=== PATIENT | female | born 1960 | race Caucasian/White ===

== ENCOUNTER 2016-11-21 12:13 | Inpatient (IN) ==
[2016-11-21] MEDS ORDERED: 0.9 % Sodium Chloride 1,000 ML ONE (12:42)
[2016-11-21] MEDS ORDERED: 0.9 % Sodium Chloride 1,000 ML IVC ONE ×2 (12:44→13:47)
[2016-11-21] MEDS ORDERED: Ipratropium/Albuterol Neb 3 ML IH ONE (13:00)
[2016-11-21 13:21] LABS: Basophils % 0.2 %; Eosinophils # 0.1 K/mcL (0.0-0.6); Eosinophils % 0.5 %; Hematocrit 34.9 % (35.3-44.9); Hemoglobin 11.2 g/dL (11.5-15.4); Immature Granulocytes % 0.7 % (0-4); Lymphocytes # 1.9 K/mcL (0.6-4.6); Lymphocytes % 11.4 %; Mean Corpuscular HGB Conc 32.1 g/dL (31.6-35.5); Mean Corpuscular Hemoglobin 29.9 pg (28.0-33.3); Mean Corpuscular Volume 93.1 fL (83.0-100.0); Mean Platelet Volume 9.5 fL (9.4-12.4); Monocytes # 0.9 K/mcL (0.0-1.3); Monocytes % 5.5 %; Neutrophils # 13.2 K/mcL (1.6-8.9); Platelet Count 309 K/mcL (140-400); Red Blood Count 3.75 M/mcL (3.82-4.97); Red Cell Distribution Width 14.3 % (11.5-14.5); Segmented Neutrophils % 81.7 %
[2016-11-21 13:33] LABS: INR 1.1; Prothrombin Time 11.4 Seconds (9.4-12.1)
[2016-11-21 13:36] LABS: Activated Partial Thrombo Time 28.3 Seconds (26.0-36.0)
[2016-11-21 13:38] LABS: BUN/Creatinine Ratio 24 (6-26); Blood Urea Nitrogen 23 mg/dL (7-20); Calcium 8.6 mg/dL (8.6-10.8); Carbon Dioxide 29 mEq/L (19-29); Chloride 95 mEq/L (98-109); Glucose 98 mg/dL (70-99); Osmolality,Calculated 278 (280-300); Potassium 4.7 mEq/L (3.5-4.5); Sodium 132 mEq/L (136-145); eGFR For African Americans > 60 (> 60); eGFR For Non-African Americans > 60 (> 60)
[2016-11-21 13:39] LABS: Salicylate < 5.0 mg/dL (15-30)
[2016-11-21 13:48] LABS: ABG HCO3 30.5 mEQ/L (21-27); ABG Oxygen Saturation 84 % (95-98); ABG PCO2 54 mmHg (35-45); ABG PH 7.36 pH Units (7.32-7.45); ABG PO2 51 mmHg (85-104); ABG TCO2 32.2 mEq/L (20-26)
[2016-11-21 13:50] LABS: Blood Gas Liter Flow 11 L/MIN
[2016-11-21] MEDS ORDERED: Piperacillin/Tazobactam 3.375 GM in D5% in Water (Mini-Bag+) 100 ML IVPB ONE (14:14)
[2016-11-21] MEDS ORDERED: Levofloxacin 750 MG/150 ML 750 MG/150 ML BAG IVPB ONE (14:14)
[2016-11-21] MEDS ORDERED: Vancomycin 1,500 MG in D5% in Water 250 ML IVPB ONE (15:00)
--- NOTE | 2016-11-21 15:07 | Emergency Department Note ---
Disposition Clinical Impression: Confusion Pneumonia Qualifiers: Pneumonia type: due to unspecified organism Laterality: right Lung location: lower lobe of lung Qualified Code(s): J18.1 - Lobar pneumonia, unspecified organism Disposition: Admitted As Inpatient Condition: Critical Time of Disposition: 15:21 General Adult HPI - General Chief complaint: ED General Medical Stated complaint: Right leg pain Time Seen by Provider: 11/21/16 15:05 Source: patient Limitations: no limitations Nursing Notes Reviewed: Yes Vital Signs Reviewed: Yes - History of Present Illness HPI Narrative: Mrs. Zayas, a 56yo female, presents from home via EMS with chief complaint of altered mentation. Patient is a poor sorting confused. Unknown onset of her symptoms. Unknown contributed factors. Unable to perform review of systems or ascertain past medical history. Pain Scale: 8 - Related Data Home Medications Medication Instructions Recorded Confirmed Albuterol Sulfate [Albuterol 2 puff IH Q4HR 03/05/15 11/21/16 Inhaler] Amitriptyline [Elavil] 100 mg PO HS 03/05/15 11/21/16 Cyclobenzaprine [Flexeril] 10 mg PO TID 03/05/15 11/21/16 Diltiazem CD (24hr) [Cardizem CD] 240 mg PO DAILY 03/05/15 11/21/16 Duloxetine [Cymbalta] 30 mg PO BID 03/05/15 11/21/16 Gabapentin [Neurontin] 600 mg PO TID 03/05/15 11/21/16 Lisinopril [Zestril] 10 mg PO DAILY 03/05/15 11/21/16 Multivitamin/Iron/Folic Acid 1 tab PO DAILY 03/05/15 11/21/16 [Centrum Complete Multivit Tab] Omeprazole [PriLOSEC] 20 mg PO DAILY 03/05/15 11/21/16 Alprazolam [Xanax] 1 mg PO TID 12/16/15 11/21/16 Diphenoxylate/Atropine [Lomotil 1 tab PO TID 12/16/15 11/21/16 2.5 mg/0.025 mg] Furosemide [Lasix] 20 - 40 mg PO DAILY 12/16/15 11/21/16 Lactose-Reduced Food [Ensure 1 bottle PO TID 12/16/15 11/21/16 Liquid] Oxycodone HCl/Acetaminophen 1 tab PO TID 12/16/15 11/21/16 [Percocet 5-325 mg Tablet] Oxygen 2 l .ROUTE AD 12/16/15 11/21/16 Sucralfate [Carafate] 10 ml PO BID 12/16/15 11/21/16 Previous Rx's Medication Instructions Recorded predniSONE [PredniSONE] 40 mg PO DAILY 5 Days 07/29/16 Allergies Allergy/AdvReac Type Severity Reaction Status Date / Time azithromycin AdvReac Hives Verified 06/25/16 16:15 cefuroxime [From Ceftin] AdvReac Swelling Verified 06/25/16 16:15 of Lip/Tongue/Throat pregabalin [From Lyrica] AdvReac Hives Verified 06/25/16 16:15 Limitations: ROS unobtainable due to patients medical condition Past Medical History - Past Medical History Medical history: Reports: CHF, COPD, hyperlipidemia, hypertension, osteoporosis , TIA Surgical history: Reports: hysterectomy, ureteral stent, other Psychiatric history: Reports: anxiety, depression CYBER SECURITY ENGINEER history: Reports: no 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 General: Patient is alert, oriented, and in no acute distress. HEENT: No facial asymmetry. Head is normocephalic and atraumatic. PERRLA, EOMI. Cardiovascular: Heart regular rate and rhythm without clicks, rubs, gallops, or murmurs. No JVD. PMI nondisplaced. Respiratory: Symmetric chest rise with poor respiratory effort. Bilateral breath sounds have scant wheezing, decreased right lower lobe lung sounds. No crackles or rhonchi. Abdomen: Bowel sounds present normoactive x-4 quadrants. Abdomen is soft, nondistended, and nontender. No organomegaly noted. Psych: Patient's affect is appropriate for situation. - General Limitations: no limitations General appearance: alert Course Course Narrative: Patient is unaccompanied. She smells of tobacco smoke and likely still an everyday smoker. Chart check: PMH: HTN, tobacco abuse, opiate abuse, GERD, depression, COPD Chest x-ray concerning for right lower lobe pneumonia with overlying COPD. There was concern for sepsis: Leukocytosis at 16.4. No acidemia and normal lactate. ABG shows hypoxia with hypercarbia. Carboxyhemoglobin mildly elevated at 6.4. Though elevated, nor markedly so. Possibly the result of tobacco smoking. EKG is unremarkable. Troponin and BNP within laboratory normal limits. Began empiric antibiotics - Vanc, zosyn, levofloxacin. Dr. Jauregui accepts the patient to his service for altered mentation, RLL pneumonia. Vital Signs Temperature 98.7 F 11/21/16 12:15 Pulse Rate 104 11/21/16 12:15 Respiratory Rate 20 11/21/16 12:15 Blood Pressure 87/47 11/21/16 12:15 O2 Sat by Pulse Oximetry 75 11/21/16 12:15 Temperature 98.7 F 11/21/16 12:15 Pulse Rate 90 11/21/16 15:00 Respiratory Rate 18 11/21/16 15:55 Blood Pressure 102/60 11/21/16 15:55 O2 Sat by Pulse Oximetry 100 11/21/16 15:00 Oxygen Delivery Oxygen Delivery Bipap Medical Decision Making - Lab Data Result diagrams: 11/21/16 13:15 11/21/16 13:15 Lab Results 11/21/16 11/21/16 11/21/16 Range/Units 12:58 13:15 13:15 WBC 16.2 H (4.3-11.1) K/mcL RBC 3.75 L (3.82-4.97) M/mcL Hgb 11.2 L (11.5-15.4) g/dL Hct 34.9 L (35.3-44.9) % MCV 93.1 (83.0-100.0) fL MCH 29.9 (28.0-33.3) pg MCHC 32.1 (31.6-35.5) g/dL RDW 14.3 (11.5-14.5) % Plt Count 309 (140-400) K/mcL MPV 9.5 (9.4-12.4) fL Immature Gran % 0.7 (0-4) % Seg Neutrophils % 81.7 % Lymphocytes % 11.4 % Monocytes % 5.5 % Eosinophils % 0.5 % Basophils % 0.2 % Neutrophils # 13.2 H (1.6-8.9) K/mcL Lymphocytes # 1.9 (0.6-4.6) K/mcL Monocytes # 0.9 (0.0-1.3) K/mcL Eosinophils # 0.1 (0.0-0.6) K/mcL Basophils # 0.0 (0.0-0.2) K/mcL PT (9.4-12.1) Seconds INR APTT (26.0-36.0) Seconds ABG pH (7.32-7.45) pH Units ABG pCO2 (35-45) mmHg ABG pO2 (85-104) mmHg ABG HCO3 (21-27) mEQ/L ABG Total CO2 (20-26) mEq/L ABG O2 Saturation (95-98) % ABG Base Excess (-2.0 to 3.0) mEq/L Carboxyhemoglobin 6.4 H (0-5) % Methemoglobin (0.4-1.5) % Liter Flow L/MIN Blood Gas Modality Sodium 132 L (136-145) mEq/L Potassium 4.7 H (3.5-4.5) mEq/L Chloride 95 L (98-109) mEq/L Carbon Dioxide 29 (19-29) mEq/L BUN 23 H (7-20) mg/dL Creatinine 0.95 (0.57-1.11) mg/dL Est GFR ( Amer) > 60 (> 60) Est GFR (Non-Af Amer) > 60 (> 60) BUN/Creatinine Ratio 24 (6-26) Glucose 98 (70-99) mg/dL Calculated Osmolality 278 L (280-300) Lactic Acid (0.5-2.2) mmol/L Calcium 8.6 (8.6-10.8) mg/dL Troponin I (0-0.03) ng/mL B-Natriuretic Peptide (0-100) pg/mL Salicylates < 5.0 L (15-30) mg/dL Acetaminophen 4.0 L (10-30) mcg/mL 11/21/16 11/21/16 11/21/16 Range/Units 13:15 13:15 13:15 WBC (4.3-11.1) K/mcL RBC (3.82-4.97) M/mcL Hgb (11.5-15.4) g/dL Hct (35.3-44.9) % MCV (83.0-100.0) fL MCH (28.0-33.3) pg MCHC (31.6-35.5) g/dL RDW (11.5-14.5) % Plt Count (140-400) K/mcL MPV (9.4-12.4) fL Immature Gran % (0-4) % Seg Neutrophils % % Lymphocytes % % Monocytes % % Eosinophils % % Basophils % % Neutrophils # (1.6-8.9) K/mcL Lymphocytes # (0.6-4.6) K/mcL Monocytes # (0.0-1.3) K/mcL Eosinophils # (0.0-0.6) K/mcL Basophils # (0.0-0.2) K/mcL PT (9.4-12.1) Seconds INR APTT (26.0-36.0) Seconds ABG pH (7.32-7.45) pH Units ABG pCO2 (35-45) mmHg ABG pO2 (85-104) mmHg ABG HCO3 (21-27) mEQ/L ABG Total CO2 (20-26) mEq/L ABG O2 Saturation (95-98) % ABG Base Excess (-2.0 to 3.0) mEq/L Carboxyhemoglobin (0-5) % Methemoglobin (0.4-1.5) % Liter Flow L/MIN Blood Gas Modality Sodium (136-145) mEq/L Potassium (3.5-4.5) mEq/L Chloride (98-109) mEq/L Carbon Dioxide (19-29) mEq/L BUN (7-20) mg/dL Creatinine (0.57-1.11) mg/dL Est GFR ( Amer) (> 60) Est GFR (Non-Af Amer) (> 60) BUN/Creatinine Ratio (6-26) Glucose (70-99) mg/dL Calculated Osmolality (280-300) Lactic Acid 0.9 (0.5-2.2) mmol/L Calcium (8.6-10.8) mg/dL Troponin I 0.01 (0-0.03) ng/mL B-Natriuretic Peptide 51 (0-100) pg/mL Salicylates (15-30) mg/dL Acetaminophen (10-30) mcg/mL 11/21/16 11/21/16 11/21/16 Range/Units 13:15 13:40 13:40 WBC (4.3-11.1) K/mcL RBC (3.82-4.97) M/mcL Hgb (11.5-15.4) g/dL Hct (35.3-44.9) % MCV (83.0-100.0) fL MCH (28.0-33.3) pg MCHC (31.6-35.5) g/dL RDW (11.5-14.5) % Plt Count (140-400) K/mcL MPV (9.4-12.4) fL Immature Gran % (0-4) % Seg Neutrophils % % Lymphocytes % % Monocytes % % Eosinophils % % Basophils % % Neutrophils # (1.6-8.9) K/mcL Lymphocytes # (0.6-4.6) K/mcL Monocytes # (0.0-1.3) K/mcL Eosinophils # (0.0-0.6) K/mcL Basophils # (0.0-0.2) K/mcL PT 11.4 (9.4-12.1) Seconds INR 1.1 APTT 28.3 (26.0-36.0) Seconds ABG pH 7.36 (7.32-7.45) pH Units ABG pCO2 54 H (35-45) mmHg ABG pO2 51 L (85-104) mmHg ABG HCO3 30.5 H (21-27) mEQ/L ABG Total CO2 32.2 H (20-26) mEq/L ABG O2 Saturation 84 L (95-98) % ABG Base Excess 4.0 H (-2.0 to 3.0) mEq/L Carboxyhemoglobin (0-5) % Methemoglobin 0.8 (0.4-1.5) % Liter Flow 11 L/MIN Blood Gas Modality OXYMASK Sodium (136-145) mEq/L Potassium (3.5-4.5) mEq/L Chloride (98-109) mEq/L Carbon Dioxide (19-29) mEq/L BUN (7-20) mg/dL Creatinine (0.57-1.11) mg/dL Est GFR ( Amer) (> 60) Est GFR (Non-Af Amer) (> 60) BUN/Creatinine Ratio (6-26) Glucose (70-99) mg/dL Calculated Osmolality (280-300) Lactic Acid (0.5-2.2) mmol/L Calcium (8.6-10.8) mg/dL Troponin I (0-0.03) ng/mL B-Natriuretic Peptide (0-100) pg/mL Salicylates (15-30) mg/dL Acetaminophen (10-30) mcg/mL Attestation Statement - Attestation Attestation: I, Reymundo Long, examined this patient and my medical decision-making was reviewed with the FIELD ARTILLERY CANNONEER/PA/Advanced Practice Nurse/Resident Physician. I agree with the documented findings, disposition and treatment plan as described except to the extent set forth below. History source: Patient is unable to provide information for this note. Info was gathered from the patient, hospital staff, the patient's chart. History limitations: Patient condition Medications: As per nurses note 56-year-old female brought in by EMS for altered mental status and concerns of right lower extremity pain. Patient states she fell within the past week but has been able to ambulate since that time, initially she reported pain to the right lower extremity however she does not have pain to evaluation in emergency department.. Upon initial evaluation the patient is hypoxic and hypotensive. Patient is altered and is unable to give a history regarding her case and presentation. Patient denies burning fuel in her house to cause a carbon monoxide poisoning. Patient denies fever, nausea, vomiting, chest pain. CT of the head and chest are negative for acute illness ground hemorrhage or mass and there is no evidence of PE. X-ray of the chest and pelvis do not reveal acute fracture. Patient has a multifocal infiltrate likely representing a severe pneumonia. Patient will be treated with Zosyn, vancomycin, levofloxacin for likely sepsis, states she has taken penicillins well in the past. Patient placed on BiPAP for treatment of her hypoxia and mildly elevated carboxyhemoglobin level with improvement of her hypoxia. Patient BP improved after administration of 2 L IV fluids with a map greater than 65. Patient will be admitted to the hospital for further care and evaluation of her sepsis secondary to pneumonia.
[2016-11-21 15:37] LABS: Bilirubin,Urine Negative (Negative); Blood,Urine Negative (Negative); Clarity,Urine Cloudy (Clear); Color,Urine Yellow (Yellow); Glucose,Urine (UA) Normal (Normal); Ketones,Urine Negative (Negative); Leukocyte Esterase,Urine Moderate (Negative); Nitrite,Urine Negative (Negative); PH,Urine 5.5 pH Units (5.0-8.0); Protein,Urine Negative (Neg-Trace); Specific Gravity,Urine 1.017 (1.010-1.025); Urobilinogen,Urine Normal (Normal)
[2016-11-21 15:40] LABS: Bacteria,Urine Many per hpf (None-Few); Hyaline Casts,Urine None Seen per lpf (None-Few); RBC,Urine 0-3 per hpf (0-3); Squamous Epithelial Cell,Urine None Seen per lpf (None-Few); WBC,Urine 15-30 per hpf (0-3)
[2016-11-21 15:43] LABS: Amphetamine Screen,Urine Negative ng/mL (Cutoff=1000); Barbiturate Screen,Urine Negative ng/mL (Cutoff=200); Benzodiazepines Screen,Urine Positive ng/mL (Cutoff=200); Cannabinoid Screen,Urine Negative ng/mL (Cutoff = 50); Cocaine Screen,Urine Negative ng/mL (Cutoff= 300); Opiate Screen,Urine Positive ng/mL (Cutoff=300); Phencyclidine Screen,Urine Negative ng/mL (Cutoff=25)
[2016-11-21] MEDS ORDERED: Acetaminophen 325 MG TABLET PO PRN (17:05)
[2016-11-21] MEDS ORDERED: Ondansetron 4 MG/2 ML VIAL IVP PRN (17:05)
[2016-11-21] MEDS ORDERED: Naloxone 0.4 MG/ML INJ IVP PRN (17:05)
[2016-11-21] MEDS ORDERED: *HR* Morphine 2 MG/ML SYRINGE IVP PRN (17:05)
[2016-11-21] MEDS ORDERED: Albuterol 2.5 MG/3 ML NEBULIZER IH PRN (17:10)
[2016-11-21] MEDS: *HR* OxyCODONE/APAP 5/325 TABLET PO PRN ×2 (17:46→23:18)
[2016-11-21] MEDS: ALPRAZolam 0.5 MG TABLET PO PRN ×2 (17:46→23:18)
[2016-11-21] MEDS: 0.9 % Sodium Chloride 1,000 ML IVC SCH (17:47)
[2016-11-21] MEDS: *HR* Heparin 5,000 UNIT/ML VIAL SQ SCH (17:48)
--- NOTE | 2016-11-21 17:51 | Internal Med History&Physical ---
Date of Encounter: 11/21/16 Time of Encounter: 16:45 Assessment and Plan (1) Acute on chronic respiratory failure Current visit: Yes Status: Acute Secondary to multifocal pneumonia and COPD exacerbation. Patient with history of emphysema, and COPD on 2 L of oxygen via nasal cannula at home. Patient is a poor historian. She states her boyfriend lives with her at home and was worried that she was falling frequently so he called EMS. Patient reports that her best friend a few weeks ago and she felt sad and stopped using her oxygen 2 days ago. She was having some productive cough and progressive shortness of breath for the past few days. No fever. She is unable to recall any more of her symptoms. Her boyfriend had acute bronchitis recently. She has a healthy dog at home. No recent travel. She denies any hemoptysis, headache, diarrhea, abdominal pain, urinary complaints, or chest pain. CTA chest showed moderate to severe centrilobular emphysema bilaterally, new multifocal patchy areas of air space disease involving the upper lobes and to a greater degree than the lower lobes, patchy airspace disease within the right middle lobe. ABG showed pH 7.36, PCO2 54, PO2 51, SaO2 84% on 11 L oxygen mask. WBC 16.2. Normal lactic acid. Blood cultures taken. In our ED, she required BiPAP due to severe hypoxemia and received nebulizations and empiric antibiotics as well as IV fluid resuscitation. Continue albuterol Atrovent nebulizations, oral prednisone, empiric antibiotics with levofloxacin and vancomycin, Mucinex and oxygen supplementation 4 L nasal cannula. telemetry monitor. Pulse oximetry monitor. Close monitoring in our stepdown unit. Qualifiers: Respiratory failure complication: hypoxia and hypercapnia Qualified Code(s) : J96.21 - Acute and chronic respiratory failure with hypoxia; J96.22 - Acute and chronic respiratory failure with hypercapnia (2) Sepsis Current visit: Yes Status: Acute Source is pneumonia. SIRS criteria WBC 16, tachypnea rr 20, tachycardia hr 104. Continue empiric antibiotics with IV levofloxacin and vancomycin. Follow results of blood cultures. Check Legionella and Streptococcus antigen in urine. Qualifiers: Sepsis type: sepsis due to unspecified organism Qualified Code(s): A41.9 - Sepsis, unspecified organism (3) Multifocal pneumonia Current visit: Yes Status: Acute Multifocal bacterial pneumonia. Plan as above. (4) Acute exacerbation of chronic obstructive airways disease Current visit: Yes Status: Acute Plan as above. (5) Hyperkalemia Current visit: Yes Status: Acute Potassium 4.7 on admission. Continue IV fluids. (6) Acute metabolic encephalopathy Current visit: Yes Status: Acute Secondary to hypo-ischemia. Improved BiPAP therapy. Continue treating underlying etiology. (7) Anxiety Current visit: Yes Status: Acute Mental status has improved. Resume low-dose Xanax as needed for anxiety area at (8) Chronic pain Current visit: No Status: Chronic Mental status has improved. Resume home dose of percocet at the lower dose. Qualifiers: Chronic pain type: chronic pain syndrome Qualified Code(s): G89.4 - Chronic pain syndrome (9) Tobacco abuse Current visit: No Status: Chronic Nicotine patch. Patient counseled to quit smoking. Internal Medicine - H&P: HPI Chief complaint: Changes in mental status this morning Admitted From: Home Plans for Post Hospital Care: Home History of present illness: Ms. Zayas is a 56 year old female with past medical history of COPD, chronic respiratory failure on 2 L of oxygen at home, hypertension, tobacco use, anxiety , depression, and chronic pain syndrome on Percocet. Patient is alert and oriented 3; however she is a poor historian. She states her boyfriend lives with her at home and was worried that she was falling frequently so he called EMS. Patient is a very anxious and tearful and reports that her best friend a few weeks ago and she felt very sad and stopped using her oxygen 2 days ago. She was having some productive cough and progressive shortness of breath for the past few days. No fever. She is unable to recall any more of her symptoms. Her boyfriend had acute bronchitis recently. She has a healthy dog at home. No recent travel. She denies any hemoptysis, headache, diarrhea, abdominal pain, urinary complaints, or chest pain. In our ED, patient was diagnosed of severe sepsis with source multifocal pneumonia and received 3 L of IV normal saline, vancomycin and levofloxacin. Past Med Surg Social Fam HX - Past Medical History Medical history: CHF, COPD, hyperlipidemia, hypertension, osteoporosis, TIA Psychiatric history: anxiety, depression - Past Surgical History Surgical History: hysterectomy, ureteral stent, other - Social History Smoking Status: Current every day smoker Packs per day: 1 Smokeless Tobacco Status: No Alcohol use: none Drug use: marijuana - Family History Mother Living Status: Still Living Hx Family Cardiac Disorders: Yes (HTN) Internal Medicine - H&P: Meds Albuterol Sulfate [Albuterol Inhaler] 2 puff IH Q4HR 03/05/15 [History] Amitriptyline [Elavil] 100 mg PO HS 03/05/15 [History] Cyclobenzaprine [Flexeril] 10 mg PO TID 03/05/15 [History] Diltiazem CD (24hr) [Cardizem CD] 240 mg PO DAILY 03/05/15 [History] Duloxetine [Cymbalta] 30 mg PO BID 03/05/15 [History] Gabapentin [Neurontin] 600 mg PO TID 03/05/15 [History] Lisinopril [Zestril] 10 mg PO DAILY 03/05/15 [History] Multivitamin/Iron/Folic Acid [Centrum Complete Multivit Tab] 1 tab PO DAILY [History] Omeprazole [PriLOSEC] 20 mg PO DAILY 03/05/15 [History] Alprazolam [Xanax] 1 mg PO TID 12/16/15 [History] Diphenoxylate/Atropine [Lomotil 2.5 mg/0.025 mg] 1 tab PO TID 12/16/15 [History] Furosemide [Lasix] 20 - 40 mg PO DAILY 12/16/15 [History] Lactose-Reduced Food [Ensure Liquid] 1 bottle PO TID 12/16/15 [History] Oxycodone HCl/Acetaminophen [Percocet 5-325 mg Tablet] 1 tab PO TID 12/16/15 [ History] Oxygen 2 l .ROUTE AD 12/16/15 [History] Sucralfate [Carafate] 10 ml PO BID 12/16/15 [History] predniSONE [PredniSONE] 40 mg PO DAILY 5 Days 17 [Rx] Allergies azithromycin Adverse Reaction (Verified 06/25/16 16:15) Hives cefuroxime [From Ceftin] Adverse Reaction (Verified 06/25/16 16:15) Swelling of Lip/Tongue/Throat pregabalin [From Lyrica] Adverse Reaction (Verified 06/25/16 16:15) Hives All Systems PM: A 10-system review of systems was performed and is negative for pertinent findings except as documented above in the HPI. - Constitutional Constitutional: fatigue, falls, malaise, weakness, no chills, no fever(s) - EENT Eyes: no blurry vision, no change in vision, no loss of peripheral vision, no loss of vision, no pain Nose, mouth and throat: nasal congestion, nasal discharge, no dysphagia, no lip swelling, no mouth lesions, no mouth pain, no nasal obstruction, no neck mass, no neck pain, no nose pain, no odynophagia, no sore throat, no throat swelling, no tongue swelling - Cardiovascular Cardiovascular ROS IM: dyspnea, no chest pain, no claudication, no diaphoresis, no edema, no orthopnea, no palpitations, no syncope - Respiratory Respiratory: cough, dyspnea, wheezing, no hemoptysis, no stridor - Gastrointestinal Gastrointestinal: no abdominal pain, no change in bowel habits, no constipation , no diarrhea, no loose stools, no melena, no nausea, no odynophagia, no vomiting - Integumentary Integumentary IM: no rash - Neurological Neurological ROS: frequent falls, no disequilibrium, no dizziness, no headache(s ), no tremor(s), no vertigo - Psychiatric Psychiatric: anxiety, depression, no behavioral changes, no change in appetite, no change in libido, no hallucinations, no homicidal ideation, no paranoia, no suicidal ideation, no visual hallucinations - Allergic/Immunologic Allergic/Immunologic: no tongue swelling, no throat swelling, no lip swelling - Constitutional Vitals: Temp Pulse Resp BP Pulse Ox 98.7 F 90 11 105/60 94 11/21/16 12:15 11/21/16 15:00 11/21/16 16:36 11/21/16 16:36 11/21/16 16:36 General appearance: Present: A&O X 3 Exam: Upon initial examination, patient was very fidgety, anxious and removing her pulse oximetry monitor and BiPAP mask. Nurse was at bedside talking to the patient and calm in her town. Patient laid down on her bed and agreed to a pulse oximeter monitor and oxygen supplementation via nasal cannula. Patient is speaking full sentences. SaO2 92% on 4 L via nasal cannula. - Head Head exam: Absent: atraumatic - Neck Neck exam general surgery: Present: supple, trachea midline. Absent: lymphadenopathy - Respiratory Respiratory exam: Present: decreased breath sounds (Very diminished air entry bilaterally), wheezes (Minimal wheezes lung bases.) - Cardiovascular Cardiovascular exam: Present: RRR - GI/Abdominal GI/Abdominal exam: Present: normal bowel sounds, soft. Absent: distended, tenderness - Extremities Exam Extremities exam: Absent: pedal edema - Back Exam Back exam: Absent: CVA tenderness (L), CVA tenderness (R) - Neurological Exam Neurological exam: Present: alert, oriented X3, no focal deficits, strengths equal and symetr throughout. Absent: facial droop, speech deficit - Skin Skin exam: Absent: rash Internal Med - H&P Results - Labs CBC & Chem 7: 11/21/16 13:15 11/21/16 13:15 Labs: Urine 11/21/16 Range/Units 15:28 Urine Color Yellow (Yellow) Urine Clarity Cloudy A (Clear) Urine pH 5.5 (5.0-8.0) pH Units Ur Specific [place] 1.017 (1.010-1.025) Urine Protein Negative (Neg-Trace) mg/dL Urine Glucose (UA) Normal (Normal) mg/dL
[2016-11-21] MEDS: Nicotine 14 MG PATCH.TD24 TD SCH (18:18)
[2016-11-21] MEDS: predniSONE 20 MG TABLET PO SCH (18:19)
[2016-11-21] MEDS: Ipratropium/Albuterol Neb 3 ML IH SCH ×3 (20:51→23:36)
[2016-11-22] MEDS: Vancomycin 1,000 MG in D5% in Water 250 ML IVPB SCH ×2 (02:48→14:16)
[2016-11-22 03:48] LABS: Basophils % 0.3 %; Hematocrit 32.3 % (35.3-44.9); Hemoglobin 10.2 g/dL (11.5-15.4); Immature Granulocytes % 2.7 % (0-4); Lymphocytes # 0.7 K/mcL (0.6-4.6); Mean Corpuscular HGB Conc 31.6 g/dL (31.6-35.5); Mean Corpuscular Hemoglobin 29.7 pg (28.0-33.3); Mean Corpuscular Volume 94.2 fL (83.0-100.0); Mean Platelet Volume 9.7 fL (9.4-12.4); Monocytes # 0.2 K/mcL (0.0-1.3); Monocytes % 1.5 %; Neutrophils # 12.2 K/mcL (1.6-8.9); Platelet Count 275 K/mcL (140-400); Red Blood Count 3.43 M/mcL (3.82-4.97); Red Cell Distribution Width 14.3 % (11.5-14.5); Segmented Neutrophils % 90.5 %
[2016-11-22] MEDS: Ipratropium/Albuterol Neb 3 ML IH SCH ×5 (03:59→20:59)
[2016-11-22 04:05] LABS: BUN/Creatinine Ratio 16 (6-26); Calcium 8.3 mg/dL (8.6-10.8); Carbon Dioxide 26 mEq/L (19-29); Chloride 103 mEq/L (98-109); Glucose 158 mg/dL (70-99); Magnesium 1.7 mg/dL (1.6-2.6); Osmolality,Calculated 289 (280-300); Phosphorous 2.2 mg/dL (2.3-4.7); Potassium 4.5 mEq/L (3.5-4.5); Sodium 138 mEq/L (136-145); eGFR For African Americans > 60 (> 60); eGFR For Non-African Americans > 60 (> 60)
[2016-11-22 04:09] LABS: Blood Urea Nitrogen 12 mg/dL (7-20)
[2016-11-22] MEDS: *HR* Heparin 5,000 UNIT/ML VIAL SQ SCH ×2 (06:15→17:20)
[2016-11-22] MEDS: 0.9 % Sodium Chloride 1,000 ML IVC SCH (06:15)
[2016-11-22] MEDS: ALPRAZolam 0.5 MG TABLET PO PRN (06:57)
[2016-11-22] MEDS ORDERED: Diltiazem CD (24hr) 120 MG CAPSULE PO STA (07:49)
[2016-11-22] MEDS: Diltiazem CD (24hr) 240 MG CAPSULE PO SCH (08:46)
[2016-11-22] MEDS: *HR* OxyCODONE/APAP 5/325 TABLET PO PRN ×3 (08:47→20:15)
[2016-11-22] MEDS: Pantoprazole 40 MG VIAL IVP SCH (08:48)
[2016-11-22] MEDS: predniSONE 20 MG TABLET PO SCH (08:48)
[2016-11-22] MEDS: Nicotine 14 MG PATCH.TD24 TD SCH (08:48)
[2016-11-22] MEDS: Levofloxacin 750 MG/150 ML 750 MG/150 ML BAG IVPB SCH (08:49)
[2016-11-22] MEDS ORDERED: Diltiazem CD (24hr) 120 MG CAPSULE PO SCH (09:00)
--- NOTE | 2016-11-22 12:47 | Electrocardiograph Report ---
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
[2016-11-22] MEDS: ALPRAZolam 0.5 MG TABLET PO SCH ×2 (14:16→20:15)
[2016-11-22] MEDS ORDERED: 0.9 % Sodium Chloride 1,000 ML IVC SCH (16:41)
--- NOTE | 2016-11-22 16:45 | Internal Med Progress Note ---
Date of Encounter: 11/22/16 Time of Encounter: 09:00 - Assessment and plan (1) Acute on chronic respiratory failure Current Visit: Yes Status: Acute Assessment and plan: Secondary to multifocal pneumonia and COPD exacerbation. Patient with history of emphysema, and COPD on 2 L of oxygen via nasal cannula at home. Patient is a poor historian. She states her boyfriend lives with her at home and was worried that she was falling frequently so he called EMS. Patient reports that her best friend a few weeks ago and she felt sad and stopped using her oxygen 2 days ago. She was having some productive cough and progressive shortness of breath for the past few days. No fever. She is unable to recall any more of her symptoms. Her boyfriend had acute bronchitis recently. She has a healthy dog at home. No recent travel. She denies any hemoptysis, headache, diarrhea, abdominal pain, urinary complaints, or chest pain. On admission, She required BiPAP due to severe hypoxemia. Slowly improving. Positive strep pneumonia in the urine. Continue nebulizations, oral prednisone , empiric antibiotics with levofloxacin and vancomycin, Mucinex and oxygen supplementation 4 L nasal cannula. neighborhood aide. Pulse oximetry monitor. Close monitoring in our stepdown unit. Stop IV fluids. 11/21: CTA chest showed moderate to severe centrilobular emphysema bilaterally, new multifocal patchy areas of air space disease involving the upper lobes and to a greater degree than the lower lobes, patchy airspace disease within the right middle lobe. Negative urine Legionella and urine culture. Blood cultures pending. Qualifiers: Respiratory failure complication: hypoxia and hypercapnia Qualified Code(s) : J96.21 - Acute and chronic respiratory failure with hypoxia; J96.22 - Acute and chronic respiratory failure with hypercapnia (2) Sepsis Current Visit: Yes Status: Acute Assessment and plan: Source is pneumonia. Continue empiric antibiotic with IV levofloxacin and vancomycin. Follow-up results of blood cultures. Negative legionella antigen in urine. Positive for strep pneumonia. Qualifiers: Sepsis type: sepsis due to unspecified organism Qualified Code(s): A41.9 - Sepsis, unspecified organism (3) Multifocal pneumonia Current Visit: Yes Status: Acute Assessment and plan: Bacterial pneumonia. Plan as above. (4) Acute exacerbation of chronic obstructive airways disease Current Visit: Yes Status: Acute Assessment and plan: Triggered by pneumonia. Plan as above. (5) Hyperkalemia Current Visit: Yes Status: Resolved (6) Acute metabolic encephalopathy Current Visit: Yes Status: Resolved Assessment and plan: Resolved. Secondary to hypoxemia and pneumonia. (7) Anxiety Current Visit: Yes Status: Acute Assessment and plan: Continue home medications (8) Chronic pain Current Visit: No Status: Chronic Assessment and plan: Continue home medications. Qualifiers: Chronic pain type: chronic pain syndrome Qualified Code(s): G89.4 - Chronic pain syndrome (9) Tobacco abuse Current Visit: No Status: Chronic Assessment and plan: Nicotine patch. Patient counseled to quit smoking. - Subjective Interval history: Patient's shortness of breath is slightly better compared to admission. She still has mild productive cough. No hemoptysis. No bleeding. - Constitutional Vitals: Temp Pulse Resp BP Pulse Ox 97.6 F 98 19 115/90 96 11/22/16 15:55 11/22/16 16:00 11/22/16 15:55 11/22/16 15:55 11/22/16 15:55 General appearance: Present: cooperative, A&O X 3, pleasant, no acute distress, answers questions appropriately - Neck Neck exam general surgery: Present: supple, trachea midline. Absent: lymphadenopathy - Respiratory Respiratory exam: Present: rhonchi, wheezes - Cardiovascular Cardiovascular exam: Present: RRR - GI/Abdominal GI/Abdominal exam: Present: normal bowel sounds, soft. Absent: distended, tenderness - Extremities Exam Extremities exam: Absent: pedal edema - Neurological Exam Neurological exam: Present: alert, oriented X3, no focal deficits, strengths equal and symetr throughout. Absent: facial droop, speech deficit - Skin Skin exam: Absent: rash Internal Medicine: Result - Labs CBC & Chem 7: 11/22/16 03:31 11/22/16 03:31 Labs: Short CBC 11/22/16 Range/Units 03:31 WBC 13.5 H (4.3-11.1) K/mcL Hgb 10.2 L (11.5-15.4) g/dL Hct 32.3 L (35.3-44.9) % Plt Count 275 (140-400) K/mcL Neutrophils # 12.2 H (1.6-8.9) K/mcL BMP 11/22/16 03:31 Sodium 138 Potassium 4.5 Chloride 103 Carbon Dioxide 26 BUN 12 D Creatinine 0.77 Glucose 158 H Calcium 8.3 L - ABG Interpretation ABG results: ABG ABG pH 7.36 pH Units (7.32-7.45) 11/21/16 13:40 ABG pCO2 54 mmHg (35-45) H 11/21/16 13:40 ABG pO2 51 mmHg (85-104) L 11/21/16 13:40 ABG O2 Saturation 84 % (95-98) L 11/21/16 13:40 PT/INR, D-dimer PT 11.4 Seconds (9.4-12.1) 11/21/16 13:15 Consult Discharge Plan - Plan Referrals: Zane Blakely MD [Primary Care Provider] -
[2016-11-23] MEDS: Ipratropium/Albuterol Neb 3 ML IH SCH ×7 (00:43→23:18)
[2016-11-23 04:05] LABS: Eosinophils % 0.1 %; Hematocrit 39.2 % (35.3-44.9); Immature Granulocytes % 2.4 % (0-4); Lymphocytes % 16.6 %; Mean Corpuscular HGB Conc 30.9 g/dL (31.6-35.5); Mean Corpuscular Hemoglobin 29.7 pg (28.0-33.3); Mean Corpuscular Volume 96.3 fL (83.0-100.0); Mean Platelet Volume 9.7 fL (9.4-12.4); Monocytes % 4.4 %; Platelet Count 258 K/mcL (140-400); Red Blood Count 4.07 M/mcL (3.82-4.97); Red Cell Distribution Width 14.4 % (11.5-14.5)
[2016-11-23 04:06] LABS: Basophils # 0.1 K/mcL (0.0-0.2); Basophils % 0.5 %; Lymphocytes # 2.2 K/mcL (0.6-4.6); Monocytes # 0.6 K/mcL (0.0-1.3); Neutrophils # 9.9 K/mcL (1.6-8.9)
[2016-11-23 04:09] LABS: Hemoglobin 12.1 g/dL (11.5-15.4)
[2016-11-23 04:17] LABS: BUN/Creatinine Ratio 12 (6-26); Blood Urea Nitrogen 8 mg/dL (7-20); Calcium 9.4 mg/dL (8.6-10.8); Carbon Dioxide 26 mEq/L (19-29); Chloride 101 mEq/L (98-109); Glucose 100 mg/dL (70-99); Osmolality,Calculated 286 (280-300); Phosphorous 2.8 mg/dL (2.3-4.7); Potassium 3.9 mEq/L (3.5-4.5); Sodium 139 mEq/L (136-145); eGFR For African Americans > 60 (> 60); eGFR For Non-African Americans > 60 (> 60)
[2016-11-23] MEDS ORDERED: Vancomycin 1,250 MG in D5% in Water 250 ML IVPB SCH (05:00)
[2016-11-23] MEDS: *HR* Heparin 5,000 UNIT/ML VIAL SQ SCH ×2 (05:04→17:54)
[2016-11-23] MEDS: *HR* OxyCODONE/APAP 5/325 TABLET PO PRN ×4 (05:35→22:31)
[2016-11-23] MEDS ORDERED: Aminoglycoside Consult 1 EACH MC ONE (07:54)
[2016-11-23] MEDS: Nicotine 14 MG PATCH.TD24 TD SCH (08:28)
[2016-11-23] MEDS: ALPRAZolam 0.5 MG TABLET PO SCH ×3 (08:29→20:05)
[2016-11-23] MEDS: Diltiazem CD (24hr) 240 MG CAPSULE PO SCH (08:29)
[2016-11-23] MEDS: predniSONE 20 MG TABLET PO SCH (08:29)
[2016-11-23] MEDS: Levofloxacin 750 MG/150 ML 750 MG/150 ML BAG IVPB SCH (08:30)
[2016-11-23] MEDS: Pantoprazole 40 MG VIAL IVP SCH (08:30)
--- NOTE | 2016-11-23 16:57 | Internal Med Progress Note ---
Date of Encounter: 11/23/16 Time of Encounter: 10:00 - Assessment and plan (1) Acute on chronic respiratory failure Current Visit: Yes Status: Acute Assessment and plan: Secondary to multifocal pneumonia and COPD exacerbation. Patient with history of emphysema, and COPD on 2 L of oxygen via nasal cannula at home. Patient is a poor historian. She states her boyfriend lives with her at home and was worried that she was falling frequently so he called EMS. Patient reports that her best friend a few weeks ago and she felt sad and stopped using her oxygen 2 days before presentation. She was having some productive cough and progressive shortness of breath for the past few days. No fever. She is unable to recall any more of her symptoms. Her boyfriend had acute bronchitis recently. She has a healthy dog at home. No recent travel. She denies any hemoptysis, headache, diarrhea, abdominal pain, urinary complaints, or chest pain. On admission, She required BiPAP due to severe hypoxemia. Slowly improving. Positive strep pneumonia in the urine. she is improving slowly. Continue nebulizations, oral prednisone, empiric antibiotics with levofloxacin, Mucinex and oxygen supplementation 4 L nasal cannula. . Stop vancomycin. quality assurance monitor. Pulse oximetry monitor. 11/21: CTA chest showed moderate to severe centrilobular emphysema bilaterally, new multifocal patchy areas of air space disease involving the upper lobes and to a greater degree than the lower lobes, patchy airspace disease within the right middle lobe. Negative urine Legionella and urine culture. Blood cultures pending. Qualifiers: Respiratory failure complication: hypoxia and hypercapnia Qualified Code(s) : J96.21 - Acute and chronic respiratory failure with hypoxia; J96.22 - Acute and chronic respiratory failure with hypercapnia (2) Sepsis Current Visit: Yes Status: Acute Assessment and plan: Source is pneumonia. Negative legionella antigen in urine and blood cultures NGTD. Positive for strep pneumonia. Continue empiric antibiotics with IV levofloxacin. Qualifiers: Sepsis type: sepsis due to unspecified organism Qualified Code(s): A41.9 - Sepsis, unspecified organism (3) Frequent falls Current Visit: Yes Status: Acute Assessment and plan: PT OT consulted. (4) Multifocal pneumonia Current Visit: Yes Status: Acute Assessment and plan: Strep pneumo PNA. Plan as above. (5) Acute exacerbation of chronic obstructive airways disease Current Visit: Yes Status: Acute Assessment and plan: Triggered by pneumonia. Plan as above. (6) Hyperkalemia Current Visit: Yes Status: Resolved (7) Acute metabolic encephalopathy Current Visit: Yes Status: Resolved Assessment and plan: Resolved. Secondary to hypoxemia and pneumonia. (8) Anxiety Current Visit: Yes Status: Acute Assessment and plan: Continue home medications (9) Chronic pain Current Visit: No Status: Chronic Assessment and plan: Continue home medications. Qualifiers: Chronic pain type: chronic pain syndrome Qualified Code(s): G89.4 - Chronic pain syndrome (10) Tobacco abuse Current Visit: No Status: Chronic Assessment and plan: Nicotine patch. Patient counseled to quit smoking. - Subjective Interval history: Patient's report her shortness of breath continues to improve. She still has mild productive cough. No hemoptysis. No bleeding. - Constitutional Vitals: Temp Pulse Resp BP Pulse Ox 98.3 F 110 18 138/77 94 11/23/16 15:18 11/23/16 15:18 11/23/16 16:21 11/23/16 15:18 11/23/16 16:21 General appearance: Present: cooperative, A&O X 3, pleasant, no acute distress, answers questions appropriately - Neck Neck exam general surgery: Present: supple, trachea midline. Absent: lymphadenopathy - Respiratory Respiratory exam: Present: rhonchi - Cardiovascular Cardiovascular exam: Present: RRR - GI/Abdominal GI/Abdominal exam: Present: normal bowel sounds, soft. Absent: distended, tenderness - Extremities Exam Extremities exam: Absent: pedal edema - Back Exam Back exam: Absent: CVA tenderness (L), CVA tenderness (R) - Neurological Exam Neurological exam: Present: alert, oriented X3, no focal deficits, strengths equal and symetr throughout. Absent: facial droop, speech deficit - Skin Skin exam: Absent: rash Internal Medicine: Result - Labs CBC & Chem 7: 11/23/16 03:57 11/23/16 03:57 Labs: Short CBC 11/23/16 Range/Units 03:57 WBC 13.1 H (4.3-11.1) K/mcL Hgb 12.1 D (11.5-15.4) g/dL Hct 39.2 (35.3-44.9) % Plt Count 258 (140-400) K/mcL Neutrophils # 9.9 H (1.6-8.9) K/mcL BMP 11/23/16 03:57 Sodium 139 Potassium 3.9 Chloride 101 Carbon Dioxide 26 BUN 8 Creatinine 0.67 Glucose 100 H Calcium 9.4 - ABG Interpretation ABG results: ABG ABG pH 7.36 pH Units (7.32-7.45) 11/21/16 13:40 ABG pCO2 54 mmHg (35-45) H 11/21/16 13:40 ABG pO2 51 mmHg (85-104) L 11/21/16 13:40 ABG O2 Saturation 84 % (95-98) L 11/21/16 13:40 PT/INR, D-dimer PT 11.4 Seconds (9.4-12.1) 11/21/16 13:15 Consult Discharge Plan - Plan Referrals: Zane Blakely MD [Primary Care Provider] - (SENT WEB REQUEST ON 11-23-16 @ [phone])
[2016-11-23] MEDS ORDERED: Melatonin 3 MG TABLET PO PRN (23:50)
[2016-11-24] MEDS: Ipratropium/Albuterol Neb 3 ML IH SCH ×4 (03:32→15:25)
[2016-11-24 03:59] LABS: Basophils # 0.1 K/mcL (0.0-0.2); Basophils % 0.4 %; Eosinophils % 0.1 %; Hemoglobin 10.8 g/dL (11.5-15.4); Immature Granulocytes % 3.1 % (0-4); Lymphocytes # 2.7 K/mcL (0.6-4.6); Lymphocytes % 20.7 %; Mean Corpuscular HGB Conc 31.8 g/dL (31.6-35.5); Mean Corpuscular Hemoglobin 29.8 pg (28.0-33.3); Mean Corpuscular Volume 93.9 fL (83.0-100.0); Mean Platelet Volume 9.6 fL (9.4-12.4); Monocytes # 0.6 K/mcL (0.0-1.3); Monocytes % 4.2 %; Neutrophils # 9.4 K/mcL (1.6-8.9); Platelet Count 287 K/mcL (140-400); Red Blood Count 3.62 M/mcL (3.82-4.97); Red Cell Distribution Width 14.4 % (11.5-14.5); Segmented Neutrophils % 71.5 %
[2016-11-24 04:10] LABS: BUN/Creatinine Ratio 17 (6-26); Blood Urea Nitrogen 11 mg/dL (7-20); Calcium 9.3 mg/dL (8.6-10.8); Carbon Dioxide 26 mEq/L (19-29); Chloride 100 mEq/L (98-109); Glucose 100 mg/dL (70-99); Magnesium 1.7 mg/dL (1.6-2.6); Osmolality,Calculated 283 (280-300); Potassium 4.5 mEq/L (3.5-4.5); Sodium 137 mEq/L (136-145); eGFR For African Americans > 60 (> 60); eGFR For Non-African Americans > 60 (> 60)
[2016-11-24] MEDS: *HR* OxyCODONE/APAP 5/325 TABLET PO PRN ×2 (05:01→09:16)
[2016-11-24] MEDS: *HR* Heparin 5,000 UNIT/ML VIAL SQ SCH (05:02)
[2016-11-24 08:38] VITALS: BP 142/89
[2016-11-24] MEDS: predniSONE 20 MG TABLET PO SCH (09:15)
[2016-11-24] MEDS: Nicotine 14 MG PATCH.TD24 TD SCH (09:17)
[2016-11-24] MEDS: Diltiazem CD (24hr) 240 MG CAPSULE PO SCH (09:17)
[2016-11-24] MEDS: Levofloxacin 750 MG/150 ML 750 MG/150 ML BAG IVPB SCH (09:19)
[2016-11-24] MEDS: ALPRAZolam 0.5 MG TABLET PO SCH (09:20)
--- NOTE | 2016-11-24 09:49 | Internal Med Progress Note ---
<Herson Cuevas - Last Filed: 11/24/16 13:56> Date of Encounter: 11/24/16 Time of Encounter: 09:20 - Assessment and plan (1) Acute on chronic respiratory failure Status: Acute Assessment and plan: Secondary to multifocal pneumonia and COPD exacerbation. On admission, She required BiPAP due to severe hypoxemia. Slowly improving. 11/21: CTA chest showed moderate to severe centrilobular emphysema bilaterally, new multifocal patchy areas of air space disease involving the upper lobes and to a greater degree than the lower lobes, patchy airspace disease within the right middle lobe. Positive strep pneumonia in the urine. Negative urine Legionella and urine culture. Blood cultures pending. Continue nebulizations. oral prednisone. Titrate O2 supplementation . Levofloxacin (day 3 of 5). Vancomycin stopped. Qualifiers: Respiratory failure complication: hypoxia and hypercapnia Qualified Code(s) : J96.21 - Acute and chronic respiratory failure with hypoxia; J96.22 - Acute and chronic respiratory failure with hypercapnia (2) Acute exacerbation of chronic obstructive airways disease Status: Acute Assessment and plan: / to pneumonia. Plan as above. (3) Pneumonia Status: Acute Assessment and plan: Strep pneumo PNA. Plan as above. Qualifiers: Pneumonia type: due to unspecified organism Laterality: right Lung location: lower lobe of lung Qualified Code(s): J18.1 - Lobar pneumonia, unspecified organism (4) Frequent falls Status: Acute Assessment and plan: PT OT consulted. (5) Chronic pain Status: Chronic Assessment and plan: Continue home medications. Qualifiers: Chronic pain type: chronic pain syndrome Qualified Code(s): G89.4 - Chronic pain syndrome (6) Tobacco abuse Status: Chronic Assessment and plan: Nicotine patch. Patient counseled to quit smoking. - Subjective Interval history: Patient seen and examined at bedside. Patient states she feels much better than at admission, not quite to baseline. She notes diarrhea and stomachache the past 2 days, history of IBS. No nausea or vomiting. - Constitutional Vitals: Temp Pulse Resp BP Pulse Ox 97.1 F L 67 15 142/89 96 11/24/16 08:36 11/24/16 08:36 11/24/16 08:36 11/24/16 08:36 11/24/16 08:36 General appearance: Present: cooperative, A&O X 3, pleasant, no acute distress, answers questions appropriately - Head Head exam: Present: atraumatic, normocephalic - Eye Eye exam: Present: EOMI, conjuntiva pink - ENT ENT exam: Present: mucous membranes moist - Neck Neck exam general surgery: Present: full ROM - Respiratory Respiratory exam: Present: CTAB - Cardiovascular Cardiovascular exam: Present: RRR. Absent: diastolic murmur, systolic murmur - GI/Abdominal GI/Abdominal exam: Present: normal bowel sounds, soft. Absent: distended, firm , guarding - Neurological Exam Neurological exam: Present: alert, oriented X3, no focal deficits - Psychiatric Psychiatric exam: Present: normal affect, normal mood - Skin Skin exam: Present: dry, intact. Absent: cyanosis, rash Internal Medicine: Result - Labs CBC & Chem 7: 11/24/16 03:43 11/24/16 03:43 Labs: Short CBC 11/24/16 Range/Units 03:43 WBC 13.1 H (4.3-11.1) K/mcL Hgb 10.8 L (11.5-15.4) g/dL Hct 34.0 L (35.3-44.9) % Plt Count 287 (140-400) K/mcL Neutrophils # 9.4 H (1.6-8.9) K/mcL BMP 11/24/16 03:43 Sodium 137 Potassium 4.5 Chloride 100 Carbon Dioxide 26 BUN 11 Creatinine 0.63 Glucose 100 H Calcium 9.3 - ABG Interpretation ABG results: ABG ABG pH 7.36 pH Units (7.32-7.45) 11/21/16 13:40 ABG pCO2 54 mmHg (35-45) H 11/21/16 13:40 ABG pO2 51 mmHg (85-104) L 11/21/16 13:40 ABG O2 Saturation 84 % (95-98) L 11/21/16 13:40 PT/INR, D-dimer PT 11.4 Seconds (9.4-12.1) 11/21/16 13:15 Consult Discharge Plan - Plan Instructions: Prednisone (By mouth), Levofloxacin (By mouth), Acute Respiratory Distress Syndrome (DC), Fall Prevention for Older Adults (GEN), Sepsis (DC), Pneumonia (DC), Cigarette Smoking and Your Health, 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 Continue steroid and antibiotic for the next 2 days. If difficulty breathing returns/worsens, please seek further medical evaluation. Referrals: Zane Blakely MD [Primary Care Provider] - 12/01/16 9:45 am () Prescriptions: Levofloxacin [Levaquin] 750 mg PO DAILY #2 tablet predniSONE [PredniSONE] 40 mg PO DAILY #2 tablet <Christiano Hymanjimena Garcia - Last Filed: 11/24/16 16:04> Date of Encounter: 11/24/16 - Assessment and plan (1) Acute on chronic respiratory failure Status: Acute Assessment and plan: Secondary to multifocal pneumonia and COPD exacerbation. On admission, She required BiPAP due to severe hypoxemia. Slowly improving. 11/21: CTA chest showed moderate to severe centrilobular emphysema bilaterally, new multifocal patchy areas of air space disease involving the upper lobes and to a greater degree than the lower lobes, patchy airspace disease within the right middle lobe. Positive strep pneumonia in the urine. Negative urine Legionella and urine culture. Blood cultures pending. Continue nebulizations. oral prednisone. Titrate O2 supplementation . Levofloxacin (day 3 of 5). Vancomycin stopped. Qualifiers: Respiratory failure complication: hypoxia and hypercapnia Qualified Code(s) : J96.21 - Acute and chronic respiratory failure with hypoxia; J96.22 - Acute and chronic respiratory failure with hypercapnia (2) Pneumonia Status: Acute Assessment and plan: Strep pneumo PNA. Plan as above. Qualifiers: Pneumonia type: due to Pneumococcus Laterality: right Lung location: lower lobe of lung Qualified Code(s): J13 - Pneumonia due to Streptococcus pneumoniae (3) Tobacco abuse Status: Chronic (4) Chronic pain Status: Chronic Qualifiers: Chronic pain type: chronic pain syndrome Qualified Code(s): G89.4 - Chronic pain syndrome (5) Acute exacerbation of chronic obstructive airways disease Status: Acute Assessment and plan: Triggered by pneumonia. Plan as above. - Constitutional Vitals: Temp Pulse Resp BP Pulse Ox 97.1 F L 67 16 142/89 96 11/24/16 08:36 11/24/16 08:36 11/24/16 11:19 11/24/16 08:36 11/24/16 11:19 Internal Medicine: Result - Labs CBC & Chem 7: 11/24/16 03:43 11/24/16 03:43 Labs: Short CBC 11/24/16 Range/Units 03:43 WBC 13.1 H (4.3-11.1) K/mcL Hgb 10.8 L (11.5-15.4) g/dL Hct 34.0 L (35.3-44.9) % Plt Count 287 (140-400) K/mcL Neutrophils # 9.4 H (1.6-8.9) K/mcL BMP 11/24/16 03:43 Sodium 137 Potassium 4.5 Chloride 100 Carbon Dioxide 26 BUN 11 Creatinine 0.63 Glucose 100 H Calcium 9.3 - ABG Interpretation ABG results: ABG ABG pH 7.36 pH Units (7.32-7.45) 11/21/16 13:40 ABG pCO2 54 mmHg (35-45) H 11/21/16 13:40 ABG pO2 51 mmHg (85-104) L 11/21/16 13:40 ABG O2 Saturation 84 % (95-98) L 11/21/16 13:40 PT/INR, D-dimer PT 11.4 Seconds (9.4-12.1) 11/21/16 13:15 - Attending Attestation I examined this patient and my medical decision-making was reviewed with the Resident Physician on 11/24/16. I agree with the documented findings, disposition and treatment plan as described except to the extent set forth below. Ms. Zayas has been admitted for bilateral pneumonia. She is now afebrile with stable vitals. Her labs have improved. She is back to baseline oxygen levels (2 liters). She feels ready to go home. Exam alert. Comfortable Heart reg Lungs essentially clear at this time. Plan D/C home today Complete abx Follow up with PCP. D/C time 39min
--- NOTE | 2016-11-24 13:40 | Discharge Summary ---
<Herson Cuevas - Last Filed: 11/24/16 16:05> Date of Encounter: 11/24/16 Time of Encounter: 11:20 - Discharge Diagnosis (1) Acute on chronic respiratory failure Priority: Primary Status: Acute Qualifiers: Respiratory failure complication: hypoxia and hypercapnia Qualified Code(s) : J96.21 - Acute and chronic respiratory failure with hypoxia; J96.22 - Acute and chronic respiratory failure with hypercapnia (2) Acute exacerbation of chronic obstructive airways disease Priority: Secondary Status: Acute (3) Pneumonia Priority: Secondary Status: Acute Qualifiers: Pneumonia type: due to Pneumococcus Laterality: right Lung location: lower lobe of lung Qualified Code(s): J13 - Pneumonia due to Streptococcus pneumoniae (4) Frequent falls Priority: Secondary Status: Acute (5) Chronic pain Priority: Secondary Status: Chronic Qualifiers: Chronic pain type: chronic pain syndrome Qualified Code(s): G89.4 - Chronic pain syndrome (6) Tobacco abuse Priority: Secondary Status: Chronic - Discharge Medications Prescriptions: Levofloxacin [Levaquin] 750 mg PO DAILY #2 tablet predniSONE [PredniSONE] 40 mg PO DAILY #2 tablet Home Medications: Albuterol Sulfate [Albuterol Inhaler] 2 puff IH Q4HR 03/05/15 [History] Amitriptyline [Elavil] 100 mg PO HS 03/05/15 [History] Cyclobenzaprine [Flexeril] 10 mg PO TID 03/05/15 [History] Diltiazem CD (24hr) [Cardizem CD] 240 mg PO DAILY 03/05/15 [History] Duloxetine [Cymbalta] 30 mg PO BID 03/05/15 [History] Gabapentin [Neurontin] 600 mg PO TID 03/05/15 [History] Lisinopril [Zestril] 10 mg PO DAILY 03/05/15 [History] Multivitamin/Iron/Folic Acid [Centrum Complete Multivit Tab] 1 tab PO DAILY [History] Omeprazole [PriLOSEC] 20 mg PO DAILY 03/05/15 [History] Alprazolam [Xanax] 1 mg PO TID 12/16/15 [History] Diphenoxylate/Atropine [Lomotil 2.5 mg/0.025 mg] 1 tab PO TID 12/16/15 [History] Furosemide [Lasix] 20 - 40 mg PO DAILY 12/16/15 [History] Lactose-Reduced Food [Ensure Liquid] 1 bottle PO TID 12/16/15 [History] Oxycodone HCl/Acetaminophen [Percocet 5-325 mg Tablet] 1 tab PO TID 12/16/15 [ History] Oxygen 2 l .ROUTE AD 12/16/15 [History] Sucralfate [Carafate] 10 ml PO BID 12/16/15 [History] predniSONE [PredniSONE] 40 mg PO DAILY 5 Days 07/29/16 [Rx] Levofloxacin [Levaquin] 750 mg PO DAILY #2 tablet 11/24/16 [Rx] predniSONE [PredniSONE] 40 mg PO DAILY #2 tablet 11/24/16 [Rx] Allergies/Adverse Reactions: Allergies azithromycin Adverse Reaction (Verified 06/25/16 16:15) Hives cefuroxime [From Ceftin] Adverse Reaction (Verified 06/25/16 16:15) Swelling of Lip/Tongue/Throat pregabalin [From Lyrica] Adverse Reaction (Verified 06/25/16 16:15) Hives Date of admission: 11/21/16 17:05 Primary care physician: Zane Blakely MD Consults: 11/23/16 14:17 Consult to Respiratory Therapy [CONS] Routine Reason for Consult: Overnight pulse ox study- qualify for bipap. Call Completed: Yes 11/23/16 14:18 Consult to Occupational Therapy [CONS] Routine Comment: Evaluate, develop and implement POC Reason for Consult: Discharge planning Consult to Physical Therapy [CONS] Routine Comment: Evaluate, develop and implement POC Reason for Consult: discharge planning Discharging clinician: Celestino Hyman Anticipated date of discharge: 11/24/16 - Patient Status Disposition: Home, Self-Care Condition: Fair Functional capacity at discharge: uses cane/walker Overall status at discharge: patient is progressing back to baseline - Discharge Instructions Instructions: Prednisone (By mouth), Levofloxacin (By mouth), Acute Respiratory Distress Syndrome (DC), Fall Prevention for Older Adults (GEN), Sepsis (DC), Pneumonia (DC), Cigarette Smoking and Your Health, Humidifier Operator (GEN) Follow Up With: Zane Blakely MD [Primary Care Provider] - 12/01/16 9:45 am () Additional Instructions: Follow up with Primary Care Provider in the next 5-7 days or sooner if needed. Continue steroid and antibiotic for the next 2 days. If difficulty breathing returns/worsens, please seek further medical evaluation. - Diet and Activity Activity: increase activity as tolerated, wear oxygen at all times Diet: advance to your usual diet Interval History: Patient seen and examined at bedside. Patient states she feels better today, not quite at baseline. She notes diarrhea with history of IBS. No nausea or vomiting. Hospital course: Ms. Zayas is a 56 year old female with PMHx of COPD, Chronic resp failure on 2L O2 at home, HTN, tobacco use, axiety, depression, and chronic pain. Presented to [facility] for increased falling and shortness of breath. In our ED, patient was diagnosed of severe sepsis with source multifocal pneumonia and received 3 L of IV normal saline, vancomycin and levofloxacin. She required BiPAP due to severe hypoxemia. 11/21: CTA chest showed moderate to severe centrilobular emphysema bilaterally, new multifocal patchy areas of air space disease involving the upper lobes and to a greater degree than the lower lobes, patchy airspace disease within the right middle lobe. Positive strep pneumonia in the urine. Negative urine Legionella and urine culture. Blood cultures - no growth. Patient was weaned to bipap at night only, patient did not qualify for home BiPAP from O2 study. Daytime O2 waen to patient's baseline of 2L. Patient received 2 days vancomycin and 3 days of oral prednisone and IV Levofoxacin. Time spent discussing smoking cessation with patient: 3 to 10 minutes - Time Spent with Patient Total time spent providing and/or coordinating discharge services: Less than 30 minutes - Constitutional Vitals: Temp Pulse Resp BP Pulse Ox 97.1 F L 67 16 142/89 96 11/24/16 08:36 11/24/16 08:36 11/24/16 11:19 11/24/16 08:36 11/24/16 11:19 General appearance: Present: cooperative, A&O X 3, pleasant, no acute distress, answers questions appropriately <Celestino Hyman - Last Filed: 11/24/16 16:18> Date of Encounter: 11/24/16 - Discharge Diagnosis (1) Acute on chronic respiratory failure Status: Acute Qualifiers: Respiratory failure complication: hypoxia and hypercapnia Qualified Code(s) : J96.21 - Acute and chronic respiratory failure with hypoxia; J96.22 - Acute and chronic respiratory failure with hypercapnia (2) Pneumonia Status: Acute Qualifiers: Pneumonia type: due to Pneumococcus Laterality: right Lung location: lower lobe of lung Qualified Code(s): J13 - Pneumonia due to Streptococcus pneumoniae (3) Tobacco abuse Status: Chronic (4) Chronic pain Status: Chronic Qualifiers: Chronic pain type: chronic pain syndrome Qualified Code(s): G89.4 - Chronic pain syndrome (5) Acute exacerbation of chronic obstructive airways disease Priority: Secondary Status: Acute Date of admission: 11/21/16 17:05 Primary care physician: Zane Blakely MD Consults: 11/23/16 14:17 Consult to Respiratory Therapy [CONS] Routine Reason for Consult: Overnight pulse ox study- qualify for bipap. Call Completed: Yes 11/23/16 14:18 Consult to Occupational Therapy [CONS] Routine Comment: Evaluate, develop and implement POC Reason for Consult: Discharge planning Consult to Physical Therapy [CONS] Routine Comment: Evaluate, develop and implement POC Reason for Consult: discharge planning Hospital course: Ms. Zayas is a 56 year old female - Time Spent with Patient Total time spent providing and/or coordinating discharge services: 35min - Constitutional Vitals: Temp Pulse Resp BP Pulse Ox 97.1 F L 67 16 142/89 96 11/24/16 08:36 11/24/16 08:36 11/24/16 11:19 11/24/16 08:36 11/24/16 11:19 - Attending Attestation I examined this patient and my medical decision-making was reviewed with the Resident Physician on 11/24/16. I agree with the documented findings, disposition and treatment plan as described except to the extent set forth below. Ms Zayas is ready for discharge. She is afebrile with stable vitals. Please see progress note of today for information. D/C blu
--- NOTE | 2016-11-24 13:50 | Physician Discharge Referral ---
Home Health/Hosp Referral Info Transfer to: Home Health Provider in Charge Post Discharge: PCP - Diagnosis (1) Acute on chronic respiratory failure Priority: Primary Status: Acute (2) Acute exacerbation of chronic obstructive airways disease Priority: Secondary Status: Acute (3) Pneumonia Priority: Secondary Status: Acute (4) Frequent falls Priority: Secondary Status: Acute (5) Chronic pain Priority: Secondary Status: Chronic (6) Tobacco abuse Priority: Secondary Status: Chronic - Respiratory Orders Oxygen / L per min (2 LPM) Smoking Cessation: Smoking cessation has been advised. For more information, call the [place] Tobacco Quit Line at 6-312-GOYM-NOW. - Diet/Nutrition Diet/Nutrition Orders: Regular - Activity Activity Orders: Walker - Services Needed Following services are medically necessary services: Nursing, Physical Therapy - Transfer Medications Prescriptions: Levofloxacin [Levaquin] 750 mg PO DAILY #2 tablet predniSONE [PredniSONE] 40 mg PO DAILY #2 tablet Home Medications: Albuterol Sulfate [Albuterol Inhaler] 2 puff IH Q4HR 03/05/15 [History] Amitriptyline [Elavil] 100 mg PO HS 03/05/15 [History] Cyclobenzaprine [Flexeril] 10 mg PO TID 03/05/15 [History] Diltiazem CD (24hr) [Cardizem CD] 240 mg PO DAILY 03/05/15 [History] Duloxetine [Cymbalta] 30 mg PO BID 03/05/15 [History] Gabapentin [Neurontin] 600 mg PO TID 03/05/15 [History] Lisinopril [Zestril] 10 mg PO DAILY 03/05/15 [History] Multivitamin/Iron/Folic Acid [Centrum Complete Multivit Tab] 1 tab PO DAILY [History] Omeprazole [PriLOSEC] 20 mg PO DAILY 03/05/15 [History] Alprazolam [Xanax] 1 mg PO TID 12/16/15 [History] Diphenoxylate/Atropine [Lomotil 2.5 mg/0.025 mg] 1 tab PO TID 12/16/15 [History] Furosemide [Lasix] 20 - 40 mg PO DAILY 12/16/15 [History] Lactose-Reduced Food [Ensure Liquid] 1 bottle PO TID 12/16/15 [History] Oxycodone HCl/Acetaminophen [Percocet 5-325 mg Tablet] 1 tab PO TID 12/16/15 [ History] Oxygen 2 l .ROUTE AD 12/16/15 [History] Sucralfate [Carafate] 10 ml PO BID 12/16/15 [History] predniSONE [PredniSONE] 40 mg PO DAILY 5 Days 07/29/16 [Rx] Levofloxacin [Levaquin] 750 mg PO DAILY #2 tablet 11/24/16 [Rx] predniSONE [PredniSONE] 40 mg PO DAILY #2 tablet 11/24/16 [Rx] Allergies/Adverse Reactions: Allergies azithromycin Adverse Reaction (Verified 06/25/16 16:15) Hives cefuroxime [From Ceftin] Adverse Reaction (Verified 06/25/16 16:15) Swelling of Lip/Tongue/Throat pregabalin [From Lyrica] Adverse Reaction (Verified 06/25/16 16:15) Hives Certification: Further, I certify that my clinical findings support that this patient is homebound (i.e. absences from home require considerable and taxing effort and are for medical reasons or rastafarian services or infrequently or short duration when for other reasons) because: Homebound Reason: Patient requires assistance of a person or device to safely leave home, Leaving home requires considerable and taxing effort due to condition, Severity of cardiac or pulmonary status limits activity tolerance Attestation: My signature below is to certify that this patient is under my care and that I, or nurse practitioner, or a physician's trust operations assistant working with me, has a face-to -face encounter with this patient.
[2016-11-24] MEDS ORDERED: levoFLOXacin 750 MG TABLET PO ONE (15:14)
[2016-11-25] MEDS ORDERED: levoFLOXacin 750 MG TABLET PO SCH (09:00)
== END 2016-11-24 15:46 | disposition home or self-care (01) | DRG 720 ==
LOC: 2NNU 12:13 → EMEROO 12:13 → 2NNU 15:57 → SUATTDRO 17:05 → 2NNU 11-22 07:19 → 2NENU 11-23 21:50
PROVIDERS: ADMIT Internal Medicine; ATTEND Internal Medicine

== ENCOUNTER 2017-03-13 18:26 | Inpatient (IN) ==
[2017-03-13] MEDS ORDERED: 0.9 % Sodium Chloride 1,000 ML ONE (18:53)
--- NOTE | 2017-03-13 19:21 | Emergency Department Note ---
Disposition Clinical Impression: Hypoxia, Hallucinations Hypotension Qualifiers: Hypotension type: unspecified hypotension type Qualified Code(s): I95.9 - Hypotension, unspecified Altered mental status Qualifiers: Altered mental status type: unspecified Qualified Code(s): R41.82 - Altered mental status, unspecified Disposition: Admitted As Inpatient Condition: Fair Time of Disposition: 05:35 General Adult HPI - General Chief complaint: ED Altered Mental Status Stated complaint: hallucinations Time Seen by Provider: 03/13/17 18:47 Source: patient Mode of arrival: private vehicle Limitations: no limitations Nursing Notes Reviewed: Yes Vital Signs Reviewed: Yes - History of Present Illness HPI Narrative: Patient is a 56-year-old female presents the emergency department with hallucinations and altered mental status. Family states that starting on January 12 she started with the hallucinations. States that she has been seeing people and talking to them that they do not talk back. States that she just says become more confused to the point today the patient disregarded her son being in the room and was talking to the hallucinations. Family states that her symptoms come and go. Patient was previously on home oxygen of 2 L but was discontinued about 4-5 months ago. She has a chronic cough which has started to produce a yellow phlegm. Patient admits to having fever, chills, shortness of breath, chest pain. Pain Scale: 6 - Related Data Home Medications Medication Instructions Recorded Confirmed Albuterol Sulfate [Albuterol 2 puff IH Q4HR 03/05/15 11/21/16 Inhaler] Amitriptyline [Elavil] 100 mg PO HS 03/05/15 11/21/16 Cyclobenzaprine [Flexeril] 10 mg PO TID 03/05/15 11/21/16 Diltiazem CD (24hr) [Cardizem CD] 240 mg PO DAILY 03/05/15 11/21/16 Duloxetine [Cymbalta] 30 mg PO BID 03/05/15 11/21/16 Gabapentin [Neurontin] 600 mg PO TID 03/05/15 11/21/16 Lisinopril [Zestril] 10 mg PO DAILY 03/05/15 11/21/16 Multivitamin/Iron/Folic Acid 1 tab PO DAILY 03/05/15 11/21/16 [Centrum Complete Multivit Tab] Omeprazole [PriLOSEC] 20 mg PO DAILY 03/05/15 11/21/16 Alprazolam [Xanax] 1 mg PO TID 12/16/15 11/21/16 Diphenoxylate/Atropine [Lomotil 1 tab PO TID 12/16/15 11/21/16 2.5 mg/0.025 mg] Furosemide [Lasix] 20 - 40 mg PO DAILY 12/16/15 11/21/16 Lactose-Reduced Food [Ensure 1 bottle PO TID 12/16/15 11/21/16 Liquid] Oxycodone HCl/Acetaminophen 1 tab PO TID 12/16/15 11/21/16 [Percocet 5-325 mg Tablet] Oxygen 2 l .ROUTE AD 12/16/15 11/21/16 Sucralfate [Carafate] 10 ml PO BID 12/16/15 11/21/16 Previous Rx's Medication Instructions Recorded predniSONE [PredniSONE] 40 mg PO DAILY 5 Days 07/29/16 Levofloxacin [Levaquin] 750 mg PO DAILY #2 tablet 11/24/16 predniSONE [PredniSONE] 40 mg PO DAILY #2 tablet 11/24/16 Allergies Allergy/AdvReac Type Severity Reaction Status Date / Time azithromycin AdvReac Hives Verified 06/25/16 16:15 cefuroxime [From Ceftin] AdvReac Swelling Verified 06/25/16 16:15 of Lip/Tongue/Throat pregabalin [From Lyrica] AdvReac Hives Verified 06/25/16 16:15 All systems ED: reviewed and negative except as stated. Constitutional: Reports: fever, chills Cardiovascular: Reports: chest pain Respiratory: Reports: dyspnea Past Medical History - Past Medical History Medical history: Reports: CHF, COPD, hyperlipidemia, hypertension, osteoporosis , TIA Surgical history: Reports: hysterectomy, ureteral stent, other Psychiatric history: Reports: anxiety, depression CUPOLA MAN history: Reports: no CUPOLA MAN history - Social History Smoking Status: Current every day smoker Smokeless Tobacco Status: No Alcohol use: Reports: none Drug use: Reports: marijuana Physical Exam - General Limitations: no limitations General appearance: alert, in no apparent distress - Head Head exam: atraumatic, normocephalic - Eye Eye exam: Present: normal appearance - Neck Neck exam: Present: normal inspection, full ROM, trachea midline - Respiratory Respiratory exam: Present: wheezes (On the left), other (Rales on the right). Absent: respiratory distress - Cardiovascular Cardiovascular exam: Present: regular rate, normal rhythm, normal heart sounds, +S1, +S2 - Expanded Cardiovascular Exam Peripheral pulses: 2+: radial (R), radial (L), posterior tibialis (R), posterior tibialis (L), dorsalis pedis (R), dorsalis pedis (L) - Abdominal Exam Abdominal exam: Present: soft, Non-Tender, normal bowel sounds - Extremities Exam Extremities exam: Present: normal inspection, full ROM, normal capillary refill - Neurological Exam Neurological exam: Present: alert, oriented X3, CN II-XII intact. Absent: motor sensory deficit - Expanded Neurological Exam Cranial nerves: EOM function (II, III, IV, ): Normal, facial sensation (V): Normal, facial palsy (VII): Normal, gag reflex (IX): Normal, spinal accessory function (XI): Normal, tongue deviation (XII): Normal Cerebellar function: finger to nose: Normal, heel to llamas: Normal Motor strength - LUE: 5/5 Motor strength - RUE: 5/5 Motor strength - LLE: 5/5 Motor strength - RLE: 5/5 Sensory exam upper extremity: light touch: Normal Sensory exam lower extremity: light touch: Normal - Psychiatric Psychiatric exam: Present: normal affect, normal mood - Skin Skin exam: Present: warm, dry, intact Course - Reevaluation(s) Reevaluation #1: Patient was remaining hypotensive with a map 59-61 so we placed a right IJ central line. The patient tolerated this procedure well. Reevaluation #2: D-dimer was elevated at 659 so we have ordered a CTA of the chest to evaluate for possible pulmonary embolus Time: 01:21 - Consultations Consultation #1: I spoke with the hospitalist Dr. Thomas and he has asked that we do a d-dimer and a CT of abdomen and pelvis prior to the patient being admitted. Time: 23:58 Consultation #2: I spoke with Dr. Hopkins the cardiothoracic surgeon at 0440 this morning upon request of the hospitalist. The hospitalist wanted to make sure that thoracic surgery would be available if there is complications from the central line having gone through the internal jugular vein to the mediastinum and having Levophed given. Dr. Hopkins did not seem too concerned about this. My understanding from Dr. Hopkins is that if there were to be complications they would have already occurred. I have placed a consult in the computer for cardiothoracic surgery per request of the hospitalist. Time: 04:40 Consultation #3: I called and spoke with Dr. Thomas and updated him on with cardiothoracic surgery had said. He said that he would come down and discuss the case. He came to the emergency department we discussed the case and reviewed the imaging. He then said that they would take the patient. Time: 04:49 Vital Signs Temperature 98.5 F 03/13/17 18:35 Pulse Rate 104 03/13/17 18:35 Respiratory Rate 18 03/13/17 18:35 Blood Pressure 90/55 03/13/17 18:35 O2 Sat by Pulse Oximetry 83 03/13/17 18:35 Temperature 97.5 F L 03/14/17 05:30 Pulse Rate 82 03/14/17 05:57 Respiratory Rate 20 03/14/17 05:30 Blood Pressure 129/37 03/14/17 05:30 O2 Sat by Pulse Oximetry 95 03/14/17 05:30 Oxygen Delivery Oxygen Delivery Nasal Cannula Procedures - Central Line Placement Right IJ Central Line Inserted*: Yes Central Line Catheter Replacement*: No Central Line Insertion: emergent Consent Obtained: written consent Procedural Pause: verify patient name and date of , timeout performed per policy, trang and assess the site, assemble equipment and verify supplies, perform hand hygiene Patient Placed on Monitor/Pulse Ox: Yes During the Procedure: clinician is wearing sterile gloves, cap, mask,& gown during insertion, sterile field and sterile technique are maintained, patient's face is covered with drape or mask and wearing a cap, everyone in room is wearing a mask Central Line Prep: Chlorhexidine scrub Prep the Procedure Site: apply chloraprep to the skin using a back and forth scrubbing motion, apply chloraprep for 30 seconds (upper body), 1-2 min ( femoral sites), allow prep to dry, drape the patient with a full body drape Local Anesthetic: lidocaine 1% Amount of anesthesia used (mL): 2.5 Ultrasound Used for Placement: Yes Central Line Lumen Inserted: triple Post Procedure: sutured in place, good blood return, all ports aspirated, flushed, capped, sterile dressing applied, guide wire removed and visualized Post Procedure X-Ray: tip of catheter in good position, no pneumothorax seen Patient Tolerated Procedure: well Complications: catheter malposition (Chest x-ray showed the CVC terminating in the SVC. CTA of the chest showed malpositioning of the central venous catheter. The catheter was removed and a dressing was placed.) Name of Clinician Inserting Central Line: Dr. Andrade and Dr. Masters Clinician Assisting/Completing Checklist: Dr. Andrade, Dr. Masters, Dr. Cruz Date: 03/13/17 Time: 23:21 Medical Decision Making - MDM Narrative Medical decision making narrative: Due to the patient having altered mental status and being hypotensive we have done a sepsis workup and got a CT of the head. Chest x-ray is concerning for pneumonia. Due to the patient being hypotensive we have started IV fluids and bolus 2 L. With the hypotension and concern for pneumonia we have started broad -spectrum antibiotics. CT of the head shows no acute intracranial abnormality. Due to the patient remaining hypotensive with a map of 59-61 we placed a right IJ central line. Post-placement film showed placement of a right transjugular central venous catheter terminating in the superior vena cava. The patient was started on a Levophed infusion. Patient is maintaining her blood pressure now that she is on the Levophed. On urinalysis patient had small amount of bacteria and leuk esterase patient has received doses of Zosyn and vancomycin. I called and spoke with the hospitalist and he recommended that we do a d-dimer as well as a CT of the abdomen and pelvis prior to the patient being admitted. The d-dimer was elevated so we have ordered a CTA of the chest. CTA of the chest was negative for PE but shows that the right internal jugular central venous catheter exits the jugular vein and courses into the mediastinum. Upon being notified of the placement of the CVC the Levophed was stopped and the CVC was removed. Pressure was held over the site of the line. There was minimal bleeding. A dressing was placed. The hospitalist was informed of this and requested that we contact cardiothoracic surgery to make sure that they would be on board if there were any complications. I called and spoke with the cardiothoracic surgeon who did not seem to be too concerned about this and is my understanding that he felt that complications would have likely occurred already if they are going to. I then spoke with the hospitalist again to inform him of what the cardiothoracic surgeon had said and he came down to the emergency department to review the case and the imaging with us. The hospitalist said that they would take the patient and have her admitted to the ICU. The hospitalist asked that we place the consult to cardiothoracic surgery. - Lab Data Lab results reviewed: Yes I reviewed the patient's lab results. Result diagrams: 03/13/17 19:32 03/13/17 19:32 Lab Results 03/13/17 03/13/17 03/13/17 Range/Units 19:32 19:32 19:32 WBC 7.3 (4.3-11.1) K/mcL RBC 3.50 L (3.82-4.97) M/mcL Hgb 10.4 L (11.5-15.4) g/dL Hct 32.3 L (35.3-44.9) % MCV 92.3 (83.0-100.0) fL MCH 29.7 (28.0-33.3) pg MCHC 32.2 (31.6-35.5) g/dL RDW 13.4 (11.5-14.5) % Plt Count 258 (140-400) K/mcL MPV 9.4 (9.4-12.4) fL Immature Gran % 0.3 (0-4) % Seg Neutrophils % 61.1 % Lymphocytes % 25.5 % Monocytes % 10.2 % Eosinophils % 2.5 % Basophils % 0.4 % Neutrophils # 4.5 (1.6-8.9) K/mcL Lymphocytes # 1.9 (0.6-4.6) K/mcL Monocytes # 0.7 (0.0-1.3) K/mcL Eosinophils # 0.2 (0.0-0.6) K/mcL Basophils # 0.0 (0.0-0.2) K/mcL D-Dimer (0-500) ng/mLFEU Sodium 140 (136-145) mEq/L Potassium 3.4 L (3.5-4.5) mEq/L Chloride 105 (98-109) mEq/L Carbon Dioxide 27 (19-29) mEq/L BUN 22 H (7-20) mg/dL Creatinine 1.30 H (0.57-1.11) mg/dL Est GFR ( Amer) 51 L (> 60) Est GFR (Non-Af Amer) 42 L (> 60) BUN/Creatinine Ratio 17 (6-26) Glucose 91 (70-99) mg/dL Calculated Osmolality 293 (280-300) Lactic Acid 0.7 (0.5-2.2) mmol/L Calcium 8.3 L (8.6-10.8) mg/dL Phosphorus 3.6 (2.3-4.7) mg/dL Magnesium 2.0 (1.6-2.6) mg/dL Total Bilirubin < 0.3 (0.2-1.2) mg/dL Direct Bilirubin 0.1 (0.0-0.5) mg/dL Indirect Bilirubin 0.2 (0.0-1.2) mg/dL AST 15 (5-34) Units/L ALT 14 (0-55) Units/L Alkaline Phosphatase 120 (38-126) Units/L Troponin I (0-0.03) ng/mL B-Natriuretic Peptide (0-100) pg/mL Serum Total Protein 5.9 L (6.0-8.3) g/dL Albumin 3.1 L (3.5-5.0) g/dL Globulin 2.8 (2.4-3.5) g/dL Albumin/Globulin Ratio 1.1 (1.1-2.2) Urine Color (Yellow) Urine Clarity (Clear) Urine pH (5.0-8.0) pH Units Ur Specific [place] (1.010-1.025) Urine Protein (Neg-Trace) mg/dL Urine Glucose (UA) (Normal) mg/dL Urine Ketones (Negative) mg/dL Urine Blood (Negative) Urine Nitrite (Negative) Urine Bilirubin (Negative) Urine Urobilinogen (Normal) mg/dL Ur Leukocyte Esterase (Negative) Urine Microscopic RBC (0-3) per hpf Urine Microscopic WBC (0-3) per hpf Ur Squamous Epith Cells (None-Few) per lpf Urine Bacteria (None-Few) per hpf Hyaline Casts (None-Few) per lpf Ur Culture Indicated? (NO) 03/13/17 03/13/17 03/13/17 Range/Units 19:32 19:32 20:38 WBC (4.3-11.1) K/mcL RBC (3.82-4.97) M/mcL Hgb (11.5-15.4) g/dL Hct (35.3-44.9) % MCV (83.0-100.0) fL MCH (28.0-33.3) pg MCHC (31.6-35.5) g/dL RDW (11.5-14.5) % Plt Count (140-400) K/mcL MPV (9.4-12.4) fL Immature Gran % (0-4) % Seg Neutrophils % % Lymphocytes % % Monocytes % % Eosinophils % % Basophils % % Neutrophils # (1.6-8.9) K/mcL Lymphocytes # (0.6-4.6) K/mcL Monocytes # (0.0-1.3) K/mcL Eosinophils # (0.0-0.6) K/mcL Basophils # (0.0-0.2) K/mcL D-Dimer (0-500) ng/mLFEU Sodium (136-145) mEq/L Potassium (3.5-4.5) mEq/L Chloride (98-109) mEq/L Carbon Dioxide (19-29) mEq/L BUN (7-20) mg/dL Creatinine (0.57-1.11) mg/dL Est GFR ( Amer) (> 60) Est GFR (Non-Af Amer) (> 60) BUN/Creatinine Ratio (6-26) Glucose (70-99) mg/dL Calculated Osmolality (280-300) Lactic Acid (0.5-2.2) mmol/L Calcium (8.6-10.8) mg/dL Phosphorus (2.3-4.7) mg/dL Magnesium (1.6-2.6) mg/dL Total Bilirubin (0.2-1.2) mg/dL Direct Bilirubin (0.0-0.5) mg/dL Indirect Bilirubin (0.0-1.2) mg/dL AST (5-34) Units/L ALT (0-55) Units/L Alkaline Phosphatase (38-126) Units/L Troponin I 0.01 (0-0.03) ng/mL B-Natriuretic Peptide < 10 (0-100) pg/mL Serum Total Protein (6.0-8.3) g/dL Albumin (3.5-5.0) g/dL Globulin (2.4-3.5) g/dL Albumin/Globulin Ratio (1.1-2.2) Urine Color Yellow (Yellow) Urine Clarity Cloudy A (Clear) Urine pH 6.0 (5.0-8.0) pH Units Ur Specific [place] 1.013 (1.010-1.025) Urine Protein Negative (Neg-Trace) mg/dL Urine Glucose (UA) Normal (Normal) mg/dL Urine Ketones Negative (Negative) mg/dL Urine Blood Negative (Negative) Urine Nitrite Negative (Negative) Urine Bilirubin Negative (Negative) Urine Urobilinogen Normal (Normal) mg/dL Ur Leukocyte Esterase Small H (Negative) Urine Microscopic RBC 0-3 (0-3) per hpf Urine Microscopic WBC 15-30 H (0-3) per hpf Ur Squamous Epith Cells Moderate H (None-Few) per lpf Urine Bacteria Few (None-Few) per hpf Hyaline Casts None Seen (None-Few) per lpf Ur Culture Indicated? YES A (NO) 03/14/17 Range/Units 00:42 WBC (4.3-11.1) K/mcL RBC (3.82-4.97) M/mcL Hgb (11.5-15.4) g/dL Hct (35.3-44.9) % MCV (83.0-100.0) fL MCH (28.0-33.3) pg MCHC (31.6-35.5) g/dL RDW (11.5-14.5) % Plt Count (140-400) K/mcL MPV (9.4-12.4) fL Immature Gran % (0-4) % Seg Neutrophils % % Lymphocytes % % Monocytes % % Eosinophils % % Basophils % % Neutrophils # (1.6-8.9) K/mcL Lymphocytes # (0.6-4.6) K/mcL Monocytes # (0.0-1.3) K/mcL Eosinophils # (0.0-0.6) K/mcL Basophils # (0.0-0.2) K/mcL D-Dimer 659 H (0-500) ng/mLFEU Sodium (136-145) mEq/L Potassium (3.5-4.5) mEq/L Chloride (98-109) mEq/L Carbon Dioxide (19-29) mEq/L BUN (7-20) mg/dL Creatinine (0.57-1.11) mg/dL Est GFR ( Amer) (> 60) Est GFR (Non-Af Amer) (> 60) BUN/Creatinine Ratio (6-26) Glucose (70-99) mg/dL Calculated Osmolality (280-300) Lactic Acid (0.5-2.2) mmol/L Calcium (8.6-10.8) mg/dL Phosphorus (2.3-4.7) mg/dL Magnesium (1.6-2.6) mg/dL Total Bilirubin (0.2-1.2) mg/dL Direct Bilirubin (0.0-0.5) mg/dL Indirect Bilirubin (0.0-1.2) mg/dL AST (5-34) Units/L ALT (0-55) Units/L Alkaline Phosphatase (38-126) Units/L Troponin I (0-0.03) ng/mL B-Natriuretic Peptide (0-100) pg/mL Serum Total Protein (6.0-8.3) g/dL Albumin (3.5-5.0) g/dL Globulin (2.4-3.5) g/dL Albumin/Globulin Ratio (1.1-2.2) Urine Color (Yellow) Urine Clarity (Clear) Urine pH (5.0-8.0) pH Units Ur Specific [place] (1.010-1.025) Urine Protein (Neg-Trace) mg/dL Urine Glucose (UA) (Normal) mg/dL Urine Ketones (Negative) mg/dL Urine Blood (Negative) Urine Nitrite (Negative) Urine Bilirubin (Negative) Urine Urobilinogen (Normal) mg/dL Ur Leukocyte Esterase (Negative) Urine Microscopic RBC (0-3) per hpf Urine Microscopic WBC (0-3) per hpf Ur Squamous Epith Cells (None-Few) per lpf Urine Bacteria (None-Few) per hpf Hyaline Casts (None-Few) per lpf Ur Culture Indicated? (NO) - Radiology Data Radiology results reviewed: Yes I reviewed the patient's radiology results. Head CT 03/13/17 19:18 IMPRESSION: No evidence of acute intracranial abnormality. D/ / 03/13/2017 20:25:17 Noel Monge MD / Luz Maria Harry Interpreting Provider: Noel Monge MD Chest X-Ray 03/13/17 23:00 IMPRESSION: Interval placement of a right transjugular central venous catheter terminating in the superior vena cava. D/ / Washington Ramírez MD / Washington Ramírez MD Interpreting Provider: Washington Ramírez MD Abdomen/Pelvis CT 03/14/17 00:01 IMPRESSION: There is marked distention of the urinary bladder. This is likely the cause of bilateral hydronephrosis. D/ / Avila Moran MD / Avila Moran MD Interpreting Provider: Avila Moran MD Chest CTA 03/14/17 01:15 IMPRESSION: 1. Right internal jugular central venous catheter exits the jugular vein and courses into the mediastinum where soft tissue density likely represents hemorrhage or possibly infused fluid. 2. No definite scan evidence for pulmonary embolus on a limited study. 3. Bilateral airspace disease probably represents pneumonia. Critical results were called by Dr. Avila Moran MD to Toby Andrade on 03/14/2017 at 03:23. D/ / Avila Moran MD / Avila Moran MD Interpreting Provider: Avila Moran MD - EKG Data EKG #1 EKG attestation: Yes I reviewed and interpreted this EKG. EKG results narrative: EKG shows sinus rhythm with a rate of 80 bpm, AR interval of 153, QRS duration of 133, QTC of 462. No ischemic changes noted on this EKG. EKG was compared to previous on 02/05/17 previous EKG showed sinus tachycardia otherwise there was no acute changes. Critical Care Time Critical Care Time: Yes Total Critical Care Time: 90 Attestation: Critical care performed: Time is exclusive of separately billable procedures. Time includes: direct patient care, patient reassessment, coordination of patient care, interpretation of data (laboratory data, radiology data, and respiratory data), review of patient's medical records, medical consultation and documentation of patient care. Procedures included in critical care time: Procedures excluded from critical care time: Right IJ central line placement. Attestation Statement - Attestation Attestation: I, Richard Cruz MD, personally evaluated this patient and discussed their management with the resident physician. I reviewed the resident's note and agree with the documented findings, medical decision making, and plan of care. 56-year-old female presents to the emergency department with family complaining of patient having visual hallucinations over the past 2 months which have been getting progressively worse and much worse today. She has had increased confusion. Increased generalized weakness. Patient was on home oxygen in the past but this was discontinued several months ago. Patient states that she feels like her oxygen gets low her blood pressure gets low she starts seeing people. There has been some shortness of breath and also some productive cough. No fever. No chest pain. On examination patient is a well-developed well-nourished female in no acute distress. She is alert but seems somewhat confused. There is no cyanosis or diaphoresis. Patient's speech is slow and slurred and she appears to be overmedicated. No gross focal neurological deficits. Breath sounds are decreased bilaterally with some bibasilar rales. Heart regular rate and rhythm. Abdomen is soft with normal bowel sounds and no tenderness on palpation. No tympany or distention. No peripheral edema. Patient hypotensive on arrival and remained hypotensive despite fluid bolus. She is not tachycardic. No fever. After the fluid bolus the patient had good skin turgor with normal capillary refill. Good palpable peripheral pulses. Heart remains regular and breath sounds unchanged. Labs reviewed. Chest x-ray showed some bibasilar airspace disease, worse on the left. We will treat this as pneumonia. EKG shows a normal sinus rhythm with no acute ischemic changes. Patient was placed on Levophed infusion with good response in her blood pressure.. A right IJ central venous line was placed by Dr. Andrade with assistance from Dr. Masters under my direct supervision. Post procedure chest x- ray shows good placement of the catheter with no pneumothorax. The hospitalist, Dr. Thomas, was consulted and accepted admission of the patient. He did request that we obtain a d-dimer and if positive to the CTA of the chest. He also requested a CT of abdomen and pelvis. CTA of the chest showed that the CVC was malpositioned. It was through and through the internal jugular and the tip of the catheter was in the mediastinum. Catheter was removed. Dr. Thomas was notified and he requested we consult cardiothoracic surgery. Dr. Andrade discussed the case with Dr. Hopkins.
[2017-03-13 19:40] LABS: Basophils % 0.4 %; Eosinophils % 2.5 %; Hematocrit 32.3 % (35.3-44.9); Hemoglobin 10.4 g/dL (11.5-15.4); Immature Granulocytes % 0.3 % (0-4); Lymphocytes % 25.5 %; Mean Corpuscular HGB Conc 32.2 g/dL (31.6-35.5); Mean Corpuscular Hemoglobin 29.7 pg (28.0-33.3); Mean Corpuscular Volume 92.3 fL (83.0-100.0); Mean Platelet Volume 9.4 fL (9.4-12.4); Monocytes % 10.2 %; Platelet Count 258 K/mcL (140-400); Red Cell Distribution Width 13.4 % (11.5-14.5); Segmented Neutrophils % 61.1 %
[2017-03-13 19:41] LABS: Eosinophils # 0.2 K/mcL (0.0-0.6); Lymphocytes # 1.9 K/mcL (0.6-4.6); Monocytes # 0.7 K/mcL (0.0-1.3); Neutrophils # 4.5 K/mcL (1.6-8.9)
[2017-03-13] MEDS ORDERED: Piperacillin/Tazobactam 3.375 GM in D5% in Water (Mini-Bag+) 100 ML IVPB ONE (19:50)
[2017-03-13] MEDS ORDERED: Vancomycin 1,000 MG in D5% in Water 250 ML IVPB ONE ×2 (19:50→20:03)
[2017-03-13 19:54] LABS: Alanine Aminotransferase 14 Units/L (0-55); Albumin 3.1 g/dL (3.5-5.0); Albumin/Globulin Ratio 1.1 (1.1-2.2); Alkaline Phosphatase 120 Units/L (38-126); Aspartate Amino Transferase 15 Units/L (5-34); BUN/Creatinine Ratio 17 (6-26); Bilirubin,Direct 0.1 mg/dL (0.0-0.5); Bilirubin,Indirect 0.2 mg/dL (0.0-1.2); Blood Urea Nitrogen 22 mg/dL (7-20); Calcium 8.3 mg/dL (8.6-10.8); Carbon Dioxide 27 mEq/L (19-29); Chloride 105 mEq/L (98-109); Globulin 2.8 g/dL (2.4-3.5); Glucose 91 mg/dL (70-99); Osmolality,Calculated 293 (280-300); Phosphorous 3.6 mg/dL (2.3-4.7); Potassium 3.4 mEq/L (3.5-4.5); Sodium 140 mEq/L (136-145); Total Protein 5.9 g/dL (6.0-8.3); eGFR For African Americans 51 (> 60); eGFR For Non-African Americans 42 (> 60)
[2017-03-13 19:56] LABS: Bilirubin,Total < 0.3 mg/dL (0.2-1.2)
[2017-03-13] MEDS: 0.9 % Sodium Chloride 1,000 ML IVC SCH ×2 (20:42→21:23)
[2017-03-13 21:00] LABS: Bilirubin,Urine Negative (Negative); Blood,Urine Negative (Negative); Clarity,Urine Cloudy (Clear); Color,Urine Yellow (Yellow); Glucose,Urine (UA) Normal (Normal); Ketones,Urine Negative (Negative); Leukocyte Esterase,Urine Small (Negative); Nitrite,Urine Negative (Negative); Protein,Urine Negative (Neg-Trace); Specific Gravity,Urine 1.013 (1.010-1.025); Urobilinogen,Urine Normal (Normal)
[2017-03-13 21:03] LABS: Bacteria,Urine Few per hpf (None-Few); Hyaline Casts,Urine None Seen per lpf (None-Few); RBC,Urine 0-3 per hpf (0-3); Squamous Epithelial Cell,Urine Moderate per lpf (None-Few); WBC,Urine 15-30 per hpf (0-3)
[2017-03-13] MEDS ORDERED: Naloxone 0.4 MG/ML INJ IVP ONE (21:31)
[2017-03-13] MEDS ORDERED: 0.9 % Sodium Chloride 1,000 ML IVC ONE (21:57)
[2017-03-13] MEDS ORDERED: Norepinephrine 4 MG in D5% in Water 250 ML IVC SCH (22:15)
[2017-03-14] MEDS ORDERED: Naloxone 0.4 MG/ML INJ IVP PRN ×2 (06:14→09:02)
[2017-03-14] MEDS ORDERED: Ondansetron 4 MG/2 ML VIAL IVP PRN ×2 (06:14→09:02)
[2017-03-14] MEDS ORDERED: 0.9 % Sodium Chloride 1,000 ML IVC SCH (06:15)
[2017-03-14] MEDS ORDERED: Ipratropium/Albuterol Neb 3 ML IH PRN ×2 (06:28→09:02)
--- NOTE | 2017-03-14 06:29 | Internal Med History&Physical ---
Date of Encounter: 03/14/17 Time of Encounter: 05:30 Assessment and Plan (1) Tobacco abuse Current visit: No Status: Chronic Smoking cessation education. Nicotine patch placed. (2) Pneumonia Current visit: No Status: Acute CTA shows pneumonia. Will continue Vanco and Zosyn. Continue supportive treatment. Qualifiers: Pneumonia type: due to Pneumococcus Laterality: bilateral Lung location: lower lobe of lung Qualified Code(s): J13 - Pneumonia due to Streptococcus pneumoniae (3) Altered mental status Current visit: Yes Status: Acute Etiology is undetermined. Patient has altered mental status and hallucination since January. She is on multiple psych medication. Possibly medication caused side effect. Will hold medication right now. Psych consult in a.m. for medication adjustments. Qualifiers: Altered mental status type: delirium Qualified Code(s): R41.0 - Disorientation, unspecified (4) Hallucinations Current visit: Yes Status: Acute Management as above (5) COPD (chronic obstructive pulmonary disease) Current visit: Yes Status: Acute Stable. Place the nebulizer when necessary. Qualifiers: COPD type: emphysema Emphysema type: other Qualified Code(s): J43.8 - Other emphysema (6) Central line complication Current visit: Yes Status: Acute IJ line placed by ER physician because of hypotension needed Levophed infusion. CTA shows IJ line is at wrong place to mediastinem. Cardiothoracic surgeon was consulted. IJ line has been removed. We will keep patient in ICU for close monitoring. Keep patient nothing by mouth at this point. Also consult breast puller. Qualifiers: Encounter type: initial encounter Qualified Code(s): T82.9XXA - Unspecified complication of cardiac and vascular prosthetic device, implant and graft, initial encounter (7) DVT prophylaxis Current visit: Yes Status: Acute EPCD (8) Acute renal failure Current visit: No Status: Resolved Patient was found elevated creatinine from baseline (1.3). She was found urinary retention. Roy catheter has been placed. Continue IV fluid, follow up her renal function. Qualifiers: Acute renal failure type: unspecified Qualified Code(s): N17.9 - Acute kidney failure, unspecified Internal Medicine - H&P: HPI Chief complaint: Altered mental status Admitted From: Home Plans for Post Hospital Care: Home History of present illness: Ms. Zayas is a 56 year old female with history of COPD, tobacco abuse, anxiety present to ER for altered mental status and hallucinations. When I saw patient, family is not at bedside, patient cannot tell when the hallucination started. Per ER records, hallucinations started since January 12. Patient also has cough, with yellowish sputum, and constant bilateral chest pain. When patient to present to ER, she present with low oxygen saturation to 83% in room air and the hypotension with SBP around 80. She was given IV fluid but BP is still at lower side. Pulmonary embolism is suspected, d-dimer has been drawn, which is a positive. CTA has been ordered, results shows negative for PE but suspected pneumonia. Patient also was found IJ line is at wrong place into the mediatinum. Patient was given Levophed earlier through this IJ line. IJ line was removed by ER physician. Cardiothoracic surgeon was counselted on phone by ER physician. Patient was admitted to ICU for further monitoring. Patient is awake alert, vital signs generally stable except BP is at the lower sight. Past Med Surg Social Fam HX - Past Medical History Medical history: CHF, COPD, hyperlipidemia, hypertension, osteoporosis, TIA Psychiatric history: anxiety, depression - Past Surgical History Surgical History: hysterectomy, ureteral stent, other - Social History Smoking Status: Current every day smoker Packs per day: 1 Smokeless Tobacco Status: No Alcohol use: none Drug use: marijuana - Family History Mother Living Status: Still Living Hx Family Cardiac Disorders: Yes (HTN) Internal Medicine - H&P: Meds Albuterol Sulfate [Albuterol Inhaler] 2 puff IH Q4HR 03/05/15 [History] Amitriptyline [Elavil] 100 mg PO HS 03/05/15 [History] Cyclobenzaprine [Flexeril] 10 mg PO TID 03/05/15 [History] Diltiazem CD (24hr) [Cardizem CD] 240 mg PO DAILY 03/05/15 [History] Duloxetine [Cymbalta] 30 mg PO BID 03/05/15 [History] Gabapentin [Neurontin] 600 mg PO TID 03/05/15 [History] Lisinopril [Zestril] 10 mg PO DAILY 03/05/15 [History] Multivitamin/Iron/Folic Acid [Centrum Complete Multivit Tab] 1 tab PO DAILY [History] Omeprazole [PriLOSEC] 20 mg PO DAILY 03/05/15 [History] Alprazolam [Xanax] 1 mg PO TID 12/16/15 [History] Diphenoxylate/Atropine [Lomotil 2.5 mg/0.025 mg] 1 tab PO TID 12/16/15 [History] Furosemide [Lasix] 20 - 40 mg PO DAILY 12/16/15 [History] Lactose-Reduced Food [Ensure Liquid] 1 bottle PO TID 12/16/15 [History] Oxycodone HCl/Acetaminophen [Percocet 5-325 mg Tablet] 1 tab PO TID 12/16/15 [ History] Oxygen 2 l .ROUTE AD 12/16/15 [History] Sucralfate [Carafate] 10 ml PO BID 12/16/15 [History] predniSONE [PredniSONE] 40 mg PO DAILY 5 Days 07/29/16 [Rx] Levofloxacin [Levaquin] 750 mg PO DAILY #2 tablet 11/24/16 [Rx] predniSONE [PredniSONE] 40 mg PO DAILY #2 tablet 11/24/16 [Rx] 3 Allergy/AdvReac Type Severity Reaction Status Date / Time azithromycin AdvReac Hives Verified 06/25/16 16:15 cefuroxime [From Ceftin] AdvReac Swelling Verified 06/25/16 16:15 of Lip/Tongue/Throat pregabalin [From Lyrica] AdvReac Hives Verified 06/25/16 16:15 All Systems PM: A 10-system review of systems was performed and is negative for pertinent findings except as documented above in the HPI. - Constitutional Vitals: Temp Pulse Resp BP Pulse Ox 97.5 F L 82 20 129/37 95 03/14/17 05:30 03/14/17 05:57 03/14/17 05:30 03/14/17 05:30 03/14/17 05:30 General appearance: Present: A&O X 2, no acute distress - Head Head exam: Present: atraumatic, normocephalic - Eye Eye exam: Present: PERRL, conjuntiva pink, sclera anicteric Pupils: Present: PERRL - Neck Neck exam general surgery: Present: supple, trachea midline. Absent: lymphadenopathy - Respiratory Respiratory exam: Present: CTAB. Absent: accessory muscle use, rales, rhonchi, wheezes Additional comments: Coarse breath sounds bilaterally - Cardiovascular Cardiovascular exam: Present: RRR, +S1, +S2. Absent: diastolic murmur, gallop, rubs, systolic murmur - GI/Abdominal GI/Abdominal exam: Present: normal bowel sounds, soft, no peritoneal signs. Absent: distended, tenderness - Extremities Exam Extremities exam: Present: warm, radial pulses palpable and symmetrical. Absent : calf tenderness, cyanotic, pedal edema - Neurological Exam Neurological exam: Present: CN II-XII intact, oriented X3, no focal deficits. Absent: pronater drift, facial droop, speech deficit - Skin Skin exam: Present: dry, intact Internal Med - H&P Results - Labs CBC & Chem 7: 03/13/17 19:32 03/13/17 19:32 - EKG Data -: EKG Interpreted by Myself (ELPIDIO) EKG shows normal: sinus rhythm Rate: normal - EKG Data Prior EKG available for review: yes When compared to previous EKG: there is no significant change
[2017-03-14] MEDS ORDERED: Piperacillin/Tazobactam 3.375 GM in D5% in Water (Mini-Bag+) 100 ML IVPB SCH (08:00)
--- NOTE | 2017-03-14 08:27 | Cardiothoracic Consult Note ---
Date of Encounter: 03/14/17 Time of Encounter: 08:23 Assessment and Plan (1) Respiratory failure, acute and chronic Current Visit: No Status: Chronic The assessment and plan as outlined above was discussed with the patient and/or family members who expressed understanding and agreement. All questions were answered. The patient shows no signs of bleeding. Her blood pressure has stabilized and she is not tachycardic. I doubt that there'll be any ill effects from the norepinephrine infusion. This would've been stable and should be resorbed. We will check another chest x-ray tomorrow morning. Qualifiers: Respiratory failure complication: hypoxia Qualified Code(s): J96.21 - Acute and chronic respiratory failure with hypoxia - History of Present Illness Consult date: 03/14/17 History of present illness: Ms. Zayas is a 56 year old female History of present illness. Patient is a 56-year-old female who presented with hallucinations and hypotension. She has been having hallucinations since January. Head CT scan done in the ER was negative. She did have a central line placed in the emergency room. Approximately 140 mL of norepinephrine were infused. She did have a CT scan of the chest to rule out pulmonary embolism. This revealed that the central line which had been placed in the right jugular vein was in the mediastinum. The central line was removed. Initial chest x-ray revealed bibasilar air disease compatible with pneumonia. A repeat chest x-ray just done and revealed no significant change. Past medical history is positive for congestive heart failure, COPD, increased lipids, TIA and osteoporosis. Social history she lives with her boyfriend. She does smoke roughly 1 pack per day of cigarettes. She states that she does not drink alcohol, but does smoke marijuana. Drug screen is pending. Past Med Surg Social Fam HX - Past Medical History Medical history: CHF, COPD, hyperlipidemia, hypertension, osteoporosis, TIA Psychiatric history: anxiety, depression - Past Surgical History Surgical History: hysterectomy, ureteral stent, other - Social History Smoking Status: Current every day smoker Packs per day: 1 Smokeless Tobacco Status: No Alcohol use: none Drug use: marijuana - Family History Mother Living Status: Still Living Hx Family Cardiac Disorders: Yes (HTN) Medications and Allergies Albuterol Sulfate [Albuterol Inhaler] 2 puff IH Q4HR 03/05/15 [History] Amitriptyline [Elavil] 100 mg PO HS 03/05/15 [History] Cyclobenzaprine [Flexeril] 10 mg PO TID 03/05/15 [History] Diltiazem CD (24hr) [Cardizem CD] 240 mg PO DAILY 03/05/15 [History] Duloxetine [Cymbalta] 30 mg PO BID 03/05/15 [History] Gabapentin [Neurontin] 600 mg PO TID 03/05/15 [History] Lisinopril [Zestril] 10 mg PO DAILY 03/05/15 [History] Multivitamin/Iron/Folic Acid [Centrum Complete Multivit Tab] 1 tab PO DAILY [History] Omeprazole [PriLOSEC] 20 mg PO DAILY 03/05/15 [History] Alprazolam [Xanax] 1 mg PO TID 12/16/15 [History] Diphenoxylate/Atropine [Lomotil 2.5 mg/0.025 mg] 1 tab PO TID 12/16/15 [History] Furosemide [Lasix] 20 - 40 mg PO DAILY 12/16/15 [History] Lactose-Reduced Food [Ensure Liquid] 1 bottle PO TID 12/16/15 [History] Oxycodone HCl/Acetaminophen [Percocet 5-325 mg Tablet] 1 tab PO TID 12/16/15 [ History] Oxygen 2 l .ROUTE AD 12/16/15 [History] Sucralfate [Carafate] 10 ml PO BID 12/16/15 [History] predniSONE [PredniSONE] 40 mg PO DAILY 5 Days 07/29/16 [Rx] Levofloxacin [Levaquin] 750 mg PO DAILY #2 tablet 11/24/16 [Rx] predniSONE [PredniSONE] 40 mg PO DAILY #2 tablet 11/24/16 [Rx] 3 Allergy/AdvReac Type Severity Reaction Status Date / Time azithromycin AdvReac Hives Verified 06/25/16 16:15 cefuroxime [From Ceftin] AdvReac Swelling Verified 06/25/16 16:15 of Lip/Tongue/Throat pregabalin [From Lyrica] AdvReac Hives Verified 06/25/16 16:15 All Systems Review: A 10-system review of systems was performed and is negative for pertinent findings except as documented above in the HPI. Physical Examination Vital Signs, Last 4 Hours Temp Pulse Resp BP Pulse Ox 03/14/17 06:00 77 20 91/62 97 03/14/17 05:57 82 03/14/17 05:30 97.5 F L 82 20 129/37 95 03/14/17 05:07 78 16 102/66 97 03/14/17 05:04 94 03/14/17 04:35 90 16 93/63 91 O2 saturation is 95. Lungs are clear to percussion and auscultation. Heart is in a normal sinus rhythm. She has a Band-Aid over her puncture site in the right neck. There are no signs of hematoma. Repeat chest x-ray shows no change. Results 03/13/17 19:32 03/13/17 19:32 Lab Results, Last 24 hours 03/14/17 06:35 Troponin I 0.03 Consult Discharge Plan - Plan Referrals: Zane Blakely MD [Primary Care Provider] -
--- NOTE | 2017-03-14 08:27 | Pulmonology Consult Note ---
<GenedagmarPaulette singh M - Last Filed: 03/14/17 09:23> Date of Encounter: 03/14/17 Medications and Allergies Albuterol Sulfate [Albuterol Inhaler] 2 puff IH Q4HR 03/05/15 [History] Amitriptyline [Elavil] 100 mg PO HS 03/05/15 [History] Cyclobenzaprine [Flexeril] 10 mg PO TID 03/05/15 [History] Diltiazem CD (24hr) [Cardizem CD] 240 mg PO DAILY 03/05/15 [History] Duloxetine [Cymbalta] 30 mg PO BID 03/05/15 [History] Gabapentin [Neurontin] 600 mg PO TID 03/05/15 [History] Lisinopril [Zestril] 10 mg PO DAILY 03/05/15 [History] Multivitamin/Iron/Folic Acid [Centrum Complete Multivit Tab] 1 tab PO DAILY [History] Omeprazole [PriLOSEC] 20 mg PO DAILY 03/05/15 [History] Alprazolam [Xanax] 1 mg PO TID 12/16/15 [History] Diphenoxylate/Atropine [Lomotil 2.5 mg/0.025 mg] 1 tab PO TID 12/16/15 [History] Furosemide [Lasix] 20 - 40 mg PO DAILY 12/16/15 [History] Lactose-Reduced Food [Ensure Liquid] 1 bottle PO TID 12/16/15 [History] Oxycodone HCl/Acetaminophen [Percocet 5-325 mg Tablet] 1 tab PO TID 12/16/15 [ History] Oxygen 2 l .ROUTE AD 12/16/15 [History] Sucralfate [Carafate] 10 ml PO BID 12/16/15 [History] predniSONE [PredniSONE] 40 mg PO DAILY 5 Days 07/29/16 [Rx] Levofloxacin [Levaquin] 750 mg PO DAILY #2 tablet 11/24/16 [Rx] predniSONE [PredniSONE] 40 mg PO DAILY #2 tablet 11/24/16 [Rx] 3 Allergy/AdvReac Type Severity Reaction Status Date / Time azithromycin AdvReac Hives Verified 06/25/16 16:15 cefuroxime [From Ceftin] AdvReac Swelling Verified 06/25/16 16:15 of Lip/Tongue/Throat pregabalin [From Lyrica] AdvReac Hives Verified 06/25/16 16:15 All Systems: A 10-system review of systems was performed and is negative for pertinent findings except as documented above in the HPI. Physical Examination Vital Signs: Vital Signs, Last 4 Hours Temp Pulse Resp BP Pulse Ox 03/14/17 08:52 82 20 108/67 95 03/14/17 08:00 97.5 F L 03/14/17 07:45 84 21 102/72 94 03/14/17 06:00 77 20 91/62 97 03/14/17 05:57 82 03/14/17 05:30 97.5 F L 82 20 129/37 95 Results - Laboratory Findings CBC and BMP: 03/13/17 19:32 03/13/17 19:32 PT/INR, D-dimer D-Dimer 659 ng/mLFEU (0-500) H 03/14/17 00:42 Abnormal lab findings: Abnormal lab results RBC 3.50 M/mcL (3.82-4.97) L 03/13/17 19:32 Hgb 10.4 g/dL (11.5-15.4) L 03/13/17 19:32 Hct 32.3 % (35.3-44.9) L 03/13/17 19:32 D-Dimer 659 ng/mLFEU (0-500) H 03/14/17 00:42 Potassium 3.4 mEq/L (3.5-4.5) L 03/13/17 19:32 BUN 22 mg/dL (7-20) H 03/13/17 19:32 Creatinine 1.30 mg/dL (0.57-1.11) H 03/13/17 19:32 Est GFR ( Amer) 51 (> 60) L 03/13/17 19:32 Est GFR (Non-Af Amer) 42 (> 60) L 03/13/17 19:32 POC Glucose 111 (58-89) H 03/14/17 05:31 Calcium 8.3 mg/dL (8.6-10.8) L 03/13/17 19:32 Serum Total Protein 5.9 g/dL (6.0-8.3) L 03/13/17 19:32 Albumin 3.1 g/dL (3.5-5.0) L 03/13/17 19:32 Urine Clarity Cloudy (Clear) A 03/13/17 20:38 Ur Leukocyte Esterase Small (Negative) H 03/13/17 20:38 Urine Microscopic WBC 15-30 per hpf (0-3) H 03/13/17 20:38 Ur Squamous Epith Cells Moderate per lpf (None-Few) H 03/13/17 20:38 Ur Culture Indicated? YES (NO) A 03/13/17 20:38 U Benzodiazepines Scrn Positive ng/mL (Uwfwst=[id number]) H 03/14/17 08:10 - Clinical Findings Intake & Output: Intake & Output 03/13/17 03/14/17 03/14/17 23:59 07:59 15:59 Intake Total 1390 / 1390 Balance 1390 / 1390 Consult Discharge Plan - Plan Referrals: Zane Blakely MD [Primary Care Provider] - - Attending Attestation I examined this patient and my medical decision-making was reviewed with the Resident Physician. I agree with the documented findings, disposition and treatment plan as described except to the extent set forth below. Patient seen and examined. Labs, radiology, chart personally reviewed. Agree with resident's history and physical, assessment, plan with following comments: SAS ARCHITECT: Patient follows commands, patient stated she has been having visual hallucination and her neurological exam is normal. Psych to evaluate. She should avoid any substance such as marijuana that could be an etiology for dialysis admission. Pulmonary: Acceptable oxygenation and ventilation. Patient was advised to quit smoking and she is on appropriate bronchodilators. Her chest x-ray does not show any complications from central line placement. Cardiovascular: stable and cardiovascular surgeon evaluated the patient. GI: Nutrition per dietary and GI prophylaxis per routine Heme: DVT prophylaxis per routine ID: Continue antibiotics and plan to de-escalation. Probable pneumonia and she is on appropriate antibiotics Renal; urine out put and renal funtion reviewed. It is not clear to me why she had bladder distention and urinary retention and patient was not feeling good for that reason urology to be consulted Endorcine: blood glucose is monitored Lines: all lines checked and no evidence of infections Skin: skin care to prevent pressure ulcers per nursing routine care Patient hemodynamically stable to be transferred to the floor. <Theo Cruz - Last Filed: 03/14/17 11:25> Date of Encounter: 03/14/17 Time of Encounter: 10:30 Assessment and Plan (1) Altered mental status Current Visit: Yes Status: Acute Patient is doing better today. She continues to have visual but no auditory hallucinations. She states they come and go. Currently not having the hallucinations. Patient is AOx3 Start electrolyte protocol. Patient is afebrile, WBC are WNL, no signs of infection. Antibiotics can be discontinued. CT of abdomne/pelvis demonstrates dilated bladder. Patient immediately released 500ml of urine upon becerra placement. Urologist consult recommends continuing becerra until patient is more ambulatory. Urine tox screen for possible pharmacologic or illicit drug causes. Psychiatry consult is pending. GI and DVT prophylaxis. She is currently pending transfer to [facility] floor. Qualifiers: Altered mental status type: delirium Qualified Code(s): R41.0 - Disorientation, unspecified (2) Central line complication Current Visit: Yes Status: Acute Cardiothoracic surgeon has cleared the patient stating that patient has no signs of bleeding, BP stabilized, and VS stable. He states levophed infusion should be resorbed and ill effects are unlikely. Follow-up CXR tomorrow in the morning. Qualifiers: Encounter type: initial encounter Qualified Code(s): T82.9XXA - Unspecified complication of cardiac and vascular prosthetic device, implant and graft, initial encounter (3) Hallucinations Current Visit: No Status: Acute Patient started having visual hallucinations starting January 12 that comes and goes. Currently pending psych consult. (4) Urinary retention Current Visit: Yes Status: Acute CT abdomen reveals markedly distended bladder. Becerra placed today with immediate return of 500ml of urine. Patient denies any abdominal pain, dysuria, urge or stress incontinence. Urology consulted and recommend to keep becerra in until patient can ambulate better. Will continue to moinitor I/Os. (5) COPD (chronic obstructive pulmonary disease) Current Visit: No Status: Acute Stable. Continue albuteral inhaler as needed. Qualifiers: COPD type: emphysema Emphysema type: other Qualified Code(s): J43.8 - Other emphysema (6) DVT prophylaxis Current Visit: Yes Status: Acute Heparin for DVT prophylaxis (7) Acute renal failure Current Visit: No Status: Resolved Qualifiers: Acute renal failure type: unspecified Qualified Code(s): N17.9 - Acute kidney failure, unspecified History of Present Illness Consult date: 03/14/17 Reason for consult: other (central line complication) Chief complaint: altered mental status with hallucinations. History of present illness: 56 yo female presents to ED with hallucinations and altered mental status. Past Med Surg Social Fam HX - Past Medical History Medical history: CHF, COPD, hyperlipidemia, hypertension, osteoporosis, TIA Psychiatric history: anxiety, depression - Past Surgical History Surgical History: hysterectomy, ureteral stent, other - Social History Smoking Status: Current every day smoker Packs per day: 1 Smokeless Tobacco Status: No Alcohol use: none Drug use: marijuana - Family History Mother Living Status: Still Living Hx Family Cardiac Disorders: Yes (HTN) All Systems: A 10-system review of systems was performed and is negative for pertinent findings except as documented above in the HPI. - Constitutional Constitutional: no chills, no fever(s) - EENT Eyes: other (visual hallucinations since January 12), no loss of vision Nose, mouth and throat: sore throat, no abnormal hearing - Cardiovascular Cardiovascular: no chest pain - Respiratory Respiratory: dyspnea (improved from yesterday) - Gastrointestinal Gastrointestinal: no abdominal pain, no diarrhea, no vomiting - Genitourinary Genitourinary: difficulty urinating, difficulty voiding, urinary incontinence, other (urine retention) - Musculoskeletal Musculoskeletal: no weakness, no numbness, no tingling - Integumentary Integumentary: no rash - Neurological Neurological: other visual disturbances (hallucinations), no confusion, no loss of vision, no memory loss, no numbness, no paresthesias, no tingling Physical Examination Vital Signs: Vital Signs, Last 4 Hours Temp Pulse Resp BP Pulse Ox 03/14/17 08:00 97.5 F L 03/14/17 06:00 77 20 91/62 97 03/14/17 05:57 82 03/14/17 05:30 97.5 F L 82 20 129/37 95 03/14/17 05:07 78 16 102/66 97 03/14/17 05:04 94 03/14/17 04:35 90 16 93/63 91 General appearance: no acute distress Eyes: nonicteric ENT: oropharynx moist Neck: supple Effort: normal Auscultation: bilateral: clear Cardiovascular: regular rate and rhythm Gastrointestinal: normoactive bowel sounds, non-distended Integumentary: normal Extremities: no cyanosis, no edema, no clubbing Musculoskeletal: no deformities normal mental status, non-focal exam, other (visual hallucinations. ) mood appropriate, affect normal Results - Laboratory Findings CBC and BMP: 03/13/17 19:32 03/13/17 19:32 PT/INR, D-dimer D-Dimer 659 ng/mLFEU (0-500) H 03/14/17 00:42 Abnormal lab findings: Abnormal lab results RBC 3.50 M/mcL (3.82-4.97) L 03/13/17 19:32 Hgb 10.4 g/dL (11.5-15.4) L 03/13/17 19:32 Hct 32.3 % (35.3-44.9) L 03/13/17 19:32 D-Dimer 659 ng/mLFEU (0-500) H 03/14/17 00:42 Potassium 3.4 mEq/L (3.5-4.5) L 03/13/17 19:32 BUN 22 mg/dL (7-20) H 03/13/17 19:32 Creatinine 1.30 mg/dL (0.57-1.11) H 03/13/17 19:32 Est GFR ( Amer) 51 (> 60) L 03/13/17 19:32 Est GFR (Non-Af Amer) 42 (> 60) L 03/13/17 19:32 POC Glucose 111 (58-89) H 03/14/17 05:31 Calcium 8.3 mg/dL (8.6-10.8) L 03/13/17 19:32 Serum Total Protein 5.9 g/dL (6.0-8.3) L 03/13/17 19:32 Albumin 3.1 g/dL (3.5-5.0) L 03/13/17 19:32 Urine Clarity Cloudy (Clear) A 03/13/17 20:38 Ur Leukocyte Esterase Small (Negative) H 03/13/17 20:38 Urine Microscopic WBC 15-30 per hpf (0-3) H 03/13/17 20:38 Ur Squamous Epith Cells Moderate per lpf (None-Few) H 03/13/17 20:38 Ur Culture Indicated? YES (NO) A 03/13/17 20:38 - Clinical Findings Intake & Output: Intake & Output 03/13/17 03/14/17 03/14/17 23:59 07:59 15:59 Intake Total 1390 / 1390 Balance 1390 / 1390
[2017-03-14 08:29] LABS: Amphetamine Screen,Urine Negative ng/mL (Cutoff=1000); Barbiturate Screen,Urine Negative ng/mL (Cutoff=200); Benzodiazepines Screen,Urine Positive ng/mL (Cutoff=200); Cannabinoid Screen,Urine Negative ng/mL (Cutoff = 50); Cocaine Screen,Urine Negative ng/mL (Cutoff= 300); Opiate Screen,Urine Negative ng/mL (Cutoff=300); Phencyclidine Screen,Urine Negative ng/mL (Cutoff=25)
[2017-03-14] MEDS ORDERED: *HR* Heparin 5,000 UNIT/ML VIAL SQ SCH (08:45)
[2017-03-14] MEDS ORDERED: Pantoprazole 40 MG VIAL IVPB SCH (09:00)
[2017-03-14] MEDS ORDERED: Nicotine 21 MG PATCH.TD24 TD SCH (09:00)
[2017-03-14] MEDS ORDERED: Aminoglycoside Consult 1 EACH MC ONE (09:29)
--- NOTE | 2017-03-14 09:35 | Urology - Consult Note ---
Date of Encounter: 03/14/17 Time of Encounter: 09:33 - Assessment and Plan (1) Urinary retention Current Visit: Yes Status: Acute Assessment and plan: At this point I would recommend to keep the catheter in place until the patient is more ambulatory. At that point the patient's catheter can be removed. If patient has further voiding problems please place catheter back and have patient follow-up with urology. Urology CN:HPI Consult date: 03/14/17 Reason for consult Urology: Other (urinary retention) Requesting physician: Theo Cruz History of present illness: Lyly is a 56-year-old female with a history of admission to the hospital secondary to breathing difficulties. Patient was found on CT scan to have a markedly distended bladder. Catheter was placed which returned 500 mL's of urine. Patient states that she does not have voiding problems normally. Past Med Surg Social Fam HX - Past Medical History Medical history: CHF, COPD, hyperlipidemia, hypertension, osteoporosis, TIA Psychiatric history: anxiety, depression - Past Surgical History Surgical History: hysterectomy, ureteral stent, other - Social History Smoking Status: Current every day smoker Packs per day: 1 Smokeless Tobacco Status: No Alcohol use: none Drug use: marijuana - Family History Mother Living Status: Still Living Hx Family Cardiac Disorders: Yes (HTN) Medications and Allergies Albuterol Sulfate [Albuterol Inhaler] 2 puff IH Q4HR 03/05/15 [History] Amitriptyline [Elavil] 100 mg PO HS 03/05/15 [History] Cyclobenzaprine [Flexeril] 10 mg PO TID 03/05/15 [History] Diltiazem CD (24hr) [Cardizem CD] 240 mg PO DAILY 03/05/15 [History] Duloxetine [Cymbalta] 30 mg PO BID 03/05/15 [History] Gabapentin [Neurontin] 600 mg PO TID 03/05/15 [History] Lisinopril [Zestril] 10 mg PO DAILY 03/05/15 [History] Multivitamin/Iron/Folic Acid [Centrum Complete Multivit Tab] 1 tab PO DAILY [History] Omeprazole [PriLOSEC] 20 mg PO DAILY 03/05/15 [History] Alprazolam [Xanax] 1 mg PO TID 12/16/15 [History] Diphenoxylate/Atropine [Lomotil 2.5 mg/0.025 mg] 1 tab PO TID 12/16/15 [History] Furosemide [Lasix] 20 - 40 mg PO DAILY 12/16/15 [History] Lactose-Reduced Food [Ensure Liquid] 1 bottle PO TID 12/16/15 [History] Oxycodone HCl/Acetaminophen [Percocet 5-325 mg Tablet] 1 tab PO TID 12/16/15 [ History] Oxygen 2 l .ROUTE AD 12/16/15 [History] Sucralfate [Carafate] 10 ml PO BID 12/16/15 [History] predniSONE [PredniSONE] 40 mg PO DAILY 5 Days 07/29/16 [Rx] Levofloxacin [Levaquin] 750 mg PO DAILY #2 tablet 11/24/16 [Rx] predniSONE [PredniSONE] 40 mg PO DAILY #2 tablet 11/24/16 [Rx] 3 Allergy/AdvReac Type Severity Reaction Status Date / Time azithromycin AdvReac Hives Verified 06/25/16 16:15 cefuroxime [From Ceftin] AdvReac Swelling Verified 06/25/16 16:15 of Lip/Tongue/Throat pregabalin [From Lyrica] AdvReac Hives Verified 06/25/16 16:15 Review of Systems ROS unobtainable: due to mental status Exam Initial Vital Signs Temp Pulse Resp BP Pulse Ox 98.5 F 104 18 90/55 83 03/13/17 18:35 03/13/17 18:35 03/13/17 18:35 03/13/17 18:35 03/13/17 18:35 - General physical appearance Present: well developed - Respiratory Present: normal respiratory effort - Cardiovascular Cardiovascular exam IM: RRR - Abdomen Abdomen: Present: soft - Genitourinary Present: other (Clear urine in tubing) - Integumentary Present: no rash Urology Results - Labs 03/13/17 19:32 03/13/17 19:32 Abnormal lab results RBC 3.50 M/mcL (3.82-4.97) L 03/13/17 19:32 Hgb 10.4 g/dL (11.5-15.4) L 03/13/17 19:32 Hct 32.3 % (35.3-44.9) L 03/13/17 19:32 D-Dimer 659 ng/mLFEU (0-500) H 03/14/17 00:42 Potassium 3.4 mEq/L (3.5-4.5) L 03/13/17 19:32 BUN 22 mg/dL (7-20) H 03/13/17 19:32 Creatinine 1.30 mg/dL (0.57-1.11) H 03/13/17 19:32 Est GFR ( Amer) 51 (> 60) L 03/13/17 19:32 Est GFR (Non-Af Amer) 42 (> 60) L 03/13/17 19:32 POC Glucose 111 (58-89) H 03/14/17 05:31 Calcium 8.3 mg/dL (8.6-10.8) L 03/13/17 19:32 Serum Total Protein 5.9 g/dL (6.0-8.3) L 03/13/17 19:32 Albumin 3.1 g/dL (3.5-5.0) L 03/13/17 19:32 Urine Clarity Cloudy (Clear) A 03/13/17 20:38 Ur Leukocyte Esterase Small (Negative) H 03/13/17 20:38 Urine Microscopic WBC 15-30 per hpf (0-3) H 03/13/17 20:38 Ur Squamous Epith Cells Moderate per lpf (None-Few) H 03/13/17 20:38 Ur Culture Indicated? YES (NO) A 03/13/17 20:38 U Benzodiazepines Scrn Positive ng/mL (Xiauib=919) H 03/14/17 08:10 All other labs normal. - Imaging CT scan - abdomen: image reviewed CT scan - pelvis: image reviewed Consult Discharge Plan - Plan Referrals: Zane Blakely MD [Primary Care Provider] -
[2017-03-14] MEDS ORDERED: Vancomycin 1,000 MG in D5% in Water 250 ML IVPB SCH ×2 (12:00→21:00)
[2017-03-14] MEDS: *HR* Heparin 5,000 UNIT/ML VIAL SQ SCH (14:39)
--- NOTE | 2017-03-14 14:58 | Consult Note ---
Date of Encounter: 03/14/17 Time of Encounter: 02:55 Assessment & Recommendation (1) Major depressive disorder, recurrent, severe with psychotic features Current visit: Yes Status: Acute Assessment & Recommendation: Patient is already taking Cymbalta 30 mg twice a day for her depression which we would recommend to continue. At this point it is very difficult to say whether these visual hallucinations are a direct result of her worsening of her depression or it is related to her cataract related issues. In either case since since patient's depression is getting worse I would recommend starting her on Abilify which will help as an adjunct treatment for depression and also address these visual hallucinations. I strongly recommend patient to keep her appointment with an yardage control clerk to address her visual issues (cataract) Since patient is not actively suicidal homicidal and have the ability to provide care for herself she does not need to be transferred on an inpatient psychiatric facility. Patient already has established care at the mental health clinic where she is seeing a therapist and psychiatrist. I would strongly recommend her to continue with her outpatient follow-up appointments. Thank you very much for the consult History of Present Illness Patient: new to practice Requesting Physician: Tyshawn Kruger MD Reason for consult: To assess patient for visual hallucinations. History of present illness: Ms. Zayas is a 56 year old female who was referred for hospitalization for breathing difficulties and confusion and visual hallucinations. A psych consult is given to assess and evaluate patient. Upon interviewing today patient is a lot more clearer there is no sign of any confusion she is alert and oriented to time place and person. She reported a long and extensive history of depression. She has had multiple prior hospitalizations and multiple bouts of depression. She reported that since last few months she has been noticing worsening of her depression along with visual hallucinations. She describes her hallucinations as seeing little girls or seen a person with a mustache. She denies any auditory hallucinations. She reported that because of these hallucinations she has been noticing worsening of her depression. She also reported that these hallucinations cause a lot of confusion. Patient also has cataract and has an appointment to see an yardage control clerk soon. It very well possibly could be related to her cataract has visual hallucinations is not as common among psychiatric patients as ordered treatment hallucinations. However patient did endorse worsening of her depression. She is denying any suicidal ideations homicidal ideation or any other manic or psychotic symptoms. CC: Tyshawn Kruger MD Past Med Surg Social Fam HX - Past Medical History Medical history: CHF, COPD, hyperlipidemia, hypertension, osteoporosis, TIA - Past Psychiatric History Psychiatric history: Reports: depression, PTSD, previous psychiatric hospitalization Family psychiatric history: Unknown Family History of Suicide: Unknown - Past Surgical History Surgical History: hysterectomy, ureteral stent, other - Social History Smoking Status: Current every day smoker Smokeless Tobacco Status: No Alcohol use: none Drug use: marijuana Occupational status: unemployed Current living situation: Home, With Family Activity Level: Independent ambulation Recent Out of Country Travel Within the Last 8 Weeks: No Exposure or Possible Exposure to Illness During Travel: No Additional social history: Patient is currently residing with her boyfriend and describes her current relationship as very loving and supportive. She has 2 grownup children from a previous relationship. She has grandkids. She reported good and supportive relationship with her family members. She denies any current legal issues. - Family History Mother Living Status: Still Living Hx Family Cardiac Disorders: Yes (HTN) Medications & Allergies Albuterol Sulfate [Albuterol Inhaler] 2 puff IH Q4HR 03/05/15 [History] Amitriptyline [Elavil] 100 mg PO HS 03/05/15 [History] Cyclobenzaprine [Flexeril] 10 mg PO TID 03/05/15 [History] Diltiazem CD (24hr) [Cardizem CD] 240 mg PO DAILY 03/05/15 [History] Duloxetine [Cymbalta] 30 mg PO BID 03/05/15 [History] Lisinopril [Zestril] 10 mg PO DAILY 03/05/15 [History] Omeprazole [PriLOSEC] 20 mg PO DAILY 03/05/15 [History] Alprazolam [Xanax] 1 mg PO TID 12/16/15 [History] Diphenoxylate/Atropine [Lomotil 2.5 mg/0.025 mg] 1 tab PO TID PRN 12/16/15 [ History] Furosemide [Lasix] 20 - 40 mg PO DAILY 12/16/15 [History] Lactose-Reduced Food [Ensure Liquid] 1 bottle PO TID 12/16/15 [History] Oxycodone HCl/Acetaminophen [Percocet 5-325 mg Tablet] 1 tab PO TID 12/16/15 [ History] Sucralfate [Carafate] 1 gm PO BID 12/16/15 [History] Cholecalciferol (Vitamin D3) [Vitamin D] 2,000 unit PO DAILY 03/14/17 [History] Citalopram [CeleXA] 20 mg PO DAILY 03/14/17 [History] Dicyclomine [Bentyl] 10 mg PO TID 03/14/17 [History] Gabapentin [Neurontin] 800 mg PO TID 03/14/17 [History] Ibuprofen [Motrin] 800 mg PO BID PRN 03/14/17 [History] Multivitamin [Flintstones] 1 each PO DAILY 03/14/17 [History] Tiotropium Br/Olodaterol HCl [Stiolto Respimat Inhal [place]] 4 gm IH DAILY [History] 3 Allergy/AdvReac Type Severity Reaction Status Date / Time azithromycin AdvReac Hives Verified 06/25/16 16:15 cefuroxime [From Ceftin] AdvReac Swelling Verified 06/25/16 16:15 of Lip/Tongue/Throat pregabalin [From Lyrica] AdvReac Hives Verified 06/25/16 16:15 Review of Systems Psychiatric: Reports: depression, visual hallucinations Mental Status Exam Patient orientation: Yes Person, Yes Time, Yes Place Level of alertness: Alert Patient appearance: Appropriate Behavior: anxious, tearful Psychomotor activity: Normal Eye contact: Maintains Eye Contact Mood description: Depressed, Anxious Affect description: tearful, dysphoric Speech pattern: Normal rate, Normal rhythm, Normal tone Speech volume: Normal Thought process: Linear, Goal Oriented Thought content: No Suicidal ideation, No Homicidal ideation, No Overt delusions Perceptual disturbances: No Auditory hallucinations, Yes Visual hallucinations Attention span: Capable of Focused Attention Memory description: Grossly Intact Patient reliability: Reliable Historian Intelligence estimate: Average Judgment: Limited Insight: Partial Results - Vital Signs Vital signs: Temp Pulse Resp BP Pulse Ox 97.5 F L 78 20 98/52 96 03/14/17 08:00 03/14/17 13:08 03/14/17 13:08 03/14/17 13:08 03/14/17 13:08 - Drug Levels and Toxicology Drug Levels and Toxicology: Drug Levels and Toxicity 03/14/17 08:10 Urine Opiates Screen Negative Ur Barbiturates Screen Negative Ur Phencyclidine Scrn Negative Ur Amphetamines Screen Negative U Benzodiazepines Scrn Positive H Urine Cocaine Screen Negative U Marijuana (THC) Screen Negative - Labs Labs: Laboratory Last Values WBC 7.3 K/mcL (4.3-11.1) 03/13/17 19:32 RBC 3.50 M/mcL (3.82-4.97) L 03/13/17 19:32 Hgb 10.4 g/dL (11.5-15.4) L 03/13/17 19:32 Hct 32.3 % (35.3-44.9) L 03/13/17 19:32 MCV 92.3 fL (83.0-100.0) 03/13/17 19:32 MCH 29.7 pg (28.0-33.3) 03/13/17 19:32 MCHC 32.2 g/dL (31.6-35.5) 03/13/17 19:32 RDW 13.4 % (11.5-14.5) 03/13/17 19:32 Plt Count 258 K/mcL (140-400) 03/13/17 19:32 MPV 9.4 fL (9.4-12.4) 03/13/17 19:32 Immature Gran % 0.3 % (0-4) 03/13/17 19:32 Seg Neutrophils % 61.1 % 03/13/17 19:32 Lymphocytes % 25.5 % 03/13/17 19:32 Monocytes % 10.2 % 03/13/17 19:32 Eosinophils % 2.5 % 03/13/17 19:32 Basophils % 0.4 % 03/13/17 19:32 Neutrophils # 4.5 K/mcL (1.6-8.9) 03/13/17 19:32 Lymphocytes # 1.9 K/mcL (0.6-4.6) 03/13/17 19:32 Monocytes # 0.7 K/mcL (0.0-1.3) 03/13/17 19:32 Eosinophils # 0.2 K/mcL (0.0-0.6) 03/13/17 19:32 Basophils # 0.0 K/mcL (0.0-0.2) 03/13/17 19:32 D-Dimer 659 ng/mLFEU (0-500) H 03/14/17 00:42 Sodium 140 mEq/L (136-145) 03/13/17 19:32 Potassium 3.4 mEq/L (3.5-4.5) L 03/13/17 19:32 Chloride 105 mEq/L (98-109) 03/13/17 19:32 Carbon Dioxide 27 mEq/L (19-29) 03/13/17 19:32 BUN 22 mg/dL (7-20) H 03/13/17 19:32 Creatinine 1.30 mg/dL (0.57-1.11) H 03/13/17 19:32 Est GFR ( Amer) 51 (> 60) L 03/13/17 19:32 Est GFR (Non-Af Amer) 42 (> 60) L 03/13/17 19:32 BUN/Creatinine Ratio 17 (6-26) 03/13/17 19:32 Glucose 91 mg/dL (70-99) 03/13/17 19:32 POC Glucose 111 (58-89) H 03/14/17 05:31 Calculated Osmolality 293 (280-300) 03/13/17 19:32 Lactic Acid 0.7 mmol/L (0.5-2.2) 03/13/17 19:32 Calcium 8.3 mg/dL (8.6-10.8) L 03/13/17 19:32 Phosphorus 3.6 mg/dL (2.3-4.7) 03/13/17 19:32 Magnesium 2.0 mg/dL (1.6-2.6) 03/13/17 19:32 Total Bilirubin < 0.3 mg/dL (0.2-1.2) 03/13/17 19:32 Direct Bilirubin 0.1 mg/dL (0.0-0.5) 03/13/17 19:32 Indirect Bilirubin 0.2 mg/dL (0.0-1.2) 03/13/17 19:32 AST 15 Units/L (5-34) 03/13/17 19:32 ALT 14 Units/L (0-55) 03/13/17 19:32 Alkaline Phosphatase 120 Units/L (38-126) 03/13/17 19:32 Troponin I 0.03 ng/mL (0-0.03) 03/14/17 06:35 B-Natriuretic Peptide < 10 pg/mL (0-100) 03/13/17 19:32 Serum Total Protein 5.9 g/dL (6.0-8.3) L 03/13/17 19:32 Albumin 3.1 g/dL (3.5-5.0) L 03/13/17 19:32 Globulin 2.8 g/dL (2.4-3.5) 03/13/17 19:32 Albumin/Globulin Ratio 1.1 (1.1-2.2) 03/13/17 19:32 Urine Color Yellow (Yellow) 03/13/17 20:38 Urine Clarity Cloudy (Clear) A 03/13/17 20:38 Urine pH 6.0 pH Units (5.0-8.0) 03/13/17 20:38 Ur Specific [place] 1.013 (1.010-1.025) 03/13/17 20:38 Urine Protein Negative mg/dL (Neg-Trace) 03/13/17 20:38 Urine Glucose (UA) Normal mg/dL (Normal) 03/13/17 20:38 Urine Ketones Negative mg/dL (Negative) 03/13/17 20:38 Urine Blood Negative (Negative) 03/13/17 20:38 Urine Nitrite Negative (Negative) 03/13/17 20:38 Urine Bilirubin Negative (Negative) 03/13/17 20:38 Urine Urobilinogen Normal mg/dL (Normal) 03/13/17 20:38 Ur Leukocyte Esterase Small (Negative) H 03/13/17 20:38 Urine Microscopic RBC 0-3 per hpf (0-3) 03/13/17 20:38 Urine Microscopic WBC 15-30 per hpf (0-3) H 03/13/17 20:38 Ur Squamous Epith Cells Moderate per lpf (None-Few) H 03/13/17 20:38 Urine Bacteria Few per hpf (None-Few) 03/13/17 20:38 Hyaline Casts None Seen per lpf (None-Few) 03/13/17 20:38 Ur Culture Indicated? YES (NO) A 03/13/17 20:38 Urine Opiates Screen Negative ng/mL (Ibdfka=245) 03/14/17 08:10 Ur Barbiturates Screen Negative ng/mL (Qreovr=199) 03/14/17 08:10 Ur Phencyclidine Scrn Negative ng/mL (Cutoff=25) 03/14/17 08:10 Ur Amphetamines Screen Negative ng/mL (Nxfbar=9763) 03/14/17 08:10 U Benzodiazepines Scrn Positive ng/mL (Yytukb=138) H 03/14/17 08:10 Urine Cocaine Screen Negative ng/mL (Cutoff= 300) 03/14/17 08:10 U Marijuana (THC) Screen Negative ng/mL (Cutoff = 50) 03/14/17 08:10 - Impressions Impressions Chest X-Ray 03/14/17 07:28 IMPRESSION: No change. D/ /14/2017 08:26:43 Dl Richmond MD / [facility] Interpreting Provider: Dl Richmond MD Consult Discharge Plan - Plan Referrals: Zane Blakely MD [Primary Care Provider] -
[2017-03-14] MEDS: ALPRAZolam 1 MG TABLET PO SCH ×2 (16:02→20:04)
[2017-03-14] MEDS: Gabapentin 400 MG CAPSULE PO SCH ×2 (16:02→20:04)
[2017-03-14] MEDS: ARIPiprazole 5 MG TABLET PO SCH (16:50)
[2017-03-15] MEDS: *HR* Heparin 5,000 UNIT/ML VIAL SQ SCH ×4 (01:16→20:35)
[2017-03-15 06:32] LABS: Basophils % 0.2 %; Eosinophils # 0.2 K/mcL (0.0-0.6); Hematocrit 35.3 % (35.3-44.9); Hemoglobin 11.5 g/dL (11.5-15.4); Immature Granulocytes % 0.2 % (0-4); Lymphocytes # 1.4 K/mcL (0.6-4.6); Lymphocytes % 15.3 %; Mean Corpuscular HGB Conc 32.6 g/dL (31.6-35.5); Mean Corpuscular Hemoglobin 30.6 pg (28.0-33.3); Mean Corpuscular Volume 93.9 fL (83.0-100.0); Mean Platelet Volume 10.1 fL (9.4-12.4); Monocytes # 0.6 K/mcL (0.0-1.3); Monocytes % 6.5 %; Neutrophils # 7.1 K/mcL (1.6-8.9); Platelet Count 251 K/mcL (140-400); Red Blood Count 3.76 M/mcL (3.82-4.97); Red Cell Distribution Width 13.2 % (11.5-14.5); Segmented Neutrophils % 75.8 %
[2017-03-15] MEDS: Gabapentin 400 MG CAPSULE PO SCH ×3 (07:48→20:34)
[2017-03-15] MEDS: Nicotine 21 MG PATCH.TD24 TD SCH (07:48)
[2017-03-15] MEDS: ARIPiprazole 5 MG TABLET PO SCH (07:49)
[2017-03-15] MEDS: ALPRAZolam 1 MG TABLET PO SCH ×3 (07:49→20:34)
--- NOTE | 2017-03-15 08:39 | Cardiothoracic Progress Note ---
Date of Encounter: 03/15/17 Time of Encounter: 08:37 - Assessment and plan (1) Respiratory failure, acute and chronic Current Visit: No Status: Chronic The patient has had no ill effects from her central line. I will sign off. Please call if needed. Qualifiers: Respiratory failure complication: hypoxia Qualified Code(s): J96.21 - Acute and chronic respiratory failure with hypoxia - Subjective Interval history: The patient has had no further hallucinations and feels better. Vital Signs, Last 4 Hours Temp Pulse Resp BP Pulse Ox 03/15/17 07:53 16 89 03/15/17 06:33 97.9 F 114 14 106/71 90 Oxgyen Flow Rate Oxygen Flow Rate (LPM) 2 Weight 03/13/17 03/14/17 03/15/17 23:59 23:59 23:59 Weight 69 kg Lungs are clear to percussion and auscultation. Heart is in a normal sinus rhythm. Chest x-ray reveals improved airspace disease on the left. - Labs 03/15/17 04:26 03/13/17 19:32 Lab Results, Last 24 hours 03/15/17 04:26 WBC 9.3 Hgb 11.5 Hct 35.3 Plt Count 251 Consult Discharge Plan - Plan Referrals: Zane Blakely MD [Primary Care Provider] -
[2017-03-15] MEDS ORDERED: Pantoprazole 40 MG VIAL IVPB SCH (09:00)
--- NOTE | 2017-03-15 10:08 | Internal Med Progress Note ---
<Mane Cooper - Last Filed: 03/15/17 14:55> Date of Encounter: 03/15/17 Time of Encounter: 09:30 - Assessment and plan (1) Altered mental status Current Visit: Yes Status: Acute Assessment and plan: - Reported history of visual hallucinations intermittently - Possible etiologies include infection, history of psychiatric disease with polypharmacy - Psychiatry was consulted, recommend continuing home Cymbalta and addition of Abilify - She currently denying any symptoms morning, however patient is increasingly lethargic secondary to likely polypharmacy - We will monitor for improvement of symptoms, response to medications Qualifiers: Altered mental status type: delirium Qualified Code(s): R41.0 - Disorientation, unspecified (2) Major depressive disorder, recurrent, severe with psychotic features Current Visit: Yes Status: Acute Assessment and plan: Psychiatry following, appreciate recommendations - Continue home medication of Cymbalta, we added Abilify to regimen per psychiatry recommendations - Patient no longer complaining of hallucinations, we will continue monitor for resolution of symptoms and toleration of new meds - Follow up outpatient. - May be a component of cataracts in addition, psych recommends keeping appointment with screening tech outpatient (3) Pneumonia Current Visit: Yes Status: Acute Assessment and plan: - Evidence of bilateral pneumonia seen on chest x-ray, CTA performed emergency department - Received 2 doses of vancomycin and Zosyn in ICU. Will continue Zosyn - Symptoms improving per patient. - Repeat x-ray shows partial resolution of consolidation 03/15 Qualifiers: Pneumonia type: due to Pneumococcus Laterality: bilateral Lung location: lower lobe of lung Qualified Code(s): J13 - Pneumonia due to Streptococcus pneumoniae (4) Central line complication Current Visit: Yes Status: Acute Assessment and plan: - Central line placed emergency department with an correct placement status post removal - Repeat chest x-ray shows no complications - Cardiothoracic team consulted, signed off this morning due to no complications Qualifiers: Encounter type: initial encounter Qualified Code(s): T82.9XXA - Unspecified complication of cardiac and vascular prosthetic device, implant and graft, initial encounter (5) Urinary retention Current Visit: Yes Status: Acute Assessment and plan: - Patient had reported urinary retention of 500 mL - Becerra catheter in place, urology consult, appreciate recommendations - Patient has good urine output with Becerra catheter in place this time - Per urology recommendations, we will remove becerra catheter once patient is more ambulatory (6) DVT prophylaxis Current Visit: Yes Status: Acute Assessment and plan: Heparin 5000 units - Time Spent With Patient 25 - 35 minutes - Subjective Interval history: Patient seen and examined at bedside this morning. She is very lethargic, however does respond to questions with tactile stimulation. Per her nurse, patient recently received Ativan. Patient states that she is no longer experiencing any symptoms of hallucinations, confusion. She states that her hallucinations began approximately a couple days ago and has never had them in the past. Hallucinations were nonspecific when she began to describe them. She does still admit to a cough that is nonproductive in nature. She denies any symptoms of fevers, chills, shortness of breath, chest pain. - Constitutional Vitals: Temp Pulse Resp BP Pulse Ox 97.9 F 114 16 106/71 89 03/15/17 06:33 03/15/17 06:33 03/15/17 07:53 03/15/17 06:33 03/15/17 07:53 General appearance: Present: A&O X 2, no acute distress Exam: Gen.: Vitals noted. No acute distress. Very lethargic appearing. Response to tactile stimulation and answers questions appropriately with eyes closed HEENT: PERRL/EOMI, oropharynx clear, Normocephalic, atraumatic Neck: Supple. No adenopathy. Cardiac: RRR, no murmur, +S1/S2. Tachycardic Pulmonary: Mild rales in bilateral lower lobes. no wheezes, or rhonchi, equal chest expansion Abdomen: soft, nontender, BS noted, no guarding Back: Nontender throughout. MSK: ROM intact, no joint swelling noted Extremities: no BLE edema, nontender calf, no cyanosis or clubbing Neuro: moves all extremities, no focal deficits Psych: Appropriate mood and behavior Internal Medicine: Result - Labs CBC & Chem 7: 03/15/17 04:26 03/13/17 19:32 Labs: Short CBC 03/15/17 Range/Units 04:26 WBC 9.3 (4.3-11.1) K/mcL Hgb 11.5 (11.5-15.4) g/dL Hct 35.3 (35.3-44.9) % Plt Count 251 (140-400) K/mcL Neutrophils # 7.1 (1.6-8.9) K/mcL - ABG Interpretation ABG results: PT/INR, D-dimer D-Dimer 659 ng/mLFEU (0-500) H 03/14/17 00:42 - Impressions Impressions Chest X-Ray 03/15/17 00:01 IMPRESSION: Persistent bilateral lower lobe airspace disease greater on the right. There has been partial clearing on the left. D/ / Jah Grullon MD / Jah Grullon MD Interpreting Provider: Jah Grullon MD Consult Discharge Plan - Plan Referrals: Zane Blakely MD [Primary Care Provider] - (web request 03/15/2017) <Celestino Hyman - Last Filed: 03/15/17 17:49> Date of Encounter: 03/15/17 - Assessment and plan (1) Acute metabolic encephalopathy Current Visit: Yes Status: Acute (2) COPD (chronic obstructive pulmonary disease) Current Visit: Yes Status: Chronic Qualifiers: COPD type: emphysema Emphysema type: other Qualified Code(s): J43.8 - Other emphysema (3) Central line complication Current Visit: Yes Status: Acute Qualifiers: Encounter type: subsequent encounter Qualified Code(s): T82.9XXD - Unspecified complication of cardiac and vascular prosthetic device, implant and graft, subsequent encounter (4) Major depressive disorder, recurrent, severe with psychotic features Current Visit: Yes Status: Chronic (5) Urinary retention Current Visit: Yes Status: Acute - Constitutional Vitals: Temp Pulse Resp BP Pulse Ox 98.3 F 103 16 119/70 93 03/15/17 15:27 03/15/17 15:27 03/15/17 16:20 03/15/17 15:27 03/15/17 16:20 Internal Medicine: Result - Labs CBC & Chem 7: 03/15/17 04:26 03/13/17 19:32 Labs: Short CBC 03/15/17 Range/Units 04:26 WBC 9.3 (4.3-11.1) K/mcL Hgb 11.5 (11.5-15.4) g/dL Hct 35.3 (35.3-44.9) % Plt Count 251 (140-400) K/mcL Neutrophils # 7.1 (1.6-8.9) K/mcL - ABG Interpretation ABG results: PT/INR, D-dimer D-Dimer 659 ng/mLFEU (0-500) H 03/14/17 00:42 - Impressions Impressions Chest X-Ray 03/15/17 00:01 IMPRESSION: Persistent bilateral lower lobe airspace disease greater on the right. There has been partial clearing on the left. D/ / Jah Grullon MD / Jah Grullon MD Interpreting Provider: Jah Grullon MD - Attending Attestation I examined this patient and my medical decision-making was reviewed with the Resident Physician on 03/15/17. I agree with the documented findings, disposition and treatment plan as described except to the extent set forth below. Ms. Zayas is currently admitted for acute encephalopathy. She remains moderate to high risk due to potential for worsening neuro status. Ms. Zayas was very somnolent this AM but better in afternoon. No fever or chills. No CP or SOB. Denies acute issue. Wants becerra out. Exam Alert. Comfortable Confused this AM - better now. Heart reg No wheeze Abd soft I/P 1. Encephalopathy 2. Urinary retention Further diagnoses and plan as above.
[2017-03-15] MEDS ORDERED: Benzonatate 100 MG CAPSULE PO PRN (12:59)
[2017-03-15] MEDS: Piperacillin/Tazobactam 3.375 GM in D5% in Water (Mini-Bag+) 100 ML IVPB SCH (15:11)
[2017-03-15] MEDS ORDERED: Piperacillin/Tazobactam 3.375 GM in D5% in Water (Mini-Bag+) 100 ML IVPB SCH (18:00)
[2017-03-16] MEDS: Piperacillin/Tazobactam 3.375 GM in D5% in Water (Mini-Bag+) 100 ML IVPB SCH ×2 (01:33→09:25)
[2017-03-16 05:22] LABS: Hematocrit 37.3 % (35.3-44.9); Hemoglobin 11.9 g/dL (11.5-15.4); Mean Corpuscular HGB Conc 31.9 g/dL (31.6-35.5); Mean Corpuscular Hemoglobin 29.7 pg (28.0-33.3); Mean Platelet Volume 9.9 fL (9.4-12.4); Red Blood Count 4.01 M/mcL (3.82-4.97); Red Cell Distribution Width 12.9 % (11.5-14.5)
[2017-03-16] MEDS: *HR* Heparin 5,000 UNIT/ML VIAL SQ SCH ×2 (05:29→15:12)
[2017-03-16 05:32] LABS: BUN/Creatinine Ratio 9 (6-26); Carbon Dioxide 27 mEq/L (19-29); Chloride 105 mEq/L (98-109); Potassium 4.3 mEq/L (3.5-4.5); Sodium 141 mEq/L (136-145); eGFR For African Americans > 60 (> 60)
[2017-03-16 05:33] LABS: Calcium 9.3 mg/dL (8.6-10.8); Glucose 93 mg/dL (70-99); Osmolality,Calculated 289 (280-300); eGFR For Non-African Americans > 60 (> 60)
[2017-03-16 05:35] LABS: Blood Urea Nitrogen 6 mg/dL (7-20)
--- NOTE | 2017-03-16 08:17 | Electrocardiograph Report ---
[place] [id number] Test Date: 2017-03-13 Pat Name: Mimi Zayas Department: 104 Room: 2A Gender: F [facility] [employer] [facility]: [facility] : 1960 Requested By: Toby Andrade Order Number: [id number] Reading MD: Stephanie Wilson Measurements Intervals [place] Rate: 80 P: 55 NM: 153 QRS: 4 QRSD: 133 T: 18 QT: 427 QTc: 462 Interpretive Statements SINUS RHYTHM RIGHT BUNDLE BRANCH BLOCK Electronically Signed On 03-15-2017 11:23:16 EDT by Stephanie Wilson
[2017-03-16] MEDS: ARIPiprazole 5 MG TABLET PO SCH (09:24)
[2017-03-16] MEDS: ALPRAZolam 1 MG TABLET PO SCH ×2 (09:25→15:12)
[2017-03-16] MEDS: Gabapentin 400 MG CAPSULE PO SCH ×2 (09:25→15:12)
[2017-03-16] MEDS: Nicotine 21 MG PATCH.TD24 TD SCH (09:26)
--- NOTE | 2017-03-16 10:31 | Discharge Summary ---
<RadamesMane heller - Last Filed: 03/16/17 14:46> Date of Encounter: 03/16/17 Time of Encounter: 10:27 - Discharge Diagnosis (1) Altered mental status Priority: Primary Status: Resolved Comments: likely secondary to psych medications vs active infection. Qualifiers: Altered mental status type: delirium Qualified Code(s): R41.0 - Disorientation, unspecified (2) Major depressive disorder, recurrent, severe with psychotic features Priority: Secondary Status: Chronic (3) Pneumonia Priority: Secondary Status: Acute Qualifiers: Pneumonia type: due to Pneumococcus Laterality: bilateral Lung location: lower lobe of lung Qualified Code(s): J13 - Pneumonia due to Streptococcus pneumoniae (4) Central line complication Priority: Secondary Status: Acute Qualifiers: Encounter type: initial encounter Qualified Code(s): T82.9XXA - Unspecified complication of cardiac and vascular prosthetic device, implant and graft, initial encounter (5) Urinary retention Priority: Secondary Status: Resolved (6) DVT prophylaxis Priority: Secondary Status: Acute - Discharge Medications Prescriptions: ARIPiprazole [Abilify] 5 mg PO DAILY #10 tab levoFLOXacin [Levaquin] 750 mg PO DAILY #2 tablet Home Medications: Albuterol Sulfate [Albuterol Inhaler] 2 puff IH Q4HR 03/05/15 [History] Amitriptyline [Elavil] 100 mg PO HS 03/05/15 [History] Cyclobenzaprine [Flexeril] 10 mg PO TID 03/05/15 [History] Diltiazem CD (24hr) [Cardizem CD] 240 mg PO DAILY 03/05/15 [History] Duloxetine [Cymbalta] 30 mg PO BID 03/05/15 [History] Lisinopril [Zestril] 10 mg PO DAILY 03/05/15 [History] Omeprazole [PriLOSEC] 20 mg PO DAILY 03/05/15 [History] Alprazolam [Xanax] 1 mg PO TID 12/16/15 [History] Diphenoxylate/Atropine [Lomotil 2.5 mg/0.025 mg] 1 tab PO TID PRN 12/16/15 [ History] Furosemide [Lasix] 20 - 40 mg PO DAILY 12/16/15 [History] Lactose-Reduced Food [Ensure Liquid] 1 bottle PO TID 12/16/15 [History] Oxycodone HCl/Acetaminophen [Percocet 5-325 mg Tablet] 1 tab PO TID 12/16/15 [ History] Sucralfate [Carafate] 1 gm PO BID 12/16/15 [History] Cholecalciferol (Vitamin D3) [Vitamin D3] 2,000 unit PO DAILY 03/14/17 [History] Citalopram [CeleXA] 20 mg PO DAILY 03/14/17 [History] Dicyclomine [Bentyl] 10 mg PO TID 03/14/17 [History] Gabapentin [Neurontin] 800 mg PO TID 03/14/17 [History] Ibuprofen [Motrin] 800 mg PO BID PRN 03/14/17 [History] Multivitamin [Flintstones] 1 each PO DAILY 03/14/17 [History] Tiotropium Br/Olodaterol HCl [Stiolto Respimat Inhal [place]] 4 gm IH DAILY [History] ARIPiprazole [Abilify] 5 mg PO DAILY #10 tab 03/16/17 [Rx] levoFLOXacin [Levaquin] 750 mg PO DAILY #2 tablet 03/16/17 [Rx] Allergies/Adverse Reactions: 3 Allergy/AdvReac Type Severity Reaction Status Date / Time azithromycin AdvReac Hives Verified 06/25/16 16:15 cefuroxime [From Ceftin] AdvReac Swelling Verified 06/25/16 16:15 of Lip/Tongue/Throat pregabalin [From Lyrica] AdvReac Hives Verified 06/25/16 16:15 Date of admission: 03/14/17 01:31 Primary care physician: Zane Blakely MD Consults: 03/14/17 05:00 Consult to Cardiothoracic Surgery [CONS] Routine Consulting Provider: Cardiothoracic Surgery [place] Reason for Consult: CVC went through IJ and into the mediastinum. CVC has been removed, hospitalist has requested the consult. Time Notified: 04:40 Call Completed: Yes 03/14/17 06:54 Consult to Psychiatry [CONS] Routine Consulting Provider: Psychiatry [place] Reason for Consult: Hallucination Call Completed: Yes 03/14/17 08:36 Consult to Urology [CONS] Routine Consulting Provider: Urology [place] Reason for Consult: retained urine Time Notified: 09:00 Call Completed: No Discharging clinician: Mane Cooper Anticipated date of discharge: 03/16/17 - Patient Status Disposition: Home, Self-Care Condition: Good Functional capacity at discharge: independent ambulation Overall status at discharge: patient is back to baseline - Discharge Instructions Instructions: Pneumonia (DC) Follow Up With: Zane Blakely MD [Primary Care Provider] - 03/18/17 9:45 am (web request 03/15) Additional Instructions: Please follow up with your PCP and psychiatrist regarding your future care and management of your medications. Please return to the emergency department if your condition worsens. - Diet and Activity Activity: increase activity as tolerated, resume usual activities as tolerated Diet: advance to your usual diet Hospital course: Ms. Zayas is a 56 year old female who presented to the ED with a complaint of altered mental status and hallucinations since January 12. States that she has been seeing people and talking to them that they do not talk back. She has a significant psychiatric history including depression with psychotic symptoms. Patient was previously on home oxygen of 2 L but was discontinued about 4-5 months ago. She has a chronic cough which has started to produce a yellow phlegm. Patient admits to having fever, chills, shortness of breath, chest pain. Due to hypotension in the ED after 2L of fluids, patient had a right internal jugular venous central line placed with follow up films showing the catheter exiting the jugular vein and courses into the mediatstinum. Vancomycin and Zosyn were started for concern of PNA as seen on CXR with hypotension. Elevated d-dimer in ED was followed up with a CTA for possible pulmonary embolism and was negative for PE however did reveal a PNA and showed the central line incorrect placement. The central line was removed and the levophed stopped. Cardiothoracic surgery was consulted for further management. She was also noted to have urinary retention. CT of the head was negative for acute process. Pulse tachycardic at 104 and SpO2 of 85% on RA which improved with 4 L via NC, remainder of vital signs wnl. Labs were significant for elevated d- dimer of 659, hypokalemia of 3.4, BUN/cr of 22/1.30. Urine culture negative for infection, trops negative, bnp negative, no white count. Patient was admitted to ICU for further management of her PNA and AVH. During course of hospital stay, Ms. Zayas continued to improve. She was transferred from ICU to the medicine floor the following day as her BP was stable and she did not require pressors. She was continued on Vancomycin and zosyn for treatment of her PNA and she was deescalated to just zosyn. Cardiothoracic surgery followed the patient for multiple days for any complications of the central line placement, however no adverse effects were noted. Psychiatry was consulted for medication management. She was continued on home dose of celexa and abilify was added. She tolerated the change well and she denies any current symptoms of hallucinations. Urology was consulted for urinary retention and placed a becerra catheter which has since resolved and patient was able to void without catheter. On day of discharge, she had no complaints. She states she feels much better and denies any AVH, SOB, CP, cough. Ammonia level wnl. She will be discharged home in stable medical condition and was instructed to follow up with PCP, psychiatrist, shactor helper for further management of her chronic conditions. She will be sent home on antibiotic and instructed to finish the course. - Time Spent with Patient Total time spent providing and/or coordinating discharge services: 40 minutes - Constitutional Vitals: Temp Pulse Resp BP Pulse Ox 99.2 F 107 18 131/80 97 03/16/17 06:44 03/16/17 06:44 03/16/17 07:46 03/16/17 06:44 03/16/17 07:46 General appearance: Present: A&O X 3, no acute distress Exam: Gen.: Vitals noted. No acute distress. AAOx3 HEENT: PERRL/EOMI, oropharynx clear, Normocephalic, atraumatic Neck: Supple. No adenopathy. Cardiac: RRR, no murmur, +S1/S2 Pulmonary: CTA bilaterally, no wheezes, rales or rhonchi, equal chest expansion Abdomen: soft, nontender, BS noted, no guarding Back: Nontender throughout. MSK: ROM intact, no joint swelling noted Extremities: no BLE edema, nontender calf, no cyanosis or clubbing Neuro: A&Ox3, moves all extremities, no focal deficits Psych: Appropriate mood and behavior. No complaints of AVH <Celestino Hyman - Last Filed: 03/16/17 17:16> Date of Encounter: 03/16/17 - Discharge Diagnosis (1) Acute metabolic encephalopathy Priority: Primary Status: Acute (2) COPD (chronic obstructive pulmonary disease) Priority: Secondary Status: Chronic Qualifiers: COPD type: emphysema Emphysema type: other Qualified Code(s): J43.8 - Other emphysema (3) Chronic respiratory failure with hypoxia Priority: Secondary Status: Acute (4) Central line complication Status: Acute Qualifiers: Encounter type: subsequent encounter Qualified Code(s): T82.9XXD - Unspecified complication of cardiac and vascular prosthetic device, implant and graft, subsequent encounter (5) Major depressive disorder, recurrent, severe with psychotic features Status: Chronic (6) Urinary retention Status: Resolved Date of admission: 03/14/17 01:31 Primary care physician: Zane Blakely MD Consults: 03/14/17 05:00 Consult to Cardiothoracic Surgery [CONS] Routine Consulting Provider: Cardiothoracic Surgery [place] Reason for Consult: CVC went through IJ and into the mediastinum. CVC has been removed, hospitalist has requested the consult. Time Notified: 04:40 Call Completed: Yes 03/14/17 06:54 Consult to Psychiatry [CONS] Routine Consulting Provider: Psychiatry [place] Reason for Consult: Hallucination Call Completed: Yes 03/14/17 08:36 Consult to Urology [CONS] Routine Consulting Provider: Urology [facility] Reason for Consult: retained urine Time Notified: 09:00 Call Completed: No Hospital course: Ms. Zayas is a 56 year old female - Time Spent with Patient Total time spent providing and/or coordinating discharge services: 38min - Constitutional Vitals: Temp Pulse Resp BP Pulse Ox 97.8 F 109 18 103/73 94 03/16/17 10:36 03/16/17 10:36 03/16/17 11:08 03/16/17 10:36 03/16/17 12:14 - Attending Attestation I examined this patient and my medical decision-making was reviewed with the Resident Physician on 03/16/17. I agree with the documented findings, disposition and treatment plan as described except to the extent set forth below. Ms Zayas was admitted for acute encephalopathy. She is now completely oriented and at baseline. She is afebrile and vitals stable. She has qualified for oxygen and will be discharged home with oxygen today. Exam Alert. Comfortable Heart reg No wheeze Abd soft No edema Plan D/C home today with oxygen Follow up with PCP. Meds have been adjusted by psychiatry.
[2017-03-16 10:39] VITALS: BP 103/73
[2017-03-16] MEDS: Ipratropium/Albuterol Neb 3 ML IH SCH ×2 (11:08→15:38)
== END 2017-03-16 15:59 | disposition home or self-care (01) | DRG 206 ==
LOC: EMEROO 18:26 → SUATTDRO 03-14 01:31 → ICNU 03-14 01:31 → 2ANU 03-14 17:38
PROVIDERS: ADMIT Internal Medicine; ATTEND Internal Medicine

== ENCOUNTER 2017-07-02 14:20 | Inpatient (IN) ==
[2017-07-02] MEDS ORDERED: 0.9 % Sodium Chloride 1,000 ML IVC ONE ×2 (14:26→15:43)
--- NOTE | 2017-07-02 14:28 | Emergency Department Note ---
Disposition Clinical Impression: Sepsis, Pneumonia, Altered mental status, Substance abuse Disposition: Admitted As Inpatient Condition: Fair Referrals: Zane Blakely MD [Primary Care Provider] - Forms: ED Satisfaction Letter General Adult HPI - General Chief complaint: ED Altered Mental Status Stated complaint: AMS Time Seen by Provider: 07/02/17 14:24 Source: patient Limitations: no limitations - History of Present Illness Pain Scale: 0 - Related Data Home Medications Medication Instructions Recorded Confirmed Albuterol Sulfate [Albuterol 2 puff IH Q4HR PRN 03/05/15 07/02/17 Inhaler] Amitriptyline [Elavil] 100 mg PO HS 03/05/15 07/02/17 Cyclobenzaprine [Flexeril] 10 mg PO TID PRN 03/05/15 07/02/17 Diltiazem CD (24hr) [Cardizem CD] 240 mg PO DAILY 03/05/15 07/02/17 Duloxetine [Cymbalta] 30 mg PO BID 03/05/15 07/02/17 Lisinopril [Zestril] 10 mg PO DAILY 03/05/15 07/02/17 Omeprazole [PriLOSEC] 20 mg PO DAILY 03/05/15 07/02/17 Alprazolam [Xanax] 1 mg PO TID 12/16/15 07/02/17 Diphenoxylate/Atropine [Lomotil 1 tab PO TID PRN 12/16/15 07/02/17 2.5 mg/0.025 mg] Furosemide [Lasix] 20 - 40 mg PO DAILY 12/16/15 07/02/17 Lactose-Reduced Food [Ensure 1 bottle PO TID 12/16/15 07/02/17 Liquid] Sucralfate [Carafate] 1 gm PO BID 12/16/15 07/02/17 Cholecalciferol (Vitamin D3) 2,000 unit PO DAILY 03/14/17 07/02/17 [Vitamin D3] Citalopram [CeleXA] 20 mg PO DAILY 03/14/17 07/02/17 Dicyclomine [Bentyl] 10 mg PO TID PRN 03/14/17 07/02/17 Gabapentin [Neurontin] 800 mg PO TID 03/14/17 07/02/17 Ibuprofen [Motrin] 800 mg PO BID PRN 03/14/17 07/02/17 Multivitamin [Flintstones] 1 each PO DAILY 03/14/17 07/02/17 Tiotropium Br/Olodaterol HCl 4 gm IH DAILY 03/14/17 07/02/17 [Stiolto Respimat Inhal [place]] Diclofenac Sodium [Voltaren] 75 mg PO BID 07/02/17 07/02/17 Loratadine [Claritin] 10 mg PO DAILY 07/02/17 07/02/17 Promethazine [Phenergan] 25 mg PO TID PRN 07/02/17 07/02/17 Allergies Allergy/AdvReac Type Severity Reaction Status Date / Time azithromycin AdvReac Hives Verified 05/23/17 01:04 cefuroxime [From Ceftin] AdvReac Swelling Verified 05/23/17 01:04 of Lip/Tongue/Throat pregabalin [From Lyrica] AdvReac Hives Verified 05/23/17 01:04 Past Medical History - Past Medical History Medical history: Reports: CHF, COPD, hyperlipidemia, hypertension, osteoporosis , TIA Surgical history: Reports: hysterectomy, ureteral stent, other Psychiatric history: Reports: depression, PTSD, previous psychiatric hospitalization LOANS OFFICER history: Reports: no LOANS OFFICER history - Social History Smoking Status: Current every day smoker Smokeless Tobacco Status: No Alcohol use: Reports: none Drug use: Reports: marijuana Physical Exam - General Limitations: no limitations General appearance: appears intoxicated Course Vital Signs Temperature 100.5 F H 07/02/17 14:21 Pulse Rate 130 07/02/17 14:21 Respiratory Rate 16 07/02/17 14:21 Blood Pressure 134/76 07/02/17 14:21 O2 Sat by Pulse Oximetry 91 07/02/17 14:21 Temperature 97.8 F 07/02/17 16:38 Pulse Rate 111 07/02/17 16:38 Respiratory Rate 16 07/02/17 16:38 Blood Pressure 109/74 07/02/17 16:38 O2 Sat by Pulse Oximetry 95 07/02/17 16:38 Oxygen Delivery Oxygen Delivery Nasal Cannula Medical Decision Making - Lab Data Result diagrams: 07/02/17 14:38 07/02/17 14:38 Lab Results 07/02/17 07/02/17 07/02/17 Range/Units 14:38 14:38 14:38 WBC (4.3-11.1) K/mcL RBC (3.82-4.97) M/mcL Hgb (11.5-15.4) g/dL Hct (35.3-44.9) % MCV (83.0-100.0) fL MCH (28.0-33.3) pg MCHC (31.6-35.5) g/dL RDW (11.5-14.5) % Plt Count (140-400) K/mcL MPV (9.4-12.4) fL Immature Gran % (0-4) % Seg Neutrophils % % Lymphocytes % % Monocytes % % Eosinophils % % Basophils % % Neutrophils # (1.6-8.9) K/mcL Lymphocytes # (0.6-4.6) K/mcL Monocytes # (0.0-1.3) K/mcL Eosinophils # (0.0-0.6) K/mcL Basophils # (0.0-0.2) K/mcL PT 11.7 (9.4-12.1) Seconds INR 1.1 Sodium (136-145) mEq/L Potassium (3.5-5.1) mEq/L Chloride (98-107) mEq/L Carbon Dioxide (23-29) mEq/L BUN (6-20) mg/dL Creatinine (0.60-1.20) mg/dL Est GFR ( Amer) (> 60) Est GFR (Non-Af Amer) (> 60) BUN/Creatinine Ratio (6-26) Glucose (70-105) mg/dL Calculated Osmolality (280-300) Lactic Acid (0.5-2.2) mmol/L Calcium (8.6-10.3) mg/dL Total Bilirubin (0.3-1.0) mg/dL Direct Bilirubin (0.0-0.2) mg/dL Indirect Bilirubin (0.0-1.2) mg/dL AST (13-39) Units/L ALT (7-52) Units/L Alkaline Phosphatase (34-104) Units/L Ammonia 19 (16-53) mcmol/L Creatine Kinase (30-223) Units/L Troponin I < 0.03 (< 0.04) ng/mL Serum Total Protein (6.4-8.9) g/dL Albumin (3.5-5.7) g/dL Globulin (2.4-3.5) g/dL Albumin/Globulin Ratio (1.1-2.2) Urine Color (Yellow) Urine Clarity (Clear) Urine pH (5.0-8.0) pH Units Ur Specific [place] (1.010-1.025) Urine Protein (Neg-Trace) mg/dL Urine Glucose (UA) (Normal) mg/dL Urine Ketones (Negative) mg/dL Urine Blood (Negative) Urine Nitrite (Negative) Urine Bilirubin (Negative) Urine Urobilinogen (Normal) mg/dL Ur Leukocyte Esterase (Negative) Ur Culture Indicated? (NO) Salicylates (15.0-30.0) mg/dL Urine Opiates Screen (Nnbjxw=949) ng/mL Acetaminophen (10-30) mcg/mL Ur Barbiturates Screen (Ylkjgw=175) ng/mL Ur Phencyclidine Scrn (Cutoff=25) ng/mL Ur Amphetamines Screen (Bmjhvn=1088) ng/mL U Benzodiazepines Scrn (Cndlmk=016) ng/mL Urine Cocaine Screen (Cutoff= 300) ng/mL U Marijuana (THC) Screen (Cutoff = 50) ng/mL Ethyl Alcohol (0-10) mg/dL 07/02/17 07/02/17 07/02/17 Range/Units 14:38 14:38 14:38 WBC 20.0 H (4.3-11.1) K/mcL RBC 3.55 L (3.82-4.97) M/mcL Hgb 10.9 L (11.5-15.4) g/dL Hct 33.5 L (35.3-44.9) % MCV 94.4 (83.0-100.0) fL MCH 30.7 (28.0-33.3) pg MCHC 32.5 (31.6-35.5) g/dL RDW 13.6 (11.5-14.5) % Plt Count 244 (140-400) K/mcL MPV 10.2 (9.4-12.4) fL Immature Gran % 0.8 (0-4) % Seg Neutrophils % 86.1 % Lymphocytes % 7.0 % Monocytes % 5.2 % Eosinophils % 0.7 % Basophils % 0.2 % Neutrophils # 17.2 H (1.6-8.9) K/mcL Lymphocytes # 1.4 (0.6-4.6) K/mcL Monocytes # 1.0 (0.0-1.3) K/mcL Eosinophils # 0.1 (0.0-0.6) K/mcL Basophils # 0.0 (0.0-0.2) K/mcL PT (9.4-12.1) Seconds INR Sodium 137 (136-145) mEq/L Potassium 4.5 (3.5-5.1) mEq/L Chloride 104 (98-107) mEq/L Carbon Dioxide 30 H (23-29) mEq/L BUN 9 (6-20) mg/dL Creatinine 0.65 (0.60-1.20) mg/dL Est GFR ( Amer) > 60 (> 60) Est GFR (Non-Af Amer) > 60 (> 60) BUN/Creatinine Ratio 14 (6-26) Glucose 105 (70-105) mg/dL Calculated Osmolality 283 (280-300) Lactic Acid 1.1 (0.5-2.2) mmol/L Calcium 8.8 (8.6-10.3) mg/dL Total Bilirubin 0.4 (0.3-1.0) mg/dL Direct Bilirubin 0.1 (0.0-0.2) mg/dL Indirect Bilirubin 0.3 (0.0-1.2) mg/dL AST 15 (13-39) Units/L ALT 17 (7-52) Units/L Alkaline Phosphatase 130 H (34-104) Units/L Ammonia (16-53) mcmol/L Creatine Kinase 167 (30-223) Units/L Troponin I (< 0.04) ng/mL Serum Total Protein 6.3 L (6.4-8.9) g/dL Albumin 3.7 (3.5-5.7) g/dL Globulin 2.6 (2.4-3.5) g/dL Albumin/Globulin Ratio 1.4 (1.1-2.2) Urine Color (Yellow) Urine Clarity (Clear) Urine pH (5.0-8.0) pH Units Ur Specific [place] (1.010-1.025) Urine Protein (Neg-Trace) mg/dL Urine Glucose (UA) (Normal) mg/dL Urine Ketones (Negative) mg/dL Urine Blood (Negative) Urine Nitrite (Negative) Urine Bilirubin (Negative) Urine Urobilinogen (Normal) mg/dL Ur Leukocyte Esterase (Negative) Ur Culture Indicated? (NO) Salicylates < 5.0 L (15.0-30.0) mg/dL Urine Opiates Screen (Mbzhgt=983) ng/mL Acetaminophen < 1.0 L (10-30) mcg/mL Ur Barbiturates Screen (Rgsofo=006) ng/mL Ur Phencyclidine Scrn (Cutoff=25) ng/mL Ur Amphetamines Screen (Gsfext=5215) ng/mL U Benzodiazepines Scrn (Dccugp=370) ng/mL Urine Cocaine Screen (Cutoff= 300) ng/mL U Marijuana (THC) Screen (Cutoff = 50) ng/mL Ethyl Alcohol < 10 (0-10) mg/dL 07/02/17 07/02/17 Range/Units 15:10 15:10 WBC (4.3-11.1) K/mcL RBC (3.82-4.97) M/mcL Hgb (11.5-15.4) g/dL Hct (35.3-44.9) % MCV (83.0-100.0) fL MCH (28.0-33.3) pg MCHC (31.6-35.5) g/dL RDW (11.5-14.5) % Plt Count (140-400) K/mcL MPV (9.4-12.4) fL Immature Gran % (0-4) % Seg Neutrophils % % Lymphocytes % % Monocytes % % Eosinophils % % Basophils % % Neutrophils # (1.6-8.9) K/mcL Lymphocytes # (0.6-4.6) K/mcL Monocytes # (0.0-1.3) K/mcL Eosinophils # (0.0-0.6) K/mcL Basophils # (0.0-0.2) K/mcL PT (9.4-12.1) Seconds INR Sodium (136-145) mEq/L Potassium (3.5-5.1) mEq/L Chloride (98-107) mEq/L Carbon Dioxide (23-29) mEq/L BUN (6-20) mg/dL Creatinine (0.60-1.20) mg/dL Est GFR ( Amer) (> 60) Est GFR (Non-Af Amer) (> 60) BUN/Creatinine Ratio (6-26) Glucose (70-105) mg/dL Calculated Osmolality (280-300) Lactic Acid (0.5-2.2) mmol/L Calcium (8.6-10.3) mg/dL Total Bilirubin (0.3-1.0) mg/dL Direct Bilirubin (0.0-0.2) mg/dL Indirect Bilirubin (0.0-1.2) mg/dL AST (13-39) Units/L ALT (7-52) Units/L Alkaline Phosphatase (34-104) Units/L Ammonia (16-53) mcmol/L Creatine Kinase (30-223) Units/L Troponin I (< 0.04) ng/mL Serum Total Protein (6.4-8.9) g/dL Albumin (3.5-5.7) g/dL Globulin (2.4-3.5) g/dL Albumin/Globulin Ratio (1.1-2.2) Urine Color Yellow (Yellow) Urine Clarity Clear (Clear) Urine pH 6.0 (5.0-8.0) pH Units Ur Specific [place] 1.013 (1.010-1.025) Urine Protein Negative (Neg-Trace) mg/dL Urine Glucose (UA) Normal (Normal) mg/dL Urine Ketones Negative (Negative) mg/dL Urine Blood Negative (Negative) Urine Nitrite Negative (Negative) Urine Bilirubin Negative (Negative) Urine Urobilinogen Normal (Normal) mg/dL Ur Leukocyte Esterase Negative (Negative) Ur Culture Indicated? NO (NO) Salicylates (15.0-30.0) mg/dL Urine Opiates Screen Negative (Ccmebn=051) ng/mL Acetaminophen (10-30) mcg/mL Ur Barbiturates Screen Negative (Diudur=389) ng/mL Ur Phencyclidine Scrn Negative (Cutoff=25) ng/mL Ur Amphetamines Screen Negative (Vfpeyw=2502) ng/mL U Benzodiazepines Scrn Positive H (Vpimcw=528) ng/mL Urine Cocaine Screen Negative (Cutoff= 300) ng/mL U Marijuana (THC) Screen Negative (Cutoff = 50) ng/mL Ethyl Alcohol (0-10) mg/dL Attestation Statement - Attestation Attestation: I examined this patient and my medical decision-making was reviewed with the Resident Physician. I agree with the documented findings, disposition and treatment plan as described except to the extent set forth below. [id number] time provided Patient arrives home by EMS with confusion. It is uncertain who contacted EMS. The patient is pleasantly confused with slurred speech at the time of arrival. She denies polypharmacy or ingestion of illicit substances
--- NOTE | 2017-07-02 14:34 | Emergency Department Note ---
Disposition Clinical Impression: Substance abuse Sepsis Qualifiers: Sepsis type: sepsis due to unspecified organism Qualified Code(s): A41.9 - Sepsis, unspecified organism Pneumonia Qualifiers: Pneumonia type: due to unspecified organism Laterality: unspecified laterality Lung location: unspecified part of lung Qualified Code(s): J18.9 - Pneumonia, unspecified organism Altered mental status Qualifiers: Altered mental status type: unspecified Qualified Code(s): R41.82 - Altered mental status, unspecified Disposition: Admitted As Inpatient Condition: Fair Referrals: Zane Blakely MD [Primary Care Provider] - Forms: ED Satisfaction Letter Altered Mental Status HPI - General Chief Complaint: ED Altered Mental Status Stated Complaint: AMS Time Seen by Provider: 07/02/17 14:24 Source: patient Mode of arrival: EMS Limitations: altered mental status Nursing Notes Reviewed: Yes Vital Signs Reviewed: Yes - History of Present Illness HPI Narrative: 56-year-old female with known history of substance abuse presents for evaluation via EMS for altered mental status. Patient was found down in her home. EMS was called to the scene. EMS reported the patient did have several open pill containers dating back over several years around her. Patient is alert but altered. Last done well was unknown. Patient states she took her sleeping medicine. Patient denies history of suicidal or homicidal ideation. Patient denies any specific complaints. Patient does not provide additional history. EMS report glucose 106. Patient has no focal neurologic deficits. EMS report [place] stroke is only positive for slurred speech. - Related Data Home Medications Medication Instructions Recorded Confirmed Albuterol Sulfate [Albuterol 2 puff IH Q4HR PRN 03/05/15 07/02/17 Inhaler] Amitriptyline [Elavil] 100 mg PO HS 03/05/15 07/02/17 Cyclobenzaprine [Flexeril] 10 mg PO TID PRN 03/05/15 07/02/17 Diltiazem CD (24hr) [Cardizem CD] 240 mg PO DAILY 03/05/15 07/02/17 Duloxetine [Cymbalta] 30 mg PO BID 03/05/15 07/02/17 Lisinopril [Zestril] 10 mg PO DAILY 03/05/15 07/02/17 Omeprazole [PriLOSEC] 20 mg PO DAILY 03/05/15 07/02/17 Alprazolam [Xanax] 1 mg PO TID 12/16/15 07/02/17 Diphenoxylate/Atropine [Lomotil 1 tab PO TID PRN 12/16/15 07/02/17 2.5 mg/0.025 mg] Furosemide [Lasix] 20 - 40 mg PO DAILY 12/16/15 07/02/17 Lactose-Reduced Food [Ensure 1 bottle PO TID 12/16/15 07/02/17 Liquid] Sucralfate [Carafate] 1 gm PO BID 12/16/15 07/02/17 Cholecalciferol (Vitamin D3) 2,000 unit PO DAILY 03/14/17 07/02/17 [Vitamin D3] Citalopram [CeleXA] 20 mg PO DAILY 03/14/17 07/02/17 Dicyclomine [Bentyl] 10 mg PO TID PRN 03/14/17 07/02/17 Gabapentin [Neurontin] 800 mg PO TID 03/14/17 07/02/17 Ibuprofen [Motrin] 800 mg PO BID PRN 03/14/17 07/02/17 Multivitamin [Flintstones] 1 each PO DAILY 03/14/17 07/02/17 Tiotropium Br/Olodaterol HCl 4 gm IH DAILY 03/14/17 07/02/17 [Stiolto Respimat Inhal [place]] Diclofenac Sodium [Voltaren] 75 mg PO BID 07/02/17 07/02/17 Loratadine [Claritin] 10 mg PO DAILY 07/02/17 07/02/17 Promethazine [Phenergan] 25 mg PO TID PRN 07/02/17 07/02/17 Allergies Allergy/AdvReac Type Severity Reaction Status Date / Time azithromycin AdvReac Hives Verified 05/23/17 01:04 cefuroxime [From Ceftin] AdvReac Swelling Verified 05/23/17 01:04 of Lip/Tongue/Throat pregabalin [From Lyrica] AdvReac Hives Verified 05/23/17 01:04 Limitations: ROS unobtainable due to patients medical condition Past Medical History - Past Medical History Medical history: Reports: CHF, COPD, hyperlipidemia, hypertension, osteoporosis , TIA Surgical history: Reports: hysterectomy, ureteral stent, other Psychiatric history: Reports: depression, PTSD, previous psychiatric hospitalization SHANK FAKER history: Reports: no SHANK FAKER history - Social History Smoking Status: Current every day smoker Smokeless Tobacco Status: No Alcohol use: Reports: none Drug use: Reports: marijuana Physical Exam - General Limitations: no limitations General appearance: appears intoxicated - Head Head exam: atraumatic, normocephalic, normal inspection - Eye Eye exam: Present: normal appearance, PERRL, EOMI. Absent: scleral icterus, conjunctival injection, miosis, mydriasis - ENT ENT exam: normal exam - Neck Neck exam: Present: normal inspection - Chest Chest inspection: Present: normal inspection, symmetric chest wall rise - Respiratory Respiratory exam: Present: other (History diminished lung sounds). Absent: respiratory distress - Cardiovascular Cardiovascular exam: Present: regular rate - Abdominal Exam Abdominal exam: Present: soft, Non-Tender - Extremities Exam Extremities exam: Present: normal inspection. Absent: pedal edema - Back Exam Back exam: Present: normal inspection - Neurological Exam Neurological exam: Present: alert, CN II-XII intact. Absent: oriented X3 - Expanded Neurological Exam Patient oriented to: Present: person Speech: Present: fluid speech Motor strength - LUE: 5/5 Motor strength - RUE: 5/5 Motor strength - LLE: 5/5 Motor strength - RLE: 5/5 - Skin Skin exam: Present: warm, dry, intact, normal color Course Course Narrative: Patient's medication list reviewed. Shows that she is on gabapentin, alprazolam , Phenergan, amitriptyline, Carafate, cyclobenzaprine, diclofenac, dicyclomine, duloxetine, furosemide, ranitidine, omeprazole, citalopram. She will get an extensive evaluation including CBC, lites lites, lactate, a ASA, ethanol, acetaminophen, urine drug screen EKG chest x-ray UA as well as a head CT. - Reevaluation(s) Reevaluation #1: Patient seen and examined. Awaiting labs. Patient's resting comfortably. Time: 15:31 Vital Signs Temperature 100.5 F H 07/02/17 14:21 Pulse Rate 130 07/02/17 14:21 Respiratory Rate 16 07/02/17 14:21 Blood Pressure 134/76 07/02/17 14:21 O2 Sat by Pulse Oximetry 91 07/02/17 14:21 Temperature 97.8 F 07/02/17 16:38 Pulse Rate 111 07/02/17 16:38 Respiratory Rate 16 07/02/17 16:38 Blood Pressure 109/74 07/02/17 16:38 O2 Sat by Pulse Oximetry 95 07/02/17 16:38 Oxygen Delivery Oxygen Delivery Nasal Cannula Altered Mental Status - MDM Narrative Medical decision making narrative: 56-year-old female with a history of known substance abuse presents for evaluation of altered mental status. Patient's medication list was reviewed. Patient is on extensive neuro sedating medications. Patient states that she took her "sleeping pills". There is no family or friends at bedside to provide additional history. EMS reports that the collar was not known. EMS broken the patient's house to find her on the floor. Patient presented more than an ankle or toxidrome with tachycardia and dryness. Patient's pupils are not pinpoint. Patient's urine drug screen shows benzos. Patient's medication list also shows history of benzos. Patient's labs show a leukocytosis. Patient's lactate was normal. Patient's chest x-ray shows pneumonia. Patient possibly aspirated. Patient did have a temperature. The patient did meet Sirs criteria with sepsis pneumonia. Patient received 2 L IV fluid hydration as well as antibiotics. Patient's head CT was unremarkable. Believe this is related to polysubstance abuse. Patient's symptoms are less likely result of meningitis or encephalitis. Patient's agreeable with plan of care. Patient's GCS of 14 controlling her airway. - Lab Data Lab results reviewed: Yes I reviewed the patient's lab results. Result diagrams: 07/02/17 14:38 07/02/17 14:38 Lab Results 07/02/17 07/02/17 07/02/17 Range/Units 14:38 14:38 14:38 WBC (4.3-11.1) K/mcL RBC (3.82-4.97) M/mcL Hgb (11.5-15.4) g/dL Hct (35.3-44.9) % MCV (83.0-100.0) fL MCH (28.0-33.3) pg MCHC (31.6-35.5) g/dL RDW (11.5-14.5) % Plt Count (140-400) K/mcL MPV (9.4-12.4) fL Immature Gran % (0-4) % Seg Neutrophils % % Lymphocytes % % Monocytes % % Eosinophils % % Basophils % % Neutrophils # (1.6-8.9) K/mcL Lymphocytes # (0.6-4.6) K/mcL Monocytes # (0.0-1.3) K/mcL Eosinophils # (0.0-0.6) K/mcL Basophils # (0.0-0.2) K/mcL PT 11.7 (9.4-12.1) Seconds INR 1.1 Sodium (136-145) mEq/L Potassium (3.5-5.1) mEq/L Chloride (98-107) mEq/L Carbon Dioxide (23-29) mEq/L BUN (6-20) mg/dL Creatinine (0.60-1.20) mg/dL Est GFR ( Amer) (> 60) Est GFR (Non-Af Amer) (> 60) BUN/Creatinine Ratio (6-26) Glucose (70-105) mg/dL Calculated Osmolality (280-300) Lactic Acid (0.5-2.2) mmol/L Calcium (8.6-10.3) mg/dL Total Bilirubin (0.3-1.0) mg/dL Direct Bilirubin (0.0-0.2) mg/dL Indirect Bilirubin (0.0-1.2) mg/dL AST (13-39) Units/L ALT (7-52) Units/L Alkaline Phosphatase (34-104) Units/L Ammonia 19 (16-53) mcmol/L Creatine Kinase (30-223) Units/L Troponin I < 0.03 (< 0.04) ng/mL Serum Total Protein (6.4-8.9) g/dL Albumin (3.5-5.7) g/dL Globulin (2.4-3.5) g/dL Albumin/Globulin Ratio (1.1-2.2) Urine Color (Yellow) Urine Clarity (Clear) Urine pH (5.0-8.0) pH Units Ur Specific [place] (1.010-1.025) Urine Protein (Neg-Trace) mg/dL Urine Glucose (UA) (Normal) mg/dL Urine Ketones (Negative) mg/dL Urine Blood (Negative) Urine Nitrite (Negative) Urine Bilirubin (Negative) Urine Urobilinogen (Normal) mg/dL Ur Leukocyte Esterase (Negative) Ur Culture Indicated? (NO) Salicylates (15.0-30.0) mg/dL Urine Opiates Screen (Ghgynh=162) ng/mL Acetaminophen (10-30) mcg/mL Ur Barbiturates Screen (Retbcc=290) ng/mL Ur Phencyclidine Scrn (Cutoff=25) ng/mL Ur Amphetamines Screen (Dhhjvk=5862) ng/mL U Benzodiazepines Scrn (Otkoyy=485) ng/mL Urine Cocaine Screen (Cutoff= 300) ng/mL U Marijuana (THC) Screen (Cutoff = 50) ng/mL Ethyl Alcohol (0-10) mg/dL 07/02/17 07/02/17 07/02/17 Range/Units 14:38 14:38 14:38 WBC 20.0 H (4.3-11.1) K/mcL RBC 3.55 L (3.82-4.97) M/mcL Hgb 10.9 L (11.5-15.4) g/dL Hct 33.5 L (35.3-44.9) % MCV 94.4 (83.0-100.0) fL MCH 30.7 (28.0-33.3) pg MCHC 32.5 (31.6-35.5) g/dL RDW 13.6 (11.5-14.5) % Plt Count 244 (140-400) K/mcL MPV 10.2 (9.4-12.4) fL Immature Gran % 0.8 (0-4) % Seg Neutrophils % 86.1 % Lymphocytes % 7.0 % Monocytes % 5.2 % Eosinophils % 0.7 % Basophils % 0.2 % Neutrophils # 17.2 H (1.6-8.9) K/mcL Lymphocytes # 1.4 (0.6-4.6) K/mcL Monocytes # 1.0 (0.0-1.3) K/mcL Eosinophils # 0.1 (0.0-0.6) K/mcL Basophils # 0.0 (0.0-0.2) K/mcL PT (9.4-12.1) Seconds INR Sodium 137 (136-145) mEq/L Potassium 4.5 (3.5-5.1) mEq/L Chloride 104 (98-107) mEq/L Carbon Dioxide 30 H (23-29) mEq/L BUN 9 (6-20) mg/dL Creatinine 0.65 (0.60-1.20) mg/dL Est GFR ( Amer) > 60 (> 60) Est GFR (Non-Af Amer) > 60 (> 60) BUN/Creatinine Ratio 14 (6-26) Glucose 105 (70-105) mg/dL Calculated Osmolality 283 (280-300) Lactic Acid 1.1 (0.5-2.2) mmol/L Calcium 8.8 (8.6-10.3) mg/dL Total Bilirubin 0.4 (0.3-1.0) mg/dL Direct Bilirubin 0.1 (0.0-0.2) mg/dL Indirect Bilirubin 0.3 (0.0-1.2) mg/dL AST 15 (13-39) Units/L ALT 17 (7-52) Units/L Alkaline Phosphatase 130 H (34-104) Units/L Ammonia (16-53) mcmol/L Creatine Kinase 167 (30-223) Units/L Troponin I (< 0.04) ng/mL Serum Total Protein 6.3 L (6.4-8.9) g/dL Albumin 3.7 (3.5-5.7) g/dL Globulin 2.6 (2.4-3.5) g/dL Albumin/Globulin Ratio 1.4 (1.1-2.2) Urine Color (Yellow) Urine Clarity (Clear) Urine pH (5.0-8.0) pH Units Ur Specific [place] (1.010-1.025) Urine Protein (Neg-Trace) mg/dL Urine Glucose (UA) (Normal) mg/dL Urine Ketones (Negative) mg/dL Urine Blood (Negative) Urine Nitrite (Negative) Urine Bilirubin (Negative) Urine Urobilinogen (Normal) mg/dL Ur Leukocyte Esterase (Negative) Ur Culture Indicated? (NO) Salicylates < 5.0 L (15.0-30.0) mg/dL Urine Opiates Screen (Upfvgc=992) ng/mL Acetaminophen < 1.0 L (10-30) mcg/mL Ur Barbiturates Screen (Nxuzsb=565) ng/mL Ur Phencyclidine Scrn (Cutoff=25) ng/mL Ur Amphetamines Screen (Gltnzr=2941) ng/mL U Benzodiazepines Scrn (Ovhrqv=321) ng/mL Urine Cocaine Screen (Cutoff= 300) ng/mL U Marijuana (THC) Screen (Cutoff = 50) ng/mL Ethyl Alcohol < 10 (0-10) mg/dL 07/02/17 07/02/17 Range/Units 15:10 15:10 WBC (4.3-11.1) K/mcL RBC (3.82-4.97) M/mcL Hgb (11.5-15.4) g/dL Hct (35.3-44.9) % MCV (83.0-100.0) fL MCH (28.0-33.3) pg MCHC (31.6-35.5) g/dL RDW (11.5-14.5) % Plt Count (140-400) K/mcL MPV (9.4-12.4) fL Immature Gran % (0-4) % Seg Neutrophils % % Lymphocytes % % Monocytes % % Eosinophils % % Basophils % % Neutrophils # (1.6-8.9) K/mcL Lymphocytes # (0.6-4.6) K/mcL Monocytes # (0.0-1.3) K/mcL Eosinophils # (0.0-0.6) K/mcL Basophils # (0.0-0.2) K/mcL PT (9.4-12.1) Seconds INR Sodium (136-145) mEq/L Potassium (3.5-5.1) mEq/L Chloride (98-107) mEq/L Carbon Dioxide (23-29) mEq/L BUN (6-20) mg/dL Creatinine (0.60-1.20) mg/dL Est GFR ( Amer) (> 60) Est GFR (Non-Af Amer) (> 60) BUN/Creatinine Ratio (6-26) Glucose (70-105) mg/dL Calculated Osmolality (280-300) Lactic Acid (0.5-2.2) mmol/L Calcium (8.6-10.3) mg/dL Total Bilirubin (0.3-1.0) mg/dL Direct Bilirubin (0.0-0.2) mg/dL Indirect Bilirubin (0.0-1.2) mg/dL AST (13-39) Units/L ALT (7-52) Units/L Alkaline Phosphatase (34-104) Units/L Ammonia (16-53) mcmol/L Creatine Kinase (30-223) Units/L Troponin I (< 0.04) ng/mL Serum Total Protein (6.4-8.9) g/dL Albumin (3.5-5.7) g/dL Globulin (2.4-3.5) g/dL Albumin/Globulin Ratio (1.1-2.2) Urine Color Yellow (Yellow) Urine Clarity Clear (Clear) Urine pH 6.0 (5.0-8.0) pH Units Ur Specific [place] 1.013 (1.010-1.025) Urine Protein Negative (Neg-Trace) mg/dL Urine Glucose (UA) Normal (Normal) mg/dL Urine Ketones Negative (Negative) mg/dL Urine Blood Negative (Negative) Urine Nitrite Negative (Negative) Urine Bilirubin Negative (Negative) Urine Urobilinogen Normal (Normal) mg/dL Ur Leukocyte Esterase Negative (Negative) Ur Culture Indicated? NO (NO) Salicylates (15.0-30.0) mg/dL Urine Opiates Screen Negative (Yunyzj=065) ng/mL Acetaminophen (10-30) mcg/mL Ur Barbiturates Screen Negative (Sglyiv=345) ng/mL Ur Phencyclidine Scrn Negative (Cutoff=25) ng/mL Ur Amphetamines Screen Negative (Uanome=4624) ng/mL U Benzodiazepines Scrn Positive H (Olxeba=221) ng/mL Urine Cocaine Screen Negative (Cutoff= 300) ng/mL U Marijuana (THC) Screen Negative (Cutoff = 50) ng/mL Ethyl Alcohol (0-10) mg/dL - Radiology Data Radiology results reviewed: Yes I reviewed the patient's radiology results. Chest X-Ray 07/02/17 14:24 IMPRESSION: Patchy bibasilar airspace disease may be related to chronic fibrosis. Findings are somewhat more conspicuous on the current study suggesting there may be an acute pneumonia on the underlying background of fibrosis. D/ / Juan Jose Teran MD / Juan Jose Teran MD Interpreting Provider: Juan Jose Teran MD Head CT 07/02/17 14:25 IMPRESSION: No acute intracranial abnormality. D/ / Severo Gonzalez MD / Severo Gonzalez MD Interpreting Provider: Severo Gonzalez MD - EKG Data EKG attestation: Yes I reviewed and interpreted this EKG. EKG shows normal: sinus rhythm Rate: tachycardia Rhythm: NSR [place]/QRS: RBBB Q waves: aVR, v1, v2, v3 T wave inversions: v1, v2 Interpretation: nonspecific ST-T wave changes TPA Checklist - LKW: 3-4.5 hrs Add. Warnings/Precautions Patient/family understanding: The patient/family members have been counseled and understood the risk, benefit , and alternatives of treatment. Tamara - Tamara Situation: Demographics Background: Presenting Complaint Assessment: Vital Signs, Course and respsone to treatment, Patient/Family Expectation Recommendation: Barrier(s) to disposition, Recommendation based on pending studies, treatments, or consults S.B.Shamir Report Given to: Dr. Alexsander Mcdonald Repor Time: 16:49
[2017-07-02 14:51] LABS: Basophils % 0.2 %; Eosinophils # 0.1 K/mcL (0.0-0.6); Eosinophils % 0.7 %; Hematocrit 33.5 % (35.3-44.9); Hemoglobin 10.9 g/dL (11.5-15.4); INR 1.1; Immature Granulocytes % 0.8 % (0-4); Lymphocytes # 1.4 K/mcL (0.6-4.6); Mean Corpuscular HGB Conc 32.5 g/dL (31.6-35.5); Mean Corpuscular Hemoglobin 30.7 pg (28.0-33.3); Mean Corpuscular Volume 94.4 fL (83.0-100.0); Mean Platelet Volume 10.2 fL (9.4-12.4); Monocytes % 5.2 %; Neutrophils # 17.2 K/mcL (1.6-8.9); Platelet Count 244 K/mcL (140-400); Prothrombin Time 11.7 Seconds (9.4-12.1); Red Blood Count 3.55 M/mcL (3.82-4.97); Red Cell Distribution Width 13.6 % (11.5-14.5); Segmented Neutrophils % 86.1 %
[2017-07-02 15:09] LABS: Alanine Aminotransferase 17 Units/L (7-52); Albumin 3.7 g/dL (3.5-5.7); Albumin/Globulin Ratio 1.4 (1.1-2.2); Alkaline Phosphatase 130 Units/L (34-104); Aspartate Amino Transferase 15 Units/L (13-39); BUN/Creatinine Ratio 14 (6-26); Bilirubin,Direct 0.1 mg/dL (0.0-0.2); Bilirubin,Indirect 0.3 mg/dL (0.0-1.2); Bilirubin,Total 0.4 mg/dL (0.3-1.0); Blood Urea Nitrogen 9 mg/dL (6-20); Calcium 8.8 mg/dL (8.6-10.3); Carbon Dioxide 30 mEq/L (23-29); Chloride 104 mEq/L (98-107); Creatine Kinase 167 Units/L (30-223); Ethanol < 10 mg/dL (0-10); Globulin 2.6 g/dL (2.4-3.5); Glucose 105 mg/dL (70-105); Osmolality,Calculated 283 (280-300); Potassium 4.5 mEq/L (3.5-5.1); Sodium 137 mEq/L (136-145); Total Protein 6.3 g/dL (6.4-8.9); eGFR For African Americans > 60 (> 60); eGFR For Non-African Americans > 60 (> 60)
[2017-07-02 15:20] LABS: Bilirubin,Urine Negative (Negative); Blood,Urine Negative (Negative); Clarity,Urine Clear (Clear); Color,Urine Yellow (Yellow); Glucose,Urine (UA) Normal (Normal); Ketones,Urine Negative (Negative); Leukocyte Esterase,Urine Negative (Negative); Nitrite,Urine Negative (Negative); Protein,Urine Negative (Neg-Trace); Specific Gravity,Urine 1.013 (1.010-1.025); Urobilinogen,Urine Normal (Normal)
[2017-07-02 15:33] LABS: Amphetamine Screen,Urine Negative ng/mL (Cutoff=1000); Barbiturate Screen,Urine Negative ng/mL (Cutoff=200); Benzodiazepines Screen,Urine Positive ng/mL (Cutoff=200); Cannabinoid Screen,Urine Negative ng/mL (Cutoff = 50); Cocaine Screen,Urine Negative ng/mL (Cutoff= 300); Opiate Screen,Urine Negative ng/mL (Cutoff=300); Phencyclidine Screen,Urine Negative ng/mL (Cutoff=25)
[2017-07-02 15:40] LABS: Acetaminophen < 1.0 mcg/mL (10-30); Salicylate < 5.0 mg/dL (15.0-30.0)
[2017-07-02] MEDS ORDERED: Levofloxacin 750 MG/150 ML 750 MG/150 ML BAG IVPB ONE (15:43)
[2017-07-02] MEDS ORDERED: Naloxone 0.4 MG/ML INJ IVP PRN (20:25)
[2017-07-02] MEDS ORDERED: *HR* Promethazine 25 MG/ML VIAL IVP PRN (20:25)
[2017-07-02] MEDS ORDERED: Diphenoxylate/Atropine 1 TAB TABLET PO PRN (20:43)
[2017-07-02] MEDS ORDERED: Benzonatate 100 MG CAPSULE PO PRN (21:00)
[2017-07-02] MEDS ORDERED: Diclofenac Sodium 75 MG TABLET PO SCH (21:00)
--- NOTE | 2017-07-02 21:30 | Internal Med History&Physical ---
<Doyle Lance - Last Filed: 07/02/17 22:10> Date of Encounter: 07/02/17 Time of Encounter: 19:30 Assessment and Plan (1) Pneumonia Current visit: Yes Status: Acute Acute CAP. Pt. was last admitted in March to hospital. Pt. reports SOB/ dyspnea which has worsened over the past 2-3 days and a cough producing yellow sputum. Pt. also reports she has hx of pneumonia. 1-View CXR today shows patchy bibasilar airspace disease which may be related to chronic fibrosis. Findings are somewhat more conspicuous on the current study suggesting there may be acute pneumonia on the underlying background of fibrosis. Blood cultures x 2. Sputum culture. WBC is 20.00 and pt. currently meets sepsis criteria w/HR of 107 , RR of 22, WBC of 20.0, reported fever of 102F at home, and pneumonia. Supplemental O2 w/titration and SpO2 monitoring. DuoNebs Q6 PRN. Tessalon 100 mg TID for cough. Monitor pt. and f/u labs. Pt. discussed w/Dr. Thomas who is in agreement w/plan of care. Pt. is high risk for further morbidity d/t current sepsis criteria, current pneumonia, hx of pneumonia, and risk factors including tobacco abuse. Inpatient. Qualifiers: Pneumonia type: due to unspecified organism Laterality: unspecified laterality Lung location: unspecified part of lung Qualified Code(s): J18.9 - Pneumonia, unspecified organism (2) Sepsis Current visit: Yes Status: Acute Patient meets sepsis criteria w/HR of 107 bpm, RR of 22, WBC of 20.0, report of 102F temp at home, and suspected pneumonia. Patient given two 1L boluses of IV 0.9 NS in ED and will be followed by 100 mL/HR. Blood cultures x 2. Sputum culture. Legionella and strep pneumoniae antigens ordered. Initial lactic acid 1.1 on admission. Will repeat. Pt. is currently tachycardic and will be placed on continuous cardiac telemetry. Pt. was given IVPB vancomycin and Zosyn in ED. Will continue w/IVPB levaquin 750 mg daily ordered for pneumonia coverage since last hospitalization was >3 months ago. Monitor pt. and f/u labs for signs of increasing infection, cardiac, and/or respiratory distress. Qualifiers: Sepsis type: sepsis due to unspecified organism Qualified Code(s): A41.9 - Sepsis, unspecified organism (3) Tachycardia Current visit: Yes Status: Acute Acute tachycardia r/t current sepsis and pneumonia. Pts. cardiac risk factors include CHF, HTN, HLD, and hx of TIA. Pt. given two 1L boluses of 0.9 NS in ED to be followed by 100 mL/HR. Continuous cardiac telemetry. Supplemental O2 w/ titration and SpO2 monitoring. Pt. to be monitored closely for signs of increasing infection, cardiac, and/or respiratory distress. (4) Anxiety Current visit: Yes Status: Chronic Hx of chronic anxiety, depression, PTSD, and previous psychiatric hospitalization. Pt. reports she has no intention of self-harm, suicidal, or homicidal ideations at this time. Will continue pts. Celexa, Cymbalta, Elavil, and Xanax. (5) COPD (chronic obstructive pulmonary disease) Current visit: Yes Status: Chronic Hx of chronic COPD. Currently stable. Pt. is mildly SOB/dyspneic d/t current pneumonia dx and cough. Tessalon 100 mg TID for cough. Supplemental 2 w/ titration and SpO2 monitoring. DuoNebs Q6 PRN. Will ad steroids if pt. starts to exhibit acute exacerbation of COPD. Qualifiers: COPD type: emphysema Emphysema type: other Qualified Code(s): J43.8 - Other emphysema (6) Tobacco abuse Current visit: Yes Status: Chronic Hx of chronic tobacco abuse. Pt. reports she smokes 1 PPD and has no interest in quitting at this time. 21 mg nicotine patch ordered daily. (7) HTN (hypertension) Current visit: Yes Status: Chronic Hx of chronic HTN. Monitor pt. and VS. Continue pts. Cardizem and lisinopril. Qualifiers: Hypertension type: essential hypertension Qualified Code(s): I10 - Essential (primary) hypertension (8) HLD (hyperlipidemia) Current visit: Yes Status: Chronic Hx of chronic HLD. Pt. states she does not currently take a statin. Lipid panel in a.m. labs. Administer Lipitor 20 mg HS. Qualifiers: Hyperlipidemia type: pure hypercholesterolemia Qualified Code(s): E78.00 - Pure hypercholesterolemia, unspecified; E78.0 - Pure hypercholesterolemia (9) DVT prophylaxis Current visit: Yes Status: Acute Bilateral SCDs on LEs for DVT prophylaxis d/t Hgb of 10.9 and Hct of 33.5. Hgb was 14.5 and Hct was 42.6 on 05/23/17. Monitor H/H in a.m. labs and monitor pt. for signs of bleeding. Fecal hemoccult ordered. Internal Medicine - H&P: HPI Chief complaint: SOB/Dyspnea Admitted From: Emergency Dept Plans for Post Hospital Care: Home History of present illness: Ms. Zayas is a 56 year old female with medical hx of CHF, COPD, HLD, HTN, osteoporosis, and TIA presents from the ED with chief complaint of shortness of breath and dyspnea for the past 2-3 days. Patient reports she has a history of pneumonia in the past. She reports fever of 102 at home, chills, cough w/ yellow sputum production, nausea, and vomiting with the latest episode today. She reports pain in the center of her chest with cough as well as anxiety and unsteadiness on her feet w/ambulation. Patient reports history of marijuana use but denies any other drug use or alcohol use. Patient denies palpitations, changes in vision, headache, unusual bleeding, abdominal pain, numbness, tingling, weakness, dizziness, lightheadedness, pre-syncope, or syncope. Past Med Surg Social Fam HX - Past Medical History Source: patient, old records reviewed Medical history: CHF, COPD, hyperlipidemia, hypertension, osteoporosis, TIA Psychiatric history: anxiety, depression, PTSD, previous psychiatric hospitalization - Past Surgical History Surgical History: hysterectomy (Partial), ureteral stent (Hx of kidney stone x1) , other - Social History Smoking Status: Current every day smoker Packs per day: 1 PPD Smokeless Tobacco Status: No Alcohol use: none Drug use: marijuana Current living situation: Home Activity Level: Independent ambulation Recent Out of Country Travel Within the Last 8 Weeks: No Exposure or Possible Exposure to Illness During Travel: No - Family History Mother Race: Family Member Ethnicity: Non- Living Status: Still Living Hx Family Medical Disorders: No Father Race: Family Member Ethnicity: Non- Living Status: Age at : 80 Cause of : Lung cancer Hx Family Respiratory Disorders: Yes (COPD) Hx Family Cancer: Yes (Lung) Brother Race: Family Member Ethnicity: Non- Living Status: Still Living Hx Family Cancer: Yes (Melanoma) Sister Race: Family Member Ethnicity: Non- Living Status: Still Living Hx Family Cardiac Disorders: Yes (CAD, HTN, HLD) Internal Medicine - H&P: Meds Albuterol Sulfate [Albuterol Inhaler] 2 puff IH Q4HR PRN 03/05/15 [History] Amitriptyline [Elavil] 100 mg PO HS 03/05/15 [History] Cyclobenzaprine [Flexeril] 10 mg PO TID PRN 03/05/15 [History] Diltiazem CD (24hr) [Cardizem CD] 240 mg PO DAILY 03/05/15 [History] Duloxetine [Cymbalta] 30 mg PO BID 03/05/15 [History] Lisinopril [Zestril] 10 mg PO DAILY 03/05/15 [History] Omeprazole [PriLOSEC] 20 mg PO DAILY 03/05/15 [History] Alprazolam [Xanax] 1 mg PO TID 12/16/15 [History] Diphenoxylate/Atropine [Lomotil 2.5 mg/0.025 mg] 1 tab PO TID PRN 12/16/15 [ History] Furosemide [Lasix] 20 - 40 mg PO DAILY 12/16/15 [History] Lactose-Reduced Food [Ensure Liquid] 1 bottle PO TID 12/16/15 [History] Sucralfate [Carafate] 1 gm PO BID 12/16/15 [History] Cholecalciferol (Vitamin D3) [Vitamin D3] 2,000 unit PO DAILY 03/14/17 [History] Citalopram [CeleXA] 20 mg PO DAILY 03/14/17 [History] Dicyclomine [Bentyl] 10 mg PO TID PRN 03/14/17 [History] Gabapentin [Neurontin] 800 mg PO TID 03/14/17 [History] Ibuprofen [Motrin] 800 mg PO BID PRN 03/14/17 [History] Multivitamin [Flintstones] 1 each PO DAILY 03/14/17 [History] Tiotropium Br/Olodaterol HCl [Stiolto Respimat Inhal [place]] 4 gm IH DAILY [History] Diclofenac Sodium [Voltaren] 75 mg PO BID 07/02/17 [History] Loratadine [Claritin] 10 mg PO DAILY 07/02/17 [History] Promethazine [Phenergan] 25 mg PO TID PRN 07/02/17 [History] 3 Allergy/AdvReac Type Severity Reaction Status Date / Time azithromycin AdvReac Hives Verified 05/23/17 01:04 cefuroxime [From Ceftin] AdvReac Swelling Verified 05/23/17 01:04 of Lip/Tongue/Throat pregabalin [From Lyrica] AdvReac Hives Verified 05/23/17 01:04 All Systems PM: A 10-system review of systems was performed and is negative for pertinent findings except as documented above in the HPI. - Constitutional Constitutional: as per HPI, chills, fever(s), no night sweats - EENT Eyes: no change in vision, no discharge, no pain, no photophobia Ears: no ear discharge, no ear pain, no tinnitus Nose, mouth and throat: no dysphagia, no nasal discharge, no neck pain, no sore throat - Breasts Breasts: as per HPI - Cardiovascular Cardiovascular ROS IM: as per HPI, dyspnea, dyspnea on exertion - Respiratory Respiratory: as per HPI, cough, dyspnea, dyspnea on exertion, change in phlegm color, pain with cough - Gastrointestinal Gastrointestinal: no abdominal pain, no diarrhea, no hematemesis, no hematochezia, no melena, no nausea, no vomiting - Genitourinary Genitourinary: no change in urinary stream, no dysuria, no flank pain, no hematuria Menstruation: as per HPI, post hysterectomy - Musculoskeletal Musculoskeletal ROS IM: as per HPI, no numbness, no tingling - Integumentary Integumentary IM: no rash, no unusual bruising - Neurological Neurological ROS: no confusion, no convulsions, no focal weakness, no numbness, no tingling, no tremor(s) - Psychiatric Psychiatric: as per HPI, anxiety, depression, other (PTSD, previous psychiatric hospitalization) - Endocrine Endocrine IM: as per HPI - Hematologic/Lymphatic Hematologic/Lymphatic: no easy bruising - Allergic/Immunologic Allergic/Immunologic: as per HPI - Constitutional Vitals: Temp Pulse Resp BP Pulse Ox 99 F 107 22 113/85 89 07/02/17 19:08 07/02/17 19:08 07/02/17 19:08 07/02/17 19:08 07/02/17 19:08 General appearance: Present: cooperative, mild distress (Respiratory w/cough), A &O X 3, pleasant, answers questions appropriately - Head Head exam: Present: atraumatic, normal inspection, normocephalic - Eye Eye exam: Present: PERRL, conjuntiva pink, sclera anicteric Pupils: Present: PERRL - ENT ENT exam: Present: normal exam, normal external ear exam - Neck Neck exam general surgery: Present: normal inspection, supple, trachea midline. Absent: lymphadenopathy - Respiratory Respiratory exam: Present: accessory muscle use, decreased breath sounds, wheezes (Left lung > right lung) - Cardiovascular Cardiovascular exam: Present: +S1, +S2, tachycardia - GI/Abdominal GI/Abdominal exam: Present: normal bowel sounds, soft, no peritoneal signs. Absent: distended, tenderness - Rectal Rectal exam: Present: deferred - Additional comments: exam deferred. - Extremities Exam Extremities exam: Present: pedal edema (Non-pitting bilaterally), warm, radial pulses palpable and symmetrical. Absent: calf tenderness, cyanotic - Back Exam Back exam: Present: normal inspection - Neurological Exam Neurological exam: Present: CN II-XII intact, oriented X3, no focal deficits. Absent: pronater drift, facial droop, speech deficit - Psychiatric Psychiatric exam: Present: anxious - Skin Skin exam: Present: dry, intact Internal Med - H&P Results - Labs CBC & Chem 7: 07/02/17 14:38 07/02/17 14:38 - EKG Data EKG shows normal: sinus rhythm Rate: tachycardia - EKG Data Prior EKG available for review: yes When compared to previous EKG: there are significant changes Interpretation IM: suggestive of ischemia EKG comments: 07/02/17 21:37 EKG dated 05/23/17 shows sinus rhythm, indeterminate axis, and right bundle branch block. EKG dated 07/02/17 shows sinus tachycardia, low QRS voltage in precordial leads , incomplete right bundle branch block, and possible anterior myocardial infarction of indeterminate age. - Diagnostic Studies Chest x-ray Additional comments: Impressions Chest X-Ray 07/02/17 14:24 IMPRESSION: Patchy bibasilar airspace disease may be related to chronic fibrosis. Findings are somewhat more conspicuous on the current study suggesting there may be an acute pneumonia on the underlying background of fibrosis. D/ / Juan Jose Teran MD / Juan Jose Teran MD Interpreting Provider: Juan Jose Teran MD CT scan - head Additional comments: Impressions Head CT 07/02/17 14:25 IMPRESSION: No acute intracranial abnormality. D/ / Severo Gonzalez MD / Severo Gonzalez MD Interpreting Provider: Severo Gonzalez MD <Ana Thomas - Last Filed: 07/03/17 00:47> Date of Encounter: 07/03/17 Internal Medicine - H&P: HPI History of present illness: Ms. Zayas is a 56 year old female All Systems PM: A 10-system review of systems was performed and is negative for pertinent findings except as documented above in the HPI. - Constitutional Vitals: Temp Pulse Resp BP Pulse Ox 99.1 F 115 22 122/83 97 07/03/17 00:07 07/03/17 00:07 07/03/17 00:07 07/03/17 00:07 07/03/17 00:07 Internal Med - H&P Results - Labs CBC & Chem 7: 07/02/17 14:38 07/02/17 14:38 - Attending Attestation I have seen and examined this patient independently. I have discussed with MAINTENANCE MANAGER Mr Lance regarding the management plan. Agree with the documentation. Pt admitted with pneumonia. Improved symptoms after treatment. Continue antibiotic treatment. Continue supportive treatment and symptomatic treatment.
[2017-07-02] MEDS: Ipratropium/Albuterol Neb 3 ML IH SCH (21:31)
[2017-07-02] MEDS: Gabapentin 400 MG CAPSULE PO SCH (23:18)
[2017-07-02] MEDS: 0.9 % Sodium Chloride 1,000 ML IVC SCH (23:18)
[2017-07-02] MEDS: Nicotine 21 MG PATCH.TD24 TD SCH (23:19)
[2017-07-02] MEDS: ALPRAZolam 1 MG TABLET PO SCH (23:19)
[2017-07-02] MEDS: ENSURE PO SCH (23:19)
[2017-07-02] MEDS ORDERED: Acetaminophen 325 MG TABLET PO PRN (23:42)
[2017-07-03 04:08] LABS: Basophils % 0.2 %; Eosinophils # 0.2 K/mcL (0.0-0.6); Eosinophils % 1.2 %; Hematocrit 31.3 % (35.3-44.9); Hemoglobin 10.3 g/dL (11.5-15.4); Immature Granulocytes % 0.6 % (0-4); Lymphocytes # 2.2 K/mcL (0.6-4.6); Lymphocytes % 13.3 %; Mean Corpuscular HGB Conc 32.9 g/dL (31.6-35.5); Mean Corpuscular Volume 94.3 fL (83.0-100.0); Mean Platelet Volume 10.1 fL (9.4-12.4); Monocytes # 0.6 K/mcL (0.0-1.3); Monocytes % 3.7 %; Neutrophils # 13.5 K/mcL (1.6-8.9); Platelet Count 248 K/mcL (140-400); Red Blood Count 3.32 M/mcL (3.82-4.97); Red Cell Distribution Width 13.9 % (11.5-14.5)
[2017-07-03 04:22] LABS: Alanine Aminotransferase 13 Units/L (7-52); Albumin 3.2 g/dL (3.5-5.7); Albumin/Globulin Ratio 1.3 (1.1-2.2); Alkaline Phosphatase 119 Units/L (34-104); Aspartate Amino Transferase 13 Units/L (13-39); BUN/Creatinine Ratio 13 (6-26); Bilirubin,Total 0.5 mg/dL (0.3-1.0); Blood Urea Nitrogen 8 mg/dL (6-20); Calcium 8.3 mg/dL (8.6-10.3); Carbon Dioxide 25 mEq/L (23-29); Chloride 106 mEq/L (98-107); Chol/HDL Ratio 2.6 (0-4.9); Cholesterol 119 mg/dL (< 200); Globulin 2.5 g/dL (2.4-3.5); Glucose 138 mg/dL (70-105); HDL Cholesterol 45 mg/dL (40-59); LDL Cholesterol,Calculated 58 mg/dL (0-99); Magnesium 1.7 mg/dL (1.6-2.6); Osmolality,Calculated 285 (280-300); Potassium 3.9 mEq/L (3.5-5.1); Sodium 137 mEq/L (136-145); Total Protein 5.7 g/dL (6.4-8.9); Triglycerides 82 mg/dL (< 150); eGFR For African Americans > 60 (> 60); eGFR For Non-African Americans > 60 (> 60)
[2017-07-03] MEDS: Ipratropium/Albuterol Neb 3 ML IH SCH ×4 (04:22→21:49)
[2017-07-03] MEDS ORDERED: Diltiazem CD (24hr) 240 MG CAPSULE PO SCH (09:00)
[2017-07-03] MEDS: Gabapentin 400 MG CAPSULE PO SCH ×3 (09:58→20:19)
[2017-07-03] MEDS: Cholecalciferol (D-3) 1,000 UNIT TABLET PO SCH (09:59)
[2017-07-03] MEDS: ALPRAZolam 1 MG TABLET PO SCH (09:59)
[2017-07-03] MEDS: Loratadine 10 MG TABLET PO SCH (09:59)
[2017-07-03] MEDS: Nicotine 21 MG PATCH.TD24 TD SCH (10:00)
[2017-07-03] MEDS: Levofloxacin 750 MG/150 ML 750 MG/150 ML BAG IVPB SCH (10:00)
[2017-07-03] MEDS: ENSURE PO SCH ×3 (10:15→20:26)
[2017-07-03] MEDS: (Stiolto Respimat Inhal) IH SCH (10:15)
[2017-07-03] MEDS: 0.9 % Sodium Chloride 1,000 ML IVC SCH (10:17)
[2017-07-03] MEDS: predniSONE 20 MG TABLET PO SCH (13:55)
[2017-07-03] MEDS: ALPRAZolam 0.5 MG TABLET PO PRN ×2 (14:40→20:18)
[2017-07-03] MEDS: Piperacillin/Tazobactam 3.375 GM/200 ML BAG IVPB SCH ×2 (16:15→20:17)
--- NOTE | 2017-07-03 16:34 | Internal Med Progress Note ---
Date of Encounter: 07/03/17 Time of Encounter: 16:32 - Assessment and plan (1) Altered mental status Current Visit: Yes Status: Acute Assessment and plan: Patient was to press on presentation lacks related to effects of medications including benzodiazepines. She is alert during my interview. Decrease doses of Xanax which will be given on PRN rather than scheduled basis. Qualifiers: Altered mental status type: unspecified Qualified Code(s): R41.82 - Altered mental status, unspecified (2) Pneumonia Current Visit: Yes Status: Acute Assessment and plan: Patient was admitted to our facility about 3 months ago. I would add pseudomonal coverage. Qualifiers: Pneumonia type: due to unspecified organism Laterality: unspecified laterality Lung location: unspecified part of lung Qualified Code(s): J18.9 - Pneumonia, unspecified organism (3) Acute exacerbation of chronic obstructive airways disease Current Visit: No Status: Acute Assessment and plan: Will keep the patient on IV steroids, nebulizer treatments - Subjective Interval history: Patient and examined. Patient notice improvement in her respiratory status. Improvement in cough shortness of breath. Still requires 2 L of oxygen. Patient alert during my interview. - Constitutional Vitals: Temp Pulse Resp BP Pulse Ox 98.4 F 94 14 119/85 95 07/03/17 14:44 07/03/17 14:44 07/03/17 14:44 07/03/17 14:44 07/03/17 14:44 General appearance: Present: cooperative, mild distress (Respiratory w/cough), A &O X 3, pleasant, answers questions appropriately Exam: Gen.: patient is alert oriented times 3 not in distress. Cardiac: normal S1 S2 no additional sounds chest: diminished air entry, expiratory wheezing abdomen: soft nontender nondistended normal bowel sounds Neuro: no focal deficits LE: no swelling Internal Medicine: Result - Labs CBC & Chem 7: 07/03/17 03:49 07/03/17 03:49 Labs: Short CBC 07/03/17 Range/Units 03:49 WBC 16.7 H (4.3-11.1) K/mcL Hgb 10.3 L (11.5-15.4) g/dL Hct 31.3 L (35.3-44.9) % Plt Count 248 (140-400) K/mcL Neutrophils # 13.5 H (1.6-8.9) K/mcL BMP 07/03/17 03:49 Sodium 137 Potassium 3.9 Chloride 106 Carbon Dioxide 25 BUN 8 Creatinine 0.61 Glucose 138 H Calcium 8.3 L Liver Function 07/03/17 Range/Units 03:49 Total Bilirubin 0.5 (0.3-1.0) mg/dL AST 13 (13-39) Units/L ALT 13 (7-52) Units/L Alkaline Phosphatase 119 H (34-104) Units/L Albumin 3.2 L (3.5-5.7) g/dL - ABG Interpretation ABG results: PT/INR, D-dimer PT 11.7 Seconds (9.4-12.1) 07/02/17 14:38 Consult Discharge Plan - Plan Referrals: Zane Blakely MD [Primary Care Provider] -
[2017-07-04 01:58] LABS: Hematocrit 31.5 % (35.3-44.9); Hemoglobin 10.3 g/dL (11.5-15.4); Immature Granulocytes % 1.2 % (0-4); Immature Platelets 3.7 % (1.1-6.1); Lymphocytes # 0.9 K/mcL (0.6-4.6); Mean Corpuscular HGB Conc 32.7 g/dL (31.6-35.5); Mean Corpuscular Volume 94.9 fL (83.0-100.0); Mean Platelet Volume 10.2 fL (9.4-12.4); Monocytes # 0.2 K/mcL (0.0-1.3); Monocytes % 2.6 %; Neutrophils # 7.5 K/mcL (1.6-8.9); Platelet Count 272 K/mcL (140-400); Red Blood Count 3.32 M/mcL (3.82-4.97); Red Cell Distribution Width 13.4 % (11.5-14.5); Segmented Neutrophils % 86.2 %
[2017-07-04] MEDS: Piperacillin/Tazobactam 3.375 GM/200 ML BAG IVPB SCH (02:19)
[2017-07-04 02:23] LABS: Alanine Aminotransferase 17 Units/L (7-52); Albumin 3.4 g/dL (3.5-5.7); Albumin/Globulin Ratio 1.2 (1.1-2.2); Alkaline Phosphatase 140 Units/L (34-104); Aspartate Amino Transferase 14 Units/L (13-39); BUN/Creatinine Ratio 14 (6-26); Bilirubin,Total 0.2 mg/dL (0.3-1.0); Blood Urea Nitrogen 10 mg/dL (6-20); Calcium 8.8 mg/dL (8.6-10.3); Carbon Dioxide 27 mEq/L (23-29); Chloride 106 mEq/L (98-107); Globulin 2.9 g/dL (2.4-3.5); Glucose 145 mg/dL (70-105); Osmolality,Calculated 294 (280-300); Sodium 141 mEq/L (136-145); Total Protein 6.3 g/dL (6.4-8.9); eGFR For African Americans > 60 (> 60); eGFR For Non-African Americans > 60 (> 60)
[2017-07-04] MEDS: Ipratropium/Albuterol Neb 3 ML IH SCH ×2 (04:32→10:52)
[2017-07-04 10:16] VITALS: BP 141/89
[2017-07-04] MEDS: Levofloxacin 750 MG/150 ML 750 MG/150 ML BAG IVPB SCH (11:27)
[2017-07-04] MEDS: Gabapentin 400 MG CAPSULE PO SCH (11:28)
[2017-07-04] MEDS: Loratadine 10 MG TABLET PO SCH (11:28)
[2017-07-04] MEDS: predniSONE 20 MG TABLET PO SCH (11:29)
[2017-07-04] MEDS: (Stiolto Respimat Inhal) IH SCH (11:29)
[2017-07-04] MEDS: Cholecalciferol (D-3) 1,000 UNIT TABLET PO SCH (11:29)
[2017-07-04] MEDS: ENSURE PO SCH (11:29)
[2017-07-04] MEDS: Nicotine 21 MG PATCH.TD24 TD SCH (11:30)
--- NOTE | 2017-07-04 11:52 | Discharge Summary ---
Date of Encounter: 07/04/17 Time of Encounter: 11:46 - Discharge Diagnosis (1) Altered mental status Priority: Primary Status: Acute Qualifiers: Altered mental status type: unspecified Qualified Code(s): R41.82 - Altered mental status, unspecified (2) Pneumonia Priority: Primary Status: Acute Qualifiers: Pneumonia type: due to unspecified organism Laterality: unspecified laterality Lung location: unspecified part of lung Qualified Code(s): J18.9 - Pneumonia, unspecified organism (3) Acute exacerbation of chronic obstructive airways disease Priority: Primary Status: Acute - Discharge Medications Prescriptions: Levofloxacin [Levaquin] 750 mg PO DAILY #5 tablet predniSONE [PredniSONE] 60 mg PO DAILY #5 tablet Home Medications: Albuterol Sulfate [Albuterol Inhaler] 2 puff IH Q4HR PRN 03/05/15 [History] Amitriptyline [Elavil] 100 mg PO HS 03/05/15 [History] Diltiazem CD (24hr) [Cardizem CD] 240 mg PO DAILY 03/05/15 [History] Duloxetine [Cymbalta] 30 mg PO BID 03/05/15 [History] Lisinopril [Zestril] 10 mg PO DAILY 03/05/15 [History] Omeprazole [PriLOSEC] 20 mg PO DAILY 03/05/15 [History] Diphenoxylate/Atropine [Lomotil 2.5 mg/0.025 mg] 1 tab PO TID PRN 12/16/15 [ History] Furosemide [Lasix] 20 - 40 mg PO DAILY 12/16/15 [History] Lactose-Reduced Food [Ensure Liquid] 1 bottle PO TID 12/16/15 [History] Sucralfate [Carafate] 1 gm PO BID 12/16/15 [History] Cholecalciferol (Vitamin D3) [Vitamin D3] 2,000 unit PO DAILY 03/14/17 [History] Citalopram [CeleXA] 20 mg PO DAILY 03/14/17 [History] Dicyclomine [Bentyl] 10 mg PO TID PRN 03/14/17 [History] Gabapentin [Neurontin] 800 mg PO TID 03/14/17 [History] Ibuprofen [Motrin] 800 mg PO BID PRN 03/14/17 [History] Multivitamin [Flintstones] 1 each PO DAILY 03/14/17 [History] Tiotropium Br/Olodaterol HCl [Stiolto Respimat Inhal [place]] 4 gm IH DAILY [History] Diclofenac Sodium [Voltaren] 75 mg PO BID 07/02/17 [History] Loratadine [Claritin] 10 mg PO DAILY 07/02/17 [History] Promethazine [Phenergan] 25 mg PO TID PRN 07/02/17 [History] ALPRAZolam [Xanax 0.5 MG Tablet] 0.5 mg PO TID PRN tablet 07/04/17 [Rx] Ipratropium/Albuterol Neb [Duoneb] 3 ml IH [id number] PRN inhsol 07/04/17 [Rx] Levofloxacin [Levaquin] 750 mg PO DAILY #5 tablet 07/04/17 [Rx] predniSONE [PredniSONE] 60 mg PO DAILY #5 tablet 07/04/17 [Rx] Allergies/Adverse Reactions: 3 Allergy/AdvReac Type Severity Reaction Status Date / Time azithromycin AdvReac Hives Verified 05/23/17 01:04 cefuroxime [From Ceftin] AdvReac Swelling Verified 05/23/17 01:04 of Lip/Tongue/Throat pregabalin [From Lyrica] AdvReac Hives Verified 05/23/17 01:04 Date of admission: 07/02/17 17:33 Primary care physician: Zane Blakely MD Consults: 07/02/17 20:30 Consult to Telephone Appointment Clerk [CONS] Routine Reason for SW Consult: Please assess patient for possible home needs for post -discharge planning. 07/02/17 20:31 Consult to Occupational Therapy [CONS] Routine Comment: Evaluate, develop and implement POC Reason for Consult: Patient reports some unsteadiness when ambulating. Please assess patient for ambulation strength, safety, stability, and possible home assistive needs for post discharge planning. 07/02/17 20:32 Consult to Physical Therapy [CONS] Routine Comment: Evaluate, develop and implement POC Reason for Consult: Patient reports some unsteadiness when ambulating. Please assess patient for ambulation strength, safety, stability, and possible home assistive needs for post discharge planning. - Patient Status Disposition: Home, Self-Care Condition: Fair - Discharge Instructions Follow Up With: Zane Blakely MD [Primary Care Provider] - 07/08/17 - Diet and Activity Activity: other (oxygen as needed for SOB and night) Interval History: 56-year-old female patients presented to the emergency room with altered mental status thought to be related to multiple sedating medications that the patient is receiving including benzodiazepines muscle relaxants. Patient's level of alertness improved throughout hospitalization. Patient was also short of breath due to community acquired pneumonia and COPD exacerbation. Respiratory status improved throughout hospitalization. She has been off oxygen since yesterday night. She is speaking in full sentences during my interview. She is moving a decent amount of air. Patient will be discharged on Levaquin 750 mg daily for 5 days (her QTc interval is 379) and prednisone 60 mg daily for 5 days. Patient already has oxygen set up at home for her COPD. Patient expressed understanding of these new discharge medications and will follow up with PCP within one week. Hospital course: Ms. Zayas is a 56 year old female - Time Spent with Patient Total time spent providing and/or coordinating discharge services: - Constitutional Vitals: Temp Pulse Resp BP Pulse Ox 98.4 F 94 16 141/89 98 07/03/17 19:55 07/04/17 07:00 07/04/17 10:52 07/04/17 07:00 07/04/17 10:52 General appearance: Present: cooperative, mild distress (Respiratory w/cough), A &O X 3, pleasant, answers questions appropriately Exam: Gen.: patient is alert oriented times 3 not in distress. Cardiac: normal S1 S2 no additional sounds or murmurs. Chest: Slightly diminished your entry. scattered Expiratory wheezing. Abdomen: soft nontender nondistended normal bowel sounds lower extremity: lax calf muscles no swelling neuro: no focal deficit
--- NOTE | 2017-07-06 12:33 | Electrocardiograph Report ---
[address] [address] Test Date: 2017-07-02 Pat Name: Mimi Zayas Department: 104 Room: 2NE35 Gender: F [employer]: : 1960 Requested By: Camron Avalos Order Number: [id number] Reading MD: Leroy Jaquez MD Measurements Intervals [place] Rate: 126 P: 54 [place]: 146 QRS: -1 QRSD: 112 T: 23 QT: 304 QTc: 379 Interpretive Statements SINUS TACHYCARDIA LOW QRS VOLTAGE IN PRECORDIAL LEADS INCOMPLETE RIGHT BUNDLE BRANCH BLOCK Poor R wave progression Electronically Signed On 07-06-2017 12:31:21 EST by Leroy Jaquez MD
== END 2017-07-04 12:54 | disposition home or self-care (01) | DRG 720 ==
LOC: EMEROO 14:20 → 2NENU 17:33
PROVIDERS: ADMIT Hospitalist; ATTEND Hospitalist

== ENCOUNTER 2018-06-10 16:15 | Observation (INO) ==
[2018-06-10] MEDS ORDERED: 0.9 % Sodium Chloride 1,000 ML IVC ONE (16:40)
[2018-06-10] MEDS ORDERED: Levofloxacin 750 MG/150 ML 750 MG/150 ML BAG IVPB ONE (16:40)
[2018-06-10] MEDS ORDERED: Ipratropium/Albuterol Neb 3 ML IH ONE (16:59)
[2018-06-10] MEDS ORDERED: methylPREDNISolone 125 MG/2 ML VIAL IVP ONE (16:59)
[2018-06-10] MEDS ORDERED: Ketorolac 30 MG/ML VIAL IVP ONE (16:59)
--- NOTE | 2018-06-10 17:03 | Emergency Department Note ---
Disposition Clinical Impression: COPD exacerbation Community acquired pneumonia Qualifiers: Laterality: unspecified laterality Qualified Code(s): J18.9 - Pneumonia, uns pecified organism Disposition: Admitted As Inpatient Condition: Good Referrals: Zane Blakely MD [Primary Care Provider] - Forms: ED Satisfaction Letter Time of Disposition: 18:18 General Adult HPI - General Chief complaint: ED Shortness of Breath/Dyspnea Stated complaint: pnuemonia Time Seen by Provider: 06/10/18 16:39 Source: patient Limitations: no limitations Nursing Notes Reviewed: Yes Vital Signs Reviewed: Yes - History of Present Illness HPI Narrative: 57 year old female presents to the eD with complaits of hypoxia and productive cough of green/yellow colors and an excebration of her COPD. Patient states that she has reid bronchitis/pneumoina over the pas 14 times this year alone and weaers 2nc at home only at night and is starting to notice more exertinal dyspnea and requiring increased amount o oxygen. Nava statest hat [facility]. Nava states that she has reid fvers and chills at home without nauea or vomitting and she also has a stabbing pain n the left upper and left lower yannc[place] from her broncchitic cough which is typically how she presents when she has ppneumonia Pain Scale: 5 - Related Data Home Medications Medication Instructions Recorded Confirmed Albuterol Sulfate [Albuterol 2 puff IH Q4HR PRN 03/05/15 07/02/17 Inhaler] Amitriptyline [Elavil] 100 mg PO HS 03/05/15 07/02/17 Diltiazem CD (24hr) [Cardizem CD] 240 mg PO DAILY 03/05/15 07/02/17 Duloxetine [Cymbalta] 30 mg PO BID 03/05/15 07/02/17 Lisinopril [Zestril] 10 mg PO DAILY 03/05/15 07/02/17 Omeprazole [PriLOSEC] 20 mg PO DAILY 03/05/15 07/02/17 Diphenoxylate/Atropine [Lomotil 1 tab PO TID PRN 12/16/15 07/02/17 2.5 mg/0.025 mg] Furosemide [Lasix] 20 - 40 mg PO DAILY 12/16/15 07/02/17 Lactose-Reduced Food [Ensure 1 bottle PO TID 12/16/15 07/02/17 Liquid] Sucralfate [Carafate] 1 gm PO BID 12/16/15 07/02/17 Cholecalciferol (Vitamin D3) 2,000 unit PO DAILY 03/14/17 07/02/17 [Vitamin D3] Citalopram [CeleXA] 20 mg PO DAILY 03/14/17 07/02/17 Dicyclomine [Bentyl] 10 mg PO TID PRN 03/14/17 07/02/17 Gabapentin [Neurontin] 800 mg PO TID 03/14/17 07/02/17 Ibuprofen [Motrin] 800 mg PO BID PRN 03/14/17 07/02/17 Multivitamin [Flintstones] 1 each PO DAILY 03/14/17 07/02/17 Tiotropium Br/Olodaterol HCl 4 gm IH DAILY 03/14/17 07/02/17 [Stiolto Respimat Inhal [place]] Diclofenac Sodium [Voltaren] 75 mg PO BID 07/02/17 07/02/17 Loratadine [Claritin] 10 mg PO DAILY 07/02/17 07/02/17 Promethazine [Phenergan] 25 mg PO TID PRN 07/02/17 07/02/17 Previous Rx's Medication Instructions Recorded ALPRAZolam [Xanax 0.5 MG Tablet] 0.5 mg PO TID PRN tablet 07/04/17 Ipratropium/Albuterol Neb [Duoneb] 3 ml IH [id number] PRN inhsol 07/04/17 Levofloxacin [Levaquin] 750 mg PO DAILY #5 tablet 07/04/17 predniSONE [PredniSONE] 60 mg PO DAILY #5 tablet 07/04/17 Promethazine [Phenergan] 25 mg PO Q6HR PRN #15 tablet 08/30/17 Ondansetron HCl [Zofran] 4 mg PO Q8HR PRN #21 tab 02/16/18 Allergies Allergy/AdvReac Type Severity Reaction Status Date / Time azithromycin AdvReac Hives Verified 06/10/18 16:33 cefuroxime [From Ceftin] AdvReac Swelling Verified 06/10/18 16:33 of Lip/Tongue/Throat pregabalin [From Lyrica] AdvReac Hives Verified 06/10/18 16:33 Constitutional: Denies: fever, chills, weakness, weight change Eyes: Denies: eye pain, eye discharge, vision change ENT ED: Denies: ear pain, throat pain, dental pain, hearing loss, epistaxis, congestion, dysphagia Cardiovascular: Reports: chest pain. Denies: palpitations, dyspnea on exertion, edema, syncope Respiratory: Reports: cough, wheezes. Denies: dyspnea, hemoptysis, stridor Gastrointestinal: Denies: abdominal pain, nausea, vomiting, diarrhea, constipation, hematemesis, melena, hematochezia Genitourinary: Denies: dysuria, frequency, hematuria, discharge Musculoskeletal: Denies: back pain, neck pain, arthralgia, myalgia Integumentary: Denies: rash, abrasion, lesions Neurological: Denies: headache, weakness, numbness, paresthesias, confusion, abnormal gait, vertigo Psychiatric: Denies: anxiety, depression, suicidal thoughts, homicidal thoughts, auditory hallucinations, visual hallucinations Endocrine: Denies: fatigue Hematological/Lymphatic: Denies: easy bleeding, easy bruising Allergic/Immunologic: Denies: facial swelling, urticaria Past Medical History - Past Medical History Medical history: Reports: CHF, COPD, hyperlipidemia, hypertension, osteoporosis, TIA Surgical history: Reports: hysterectomy (Partial), ureteral stent (Hx of kidney stone x1), other Psychiatric history: Reports: anxiety, depression, PTSD, previous psychiatric hospitalization PERFORMANCE ARCHITECT history: Reports: no PERFORMANCE ARCHITECT history - Social History Smoking Status: Current every day smoker Smokeless Tobacco Status: No Alcohol use: Reports: none Drug use: Reports: marijuana Physical Exam - General Limitations: no limitations General appearance: alert, in no apparent distress - Head Head exam: atraumatic, normocephalic, normal inspection - Eye Eye exam: Present: normal appearance, PERRL, EOMI - Expanded Eye Exam Pupils: Bilateral: reactive - ENT ENT exam: normal exam, normal oropharynx, mucous membranes moist - Expanded ENT Exam External ear exam: Present: normal external inspection Mouth exam: Present: normal external inspection Teeth exam: Present: normal inspection Throat exam: Present: normal inspection - Neck Neck exam: Present: normal inspection, full ROM, trachea midline - Chest Chest inspection: Present: normal inspection, symmetric chest wall rise - Respiratory Respiratory exam: Present: wheezes. Absent: respiratory distress, stridor, accessory muscle use, prolonged expiratory phase - Cardiovascular Cardiovascular exam: Present: regular rate, normal rhythm, normal heart sounds - Abdominal Exam Abdominal exam: Present: soft, Non-Tender. Absent: tenderness, distention, guarding, rebound, rigidity - Extremities Exam Extremities exam: Present: normal inspection, full ROM. Absent: tenderness, pedal edema - Expanded Upper Extremity Exam Shoulder exam: Present: normal inspection, full ROM Arm exam: Present: normal inspection, full ROM Elbow exam: Present: normal inspection, full ROM Forearm/Wrist exam: Present: normal inspection, full ROM Hand exam: Present: normal inspection, full ROM Vascular exam: Normal: capillary refill, radial pulse - Expanded Lower Extremity Exam Hip/Pelvis exam: Present: normal inspection, full ROM Upper leg exam: Present: normal inspection, full ROM Knee exam: Present: normal inspection, full ROM Lower leg exam: Present: normal inspection, full ROM Ankle exam: Present: normal inspection, full ROM Foot/toe exam: Present: normal inspection, full ROM Neurovascular/Tendon exam: Absent: motor deficit, sensory deficit, tendon deficit - Back Exam Back exam: Present: normal inspection, full ROM. Absent: tenderness - Neurological Exam Neurological exam: Present: alert, oriented X3 - Expanded Neurological Exam Patient oriented to: Present: person, place, time Coma Scale Eye Opening: Spontaneous Coma Scale Motor Response: Obeys Commands Coma Scale Verbal Response: Oriented Coma Scale Total: 15 - Psychiatric Psychiatric exam: Present: normal affect, normal mood - Skin Skin exam: Present: warm, dry, intact, normal color Course Course Narrative: I will do a sepsis wokrup as she does meet SIRS critieria and rule out pnuemoina. She will have breathing treatmnts, steroids, IVF, and ABX and then be admitted to medicine as she is hypoxic to 87% on RA. - Consultations Consultation #1: discussed case with Dr. Graham and he accepts navaot his service. Nava updated and agreeable to plan Time: 18:17 Vital Signs Temperature 98.5 F 06/10/18 16:34 Pulse Rate 117 06/10/18 16:34 Respiratory Rate 20 06/10/18 16:34 Blood Pressure 157/100 06/10/18 16:34 O2 Sat by Pulse Oximetry 93 06/10/18 16:34 Temperature 98.5 F 06/10/18 16:45 Pulse Rate 117 06/10/18 16:45 Respiratory Rate 20 06/10/18 17:20 Blood Pressure 157/100 06/10/18 16:45 O2 Sat by Pulse Oximetry 93 06/10/18 17:20 Oxygen Delivery Oxygen Delivery Room Air Medical Decision Making - Medical Records Medical records reviewed: Yes I reviewed the patient's medical records. - Lab Data Lab results reviewed: Yes I reviewed the patient's lab results. Result diagrams: 06/10/18 17:09 06/10/18 17:09 Lab Results 06/10/18 06/10/18 06/10/18 Range/Units 17:09 17:09 17:09 WBC 6.2 (4.3-11.1) K/mcL RBC 4.23 (3.82-4.97) M/mcL Hgb 12.9 (11.5-15.4) g/dL Hct 40.0 (35.3-44.9) % MCV 94.6 (83.0-100.0) fL MCH 30.5 (28.0-33.3) pg MCHC 32.3 (31.6-35.5) g/dL RDW 13.1 (11.5-14.5) % Plt Count 268 (140-400) K/mcL MPV 10.0 (9.4-12.4) fL Immature Gran % 0.2 (0-4) % Seg Neutrophils % 61.1 % Lymphocytes % 28.5 % Monocytes % 7.3 % Eosinophils % 2.4 % Basophils % 0.5 % Neutrophils # 3.8 (1.6-8.9) K/mcL Lymphocytes # 1.8 (0.6-4.6) K/mcL Monocytes # 0.5 (0.0-1.3) K/mcL Eosinophils # 0.2 (0.0-0.6) K/mcL Basophils # 0.0 (0.0-0.2) K/mcL PT 11.5 (9.4-12.1) Seconds INR 1.0 APTT 33.4 (26.0-36.0) Seconds Sodium 140 (136-145) mEq/L Potassium 3.5 (3.5-5.1) mEq/L Chloride 106 (98-107) mEq/L Carbon Dioxide 27 (23-29) mEq/L BUN 7 (6-20) mg/dL Creatinine 0.74 (0.60-1.20) mg/dL Est GFR ( Amer) > 60 (> 60) Est GFR (Non-Af Amer) > 60 (> 60) BUN/Creatinine Ratio 9 (6-26) Glucose 121 H (70-105) mg/dL Calculated Osmolality 289 (280-300) Lactic Acid (0.5-2.2) mmol/L Calcium 9.2 (8.6-10.3) mg/dL Phosphorus 3.3 (2.7-4.5) mg/dL Magnesium 1.9 (1.6-2.6) mg/dL Total Bilirubin 0.2 L (0.3-1.0) mg/dL Direct Bilirubin 0.1 (0.0-0.2) mg/dL Indirect Bilirubin 0.1 (0.0-1.2) mg/dL AST 12 L (13-39) Units/L ALT 9 (7-52) Units/L Alkaline Phosphatase 124 H (34-104) Units/L Troponin I < 0.03 (< 0.04) ng/mL B-Natriuretic Peptide (Less than 100) pg/mL Serum Total Protein 7.2 (6.4-8.9) g/dL Albumin 4.2 (3.5-5.7) g/dL Globulin 3.0 (2.4-3.5) g/dL Albumin/Globulin Ratio 1.4 (1.1-2.2) Lipase 6 L (11-82) Units/L 06/10/18 06/10/18 Range/Units 17:09 17:09 WBC (4.3-11.1) K/mcL RBC (3.82-4.97) M/mcL Hgb (11.5-15.4) g/dL Hct (35.3-44.9) % MCV (83.0-100.0) fL MCH (28.0-33.3) pg MCHC (31.6-35.5) g/dL RDW (11.5-14.5) % Plt Count (140-400) K/mcL MPV (9.4-12.4) fL Immature Gran % (0-4) % Seg Neutrophils % % Lymphocytes % % Monocytes % % Eosinophils % % Basophils % % Neutrophils # (1.6-8.9) K/mcL Lymphocytes # (0.6-4.6) K/mcL Monocytes # (0.0-1.3) K/mcL Eosinophils # (0.0-0.6) K/mcL Basophils # (0.0-0.2) K/mcL PT (9.4-12.1) Seconds INR APTT (26.0-36.0) Seconds Sodium (136-145) mEq/L Potassium (3.5-5.1) mEq/L Chloride (98-107) mEq/L Carbon Dioxide (23-29) mEq/L BUN (6-20) mg/dL Creatinine (0.60-1.20) mg/dL Est GFR ( Amer) (> 60) Est GFR (Non-Af Amer) (> 60) BUN/Creatinine Ratio (6-26) Glucose (70-105) mg/dL Calculated Osmolality (280-300) Lactic Acid 1.4 (0.5-2.2) mmol/L Calcium (8.6-10.3) mg/dL Phosphorus (2.7-4.5) mg/dL Magnesium (1.6-2.6) mg/dL Total Bilirubin (0.3-1.0) mg/dL Direct Bilirubin (0.0-0.2) mg/dL Indirect Bilirubin (0.0-1.2) mg/dL AST (13-39) Units/L ALT (7-52) Units/L Alkaline Phosphatase (34-104) Units/L Troponin I (< 0.04) ng/mL B-Natriuretic Peptide 10 (Less than 100) pg/mL Serum Total Protein (6.4-8.9) g/dL Albumin (3.5-5.7) g/dL Globulin (2.4-3.5) g/dL Albumin/Globulin Ratio (1.1-2.2) Lipase (11-82) Units/L - Radiology Data Radiology results reviewed: Yes I reviewed the patient's radiology results. - EKG Data EKG #1 EKG attestation: Yes I reviewed and interpreted this EKG. EKG results narrative: sinus tachycardiac with rate of 112, RBB/LAFB. no STEMI no change from 02/16/18. 1647
[2018-06-10 17:25] LABS: Basophils % 0.5 %; Eosinophils # 0.2 K/mcL (0.0-0.6); Eosinophils % 2.4 %; Hemoglobin 12.9 g/dL (11.5-15.4); Immature Granulocytes % 0.2 % (0-4); Lymphocytes # 1.8 K/mcL (0.6-4.6); Lymphocytes % 28.5 %; Mean Corpuscular HGB Conc 32.3 g/dL (31.6-35.5); Mean Corpuscular Hemoglobin 30.5 pg (28.0-33.3); Mean Corpuscular Volume 94.6 fL (83.0-100.0); Monocytes # 0.5 K/mcL (0.0-1.3); Monocytes % 7.3 %; Neutrophils # 3.8 K/mcL (1.6-8.9); Platelet Count 268 K/mcL (140-400); Red Blood Count 4.23 M/mcL (3.82-4.97); Red Cell Distribution Width 13.1 % (11.5-14.5); Segmented Neutrophils % 61.1 %
[2018-06-10 17:36] LABS: Prothrombin Time 11.5 Seconds (9.4-12.1)
[2018-06-10 17:38] LABS: Activated Partial Thrombo Time 33.4 Seconds (26.0-36.0)
[2018-06-10 17:46] LABS: Troponin I < 0.03 ng/mL (< 0.04)
[2018-06-10 17:47] LABS: Alanine Aminotransferase 9 Units/L (7-52); Albumin 4.2 g/dL (3.5-5.7); Albumin/Globulin Ratio 1.4 (1.1-2.2); Alkaline Phosphatase 124 Units/L (34-104); Aspartate Amino Transferase 12 Units/L (13-39); BUN/Creatinine Ratio 9 (6-26); Bilirubin,Direct 0.1 mg/dL (0.0-0.2); Bilirubin,Indirect 0.1 mg/dL (0.0-1.2); Bilirubin,Total 0.2 mg/dL (0.3-1.0); Blood Urea Nitrogen 7 mg/dL (6-20); Calcium 9.2 mg/dL (8.6-10.3); Carbon Dioxide 27 mEq/L (23-29); Chloride 106 mEq/L (98-107); Glucose 121 mg/dL (70-105); Lipase 6 Units/L (11-82); Magnesium 1.9 mg/dL (1.6-2.6); Osmolality,Calculated 289 (280-300); Phosphorous 3.3 mg/dL (2.7-4.5); Potassium 3.5 mEq/L (3.5-5.1); Sodium 140 mEq/L (136-145); Total Protein 7.2 g/dL (6.4-8.9); eGFR For Non-African Americans > 60 (> 60)
--- NOTE | 2018-06-10 20:30 | Internal Med History&Physical ---
Date of Encounter: 06/11/18 Time of Encounter: 20:27 Internal Medicine - H&P: HPI Chief complaint: SOB History of present illness: Ms. Zayas is a 57 year old female with past medical history of CHF, hypertension, COPD and TIA who presents to the ED with complaints of 1 month history of right upper quadrant pain and states that for the past month she has been having "pneumonia". She denies any fever or chills but does report a chronic cough consisting of yellowish/greenish phlegm. She believes she is having pneumonia due to right upper quadrant pain under her right ribs that is pleuritic and similar to a previous presentation when she had pneumonia. Patient is currently on 3 L home oxygen as needed. Patient does not currently feel short of breath but notes worsening shortness of breath with exertion requiring greater use of her home oxygen. On arrival to the ED, patient noted to be hypoxemic with a O2 saturation of 87% on room air and mildly tachycardic in the one teens and afebrile. Laboratory results were unremarkable. Her chest x-ray showed mild basilar disease which may represent pneumonia versus atelectasis. Patient received 1 L of fluid in the ED and was started on duo nebs and steroids for treatment of possible COPD exacerbation as well as IV antibiotics with levofloxacin. When I assessed the patient she was lying in bed, off oxygen, appeared very comfortable in no acute distress. Past Med Surg Social Fam HX - Past Medical History Medical history: CHF, COPD, hyperlipidemia, hypertension, osteoporosis, TIA Additional medical history: Reflex sympathetic Dystrophy Psychiatric history: anxiety, depression, PTSD, previous psychiatric hospitalization - Past Surgical History Surgical History: hysterectomy (Partial), ureteral stent (Hx of kidney stone x1), other Additional surgical history: JAW BROKEN AND WIRED SHUT. broken sternum - Social History Smoking Status: Current every day smoker Smokeless Tobacco Status: No Alcohol use: none Drug use: marijuana - Family History Mother Family Member Ethnicity: Non- Living Status: Still Living Hx Family Cardiac Disorders: Yes (HTN) Father Family Member Ethnicity: Non- Living Status: Hx Family Respiratory Disorders: Yes (COPD) Hx Family Cancer: Yes (Lung) Brother Family Member Ethnicity: Non- Living Status: Still Living Hx Family Cancer: Yes (Melanoma) Sister Family Member Ethnicity: Non- Living Status: Still Living Hx Family Cardiac Disorders: Yes (CAD, HTN, HLD) Internal Medicine - H&P: Meds Cholecalciferol (Vitamin D3) [Vitamin D3] 2,000 unit PO DAILY 03/14/17 [History] Gabapentin [Neurontin] 800 mg PO TID 03/14/17 [History] Ibuprofen [Motrin] 800 mg PO BID PRN 03/14/17 [History] Multivitamin [Flintstones] 1 tab PO DAILY 03/14/17 [History] Tiotropium Br/Olodaterol HCl [Stiolto Respimat Inhal [place]] 1 puff IH BID 0 03/14/17 [History] Diclofenac Sodium [Voltaren] 75 mg PO BID PRN 07/02/17 [History] Promethazine [Phenergan] 25 mg PO TID PRN 07/02/17 [History] Albuterol Sulfate [Ventolin Hfa] 2 puff IH Q4H PRN 06/10/18 [History] Amitriptyline [Elavil] 100 mg PO HS 06/10/18 [History] BuPROPion XL (24 HR) [Wellbutrin XL] 150 mg PO DAILY 06/10/18 [History] Cyclobenzaprine [Flexeril] 10 mg PO TID 06/10/18 [History] Dicyclomine Hcl [Bentyl] 20 mg PO DAILY PRN 06/10/18 [History] Lisinopril [Zestril] 10 mg PO DAILY PRN 06/10/18 [History] Omeprazole [PriLOSEC] 20 mg PO DAILY 06/10/18 [History] Oxazepam 10 mg PO BID 06/10/18 [History] Propranolol [Inderal] 40 mg PO DAILY 06/10/18 [History] lamoTRIgine [Lamictal] 25 mg PO TID 06/10/18 [History] Allergy/AdvReac Type Severity Reaction Status Date / Time azithromycin AdvReac Hives Verified 06/10/18 16:33 cefuroxime [From Ceftin] AdvReac Swelling Verified 06/10/18 16:33 of Lip/Tongue/Throat pregabalin [From Lyrica] AdvReac Hives Verified 06/10/18 16:33 All Systems PM: A 10-system review of systems was performed and is negative for pertinent findings except as documented above in the HPI. - Constitutional Constitutional: no chills, no fever(s), no night sweats - EENT Eyes: no change in vision, no discharge, no pain, no photophobia Ears: no ear discharge, no ear pain, no tinnitus Nose, mouth and throat: no dysphagia, no nasal discharge, no neck pain, no sore throat - Cardiovascular Cardiovascular ROS IM: no chest pain, no diaphoresis, no dyspnea, no lightheadedness, no palpitations, no syncope - Respiratory Respiratory: no cough, no dyspnea, no wheezing, no excessive phlegm production - Gastrointestinal Gastrointestinal: no abdominal pain, no diarrhea, no hematemesis, no hematochezia, no melena, no nausea, no vomiting - Genitourinary Genitourinary: no change in urinary stream, no dysuria, no flank pain, no hematuria - Musculoskeletal Musculoskeletal ROS IM: no numbness, no tingling - Integumentary Integumentary IM: no rash, no unusual bruising - Neurological Neurological ROS: no confusion, no convulsions, no focal weakness, no numbness, no tingling, no tremor(s) - Hematologic/Lymphatic Hematologic/Lymphatic: no easy bruising - Constitutional Vitals: Temp Pulse Resp BP Pulse Ox 99.1 F 116 15 151/76 93 06/10/18 20:08 06/10/18 20:08 06/10/18 20:08 06/10/18 20:08 06/10/18 20:08 Exam: General: Alert and oriented 3; lying in bed in no acute distress Skin:Normal color, no rash, no lesions. HEENT:EOM, pupils equal, round and reactive. Cardiovascular:Normal S1 & S2, no rubs, murmurs or gallops. No JVD. Pulse regular. Lungs:Normal breath sounds, no wheezes or crackles. Abdomen:Soft, non-tender, no rigidity. Extremities:No deformity, no edema or tenderness, no joint swelling or clubbing. Neurological:Normal cognition and motor skills. Pulses:Carotid and radial pulses normal +2. Rest of the physical exam is non contributory Internal Med - H&P Results - Labs CBC & Chem 7: 06/11/18 03:52 06/11/18 03:52 Labs: Short CBC 06/10/18 Range/Units 17:09 WBC 6.2 (4.3-11.1) K/mcL Hgb 12.9 (11.5-15.4) g/dL Hct 40.0 (35.3-44.9) % Plt Count 268 (140-400) K/mcL Neutrophils # 3.8 (1.6-8.9) K/mcL BMP 06/10/18 17:09 Sodium 140 Potassium 3.5 Chloride 106 Carbon Dioxide 27 BUN 7 Creatinine 0.74 Glucose 121 H Calcium 9.2 Cardiac Enzymes 06/10/18 Range/Units 17:09 Troponin I < 0.03 (< 0.04) ng/mL Liver Function 06/10/18 Range/Units 17:09 Total Bilirubin 0.2 L (0.3-1.0) mg/dL Direct Bilirubin 0.1 (0.0-0.2) mg/dL AST 12 L (13-39) Units/L ALT 9 (7-52) Units/L Alkaline Phosphatase 124 H (34-104) Units/L Albumin 4.2 (3.5-5.7) g/dL - Impressions ITS Impressions Chest X-Ray 06/10/18 16:40 IMPRESSION: Mild bibasilar disease may represent pneumonia and/or atelectasis. Mild chronic prominence of interstitial markings accentuated by low lung volumes. D/ / Shine Ortiz MD / Shine Ortiz MD Interpreting Provider: Shine Ortiz MD - Assessment and plan (1) COPD exacerbation Current Visit: Yes Status: Acute Assessment and plan: Patient presents with worsening productive cough and hypoxemia 87% on room air. Absent white count. Chest x-ray shows questionable pneumonia in the absence of fever or other constitutional symptoms. Patient seems to have responded to breathing treatments in the ED as I do not appreciate any wheezing during my assessment at the patient. We will continue treatment for possible COPD exacerbation with DuoNeb's, steroids and antibiotics in the setting of suspected pneumonia. (2) Community acquired pneumonia Current Visit: Yes Status: Acute Assessment and plan: Possible community-acquired pneumonia in the setting of COPD exacerbation. Chest x-ray shows mild basilar disease which may represent pneumonia versus atelectasis. Patient denies any fever or chills though does endorse a productive cough with pleuritic chest pain. White blood cell count is normal however. Recommend continued treatment with levofloxacin for now. Follow-up blood cultures. Qualifiers: Laterality: unspecified laterality Qualified Code(s): J18.9 - Pneumonia, unspecified organism (3) Tachycardia Current Visit: No Status: Acute Assessment and plan: Sinus tachycardia in the 1 teens. Patient received fluid bolus in the ED though remains slightly tachycardic. Possibly secondary to DuoNeb treatment. We will continue to monitor on telemetry for now. Resume home beta duncan in the morn ing. (4) Right upper quadrant pain Current Visit: Yes Status: Acute Assessment and plan: Right upper quadrant abdominal pain described as sharp and aggravated with deep inspiration. Ongoing for the past month. No association with food. Patient has a mildly elevated alkaline phosph. Would recommend follow-up with CT of the abdomen. (5) HTN (hypertension) Current Visit: No Status: Chronic Assessment and plan: Blood pressure stable. Continue with home type hypertensive medications Qualifiers: Qualified Code(s): I10 - Essential (primary) hypertension (6) DVT prophylaxis Current Visit: No Status: Acute Assessment and plan: Subcutaneous heparin - Time Spent With Patient Total time spent is greater than 50% in coordination of care (as documented) at patient's floor/unit and/or counseling patient:
[2018-06-10] MEDS ORDERED: Naloxone 0.4 MG/ML INJ IVP PRN ×2 (20:31→21:07)
[2018-06-10] MEDS ORDERED: Acetaminophen 325 MG TABLET PO PRN (21:07)
[2018-06-10] MEDS: Ipratropium/Albuterol Neb 3 ML IH SCH (23:01)
[2018-06-10] MEDS: Ketorolac 15 MG/ML VIAL IVP PRN (23:10)
[2018-06-10] MEDS: MethylPREDNISolone 40 MG/ML VIAL IVP SCH (23:10)
[2018-06-11] MEDS ORDERED: Isovue-370 500 ML INFUS..BTL IV ONE ×2 (00:42→12:46)
[2018-06-11] MEDS: *HR* Heparin 5,000 UNIT/ML VIAL SQ SCH ×4 (01:46→20:38)
[2018-06-11 04:14] LABS: Basophils % 0.2 %; Hematocrit 37.8 % (35.3-44.9); Hemoglobin 12.2 g/dL (11.5-15.4); Immature Granulocytes % 0.5 % (0-4); Lymphocytes # 0.5 K/mcL (0.6-4.6); Lymphocytes % 11.3 %; Mean Corpuscular HGB Conc 32.3 g/dL (31.6-35.5); Mean Corpuscular Hemoglobin 30.6 pg (28.0-33.3); Mean Corpuscular Volume 94.7 fL (83.0-100.0); Mean Platelet Volume 10.2 fL (9.4-12.4); Monocytes % 0.9 %; Neutrophils # 3.7 K/mcL (1.6-8.9); Platelet Count 277 K/mcL (140-400); Red Blood Count 3.99 M/mcL (3.82-4.97); Segmented Neutrophils % 87.1 %
[2018-06-11] MEDS: Ipratropium/Albuterol Neb 3 ML IH SCH ×4 (04:18→23:39)
[2018-06-11 04:29] LABS: Alanine Aminotransferase 9 Units/L (7-52); Albumin 3.9 g/dL (3.5-5.7); Albumin/Globulin Ratio 1.4 (1.1-2.2); Alkaline Phosphatase 111 Units/L (34-104); Aspartate Amino Transferase 11 Units/L (13-39); BUN/Creatinine Ratio 13 (6-26); Bilirubin,Total 0.2 mg/dL (0.3-1.0); Blood Urea Nitrogen 10 mg/dL (6-20); Calcium 8.6 mg/dL (8.6-10.3); Carbon Dioxide 24 mEq/L (23-29); Chloride 106 mEq/L (98-107); Globulin 2.7 g/dL (2.4-3.5); Glucose 176 mg/dL (70-105); Osmolality,Calculated 291 (280-300); Sodium 139 mEq/L (136-145); Total Protein 6.6 g/dL (6.4-8.9); eGFR For Non-African Americans > 60 (> 60)
[2018-06-11] MEDS: MethylPREDNISolone 40 MG/ML VIAL IVP SCH ×2 (05:41→18:20)
[2018-06-11 08:20] LABS: Bilirubin,Urine Negative (Negative); Blood,Urine Negative (Negative); Clarity,Urine Clear (Clear); Color,Urine Yellow (Yellow); Glucose,Urine (UA) Normal (Normal); Ketones,Urine Negative (Negative); Leukocyte Esterase,Urine Small (Negative); Nitrite,Urine Negative (Negative); Protein,Urine Negative (Neg-Trace); Specific Gravity,Urine 1.014 (1.010-1.025); Urobilinogen,Urine Normal (Normal)
[2018-06-11 08:22] LABS: Bacteria,Urine None Seen per hpf (None-Few); Hyaline Casts,Urine None Seen per lpf (None-Few); RBC,Urine 0-3 per hpf (0-3); Squamous Epithelial Cell,Urine Many per lpf (None-Few)
[2018-06-11] MEDS: Cholecalciferol (D-3) 1,000 UNIT TABLET PO SCH (08:28)
[2018-06-11] MEDS: Multivit/Ca/Min/Fe/FA 1 TAB TABLET PO SCH (08:28)
[2018-06-11] MEDS: Gabapentin 400 MG CAPSULE PO SCH ×3 (08:28→20:37)
[2018-06-11] MEDS: BuPROPion XL (24 HR) 150 MG TABLET PO SCH (08:28)
[2018-06-11] MEDS: Levofloxacin 750 MG/150 ML 750 MG/150 ML BAG IVPB SCH (08:28)
[2018-06-11] MEDS: lamoTRIgine 25 MG TABLET PO SCH ×3 (08:28→20:37)
[2018-06-11] MEDS: Ketorolac 15 MG/ML VIAL IVP PRN (08:46)
--- NOTE | 2018-06-11 12:02 | Internal Med Progress Note ---
Hospitalist Progress Note - Encounter Date of Encounter: 06/11/18 Time of Encounter: 10:23 - Subjective Interval History: Patient seen and examined this morning. No acute overnight events. Denies any nausea vomiting or diarrhea. No fevers, chills, shortness of breath. Complains of abdominal pain on the right side. Also some pain on the left shoulder. - Exam Vitals: Temp Pulse Resp BP Pulse Ox 98.8 F 95 16 160/103 91 06/11/18 11:20 06/11/18 11:20 06/11/18 11:20 06/11/18 11:20 06/11/18 11:20 Exam: General: AxO 3, NAD Skin: Normal color, no rash, no lesions. Cardiovascular: Normal S1 & S2, no rubs, murmurs or gallops. No JVD. Pulse regular. Lungs: Normal breath sounds, no wheezes or crackles. Abdomen:Soft, non-tender, no rigidity. Extremities: No deformity, no edema or tenderness, no joint swelling or clubbing. Neurological: No focal deficits. Motor and sensory exam grossly unremarkable. - Assessment and Plan (1) Tachycardia Current Visit: No Status: Acute (2) DVT prophylaxis Current Visit: No Status: Acute (3) HTN (hypertension) Current Visit: No Status: Chronic (4) Community acquired pneumonia Current Visit: Yes Status: Acute (5) COPD exacerbation Current Visit: Yes Status: Acute (6) Right upper quadrant pain Current Visit: Yes Status: Acute - Summary of Assessment and Plan Summary of Assessment and Plan: COPD exacerbation - c/w steroids, DuoNeb's and antibiotics in the setting of suspected pneumonia. Community acquired pneumonia - Possible CAP in the setting of COPD exacerbation. CXR wtih mild basilar disease which may represent pneumonia versus atelectasis. Some productive cough with pleuritic chest pain. f/u CT - c/w levaquin - f/u Blood cultures Tachycardia - Sinus tachycardia - s/p IVF Patient received fluid bolus in the ED - No tele events. Now resolved - c/w home home beta duncan Right upper quadrant pain - Right upper quadrant abdominal pain described as sharp and aggravated with deep inspiration. - Ongoing for the past month. With mildly elevated alkaline phosph. - f/u CT ordered. - Patient with history of reflex sympathetic dystrophy and has been having pain involving different parts of her body. RUQ pain could be related. Depression/anxiety/PTSD - Continue home amitriptyline, bupropion, lamotrigine and oxazepam HTN - Blood pressure stable - c/w home lisinopril and propranolol DVT prophylaxis - c/w heparin - Time Spent with Patient Total time spent is greater than 50% in coordination of care (as documented) at patient's floor/unit and/or counseling patient: Internal Medicine: Result - Labs CBC & Chem 7: 06/11/18 03:52 06/11/18 03:52 Labs: Short CBC 06/10/18 06/11/18 Range/Units 17:09 03:52 WBC 6.2 4.3 (4.3-11.1) K/mcL Hgb 12.9 12.2 (11.5-15.4) g/dL Hct 40.0 37.8 (35.3-44.9) % Plt Count 268 277 (140-400) K/mcL Neutrophils # 3.8 3.7 (1.6-8.9) K/mcL BMP 06/10/18 06/11/18 17:09 03:52 Sodium 140 139 Potassium 3.5 4.0 Chloride 106 106 Carbon Dioxide 27 24 BUN 7 10 Creatinine 0.74 0.76 Glucose 121 H 176 H Calcium 9.2 8.6 Cardiac Enzymes 06/10/18 Range/Units 17:09 Troponin I < 0.03 (< 0.04) ng/mL Liver Function 06/10/18 06/11/18 Range/Units 17:09 03:52 Total Bilirubin 0.2 L 0.2 L (0.3-1.0) mg/dL Direct Bilirubin 0.1 (0.0-0.2) mg/dL AST 12 L 11 L (13-39) Units/L ALT 9 9 (7-52) Units/L Alkaline Phosphatase 124 H 111 H (34-104) Units/L Albumin 4.2 3.9 (3.5-5.7) g/dL Urine 06/11/18 Range/Units 07:00 Urine Color Yellow (Yellow) Urine Clarity Clear (Clear) Urine pH 7.0 (5.0-8.0) pH Units Ur Specific [place] 1.014 (1.010-1.025) Urine Protein Negative (Neg-Trace) mg/dL Urine Glucose (UA) Normal (Normal) mg/dL - ABG Interpretation ABG results: PT/INR, D-dimer PT 11.5 Seconds (9.4-12.1) 06/10/18 17:09 - Impressions Impressions Chest X-Ray 06/10/18 16:40 IMPRESSION: Mild bibasilar disease may represent pneumonia and/or atelectasis. Mild chronic prominence of interstitial markings accentuated by low lung volumes. D/ / Shine Ortiz MD / Shine Ortiz MD Interpreting Provider: Shine Ortiz MD Consult Discharge Plan - Plan Referrals: Zane Blakely MD [Primary Care Provider] - (3) HTN (hypertension) Qualifiers: Qualified Code(s): I10 - Essential (primary) hypertension (4) Community acquired pneumonia Qualifiers: Laterality: unspecified laterality Qualified Code(s): J18.9 - Pneumonia, unspecified organism
[2018-06-11] MEDS: *HR* OxyCODONE/APAP 5/325 TABLET PO PRN ×2 (13:01→21:14)
[2018-06-11] MEDS ORDERED: *HR* LORazepam 0.5 MG TABLET PO ONE (15:56)
[2018-06-12] MEDS: Ipratropium/Albuterol Neb 3 ML IH SCH ×2 (04:37→11:01)
[2018-06-12] MEDS: *HR* Heparin 5,000 UNIT/ML VIAL SQ SCH (05:09)
[2018-06-12] MEDS: MethylPREDNISolone 40 MG/ML VIAL IVP SCH (05:09)
[2018-06-12] MEDS: *HR* OxyCODONE/APAP 5/325 TABLET PO PRN ×2 (06:21→13:49)
[2018-06-12] MEDS: Levofloxacin 750 MG/150 ML 750 MG/150 ML BAG IVPB SCH (08:37)
[2018-06-12] MEDS: lamoTRIgine 25 MG TABLET PO SCH (08:38)
[2018-06-12] MEDS: BuPROPion XL (24 HR) 150 MG TABLET PO SCH (08:38)
[2018-06-12] MEDS: Multivit/Ca/Min/Fe/FA 1 TAB TABLET PO SCH (08:38)
[2018-06-12] MEDS: Cholecalciferol (D-3) 1,000 UNIT TABLET PO SCH (08:38)
[2018-06-12] MEDS: Gabapentin 400 MG CAPSULE PO SCH (08:38)
[2018-06-12 10:55] VITALS: BP 148/93
--- NOTE | 2018-06-12 12:26 | Discharge Summary ---
- NOTES TO OUTPATIENT PROVIDER Notes to Outpatient Provider: Discharged on 5 day course of prednisone and Levaquin. Orders not resulted at time of discharge: Pending orders 06/10/18 16:40 ECG 12 lead ECG [ECG] Stat 06/10/18 17:09 Culture,Blood [BC] Stat Date of Encounter: 06/12/18 Time of Encounter: 11:23 - Discharge Diagnosis (1) Tachycardia Priority: Secondary Status: Acute (2) DVT prophylaxis Priority: Secondary Status: Acute (3) HTN (hypertension) Priority: Secondary Status: Chronic Qualifiers: Qualified Code(s): I10 - Essential (primary) hypertension (4) Community acquired pneumonia Priority: Primary Status: Acute Qualifiers: Laterality: unspecified laterality Qualified Code(s): J18.9 - Pneumonia, unspecified organism (5) COPD exacerbation Priority: Primary Status: Acute (6) Right upper quadrant pain Priority: Secondary Status: Acute Hospital course: Ms. Zayas is a 57 year old female with past medical history of hypertension, COPD, TIA came in with right upper quadrant pain and some hypoxemia. Patient was admitted for COPD exacerbation, possible pneumonia and right upper quadrant pain. Patient LFTs were unremarkable except mildly elevated alkaline phosphatase. CT abdomen and pelvis did not show any acute abdominal process but did show moderate bibasilar atelectasis versus pneumonia. No further workup was pursued for right upper quadrant pain . Patient was continued on treatment for pneumonia given hypoxemia and history of COPD. Patient will also started on steroid and antibiotic Levaquin. He was stable to be discharged home to finish 5 day course of steroid and antibiotic. Patient to continue her home inhalers. Was discharged on her home pain medications for reflex sympathetic dystrophy and given 2 tabs of Percocet given significant right upper quadrant pain. Patient to continue taking diclofenac, amitriptyline, bupropion and Flexeril. I asked to take acetaminophen and follow-up with PCP. Discharge discussed with: patient, nurse - Time Spent with Patient Total time spent providing and/or coordinating discharge services: Greater than 30 minutes (42) - Discharge Medications Prescriptions: levoFLOXacin [Levaquin] 500 mg PO DAILY 2 Days #2 tablet OxyCODONE/APAP 5/325 [Percocet 5/325 MG] 1 each PO ONCE 2 Days #2 tablet predniSONE [PredniSONE] 40 mg PO DAILY 2 Days #4 tablet Home Medications: Cholecalciferol (Vitamin D3) [Vitamin D3] 2,000 unit PO DAILY 03/14/17 [History] Gabapentin [Neurontin] 800 mg PO TID 03/14/17 [History] Ibuprofen [Motrin] 800 mg PO BID PRN 03/14/17 [History] Multivitamin [Flintstones] 1 tab PO DAILY 03/14/17 [History] Tiotropium Br/Olodaterol HCl [Stiolto Respimat Inhal [place]] 1 puff IH BID 03/14/17 [History] Diclofenac Sodium [Voltaren] 75 mg PO BID PRN 07/02/17 [History] Promethazine [Phenergan] 25 mg PO TID PRN 07/02/17 [History] Albuterol Sulfate [Ventolin Hfa] 2 puff IH Q4H PRN 06/10/18 [History] Amitriptyline [Elavil] 100 mg PO HS 06/10/18 [History] BuPROPion XL (24 HR) [Wellbutrin Xl] 150 mg PO DAILY 06/10/18 [History] Cyclobenzaprine [Flexeril] 10 mg PO TID 06/10/18 [History] Dicyclomine Hcl [Bentyl] 20 mg PO DAILY PRN 06/10/18 [History] Lisinopril [Zestril] 10 mg PO DAILY PRN 06/10/18 [History] Omeprazole [PriLOSEC] 20 mg PO DAILY 06/10/18 [History] Oxazepam 10 mg PO BID 06/10/18 [History] Propranolol [Inderal] 40 mg PO DAILY 06/10/18 [History] lamoTRIgine [Lamictal] 25 mg PO TID 06/10/18 [History] OxyCODONE/APAP 5/325 [Percocet 5/325 MG] 1 each PO ONCE 2 Days #2 tablet 06/12/18 [Rx] levoFLOXacin [Levaquin] 500 mg PO DAILY 2 Days #2 tablet 06/12/18 [Rx] predniSONE [PredniSONE] 40 mg PO DAILY 2 Days #4 tablet 06/12/18 [Rx] Allergies/Adverse Reactions: Allergy/AdvReac Type Severity Reaction Status Date / Time azithromycin AdvReac Hives Verified 06/10/18 16:33 cefuroxime [From Ceftin] AdvReac Swelling Verified 06/10/18 16:33 of Lip/Tongue/Throat pregabalin [From Lyrica] AdvReac Hives Verified 06/10/18 16:33 Date of admission: 06/10/18 18:19 Primary care physician: Zane Blakely MD Consults: 06/10/18 20:32 Consult to Nurse Navigator [CONS] Routine Comment: Discharging clinician: Idalia Fountain - Constitutional Vitals: Temp Pulse Resp BP Pulse Ox 98.7 F 104 18 148/93 93 06/12/18 10:54 06/12/18 10:54 06/12/18 11:01 06/12/18 10:54 06/12/18 11:01 Exam: General: AxO 3, NAD Skin: Normal color, no rash, no lesions. Cardiovascular: Normal S1 & S2, no rubs, murmurs or gallops. No JVD. Pulse regular. Lungs: Normal breath sounds, no wheezes or crackles. Abdomen:Soft, non-tender, no rigidity. Extremities: No deformity, no edema or tenderness, no joint swelling or clubbing. Neurological: No focal deficits. Motor and sensory exam grossly unremarkable. - Patient Status Disposition: Home, Self-Care Condition: Good - Discharge Instructions Follow Up With: Zane Blakely MD [Primary Care Provider] - - Diet and Activity Activity: increase activity as tolerated
--- NOTE | 2018-06-13 12:48 | Electrocardiograph Report ---
[address] [address] Test Date: 2018-06-10 Pat Name: Mimi Zayas Department: [id number] Room: 2A34 Gender: F Dag Sprayer: : [id number] Requested By: Vicki Long Order Number: [id number] Reading MD: Lacey Trevizo Measurements Intervals [place] Rate: 112 P: 74 WV: 175 QRS: -70 QRSD: 127 T: 57 QT: 346 QTc: 473 Interpretive Statements Sinus tachycardia Probable left atrial enlargement RBBB and LAFB Electronically Signed On 06-13-2018 12:46:48 EST by Lacey Trevizo
== END 2018-06-12 13:57 | disposition home or self-care (01) ==
LOC: EMEROOARM 16:15 → 2ANU 16:15 → SUATTDRO 18:19 → 2ANU 18:53
PROVIDERS: ADMIT Internal Medicine Cardiovascular Disease; ATTEND Internal Medicine

== ENCOUNTER 2018-10-02 18:24 | Inpatient (IN) ==
--- NOTE | 2018-10-02 19:21 | Emergency Department Note ---
Disposition Clinical Impression: Falls frequently COPD (chronic obstructive pulmonary disease) Qualifiers: COPD type: unspecified COPD Qualified Code(s): J44.9 - Chronic obstructive pulmonary disease, unspecified Bilateral pneumonia Qualifiers: Pneumonia type: due to unspecified organism Lung location: unspecified part of lung Qualified Code(s): J18.9 - Pneumonia, unspecified organism Disposition: Admitted As Inpatient Condition: Fair Referrals: Zane Blakely MD [Primary Care Provider] - Forms: ED Satisfaction Letter Time of Disposition: 21:13 General Adult HPI - General Chief complaint: ED Fall Stated complaint: frequent falls Time Seen by Provider: 10/02/18 18:47 Source: patient, family Limitations: no limitations Nursing Notes Reviewed: Yes Vital Signs Reviewed: Yes - History of Present Illness HPI Narrative: Visit 57-year-old female with past medical history significant for COPD, hypertension who presents with frequent falls. Patient states that she has had multiple falls over the past 2 weeks. Today she fell this morning and hit her head. That prompted patient to go to the urgent care who referred her to the ED. Patient states that she has a history of COPD and is supposed to wear home oxygen, but she does not. Notes that her oxygen at home can range from 80-85%. She will wear oxygen at night when she sees her oxygen is low. Otherwise patient's is a current smoker. Notes that of recent she has felt lightheaded, dizziness. Notes instability on her feet when walking. Vomited 1 yesterday. Additionally has been coughing quite frequently, productive of yellow sputum. She denies any fevers or chills, vision changes, congestion, sore throat, chest pain, palpitations, abdominal pain, nausea, diarrhea. History of multiple admissions in the past for pneumonia. Pt Subjective Complaint: Frequent Falls Onset (ago): week(s) (2 weeks) Location: head Radiation: non-radiation Pain Severity: moderate Pain Scale: 7 Associated symptoms: Reports: confusion, cough, fever/chills, headaches, malaise, nausea/vomiting, shortness of breath, weakness. Denies: chest pain, diaphoresis, loss of appetite, syncope Treatments Prior to Arrival: none - Related Data Home Medications Medication Instructions Recorded Confirmed Cholecalciferol (Vitamin D3) 2,000 unit PO DAILY 03/14/17 06/10/18 [Vitamin D3] Gabapentin [Neurontin] 800 mg PO TID 03/14/17 06/10/18 Ibuprofen [Motrin] 800 mg PO BID PRN 03/14/17 06/10/18 Multivitamin [Flintstones] 1 tab PO DAILY 03/14/17 06/10/18 Tiotropium Br/Olodaterol HCl 1 puff IH BID 03/14/17 06/10/18 [Stiolto Respimat Inhal [place]] Diclofenac Sodium [Voltaren] 75 mg PO BID PRN 07/02/17 06/10/18 Promethazine [Phenergan] 25 mg PO TID PRN 07/02/17 06/10/18 Albuterol Sulfate [Ventolin Hfa] 2 puff IH Q4H PRN 06/10/18 06/10/18 Amitriptyline [Elavil] 100 mg PO HS 06/10/18 06/10/18 BuPROPion XL (24 HR) [Wellbutrin 150 mg PO DAILY 06/10/18 06/10/18 Xl] Cyclobenzaprine [Flexeril] 10 mg PO TID 06/10/18 06/10/18 Dicyclomine Hcl [Bentyl] 20 mg PO DAILY PRN 06/10/18 06/10/18 Lisinopril [Zestril] 10 mg PO DAILY PRN 06/10/18 06/10/18 Omeprazole [PriLOSEC] 20 mg PO DAILY 06/10/18 06/10/18 Oxazepam 10 mg PO BID 06/10/18 06/10/18 Propranolol [Inderal] 40 mg PO DAILY 06/10/18 06/10/18 lamoTRIgine [Lamictal] 25 mg PO TID 06/10/18 06/10/18 Allergies Allergy/AdvReac Type Severity Reaction Status Date / Time azithromycin AdvReac Hives Verified 07/08/18 18:43 cefuroxime [From Ceftin] AdvReac Swelling Verified 07/08/18 18:43 of Lip/Tongue/Throat pregabalin [From Lyrica] AdvReac Hives Verified 07/08/18 18:43 All systems ED: reviewed and negative except as stated. Constitutional: Reports: weakness. Denies: fever, chills, night sweats Eyes: Denies: vision change ENT ED: Denies: ear pain, hearing loss, congestion Cardiovascular: Reports: dyspnea on exertion. Denies: chest pain, palpitations Respiratory: Reports: cough, dyspnea, wheezes, sputum production. Denies: hemoptysis Gastrointestinal: Reports: nausea, vomiting. Denies: abdominal pain, diarrhea, constipation, hematemesis, melena, hematochezia Genitourinary: Denies: dysuria Musculoskeletal: Denies: back pain Integumentary: Denies: rash, abrasion Neurological: Reports: headache, weakness, confusion. Denies: numbness, paresthesias Psychiatric: Denies: anxiety Endocrine: Reports: fatigue Past Medical History - Past Medical History Attestation: Yes The following information was validated with the patient. Source: patient, old records reviewed Medical history: Reports: COPD, hypertension Surgical history: Reports: hysterectomy (Partial), ureteral stent (Hx of kidney stone x1), other Psychiatric history: Reports: anxiety, depression, PTSD, previous psychiatric hospitalization [employer] history: Reports: no [employer]ATOR history - Social History Smoking Status: Current every day smoker Smokeless Tobacco Status: No Alcohol use: Reports: none Drug use: Reports: marijuana Physical Exam - General Limitations: no limitations General appearance: alert, in no apparent distress - Head Head exam: atraumatic, normocephalic, normal inspection - Eye Eye exam: Present: normal appearance, PERRL, EOMI - ENT ENT exam: normal exam, normal oropharynx, mucous membranes moist - Neck Neck exam: Present: normal inspection, full ROM - Chest Chest inspection: Present: normal inspection, symmetric chest wall rise - Respiratory Respiratory exam: Present: wheezes (Bilateral faint wheezes), other (Coarse lung sounds bilaterally) - Cardiovascular Cardiovascular exam: Present: regular rate, normal rhythm, tachycardia, normal heart sounds, +S1, +S2 - Abdominal Exam Abdominal exam: Present: soft, Non-Tender, normal bowel sounds. Absent: tenderness, distention, guarding, rebound, rigidity - Extremities Exam Extremities exam: Present: normal inspection, full ROM, normal capillary refill - Back Exam Back exam: Present: normal inspection, full ROM. Absent: CVA tenderness (R), CVA tenderness (L) - Neurological Exam Neurological exam: Present: alert, oriented X3, CN II-XII intact - Psychiatric Psychiatric exam: Present: normal affect, normal mood - Skin Skin exam: Present: warm, dry, intact, normal color Course - Reevaluation(s) Reevaluation #1: Patient seen and examined with Dr. Ramírez. On physical exam, noted to have coarse lung sounds bilaterally with bilateral wheezes. Patient was initially noted to be satting in the mid 80s on arrival. Started on 2 L oxygen via nasal cannula which increased O2 to 90%. Routine lab work done. CBC and BMP were within normal limits. Head CT was done due to frequent falls and showed no acute intracranial abnormalities. Chest x-ray was done which showed bibasilar infiltrates in the right middle lobe and lingula suggestive of pneumonia. Patient was given dose of Levaquin, DuoNeb nebs, Solu-Medrol. Blood cultures were drawn. EKG was indicative of sinus tachycardia, but otherwise no acute ST changes. Time: 21:07 Reevaluation #2: Given patient's bilateral pneumonia, patient was admitted to the hospitalist service. Dr. Clarke accepted patient. Time: 21:08 Vital Signs Temperature 99.0 F 10/02/18 18:28 Pulse Rate 115 10/02/18 18:28 Respiratory Rate 20 10/02/18 18:28 Blood Pressure 135/79 10/02/18 18:28 O2 Sat by Pulse Oximetry 90 10/02/18 18:28 Temperature 99.0 F 10/02/18 18:28 Pulse Rate 115 10/02/18 18:28 Respiratory Rate 20 10/02/18 18:28 Blood Pressure 135/79 10/02/18 18:28 O2 Sat by Pulse Oximetry 90 10/02/18 18:28 Oxygen Delivery Oxygen Delivery Room Air Medical Decision Making - [facility] Narrative Medical decision making narrative: 57-year-old female with past medical history significant for COPD, hypertension who presents after frequent falls. Patient notes that she is supposed to be on home oxygen, but she does not wear. Falls have increased over the past 2 weeks. Visited urgent care today due to fall today in which patients in head trauma. Advised to come the ED. On examination, patient was a no 3. Vitals are hemodynamically stable, but patient was initially satting in the mid 80s. Patient was started on 2 L oxygen via nasal cannula. Head CT was done which showed no acute intracranial abnormality. Routine labs were benign. Chest x- ray was indicative of bibasilar pneumonia on the middle right lobe and lingula. Patient was started on duo nebs. Also given dose Solu-Medrol and Levaquin. Patient will be admitted for management of pneumonia. Accepted by hospitalist. - Differential Diagnosis COPD exacerbation, B/L Pneumonia - Medical Records Medical records reviewed: Yes I reviewed the patient's medical records. - Lab Data Lab results reviewed: Yes I reviewed the patient's lab results. Result diagrams: 10/02/18 20:12 10/02/18 20:12 Lab Results 10/02/18 10/02/18 Range/Units 20:12 20:12 WBC 9.3 (4.3-11.1) K/mcL RBC 3.93 (3.82-4.97) M/mcL Hgb 11.9 (11.5-15.4) g/dL Hct 36.8 (35.3-44.9) % MCV 93.6 (83.0-100.0) fL MCH 30.3 (28.0-33.3) pg MCHC 32.3 (31.6-35.5) g/dL RDW 12.3 (11.5-14.5) % Plt Count 257 (140-400) K/mcL MPV 9.8 (9.4-12.4) fL Immature Gran % 0.4 (0-4) % Seg Neutrophils % 71.0 % Lymphocytes % 18.6 % Monocytes % 6.6 % Eosinophils % 3.0 % Basophils % 0.4 % Neutrophils # 6.6 (1.6-8.9) K/mcL Lymphocytes # 1.7 (0.6-4.6) K/mcL Monocytes # 0.6 (0.0-1.3) K/mcL Eosinophils # 0.3 (0.0-0.6) K/mcL Basophils # 0.0 (0.0-0.2) K/mcL Sodium 138 (136-145) mEq/L Potassium 3.5 (3.5-5.1) mEq/L Chloride 103 (98-107) mEq/L Carbon Dioxide 27 (23-29) mEq/L BUN 9 (6-20) mg/dL Creatinine 0.63 (0.60-1.20) mg/dL Est GFR ( Amer) > 60 (> 60) Est GFR (Non-Af Amer) > 60 (> 60) BUN/Creatinine Ratio 14 (6-26) Glucose 113 H (70-105) mg/dL Calculated Osmolality 285 (280-300) Calcium 9.0 (8.6-10.3) mg/dL - Radiology Data Radiology results reviewed: Yes I reviewed the patient's radiology results. - EKG Data EKG #1 EKG attestation: Yes I reviewed and interpreted this EKG. EKG results narrative: HR = 108, NH = 198, QRS = 125, QTC = 352. Sinus tachycardia. Right axis deviation. No acute ST changes. EKG is similar to previous EKG on 06/10/2018.
--- NOTE | 2018-10-02 20:14 | Emergency Department Note ---
Disposition Clinical Impression: Falls frequently, COPD (chronic obstructive pulmonary disease), Bilateral pneumonia Disposition: Admitted As Inpatient Condition: Fair Referrals: Zane Blakely MD [Primary Care Provider] - Forms: ED Satisfaction Letter General Adult HPI - General Chief complaint: ED Fall Stated complaint: frequent falls Time Seen by Provider: 10/02/18 18:47 Source: patient, family Limitations: no limitations - History of Present Illness Pain Scale: 7 - Related Data Home Medications Medication Instructions Recorded Confirmed Cholecalciferol (Vitamin D3) 2,000 unit PO DAILY 03/14/17 06/10/18 [Vitamin D3] Gabapentin [Neurontin] 800 mg PO TID 03/14/17 06/10/18 Ibuprofen [Motrin] 800 mg PO BID PRN 03/14/17 06/10/18 Multivitamin [Flintstones] 1 tab PO DAILY 03/14/17 06/10/18 Tiotropium Br/Olodaterol HCl 1 puff IH BID 03/14/17 06/10/18 [Stiolto Respimat Inhal Vermilion] Diclofenac Sodium [Voltaren] 75 mg PO BID PRN 07/02/17 06/10/18 Promethazine [Phenergan] 25 mg PO TID PRN 07/02/17 06/10/18 Albuterol Sulfate [Ventolin Hfa] 2 puff IH Q4H PRN 06/10/18 06/10/18 Amitriptyline [Elavil] 100 mg PO HS 06/10/18 06/10/18 BuPROPion XL (24 HR) [Wellbutrin 150 mg PO DAILY 06/10/18 06/10/18 Xl] Cyclobenzaprine [Flexeril] 10 mg PO TID 06/10/18 06/10/18 Dicyclomine Hcl [Bentyl] 20 mg PO DAILY PRN 06/10/18 06/10/18 Lisinopril [Zestril] 10 mg PO DAILY PRN 06/10/18 06/10/18 Omeprazole [PriLOSEC] 20 mg PO DAILY 06/10/18 06/10/18 Oxazepam 10 mg PO BID 06/10/18 06/10/18 Propranolol [Inderal] 40 mg PO DAILY 06/10/18 06/10/18 lamoTRIgine [Lamictal] 25 mg PO TID 06/10/18 06/10/18 Allergies Allergy/AdvReac Type Severity Reaction Status Date / Time azithromycin AdvReac Hives Verified 07/08/18 18:43 cefuroxime [From Ceftin] AdvReac Swelling Verified 07/08/18 18:43 of Lip/Tongue/Throat pregabalin [From Lyrica] AdvReac Hives Verified 07/08/18 18:43 Past Medical History - Past Medical History Medical history: Reports: COPD, hypertension Surgical history: Reports: hysterectomy (Partial), ureteral stent (Hx of kidney stone x1), other Psychiatric history: Reports: anxiety, depression, PTSD, previous psychiatric hospitalization MANAGER ARCHITECTURE history: Reports: no MANAGER ARCHITECTURE history - Social History Smoking Status: Current every day smoker Smokeless Tobacco Status: No Alcohol use: Reports: none Drug use: Reports: marijuana Physical Exam - General Limitations: no limitations General appearance: alert, in no apparent distress Course Vital Signs Temperature 99.0 F 10/02/18 18:28 Pulse Rate 115 10/02/18 18:28 Respiratory Rate 20 10/02/18 18:28 Blood Pressure 135/79 10/02/18 18:28 O2 Sat by Pulse Oximetry 90 10/02/18 18:28 Temperature 99.0 F 10/02/18 18:28 Pulse Rate 115 10/02/18 18:28 Respiratory Rate 20 10/02/18 18:28 Blood Pressure 135/79 10/02/18 18:28 O2 Sat by Pulse Oximetry 90 10/02/18 18:28 Oxygen Delivery Oxygen Delivery Room Air Medical Decision Making - MDM Narrative Medical decision making narrative: Patient has evidence of bilateral pneumonia on her chest x-ray. CT of the brain was negative. Patient will be admitted. She will be started on IV Levaquin due to her allergies. - Medical Records Medical records reviewed: Yes I reviewed the patient's medical records. - Lab Data Lab results reviewed: Yes I reviewed the patient's lab results. Result diagrams: 10/02/18 20:12 Lab Results 10/02/18 Range/Units 20:12 WBC 9.3 (4.3-11.1) K/mcL RBC 3.93 (3.82-4.97) M/mcL Hgb 11.9 (11.5-15.4) g/dL Hct 36.8 (35.3-44.9) % MCV 93.6 (83.0-100.0) fL MCH 30.3 (28.0-33.3) pg MCHC 32.3 (31.6-35.5) g/dL RDW 12.3 (11.5-14.5) % Plt Count 257 (140-400) K/mcL MPV 9.8 (9.4-12.4) fL Immature Gran % 0.4 (0-4) % Seg Neutrophils % 71.0 % Lymphocytes % 18.6 % Monocytes % 6.6 % Eosinophils % 3.0 % Basophils % 0.4 % Neutrophils # 6.6 (1.6-8.9) K/mcL Lymphocytes # 1.7 (0.6-4.6) K/mcL Monocytes # 0.6 (0.0-1.3) K/mcL Eosinophils # 0.3 (0.0-0.6) K/mcL Basophils # 0.0 (0.0-0.2) K/mcL - Radiology Data Radiology results reviewed: Yes I reviewed the patient's radiology results. Critical Care Time Critical Care Time: Yes Total Critical Care Time: 35 Attestation: Critical care time of 35 minutes spent in medical management of bilateral pneumonia and hypoxia. Attestation Statement - Attestation Attestation: I examined this patient and my medical decision-making was reviewed with the Resident Physician. I agree with the documented findings, disposition and treatment plan as described except to the extent set forth below. This is a 57-year-old female presented to the emergency room for evaluation for frequent falls. She was sent from urgent care for a head CT. She states she is been falling over the past couple weeks. She states she is not wearing her home oxygen like she is posterior and gets weak and falls. She denies any focal complaints. She denies any chest pain. She states she has had her head a few different times and was sent from urgent care for head CT. She does not take any blood thinners. She denies any focal motor or sensory deficits. We will do a head CT as well as some other screening lab work. Anticipate discharge home. She does need to wear her home oxygen all the time and not just at night. She states she never falls at night when she gets up and moves around. She always has her oxygen on at night. It is during the day that she has the falls when she is not wearing the oxygen. She has a significant history of COPD and is still smoking.
[2018-10-02] MEDS ORDERED: levoFLOXacin 750 MG TABLET PO ONE (20:28)
[2018-10-02 20:34] LABS: Basophils % 0.4 %; Eosinophils # 0.3 K/mcL (0.0-0.6); Hematocrit 36.8 % (35.3-44.9); Hemoglobin 11.9 g/dL (11.5-15.4); Immature Granulocytes % 0.4 % (0-4); Lymphocytes # 1.7 K/mcL (0.6-4.6); Lymphocytes % 18.6 %; Mean Corpuscular HGB Conc 32.3 g/dL (31.6-35.5); Mean Corpuscular Hemoglobin 30.3 pg (28.0-33.3); Mean Corpuscular Volume 93.6 fL (83.0-100.0); Mean Platelet Volume 9.8 fL (9.4-12.4); Monocytes # 0.6 K/mcL (0.0-1.3); Monocytes % 6.6 %; Neutrophils # 6.6 K/mcL (1.6-8.9); Platelet Count 257 K/mcL (140-400); Red Blood Count 3.93 M/mcL (3.82-4.97); Red Cell Distribution Width 12.3 % (11.5-14.5)
[2018-10-02] MEDS ORDERED: Ipratropium/Albuterol Neb 3 ML IH ONE (20:38)
[2018-10-02] MEDS ORDERED: methylPREDNISolone 125 MG/2 ML VIAL IVP ONE (20:39)
[2018-10-02 20:50] LABS: BUN/Creatinine Ratio 14 (6-26); Blood Urea Nitrogen 9 mg/dL (6-20); Carbon Dioxide 27 mEq/L (23-29); Chloride 103 mEq/L (98-107); Glucose 113 mg/dL (70-105); Osmolality,Calculated 285 (280-300); Potassium 3.5 mEq/L (3.5-5.1); Sodium 138 mEq/L (136-145); eGFR For Non-African Americans > 60 (> 60)
[2018-10-02 21:22] LABS: Troponin I 0.04 ng/mL (< 0.04)
[2018-10-02] MEDS ORDERED: Acetaminophen 325 MG TABLET PO PRN (22:50)
--- NOTE | 2018-10-03 08:58 | Internal Med History&Physical ---
Date of Encounter: 10/03/18 Time of Encounter: 08:53 Internal Medicine - H&P: HPI Chief complaint: Falls Admitted From: Emergency Dept History of present illness: Mimi Zayas is a 57 F w hx smoker, COPD on 2L, HTN, who p/w falls. Falls happening in increasing frequency, and did hit her head yesterday. She also vomited once. She went to Urgent Care, and they referred her to ED for imaging. She does admit to some shortness of breath, with worsening cough productive of yellow sputum, which started 3 weeks ago when she caught a cold. Her cold symptoms resolved last week but her productive cough and SOB have continued to worsen. She now has fevers/chills, too. Says she is still a smoker and is supposed to wear O2 for her COPD, but only uses it sometimes and only at night when she sees O2 sats in low 80s if at all. In fact, at time of my interview, patient is not wearing O2 despite hypoxia. I informed her that she might get over her pneumonia faster and breath better if she wears her oxygen, and she is pleasantly agreeable. States that she is concerned she now has "double pneumonia", as has been admitted for pneumonia here in the past on several occasions. Denies CP, N/V, abd pain, dysuria. Is current smoker. In the ED, pt tachycardic and hypoxic. Very wheezy on exam. CXR shows bibasilar and RML infiltrates concerning for pneumonia. Given dose of Levaquin, solumedrol, and fluids, and admitted for further eval and management. Past medical, surgical, social, and family histories reviewed and updated as below, and reviewed with patient and noncontributory to current admission. Past Med Surg Social Fam HX - Past Medical History Medical history: COPD, hypertension Additional medical history: Reflex sympathetic Dystrophy Psychiatric history: anxiety, depression, PTSD, previous psychiatric hospitaliza tion - Past Surgical History Surgical History: hysterectomy, ureteral stent, other Additional surgical history: JAW BROKEN AND WIRED SHUT. broken sternum - Social History Smoking Status: Current every day smoker Smokeless Tobacco Status: No Alcohol use: none Drug use: marijuana - Family History Mother Family Member Ethnicity: Non- Living Status: Still Living Hx Family Cardiac Disorders: Yes (HTN) Father Family Member Ethnicity: Non- Living Status: Hx Family Respiratory Disorders: Yes (COPD) Hx Family Cancer: Yes (Lung) Brother Family Member Ethnicity: Non- Living Status: Still Living Hx Family Cancer: Yes (Melanoma) Sister Family Member Ethnicity: Non- Living Status: Still Living Hx Family Cardiac Disorders: Yes (CAD, HTN, HLD) Internal Medicine - H&P: Meds Cholecalciferol (Vitamin D3) [Vitamin D3] 2,000 unit PO DAILY 03/14/17 [History] Gabapentin [Neurontin] 800 mg PO TID 03/14/17 [History] Ibuprofen [Motrin] 800 mg PO BID PRN 03/14/17 [History] Multivitamin [Flintstones] 1 tab PO DAILY 03/14/17 [History] Promethazine [Phenergan] 25 mg PO TID PRN 07/02/17 [History] Albuterol Sulfate [Ventolin Hfa] 2 puff IH Q4H PRN 06/10/18 [History] Amitriptyline [Elavil] 100 mg PO HS 06/10/18 [History] Cyclobenzaprine [Flexeril] 10 mg PO TID 06/10/18 [History] Oxazepam 10 mg PO BID PRN 06/10/18 [History] Propranolol [Inderal] 20 mg PO BID 06/10/18 [History] Dicyclomine [Bentyl] 10 mg PO TID PRN 10/03/18 [History] lamoTRIgine [Lamictal] 100 mg PO DAILY 10/03/18 [History] Allergy/AdvReac Type Severity Reaction Status Date / Time azithromycin AdvReac Hives Verified 10/03/18 10:03 cefuroxime [From Ceftin] AdvReac Swelling Verified 10/03/18 10:03 of Lip/Tongue/Throat pregabalin [From Lyrica] AdvReac Hives Verified 10/03/18 10:03 All Systems PM: A 10-system review of systems was performed and is negative for pertinent findings except as documented above in the HPI. - Constitutional Vitals: Temp Pulse Resp BP Pulse Ox 97.3 F L 110 18 115/75 90 10/03/18 07:25 10/03/18 07:25 10/03/18 07:25 10/03/18 07:25 10/03/18 07:25 Exam: General: NAD, good eye contact, relatively well appearing Head: Atraumatic, normocephalic. Face symmetric Eyes: EOMI, sclerae anicteric ENT: Mucous membranes moist. Normal oral mucosa and dentition. Trachea midline. Thoracic: No visible chest wall deformities. Does have expiratory wheezing and prolonged exp phase Cardio: Normal S1 and S2, regular rate and rhythm, no murmurs. Abdomen: Soft, nontender, nondistended. Extremities: Warm, well perfused. DP pulses 2+ b/l. No clubbing, cyanosis. No edema Skin: Intact. No rashes, bruises, or ulcers Neuro: Awake, fully oriented. Good memory, concentration, attention. Speech fluent. Internal Med - H&P Results - Labs CBC & Chem 7: 10/02/18 20:12 10/02/18 20:12 Labs: Short CBC 10/02/18 Range/Units 20:12 WBC 9.3 (4.3-11.1) K/mcL Hgb 11.9 (11.5-15.4) g/dL Hct 36.8 (35.3-44.9) % Plt Count 257 (140-400) K/mcL Neutrophils # 6.6 (1.6-8.9) K/mcL BMP 10/02/18 20:12 Sodium 138 Potassium 3.5 Chloride 103 Carbon Dioxide 27 BUN 9 Creatinine 0.63 Glucose 113 H Calcium 9.0 Cardiac Enzymes 10/02/18 Range/Units 20:12 Troponin I 0.04 H* (< 0.04) ng/mL - Impressions ITS Impressions Chest X-Ray 10/02/18 19:18 IMPRESSION: Findings most consistent with bibasilar, right middle lobe and lingular pneumonia. Radiographic follow-up to resolution is suggested. D/ / 10/02/2018 20:08:59 Dyllan Alonzo MD / Luz Maria Harry Interpreting Provider: Dyllan Alonzo MD Head CT 10/02/18 19:18 IMPRESSION: Unchanged appearance of the brain without acute CT abnormality identified. D/ / Freddie Carty / Freddie Carty Interpreting Provider: Freddie Carty - Summary of Assessment and Plan Summary of Assessment and Plan: Mimi Zayas is a 57 F w hx smoker, COPD on 2L, HTN, who p/w falls, hypoxia, wheezing, and CXR w multifocal infiltrates, concerning for CAP causing COPD exacerbation. Multifocal pneumonia: CXR w infiltrates - levaquin 750 q24h - UAgs COPD in acute exacerbation: - nebs q4h&prn - prednisone 40 daily x5d, s/p solumedrol 125 in ED - home inhalers - check Mg Acute hypoxic respiratory failure: requiring 2L O2 to maintain sats >88% - supplemental O2, wean as able - IS - treat cause as above - walk test prior to discharge Sepsis: SIRS 2/4 (febrile, tachycardic), suspected infection as above - BCx x2 pending - UA - lactate - empiric abx as above Elevated trop: likely demand ischemia 2/2 hypoxia - trend trops Falls: likely 2/2 all of the above - PT/OT HTN: home lisinopril 10, propranolol 40 Dep/anx: home wellbutrin 150, elavil 100 qhs, oxazepam bid, lamictal bid Chronic pain: home NSAIDs, bentyl, gabapentin GERD: home PPI PPx: lovenox FEN: cardiac, no MIVF Lines: PIV Consults: Code: Full Dispo: patient requires inpatient eval and management at this time. Anticipate 1-2 more days. Will be homegoing
[2018-10-03] MEDS ORDERED: Ondansetron 4 MG/2 ML VIAL IVP PRN (09:44)
[2018-10-03] MEDS: predniSONE 20 MG TABLET PO SCH (09:48)
[2018-10-03] MEDS: *HR* Enoxaparin 40 MG/0.4 ML SYRINGE SQ SCH (10:00)
[2018-10-03] MEDS: Nicotine 21 MG PATCH.TD24 TD SCH (10:21)
[2018-10-03] MEDS: Ipratropium/Albuterol Neb 3 ML IH SCH ×5 (10:59→23:50)
[2018-10-03 11:51] LABS: Bilirubin,Urine Negative (Negative); Blood,Urine Negative (Negative); Clarity,Urine Clear (Clear); Color,Urine Yellow (Yellow); Glucose,Urine (UA) 250 mg/dL (Normal); Ketones,Urine Negative (Negative); Leukocyte Esterase,Urine Small (Negative); Nitrite,Urine Negative (Negative); Protein,Urine Negative (Neg-Trace); Specific Gravity,Urine 1.007 (1.010-1.025); Urobilinogen,Urine Normal (Normal)
[2018-10-03 11:53] LABS: Bacteria,Urine None Seen per hpf (None-Few); Hyaline Casts,Urine None Seen per lpf (None-Few); RBC,Urine 0-3 per hpf (0-3); Squamous Epithelial Cell,Urine Many per lpf (None-Few)
[2018-10-03] MEDS: lamoTRIgine 25 MG TABLET PO SCH ×2 (14:09→19:46)
[2018-10-03] MEDS: BuPROPion XL (24 HR) 150 MG TABLET PO SCH (14:09)
[2018-10-03] MEDS: Gabapentin 400 MG CAPSULE PO SCH ×2 (14:10→19:46)
--- NOTE | 2018-10-03 17:45 | Electrocardiograph Report ---
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
[2018-10-03] MEDS: levoFLOXacin 750 MG TABLET PO SCH (19:46)
[2018-10-04] MEDS: Ipratropium/Albuterol Neb 3 ML IH SCH ×6 (04:00→23:54)
[2018-10-04 06:12] LABS: Hemoglobin 11.9 g/dL (11.5-15.4); Mean Corpuscular HGB Conc 33.1 g/dL (31.6-35.5); Mean Corpuscular Hemoglobin 30.7 pg (28.0-33.3); Platelet Count 309 K/mcL (140-400); Red Blood Count 3.87 M/mcL (3.82-4.97); Red Cell Distribution Width 12.6 % (11.5-14.5)
[2018-10-04 06:38] LABS: BUN/Creatinine Ratio 20 (6-26); Blood Urea Nitrogen 11 mg/dL (6-20); Calcium 9.3 mg/dL (8.6-10.3); Carbon Dioxide 28 mEq/L (23-29); Chloride 107 mEq/L (98-107); Glucose 113 mg/dL (70-105); Magnesium 2.2 mg/dL (1.6-2.6); Osmolality,Calculated 290 (280-300); Potassium 3.8 mEq/L (3.5-5.1); Sodium 140 mEq/L (136-145); Troponin I 0.03 ng/mL (< 0.04); eGFR For Non-African Americans > 60 (> 60)
[2018-10-04] MEDS ORDERED: 0.9 % Sodium Chloride 1,000 ML IVC ONE (07:23)
--- NOTE | 2018-10-04 08:16 | Internal Med Progress Note ---
Hospitalist Progress Note - Encounter Date of Encounter: 10/04/18 Time of Encounter: 08:16 - Subjective Interval History: Patient seen and examined this morning at baseline. No acute overnight events. Breathing improving. Denies any chest pain or cough. Denies any abdominal pain bowel or urinary complaints. - Exam Vitals: Temp Pulse Resp BP Pulse Ox 98.2 F 100 16 123/83 91 10/04/18 07:18 10/04/18 07:18 10/04/18 07:18 10/04/18 07:18 10/04/18 07:18 Exam: General: In no acute distress. Respiratory exam: rhonchi b/l Rt>lt. no accessory muscle use Cardiovascular exam: RRR, +S1, +S2. no murmur, gallop, rubs. GI/Abdominal exam: Non-tender, Non-distended, normal bowel sounds, soft, no peritoneal signs. Extremities exam: trace pedal edema, pulses palpable in b/l lower extremities. no calf tenderness Neurological exam: CN II-XII intact, AO X3, no focal deficits. Skin exam: No skin rash - Summary of Assessment and Plan Summary of Assessment and Plan: Sepsis - Likely secondary to pneumonia, fever, tachycardia and elevated lactate - f/u lactate and will give 1L NS. - c/w levofloxacin Multifocal pneumonia - CXR with infiltrates - c/w levaquin 750 q24h - UAgs negative. will get respiratory panel and sputum culture. f/u blood culture COPD exacerbation: - c/w nebs q4h&prn, prednisone Elevated trop - Downtrending - likely demand ischemia 2/2 hypoxia DVT ppx - lovenox - Time Spent with Patient Total time spent is greater than 50% in coordination of care (as documented) at patient's floor/unit and/or counseling patient: Internal Medicine: Result - Labs CBC & Chem 7: 10/04/18 05:27 10/04/18 05:27 Labs: Short CBC 10/04/18 Range/Units 05:27 WBC 17.5 H D (4.3-11.1) K/mcL Hgb 11.9 (11.5-15.4) g/dL Hct 36.0 (35.3-44.9) % Plt Count 309 (140-400) K/mcL BMP 10/04/18 05:27 Sodium 140 Potassium 3.8 Chloride 107 Carbon Dioxide 28 BUN 11 Creatinine 0.54 L Glucose 113 H Calcium 9.3 Cardiac Enzymes 10/03/18 10/04/18 Range/Units 09:21 05:27 Troponin I < 0.03 0.03 (< 0.04) ng/mL Urine 10/03/18 Range/Units 11:38 Urine Color Yellow (Yellow) Urine Clarity Clear (Clear) Urine pH 7.0 (5.0-8.0) pH Units Ur Specific [place] 1.007 L (1.010-1.025) Urine Protein Negative (Neg-Trace) mg/dL Urine Glucose (UA) 250 H (Normal) mg/dL Consult Discharge Plan - Plan Referrals: Zane Blakely MD [Primary Care Provider] -
[2018-10-04] MEDS: predniSONE 20 MG TABLET PO SCH (08:25)
[2018-10-04] MEDS: Gabapentin 400 MG CAPSULE PO SCH ×3 (08:25→20:55)
[2018-10-04] MEDS: BuPROPion XL (24 HR) 150 MG TABLET PO SCH (08:26)
[2018-10-04] MEDS: lamoTRIgine 25 MG TABLET PO SCH (08:26)
[2018-10-04] MEDS: Nicotine 21 MG PATCH.TD24 TD SCH (08:26)
[2018-10-04] MEDS: *HR* Enoxaparin 40 MG/0.4 ML SYRINGE SQ SCH (08:26)
[2018-10-04] MEDS ORDERED: BuPROPion XL (24 HR) 150 MG TABLET PO SCH (09:00)
[2018-10-04] MEDS ORDERED: lamoTRIgine 25 MG TABLET PO ONE (09:31)
[2018-10-04] MEDS: levoFLOXacin 750 MG TABLET PO SCH (20:55)
[2018-10-04 23:30] VITALS: BP 137/83
[2018-10-05] MEDS: Ipratropium/Albuterol Neb 3 ML IH SCH (03:11)
--- NOTE | 2018-10-05 04:33 | Event Note ---
Date of Encounter: 10/05/18 Time of Encounter: 02:52 Alerted by patient's nurse MARIAN Elizondo that the pt. had been called by her boyfriend and told that her dog was dying. Pt. stated she wanted to leave AMA to go home and be with her dog. Went to see patient immediately received in the side of her bed patient informed me that her daughter was dying and her dog was 14 and half years old. Patient stated her boyfriend was unable to cope with the dog's current pain and she had to be there to help the dog. I informed the patient that she had bilateral pneumonia, sepsis, acute respiratory failure, and COPD exacerbation. I explained to the patient that she could become septic and . Patient stated she had to go home to be with her dog. I reiterated the severity of her health status and current condition and how her risk for was extremely high due to sepsis and current infection. Patient stated she understood but had to be home with her dog. Patient stated she would call her boyfriend to tell him the warnings I had given her and she would decide. I told the pt. if she was intent on leaving that she should return to the ED [facility] if she became worse as her current condition was serious. Nurse stated that once I left, patient left in her mouth minutes without time to print a discharge packet. Pt. inquired of the nurse if she could get prescriptions for antibiotics and steroids called into her Pharmacy. Pt. left AMA at 03:33. A.M team to decide if prescriptions to be called into the pts. Pharmacy.
[2018-10-05] MEDS ORDERED: lamoTRIgine 100 MG TABLET PO SCH (09:00)
== END 2018-10-05 03:33 | disposition left against medical advice (07) | DRG 720 ==
LOC: 2ANU 18:24 → EMEROOARM 18:24 → 2ANU 21:47 → SUATTDRO 10-03 09:44
PROVIDERS: ADMIT Pediatrics; ATTEND Internal Medicine

== ENCOUNTER 2018-10-07 11:59 | Observation (INO) ==
--- NOTE | 2018-10-07 12:50 | Emergency Department Note ---
Disposition Clinical Impression: Pneumonia Qualifiers: Pneumonia type: due to Pseudomonas Laterality: bilateral Lung location: unspecified part of lung Qualified Code(s): J15.1 - Pneumonia due to Pseudomonas Disposition: Admitted As Inpatient Condition: Fair Referrals: Zane Blakely MD [Primary Care Provider] - Forms: ED Satisfaction Letter Time of Disposition: 13:19 General Adult HPI - General Chief complaint: ED Shortness of Breath/Dyspnea Stated complaint: Shortness of breath Time Seen by Provider: 10/07/18 12:31 Source: patient Limitations: no limitations Nursing Notes Reviewed: Yes Vital Signs Reviewed: Yes - History of Present Illness HPI Narrative: She is a 58-year-old female presenting for evaluation of cough and shortness of breath. Patient has a history of oxygen dependent COPD. She was recently hospitalized for treatment of bilateral pneumonia. She left AMA 2 days ago due to family emergency. She did not continue any therapy or antibiotics since leaving. She denies any acute changes. she does endorse persistence of cough as well as shortness of breath. Denies fevers, chills, dizziness, or chest pain. Pt Subjective Complaint: cough, shortness of breath Onset (ago): day(s) Location: chest Radiation: non-radiation Pain Scale: 5 Associated symptoms: Reports: cough Treatments Prior to Arrival: none - Related Data Home Medications Medication Instructions Recorded Confirmed Cholecalciferol (Vitamin D3) 2,000 unit PO DAILY 03/14/17 10/03/18 [Vitamin D3] Gabapentin [Neurontin] 800 mg PO TID 03/14/17 10/03/18 Ibuprofen [Motrin] 800 mg PO BID PRN 03/14/17 10/03/18 Multivitamin [Flintstones] 1 tab PO DAILY 03/14/17 10/03/18 Promethazine [Phenergan] 25 mg PO TID PRN 07/02/17 10/03/18 Albuterol Sulfate [Ventolin Hfa] 2 puff IH Q4H PRN 06/10/18 10/03/18 Amitriptyline [Elavil] 100 mg PO HS 06/10/18 10/03/18 Cyclobenzaprine [Flexeril] 10 mg PO TID 06/10/18 10/03/18 Oxazepam 10 mg PO BID PRN 06/10/18 10/03/18 Propranolol [Inderal] 20 mg PO BID 06/10/18 10/03/18 Dicyclomine [Bentyl] 10 mg PO TID PRN 10/03/18 10/03/18 lamoTRIgine [Lamictal] 100 mg PO DAILY 10/03/18 10/03/18 Allergies Allergy/AdvReac Type Severity Reaction Status Date / Time azithromycin AdvReac Hives Verified 10/03/18 10:03 cefuroxime [From Ceftin] AdvReac Swelling Verified 10/03/18 10:03 of Lip/Tongue/Throat pregabalin [From Lyrica] AdvReac Hives Verified 10/03/18 10:03 Constitutional: Denies: fever, chills Eyes: Denies: vision change ENT ED: Denies: throat pain, dysphagia Cardiovascular: Reports: dyspnea on exertion. Denies: chest pain, palpitations Respiratory: Reports: cough, dyspnea, wheezes, sputum production. Denies: hemo ptysis Gastrointestinal: Denies: abdominal pain, nausea, vomiting, diarrhea Genitourinary: Denies: dysuria Musculoskeletal: Denies: back pain, neck pain Integumentary: Denies: rash Neurological: Denies: headache Past Medical History - Past Medical History Source: patient, nursing notes reviewed Medical history: Reports: COPD, hypertension Surgical history: Reports: hysterectomy, ureteral stent, other Psychiatric history: Reports: anxiety, depression, PTSD, previous psychiatric hospitalization DIRECTOR RELIGIOUS EDUCATION history: Reports: no DIRECTOR RELIGIOUS EDUCATION history - Social History Smoking Status: Current every day smoker Smokeless Tobacco Status: No Alcohol use: Reports: none Drug use: Reports: marijuana Physical Exam - General Limitations: no limitations General appearance: alert, in no apparent distress - Head Head exam: atraumatic, normocephalic - Eye Eye exam: Present: EOMI. Absent: scleral icterus, conjunctival injection - ENT ENT exam: normal oropharynx, mucous membranes moist - Neck Neck exam: Present: trachea midline. Absent: lymphadenopathy - Chest Chest inspection: Present: symmetric chest wall rise - Respiratory Respiratory exam: Present: wheezes, prolonged expiratory phase. Absent: respiratory distress - Cardiovascular Cardiovascular exam: Present: regular rate, normal rhythm. Absent: systolic murmur, diastolic murmur - Abdominal Exam Abdominal exam: Present: soft, Non-Tender. Absent: distention, guarding, rebound - Extremities Exam Extremities exam: Absent: pedal edema, calf tenderness - Neurological Exam Neurological exam: Present: alert, oriented X3, CN II-XII intact - Psychiatric Psychiatric exam: Present: normal affect, normal mood - Skin Skin exam: Present: warm, dry. Absent: rash Course Course Narrative: Patient recently left AMA while being treated for sepsis and bilateral pneumonia. No new or acute complaints at this time. Will contact hospitalist for expedite admission and continuation of IV antibiotics for treatment of her pneumonia. - Reevaluation(s) Reevaluation #1: Patient seen and re-evaluated. No acute changes. Have spoken with hospitalist Dr. Lyn who accepts patient for readmission for continued treatment of pneumonia. Recommends that we restart levaquin and obtain labs with cbc, bmp, blood cultures for admission Patient is agreeable to admission and has returned to continue her treatment now that family emergency has resolved. Time: 13:18 Vital Signs Temperature 98.0 F 10/07/18 12:09 Pulse Rate 95 10/07/18 12:09 Respiratory Rate 18 10/07/18 12:09 Blood Pressure 172/97 10/07/18 12:09 O2 Sat by Pulse Oximetry 92 10/07/18 12:09 Temperature 98.0 F 10/07/18 12:09 Pulse Rate 95 10/07/18 12:09 Respiratory Rate 18 10/07/18 12:09 Blood Pressure 172/97 10/07/18 12:09 O2 Sat by Pulse Oximetry 92 10/07/18 12:09 Oxygen Delivery Oxygen Delivery Room Air Medical Decision Making - Medical Records Medical records reviewed: Yes I reviewed the patient's medical records.
[2018-10-07] MEDS ORDERED: Ipratropium/Albuterol Neb 3 ML IH ONE (13:06)
--- NOTE | 2018-10-07 13:13 | Emergency Department Note ---
Disposition Clinical Impression: Pneumonia Qualifiers: Pneumonia type: due to Pseudomonas Laterality: bilateral Lung location: unspecified part of lung Qualified Code(s): J15.1 - Pneumonia due to Pseudomonas Disposition: Still a Patient Forms: ED Satisfaction Letter General Adult HPI - General Chief complaint: ED Shortness of Breath/Dyspnea Stated complaint: Shortness of breath Time Seen by Provider: 10/07/18 12:31 Source: patient Limitations: no limitations Nursing Notes Reviewed: Yes Vital Signs Reviewed: Yes - History of Present Illness HPI Narrative: Attestation note ED attending note I examined this patient and my medical decision-making was reviewed with the transitional year PGY one resident Dr. Ra Blandon. I agree with the documented findings, disposition and treatment plan as described except to the extent set forth below. Briefly: 58-year-old female was recently admitted to [facility] for bilateral pneumonia and sepsis signed out AMA due to ago. However return for continuing symptoms and wishes to be readmitted. Patient is awake and alert has rhonchi heart rate in the mid 90s her blood pressure systolic of 170. We are calling the hospitalist to see if we could expedite readmission with minimal labs and imaging needing to be performed to the emergency department. Disposition pending Location: chest Pain Scale: 5 Associated symptoms: Reports: cough Treatments Prior to Arrival: none - Related Data Home Medications Medication Instructions Recorded Confirmed Cholecalciferol (Vitamin D3) 2,000 unit PO DAILY 03/14/17 10/03/18 [Vitamin D3] Gabapentin [Neurontin] 800 mg PO TID 03/14/17 10/03/18 Ibuprofen [Motrin] 800 mg PO BID PRN 03/14/17 10/03/18 Multivitamin [Flintstones] 1 tab PO DAILY 03/14/17 10/03/18 Promethazine [Phenergan] 25 mg PO TID PRN 07/02/17 10/03/18 Albuterol Sulfate [Ventolin Hfa] 2 puff IH Q4H PRN 06/10/18 10/03/18 Amitriptyline [Elavil] 100 mg PO HS 06/10/18 10/03/18 Cyclobenzaprine [Flexeril] 10 mg PO TID 06/10/18 10/03/18 Oxazepam 10 mg PO BID PRN 06/10/18 10/03/18 Propranolol [Inderal] 20 mg PO BID 06/10/18 10/03/18 Dicyclomine [Bentyl] 10 mg PO TID PRN 10/03/18 10/03/18 lamoTRIgine [Lamictal] 100 mg PO DAILY 10/03/18 10/03/18 Allergies Allergy/AdvReac Type Severity Reaction Status Date / Time azithromycin AdvReac Hives Verified 10/03/18 10:03 cefuroxime [From Ceftin] AdvReac Swelling Verified 10/03/18 10:03 of Lip/Tongue/Throat pregabalin [From Lyrica] AdvReac Hives Verified 10/03/18 10:03 Constitutional: Denies: fever, chills Eyes: Denies: vision change ENT ED: Denies: throat pain, dysphagia Cardiovascular: Reports: dyspnea on exertion. Denies: chest pain, palpitations Respiratory: Reports: cough, dyspnea, wheezes, sputum production. Denies: hemoptysis Gastrointestinal: Denies: abdominal pain, nausea, vomiting, diarrhea Genitourinary: Denies: dysuria Musculoskeletal: Denies: back pain, neck pain Integumentary: Denies: rash Neurological: Denies: headache Past Medical History - Past Medical History Medical history: Reports: COPD, hypertension Surgical history: Reports: hysterectomy, ureteral stent, other Psychiatric history: Reports: anxiety, depression, PTSD, previous psychiatric hospitalization [employer] history: Reports: no [employer] history - Social History Smoking Status: Current every day smoker Smokeless Tobacco Status: No Alcohol use: Reports: none Drug use: Reports: marijuana Physical Exam - General Limitations: no limitations General appearance: alert, in no apparent distress Course Vital Signs Temperature 98.0 F 10/07/18 12:09 Pulse Rate 95 10/07/18 12:09 Respiratory Rate 18 10/07/18 12:09 Blood Pressure 172/97 10/07/18 12:09 O2 Sat by Pulse Oximetry 92 10/07/18 12:09 Temperature 98.0 F 10/07/18 12:09 Pulse Rate 95 10/07/18 12:09 Respiratory Rate 18 10/07/18 12:09 Blood Pressure 172/97 10/07/18 12:09 O2 Sat by Pulse Oximetry 92 10/07/18 12:09 Oxygen Delivery Oxygen Delivery Room Air
[2018-10-07] MEDS ORDERED: Levofloxacin 750 MG/150 ML 750 MG/150 ML BAG IVPB ONE (13:15)
[2018-10-07 13:44] LABS: Basophils % 0.4 %; Eosinophils # 0.4 K/mcL (0.0-0.6); Eosinophils % 4.7 %; Hematocrit 38.4 % (35.3-44.9); Hemoglobin 12.7 g/dL (11.5-15.4); Immature Granulocytes % 1.2 % (0-4); Lymphocytes # 1.7 K/mcL (0.6-4.6); Lymphocytes % 21.3 %; Mean Corpuscular HGB Conc 33.1 g/dL (31.6-35.5); Mean Corpuscular Hemoglobin 30.7 pg (28.0-33.3); Mean Corpuscular Volume 92.8 fL (83.0-100.0); Mean Platelet Volume 9.3 fL (9.4-12.4); Monocytes # 0.5 K/mcL (0.0-1.3); Monocytes % 6.2 %; Neutrophils # 5.3 K/mcL (1.6-8.9); Platelet Count 329 K/mcL (140-400); Red Blood Count 4.14 M/mcL (3.82-4.97); Red Cell Distribution Width 12.6 % (11.5-14.5); Segmented Neutrophils % 66.2 %
[2018-10-07 14:01] LABS: Alanine Aminotransferase 13 Units/L (7-52); Albumin 3.5 g/dL (3.5-5.7); Albumin/Globulin Ratio 1.3 (1.1-2.2); Alkaline Phosphatase 116 Units/L (34-104); Aspartate Amino Transferase 11 Units/L (13-39); BUN/Creatinine Ratio 18 (6-26); Bilirubin,Total 0.2 mg/dL (0.3-1.0); Blood Urea Nitrogen 11 mg/dL (8-23); Carbon Dioxide 28 mEq/L (23-29); Chloride 106 mEq/L (98-107); Globulin 2.6 g/dL (2.4-3.5); Glucose 105 mg/dL (70-105); Osmolality,Calculated 292 (280-300); Potassium 4.2 mEq/L (3.5-5.1); Sodium 141 mEq/L (136-145); Total Protein 6.1 g/dL (6.4-8.9); eGFR For Non-African Americans > 60 (> 60)
[2018-10-07] MEDS ORDERED: Ondansetron 4 MG/2 ML VIAL IVP PRN (15:32)
[2018-10-07] MEDS ORDERED: Acetaminophen 325 MG TABLET PO PRN (15:32)
[2018-10-07] MEDS ORDERED: Naloxone 0.4 MG/ML INJ IVP PRN (15:32)
[2018-10-07] MEDS ORDERED: Ipratropium/Albuterol Neb 3 ML IH PRN (15:38)
[2018-10-07] MEDS: *HR* Heparin 5,000 UNIT/ML VIAL SQ SCH (17:56)
--- NOTE | 2018-10-07 18:04 | Internal Med History&Physical ---
Date of Encounter: 10/07/18 Time of Encounter: 15:00 Internal Medicine - H&P: HPI Chief complaint: Cough Admitted From: Home Plans for Post Hospital Care: Home History of present illness: Ms. Zayas is a 58 year old female present to ER for cough with sputum. Past medical history is significant for COPD on home oxygen as needed, hypertension Patient was recently admitted for community acquired pneumonia and was treated with Levaquin. However, patient did not finish antibiotic course and signed AMA. Patient did not have prescription for antibiotic upon leaving AMA. Patient is off antibiotic for about 3 days and still has cough, which is productive with clear sputum. Patient denies fever. Patient has mild nausea but no vomiting. Patient denies chest pain or shortness of breath. In the emergency room, patient was treated with IV Levaquin and admitted for further management Past Med Surg Social Fam HX - Past Medical History Medical history: COPD, hypertension Additional medical history: Reflex sympathetic Dystrophy Psychiatric history: anxiety, depression, PTSD, previous psychiatric hospitalization - Past Surgical History Surgical History: hysterectomy, ureteral stent, other Additional surgical history: Broken jaw, broken femur - Social History Smoking Status: Current every day smoker Packs per day: 1/2 pack Smokeless Tobacco Status: No Alcohol use: none Drug use: marijuana - Family History Mother Family Member Ethnicity: Non- Living Status: Still Living Hx Family Cardiac Disorders: Yes (HTN) Father Family Member Ethnicity: Non- Living Status: Hx Family Respiratory Disorders: Yes (COPD) Hx Family Cancer: Yes (Lung) Brother Family Member Ethnicity: Non- Living Status: Still Living Hx Family Cancer: Yes (Melanoma) Sister Family Member Ethnicity: Non- Living Status: Still Living Hx Family Cardiac Disorders: Yes (CAD, HTN, HLD) Internal Medicine - H&P: Meds Cholecalciferol (Vitamin D3) [Vitamin D3] 2,000 unit PO DAILY 03/14/17 [History] Gabapentin [Neurontin] 800 mg PO TID 03/14/17 [History] Ibuprofen [Motrin] 800 mg PO BID PRN 03/14/17 [History] Multivitamin [Flintstones] 1 tab PO DAILY 03/14/17 [History] Promethazine [Phenergan] 25 mg PO TID PRN 07/02/17 [History] Albuterol Sulfate [Ventolin Hfa] 2 puff IH Q4H PRN 06/10/18 [History] Amitriptyline [Elavil] 100 mg PO HS 06/10/18 [History] Cyclobenzaprine [Flexeril] 10 mg PO TID 06/10/18 [History] Oxazepam 10 mg PO BID PRN 06/10/18 [History] Propranolol [Inderal] 20 mg PO BID 06/10/18 [History] lamoTRIgine [Lamictal] 100 mg PO DAILY 10/03/18 [History] Allergy/AdvReac Type Severity Reaction Status Date / Time azithromycin AdvReac Hives Verified 10/03/18 10:03 cefuroxime [From Ceftin] AdvReac Swelling Verified 10/03/18 10:03 of Lip/Tongue/Throat pregabalin [From Lyrica] AdvReac Hives Verified 10/03/18 10:03 All Systems PM: A 10-system review of systems was performed and is negative for pertinent findings except as documented above in the HPI. - Constitutional Vitals: Temp Pulse Resp BP Pulse Ox 98.5 F 95 15 157/97 92 10/07/18 16:28 10/07/18 16:28 10/07/18 16:28 10/07/18 16:28 10/07/18 16:28 Exam: Pt is AAO x 3, in NAD HEENT: NC/AT, PERRL Neck: Supple, no JVD, no LAD Lungs: CTA b/l Heart: S1S2, RRR Abd: Soft, nontender, BS present Ext: ROM wnl, no pedal edema, mild left shoulder pain on movement Neuro: No focal deficit Internal Med - H&P Results - Labs CBC & Chem 7: 10/07/18 13:27 10/07/18 13:27 Labs: Short CBC 10/07/18 Range/Units 13:27 WBC 8.0 D (4.3-11.1) K/mcL Hgb 12.7 (11.5-15.4) g/dL Hct 38.4 (35.3-44.9) % Plt Count 329 (140-400) K/mcL Neutrophils # 5.3 (1.6-8.9) K/mcL BMP 10/07/18 13:27 Sodium 141 Potassium 4.2 Chloride 106 Carbon Dioxide 28 BUN 11 Creatinine 0.62 Glucose 105 Calcium 9.0 Liver Function 10/07/18 Range/Units 13:27 Total Bilirubin 0.2 L (0.3-1.0) mg/dL AST 11 L (13-39) Units/L ALT 13 (7-52) Units/L Alkaline Phosphatase 116 H (34-104) Units/L Albumin 3.5 (3.5-5.7) g/dL - Assessment and Plan (1) Left shoulder pain Current Visit: Yes Status: Acute Assessment and plan: Mild left shoulder pain on movement. Denies recent trauma. Less likely fracture or dislocation. We will continue symptomatic treatment. Qualifiers: Chronicity: acute Qualified Code(s): M25.512 - Pain in left shoulder (2) Pneumonia Current Visit: Yes Status: Acute Assessment and plan: Patient has chest x-ray evidence of pneumonia. Has symptoms of cough. On last admission legionela test are negative. - Continue Levaquin - Continue symptomatic treatment Qualifiers: Pneumonia type: due to Pseudomonas Laterality: bilateral Lung location: unspecified part of lung Qualified Code(s): J15.1 - Pneumonia due to Pseudomonas (3) DVT prophylaxis Current Visit: No Status: Acute Assessment and plan: Heparin subcutaneously (4) COPD (chronic obstructive pulmonary disease) Current Visit: No Status: Chronic Assessment and plan: No wheezing. Continue DuoNeb IH as needed Qualifiers: COPD type: unspecified COPD Qualified Code(s): J44.9 - Chronic obstructive pulmonary disease, unspecified (5) Tobacco abuse Current Visit: No Status: Chronic Assessment and plan: Smoking cessation education. Place patient on nicotine patch (6) HTN (hypertension) Current Visit: No Status: Chronic Assessment and plan: Continue home medications. Follow-up BP Qualifiers: Hypertension type: essential hypertension Qualified Code(s): I10 - Essential (primary) hypertension - Time Spent With Patient Total time spent is greater than 50% in coordination of care (as documented) at patient's floor/unit and/or counseling patient: 30 minutes 25 - 35 minutes
[2018-10-07] MEDS: Gabapentin 400 MG CAPSULE PO SCH (20:07)
[2018-10-07] MEDS: Nicotine 21 MG PATCH.TD24 TD SCH (20:08)
[2018-10-08] MEDS: *HR* Heparin 5,000 UNIT/ML VIAL SQ SCH ×2 (05:09→17:50)
[2018-10-08 06:42] LABS: Basophils # 0.1 K/mcL (0.0-0.2); Basophils % 0.7 %; Eosinophils # 0.5 K/mcL (0.0-0.6); Eosinophils % 7.1 %; Hematocrit 38.2 % (35.3-44.9); Hemoglobin 12.6 g/dL (11.5-15.4); Immature Granulocytes % 1.4 % (0-4); Lymphocytes # 2.6 K/mcL (0.6-4.6); Lymphocytes % 36.6 %; Mean Corpuscular Hemoglobin 30.4 pg (28.0-33.3); Mean Platelet Volume 9.5 fL (9.4-12.4); Monocytes # 0.5 K/mcL (0.0-1.3); Monocytes % 6.4 %; Neutrophils # 3.4 K/mcL (1.6-8.9); Platelet Count 335 K/mcL (140-400); Red Blood Count 4.15 M/mcL (3.82-4.97); Red Cell Distribution Width 12.6 % (11.5-14.5); Segmented Neutrophils % 47.8 %
[2018-10-08 06:58] LABS: BUN/Creatinine Ratio 14 (6-26); Blood Urea Nitrogen 10 mg/dL (8-23); Calcium 8.7 mg/dL (8.6-10.3); Carbon Dioxide 29 mEq/L (23-29); Chloride 104 mEq/L (98-107); Glucose 114 mg/dL (70-105); Magnesium 1.8 mg/dL (1.6-2.6); Osmolality,Calculated 290 (280-300); Potassium 4.2 mEq/L (3.5-5.1); Sodium 140 mEq/L (136-145); eGFR For Non-African Americans > 60 (> 60)
[2018-10-08] MEDS: Gabapentin 400 MG CAPSULE PO SCH ×3 (08:42→19:44)
[2018-10-08] MEDS: lamoTRIgine 100 MG TABLET PO SCH (08:42)
[2018-10-08] MEDS: Multivit/Ca/Min/Fe/FA 1 TAB TABLET PO SCH (08:42)
[2018-10-08] MEDS: Ibuprofen 800 MG TABLET PO PRN (08:42)
[2018-10-08] MEDS: Nicotine 21 MG PATCH.TD24 TD SCH (08:42)
[2018-10-08] MEDS: Cholecalciferol (D-3) 1,000 UNIT TABLET PO SCH (08:42)
[2018-10-08] MEDS: *HR* HYDROcodone/Acet 5/325 mg TABLET PO PRN ×2 (11:47→19:44)
[2018-10-08] MEDS ORDERED: Levofloxacin 750 MG/150 ML 750 MG/150 ML BAG IVPB SCH (13:00)
--- NOTE | 2018-10-08 13:18 | Internal Med Progress Note ---
Hospitalist Progress Note - Encounter Date of Encounter: 10/08/18 Time of Encounter: 09:00 - Subjective Interval History: Patient still has productive cough. Denies shortness of breath or chest pain. Vitals are stable. - Exam Vitals: Temp Pulse Resp BP Pulse Ox 98.1 F 86 16 149/86 95 10/08/18 10:46 10/08/18 10:46 10/08/18 10:46 10/08/18 10:46 10/08/18 10:46 Exam: Pt is AAO x 3, in NAD HEENT: NC/AT, PERRL Neck: Supple, no JVD, no LAD Lungs: CTA b/l Heart: S1S2, RRR Abd: Soft, nontender, BS present Ext: ROM wnl, no pedal edema, mild left shoulder pain on movement Neuro: No focal deficit - Assessment and Plan (1) Left shoulder pain Current Visit: Yes Status: Acute Assessment and Plan: Mild left shoulder pain on movement. Improved today. Denies recent trauma. Less likely fracture or dislocation. We will continue symptomatic treatment. (2) Pneumonia Current Visit: Yes Status: Acute Assessment and Plan: Patient has chest x-ray evidence of pneumonia. Has symptoms of cough. On last admission legionela test are negative. - Continue Levaquin - Continue symptomatic treatment (3) DVT prophylaxis Current Visit: No Status: Acute Assessment and Plan: Heparin subcutaneously (4) COPD (chronic obstructive pulmonary disease) Current Visit: No Status: Chronic Assessment and Plan: No wheezing. Continue DuoNeb IH as needed (5) Tobacco abuse Current Visit: No Status: Chronic Assessment and Plan: Smoking cessation education. Place patient on nicotine patch (6) HTN (hypertension) Current Visit: No Status: Chronic Assessment and Plan: Continue home medications. Follow-up BP - Time Spent with Patient Total time spent is greater than 50% in coordination of care (as documented) at patient's floor/unit and/or counseling patient: 30 minutes 25 - 35 minutes Plan of Care Discussed with: patient Internal Medicine: Result - Labs CBC & Chem 7: 10/08/18 05:22 10/08/18 05:22 Labs: Short CBC 10/07/18 10/08/18 Range/Units 13:27 05:22 WBC 8.0 D 7.0 (4.3-11.1) K/mcL Hgb 12.7 12.6 (11.5-15.4) g/dL Hct 38.4 38.2 (35.3-44.9) % Plt Count 329 335 (140-400) K/mcL Neutrophils # 5.3 3.4 (1.6-8.9) K/mcL BMP 10/07/18 10/08/18 13:27 05:22 Sodium 141 140 Potassium 4.2 4.2 Chloride 106 104 Carbon Dioxide 28 29 BUN 11 10 Creatinine 0.62 0.74 Glucose 105 114 H Calcium 9.0 8.7 Liver Function 10/07/18 Range/Units 13:27 Total Bilirubin 0.2 L (0.3-1.0) mg/dL AST 11 L (13-39) Units/L ALT 13 (7-52) Units/L Alkaline Phosphatase 116 H (34-104) Units/L Albumin 3.5 (3.5-5.7) g/dL Consult Discharge Plan - Plan Referrals: Zane Blakely MD [Primary Care Provider] - (Appointment has been requested. Our offices will call with an appointment time and date.) (1) Left shoulder pain Qualifiers: Chronicity: acute Qualified Code(s): M25.512 - Pain in left shoulder (2) Pneumonia Qualifiers: Pneumonia type: due to Pseudomonas Laterality: bilateral Lung location: unspecified part of lung Qualified Code(s): J15.1 - Pneumonia due to Pseudomonas (4) COPD (chronic obstructive pulmonary disease) Qualifiers: COPD type: unspecified COPD Qualified Code(s): J44.9 - Chronic obstructive pulmonary disease, unspecified (6) HTN (hypertension) Qualifiers: Hypertension type: essential hypertension Qualified Code(s): I10 - Essential (primary) hypertension
[2018-10-09] MEDS: *HR* Heparin 5,000 UNIT/ML VIAL SQ SCH (05:18)
[2018-10-09] MEDS: *HR* HYDROcodone/Acet 5/325 mg TABLET PO PRN (05:25)
[2018-10-09 07:42] VITALS: BP 138/94
[2018-10-09] MEDS: Gabapentin 400 MG CAPSULE PO SCH (08:01)
[2018-10-09] MEDS: lamoTRIgine 100 MG TABLET PO SCH (08:03)
[2018-10-09] MEDS: Cholecalciferol (D-3) 1,000 UNIT TABLET PO SCH (08:03)
[2018-10-09] MEDS: Multivit/Ca/Min/Fe/FA 1 TAB TABLET PO SCH (08:03)
[2018-10-09] MEDS: Nicotine 21 MG PATCH.TD24 TD SCH (08:03)
[2018-10-09] MEDS: Ibuprofen 800 MG TABLET PO PRN (08:04)
--- NOTE | 2018-10-09 10:34 | Discharge Summary ---
Orders not resulted at time of discharge: Pending orders 10/07/18 13:27 Culture,Blood [BC] Stat Date of Encounter: 10/09/18 Time of Encounter: 10:00 - Discharge Diagnosis (1) Left shoulder pain Priority: Secondary Status: Acute Qualifiers: Chronicity: acute Qualified Code(s): M25.512 - Pain in left shoulder (2) Pneumonia Priority: Primary Status: Acute Qualifiers: Pneumonia type: due to Pseudomonas Laterality: bilateral Lung location: unspecified part of lung Qualified Code(s): J15.1 - Pneumonia due to Pseudomonas (3) DVT prophylaxis Priority: Secondary Status: Acute (4) COPD (chronic obstructive pulmonary disease) Priority: Secondary Status: Chronic Qualifiers: COPD type: unspecified COPD Qualified Code(s): J44.9 - Chronic obstructive pulmonary disease, unspecified (5) Tobacco abuse Priority: Secondary Status: Chronic (6) HTN (hypertension) Priority: Secondary Status: Chronic Qualifiers: Hypertension type: essential hypertension Qualified Code(s): I10 - Essential (primary) hypertension Hospital course: Ms. Zayas is a 58 year old female present to ER for cough. Patient was recently admitted for community acquired pneumonia but did not finish the antibiotic course because she signed AMA. Patient was treated with IV Levaquin. Her cough has improved significantly. Patient has shortness of breath. No fever. No leukocytosis. Will DC patient home today with by mouth Levaquin. Patient has mild left shoulder pain, consider degenerative change, will defer further management to PCP as outpatient. I have seen and examined the patient today. Patient is awake alert, oriented 3. Still have mild cough, no shortness of breath. Denies chest pain. Vitals are stable. Off oxygen, saturation above 90%. Patient walk around in the hallway without oxygen without breathing. On exam, lungs are clear, no crackles or wheezes. Will DC patient home on by mouth Levaquin. Continue follow-up with PCP as outpatient. Discharge discussed with: patient Time spent discussing smoking cessation with patient: 3 to 10 minutes - Time Spent with Patient Total time spent providing and/or coordinating discharge services: 40 minutes Time spent: Greater than 30 minutes - Discharge Medications Prescriptions: New Nicotine Patch [Nicoderm] 21 mg TD DAILY #14 [email or web address] Continue Multivitamin [Flintstones] 1 tab PO DAILY Ibuprofen [Motrin] 800 mg PO BID PRN PRN Reason: Pain Gabapentin [Neurontin] 800 mg PO TID Cholecalciferol (Vitamin D3) [Vitamin D3] 2,000 unit PO DAILY Promethazine [Phenergan] 25 mg PO TID PRN PRN Reason: Nausea Albuterol Sulfate [Ventolin Hfa] 2 puff IH Q4H PRN PRN Reason: Shortness Of Breath Propranolol [Inderal] 20 mg PO BID Amitriptyline [Elavil] 100 mg PO HS Oxazepam 10 mg PO BID PRN PRN Reason: Anxiety Cyclobenzaprine [Flexeril] 10 mg PO TID lamoTRIgine [Lamictal] 100 mg PO DAILY Home Medications: Cholecalciferol (Vitamin D3) [Vitamin D3] 2,000 unit PO DAILY 03/14/17 [History] Gabapentin [Neurontin] 800 mg PO TID 03/14/17 [History] Ibuprofen [Motrin] 800 mg PO BID PRN 03/14/17 [History] Multivitamin [Flintstones] 1 tab PO DAILY 03/14/17 [History] Promethazine [Phenergan] 25 mg PO TID PRN 07/02/17 [History] Albuterol Sulfate [Ventolin Hfa] 2 puff IH Q4H PRN 06/10/18 [History] Amitriptyline [Elavil] 100 mg PO HS 06/10/18 [History] Cyclobenzaprine [Flexeril] 10 mg PO TID 06/10/18 [History] Oxazepam 10 mg PO BID PRN 06/10/18 [History] Propranolol [Inderal] 20 mg PO BID 06/10/18 [History] lamoTRIgine [Lamictal] 100 mg PO DAILY 10/03/18 [History] Nicotine Patch [Nicoderm] 21 mg TD DAILY #14 patch.[email or web address] 10/09/18 [Rx] levoFLOXacin [Levaquin] 750 mg PO DAILY 5 Days #5 tablet 10/09/18 [Rx] Allergies/Adverse Reactions: Allergy/AdvReac Type Severity Reaction Status Date / Time azithromycin Allergy Hives Verified 10/08/18 10:03 cefuroxime [From Ceftin] Allergy Swelling Verified 10/08/18 10:03 of Lip/Tongue/Throat pregabalin [From Lyrica] Allergy Hives Verified 10/08/18 10:03 Date of admission: 10/07/18 13:38 Primary care physician: Zane Blakely MD Discharging clinician: Ana Thomas Anticipated date of discharge: 10/09/18 - Constitutional Vitals: Temp Pulse Resp BP Pulse Ox 97.8 F 86 17 138/94 94 10/09/18 07:38 10/09/18 07:38 10/09/18 07:38 10/09/18 07:38 10/09/18 07:38 Exam: Pt is AAO x 3, in NAD HEENT: NC/AT, PERRL Neck: Supple, no JVD, no LAD Lungs: CTA b/l Heart: S1S2, RRR Abd: Soft, nontender, BS present Ext: ROM wnl, no pedal edema, mild left shoulder pain on movement Neuro: No focal deficit - Patient Status Disposition: Home, Self-Care Condition: Good Functional capacity at discharge: independent ambulation Overall status at discharge: patient is progressing back to baseline - Discharge Instructions Follow Up With: Zane Blakely MD [Primary Care Provider] - (Appointment has been requested. Our offices will call with an appointment time and date.) - Diet and Activity Activity: increase activity as tolerated Diet: regular diet
== END 2018-10-09 12:10 | disposition home or self-care (01) ==
LOC: EMEROOARM 11:59 → 3BNU 11:59
PROVIDERS: ADMIT Internal Medicine; ATTEND Internal Medicine

== ENCOUNTER 2019-02-13 21:53 | Observation (INO) ==
--- NOTE | 2019-02-13 22:03 | Emergency Department Note ---
Disposition Clinical Impression: Acute exacerbation of chronic obstructive airways disease Fracture of medial malleolus Qualifiers: Encounter type: initial encounter Fracture type: closed Fracture alignment: nondisplaced Laterality: left Qualified Code(s): S82.55XA - Nondisplaced fracture of medial malleolus of left tibia, initial encounter for closed fracture Disposition: Admitted As Inpatient Condition: Fair Forms: ED Satisfaction Letter Time of Disposition: 23:04 General Adult HPI - General Stated complaint: sob Time Seen by Provider: 02/13/19 22:01 Source: patient Mode of arrival: EMS Limitations: no limitations Nursing Notes Reviewed: Yes Vital Signs Reviewed: Yes - History of Present Illness HPI Narrative: Patient is a 58-year-old female who is brought in via EMS from urgent care for shortness of breath or difficulty breathing. Patient with known history of COPD. Per patient earlier today she began having increased shortness of breath and difficulty breathing, this is mainly exertional, no chest pain. She has a lso been having an increased cough with increased sputum production. Patient has been taking her COPD inhalers at home as directed which have not helped. Patient does wear 2 L of oxygen at night however today she has had increased this to 3 L during the day as well. Prior to arrival, at urgent care, patient received DuoNeb 3 as well as Solu-Medrol, she states the DuoNeb had slightly helped her shortness of breath. On arrival to the urgent care, patient was satting at 79% eventually following DuoNeb's came up to 86%. On arrival here per EMS they stated that she had been at 89-90% consistently. Patient denies any nausea, vomiting or abdominal pain. No urinary symptoms. She states she has been diagnosed with pneumonia in the past, however denies any recent fever, she has had occasional chills. Patient also states that approximately 1-2 weeks ago, she fell onto her left ankle and slightly twisted this area, she has been having pain and slight swelling to that area since this time. No further injury. No loss of consciousness and did not hit her head. She does have slight edema to the lower legs, she has increased her water pill to 2 pills per day over the past couple of days which is slightly helped. - Related Data Home Medications Medication Instructions Recorded Confirmed Cholecalciferol (Vitamin D3) 2,000 unit PO DAILY 03/14/17 10/07/18 [Vitamin D3] Gabapentin [Neurontin] 800 mg PO TID 03/14/17 10/07/18 Ibuprofen [Motrin] 800 mg PO BID PRN 03/14/17 10/07/18 Multivitamin [Flintstones] 1 tab PO DAILY 03/14/17 10/07/18 Promethazine [Phenergan] 25 mg PO TID PRN 07/02/17 10/07/18 Albuterol Sulfate [Ventolin Hfa] 2 puff IH Q4H PRN 06/10/18 10/07/18 Amitriptyline [Elavil] 100 mg PO HS 06/10/18 10/07/18 Cyclobenzaprine [Flexeril] 10 mg PO TID 06/10/18 10/07/18 Oxazepam 10 mg PO BID PRN 06/10/18 10/07/18 Propranolol [Inderal] 20 mg PO BID 06/10/18 10/07/18 lamoTRIgine [Lamictal] 100 mg PO DAILY 10/03/18 10/07/18 Previous Rx's Medication Instructions Recorded Nicotine Patch [Nicoderm] 21 mg TD DAILY #14 patch.td24 10/09/18 Allergies Allergy/AdvReac Type Severity Reaction Status Date / Time azithromycin Allergy Hives Verified 10/08/18 10:03 cefuroxime [From Ceftin] Allergy Swelling Verified 10/08/18 10:03 of Lip/Tongue/Throat pregabalin [From Lyrica] Allergy Hives Verified 10/08/18 10:03 All systems ED: reviewed and negative except as stated. Review of Systems: As Per HPI Constitutional: Reports: chills. Denies: fever ENT ED: Reports: congestion Cardiovascular: Reports: dyspnea on exertion, edema. Denies: chest pain, palpitations, syncope Respiratory: Reports: cough, dyspnea, wheezes, sputum production. Denies: hemoptysis Gastrointestinal: Denies: abdominal pain, nausea, vomiting, hematemesis Genitourinary: Denies: urgency Musculoskeletal: Denies: back pain Integumentary: Denies: rash Neurological: Denies: headache, weakness, confusion Endocrine: Denies: fatigue Past Medical History - Past Medical History Medical history: Reports: COPD, hypertension Surgical history: Reports: hysterectomy, ureteral stent, other Psychiatric history: Reports: anxiety, depression, PTSD, previous psychiatric hospitalization DEPARTMENTAL SECRETARY history: Reports: no DEPARTMENTAL SECRETARY history - Social History Smoking Status: Current every day smoker Smokeless Tobacco Status: No Alcohol use: Reports: none Drug use: Reports: marijuana Physical Exam - General Limitations: no limitations General appearance: alert, in no apparent distress - Head Head exam: atraumatic, normocephalic, normal inspection - Eye Eye exam: Present: normal appearance, PERRL, EOMI - ENT ENT exam: normal exam, normal oropharynx, mucous membranes moist - Neck Neck exam: Present: normal inspection, full ROM, trachea midline - Chest Chest inspection: Present: normal inspection, symmetric chest wall rise - Respiratory Respiratory exam: Present: wheezes (Diffuse wheezing throughout, with decreased breath sounds bilaterally, and no significant accessory muscle use, she is sli ghtly conversationally dyspneic currently on 3 L nasal cannula), prolonged expiratory phase. Absent: respiratory distress - Cardiovascular Cardiovascular exam: Present: regular rate, normal rhythm, normal heart sounds - Abdominal Exam Abdominal exam: Present: soft, Non-Tender. Absent: tenderness, distention, guarding, rebound, rigidity - Extremities Exam Extremities exam: Present: pedal edema (2+ pitting edema to the bilateral lower extremities, to the left lower ankle, she does have 21 cm scabbing area to the left lateral ankle, with tears to palpation without ecchymosis, hematoma or erythema.) - Expanded Lower Extremity Exam Foot/toe exam: Present: normal inspection, tenderness Neurovascular/Tendon exam: Absent: motor deficit, sensory deficit, tendon deficit - Back Exam Back exam: Absent: muscle spasm, paraspinal tenderness, vertebral tenderness - Neurological Exam Neurological exam: Present: alert, oriented X3 - Psychiatric Psychiatric exam: Present: normal affect, normal mood - Skin Skin exam: Present: warm, dry, intact, normal color Course Vital Signs Temperature 99.6 F 02/13/19 22:00 Pulse Rate 92 02/13/19 22:00 Respiratory Rate 19 02/13/19 22:00 Blood Pressure 133/82 02/13/19 22:00 O2 Sat by Pulse Oximetry 91 02/13/19 22:00 Temperature 99.6 F 02/13/19 22:00 Pulse Rate 97 02/13/19 23:40 Respiratory Rate 17 02/13/19 23:40 Blood Pressure 125/72 02/13/19 23:40 O2 Sat by Pulse Oximetry 90 02/13/19 23:40 Oxygen Delivery Oxygen Delivery Nasal Cannula Medical Decision Making - [facility] Narrative Medical decision making narrative: Patient is a 58-year-old female presenting from urgent care via EMS for difficulty breathing and torso breath. Patient noted history of COPD. 1 day history of difficulty breathing in new oxygen use during the day, was on 3 L nasal cannula at home, typically only wears 2 L at night when needed. On arrival to urgent care per EMS patient was had an oxygen saturation at 79%, was given Solu-Medrol and DuoNeb 3 and oxygen saturation went up to 86%. On arrival to our ER, patient is alert and oriented 3, in no acute distress, she is mildly conversationally dyspneic. Scattered wheezing throughout, oxygen saturation is 89% to 90%. Concern for pneumonia versus COPD versus CHF exacerbation as well as concern with left ankle pain. Chest x-ray, basic lab work, troponin, EKG and left ankle x-ray were performed. We will hold off on further Solu-Medrol and DuoNeb as patient argued see this medication and round. Blood cultures and lactic acid were also performed as patient was mildly tachycardic with decreased oxygen saturation, concern for pneumonia. Patient does have a leukocytosis, however just finished an azithromycin pack as well as prednisone pack. Further blood work is unremarkable with a negative troponin and nonischemic EKG. Chest x-ray shows emphysematous changes with coarsening, noted to be difficult to exclude pneumonia for this reason we will give the patient doxycycline dose. Left ankle x-ray does show concern for avulsion fracture versus spurring, for this reason a posterior split open replaced. Given increased oxygen demand, suspect this is COPD exacerbation, patient will be admitted for further treatm ent and recommendations. I did discuss this with the patient, she agrees with admission at this time. Patient admitted by Dr. Lewis at 2340. - Medical Records Medical records reviewed: Yes I reviewed the patient's medical records. - Lab Data Lab results reviewed: Yes I reviewed the patient's lab results. Result diagrams: 02/13/19 22:12 02/13/19 22:12 Lab Results 02/13/19 02/13/19 02/13/19 Range/Units 22:12 22:12 22:12 WBC 16.2 H (4.3-11.1) K/mcL RBC 4.20 (3.82-4.97) M/mcL Hgb 12.6 (11.5-15.4) g/dL Hct 39.8 (35.3-44.9) % MCV 94.8 (83.0-100.0) fL MCH 30.0 (28.0-33.3) pg MCHC 31.7 (31.6-35.5) g/dL RDW 14.6 H (11.5-14.5) % Plt Count 432 H (140-400) K/mcL MPV 9.3 L (9.4-12.4) fL Immature Gran % 0.4 (0-4) % Seg Neutrophils % 87.2 % Lymphocytes % 4.9 % Monocytes % 5.8 % Eosinophils % 1.5 % Basophils % 0.2 % Neutrophils # 14.2 H (1.6-8.9) K/mcL Lymphocytes # 0.8 (0.6-4.6) K/mcL Monocytes # 0.9 (0.0-1.3) K/mcL Eosinophils # 0.2 (0.0-0.6) K/mcL Basophils # 0.0 (0.0-0.2) K/mcL Sodium 139 (136-145) mEq/L Potassium 3.5 (3.5-5.1) mEq/L Chloride 102 (98-107) mEq/L Carbon Dioxide 28 (23-29) mEq/L BUN 9 (8-23) mg/dL Creatinine 0.57 L (0.60-1.20) mg/dL Est GFR ( Amer) > 60 (> 60) Est GFR (Non-Af Amer) > 60 (> 60) BUN/Creatinine Ratio 16 (6-26) Glucose 109 H (70-105) mg/dL Calculated Osmolality 287 (280-300) Lactic Acid (0.5-2.2) mmol/L Calcium 8.5 L (8.6-10.3) mg/dL Troponin I < 0.03 (< 0.04) ng/mL B-Natriuretic Peptide 56 (Less than 100) pg/mL 02/13/19 Range/Units 22:29 WBC (4.3-11.1) K/mcL RBC (3.82-4.97) M/mcL Hgb (11.5-15.4) g/dL Hct (35.3-44.9) % MCV (83.0-100.0) fL MCH (28.0-33.3) pg MCHC (31.6-35.5) g/dL RDW (11.5-14.5) % Plt Count (140-400) K/mcL MPV (9.4-12.4) fL Immature Gran % (0-4) % Seg Neutrophils % % Lymphocytes % % Monocytes % % Eosinophils % % Basophils % % Neutrophils # (1.6-8.9) K/mcL Lymphocytes # (0.6-4.6) K/mcL Monocytes # (0.0-1.3) K/mcL Eosinophils # (0.0-0.6) K/mcL Basophils # (0.0-0.2) K/mcL Sodium (136-145) mEq/L Potassium (3.5-5.1) mEq/L Chloride (98-107) mEq/L Carbon Dioxide (23-29) mEq/L BUN (8-23) mg/dL Creatinine (0.60-1.20) mg/dL Est GFR ( Amer) (> 60) Est GFR (Non-Af Amer) (> 60) BUN/Creatinine Ratio (6-26) Glucose (70-105) mg/dL Calculated Osmolality (280-300) Lactic Acid 1.0 (0.5-2.2) mmol/L Calcium (8.6-10.3) mg/dL Troponin I (< 0.04) ng/mL B-Natriuretic Peptide (Less than 100) pg/mL - Radiology Data Radiology results reviewed: Yes I reviewed the patient's radiology results. Chest X-Ray 02/13/19 22:01 IMPRESSION: Emphysema with chronic coarsened interstitial markings, either relating to superimposed edema, infection or a combination of emphysema and pulmonary fibrosis. Difficult to exclude pneumonia or aspiration sequela at the lung bases although overall this is somewhat similar to prior exams. D/ / Silviano Sanford / Silviano Sanford Interpreting Provider: Silviano Sanford Ankle X-Ray 02/13/19 22:02 IMPRESSION: Generalized soft tissue swelling about the ankle. Subtle mild irregularity at the medial malleolar tip could potentially represent avulsion injury versus degenerative spurring. D/ / Silviano Sanford / Silviano Sanford Interpreting Provider: Silviano Sanford - EKG Data EKG #1 EKG attestation: Yes I reviewed and interpreted this EKG. EKG results narrative: EKG obtained at 2204 ventricular rate of 90, regular rhythm, normal axis, right bundle branch block, no ST segment elevation or depression, no T-wave inversion. Q waves are noted in the anterior septal leads.
--- NOTE | 2019-02-13 22:12 | Emergency Department Note ---
Disposition Clinical Impression: Acute exacerbation of chronic obstructive airways disease Fracture of medial malleolus Qualifiers: Encounter type: initial encounter Fracture type: closed Fracture alignment: nondisplaced Laterality: left Qualified Code(s): S82.55XA - Nondisplaced fracture of medial malleolus of left tibia, initial encounter for closed fracture Disposition: Admitted As Inpatient Condition: Fair Time of Disposition: 23:04 General Adult HPI - General Chief complaint: ED Shortness of Breath/Dyspnea Stated complaint: sob Time Seen by Provider: 02/13/19 22:01 Source: patient, EMS Limitations: no limitations - History of Present Illness Pain Scale: 6 - Related Data Home Medications Medication Instructions Recorded Confirmed Cholecalciferol (Vitamin D3) 2,000 unit PO DAILY 03/14/17 02/14/19 [Vitamin D3] Gabapentin [Neurontin] 800 mg PO TID 03/14/17 02/14/19 Ibuprofen [Motrin] 800 mg PO BID PRN 03/14/17 02/14/19 Multivitamin [Flintstones] 1 tab PO DAILY 03/14/17 02/14/19 Albuterol Sulfate [Ventolin Hfa] 2 puff IH Q4H PRN 06/10/18 02/14/19 Amitriptyline [Elavil] 100 mg PO HS 06/10/18 02/14/19 Cyclobenzaprine [Flexeril] 10 mg PO TID 06/10/18 02/14/19 Propranolol [Inderal] 20 mg PO BID 06/10/18 10/07/18 Diltiazem CD (24hr) [Cardizem CD] 240 mg PO DAILY 02/14/19 Omeprazole [PriLOSEC] 40 mg PO DAILY 02/14/19 02/14/19 Ondansetron ODT [Zofran ODT] 4 mg PO Q8H PRN 02/14/19 02/14/19 hydrOXYzine pamoate [Hydroxyzine 25 mg PO Q8H PRN 02/14/19 02/14/19 Pamoate] Previous Rx's Medication Instructions Recorded Nicotine Patch [Nicoderm] 21 mg TD DAILY #14 patch.td24 10/09/18 Allergies Allergy/AdvReac Type Severity Reaction Status Date / Time azithromycin Allergy Hives Verified 02/14/19 15:41 cefuroxime [From Ceftin] Allergy Swelling Verified 02/14/19 15:41 of Lip/Tongue/Throat pregabalin [From Lyrica] Allergy Hives Verified 02/14/19 15:41 Past Medical History - Past Medical History Medical history: Reports: CHF, COPD, hypertension Surgical history: Reports: hysterectomy, ureteral stent, other Psychiatric history: Reports: anxiety, depression, PTSD, previous psychiatric hospitalization [employer]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: no DISTRI[employer] C[employer] 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 history - Social History Smoking Status: Current every day smoker Smokeless Tobacco Status: No Alcohol use: Reports: none Drug use: Reports: marijuana Physical Exam - General Limitations: no limitations General appearance: alert, in no apparent distress Course Vital Signs Temperature 99.6 F 02/13/19 22:00 Pulse Rate 92 02/13/19 22:00 Respiratory Rate 19 02/13/19 22:00 Blood Pressure 133/82 02/13/19 22:00 O2 Sat by Pulse Oximetry 91 02/13/19 22:00 Temperature 99.3 F 02/14/19 19:19 Pulse Rate 128 02/14/19 19:19 Respiratory Rate 18 02/14/19 21:44 Blood Pressure 158/88 02/14/19 21:44 O2 Sat by Pulse Oximetry 92 02/14/19 21:44 Oxygen Delivery Oxygen Delivery Nasal Cannula Medical Decision Making - Lab Data Result diagrams: 02/14/19 04:50 02/14/19 04:50 Lab Results 02/13/19 02/13/19 02/13/19 Range/Units 22:12 22:12 22:12 WBC 16.2 H (4.3-11.1) K/mcL RBC 4.20 (3.82-4.97) M/mcL Hgb 12.6 (11.5-15.4) g/dL Hct 39.8 (35.3-44.9) % MCV 94.8 (83.0-100.0) fL MCH 30.0 (28.0-33.3) pg MCHC 31.7 (31.6-35.5) g/dL RDW 14.6 H (11.5-14.5) % Plt Count 432 H (140-400) K/mcL MPV 9.3 L (9.4-12.4) fL Immature Gran % 0.4 (0-4) % Seg Neutrophils % 87.2 % Lymphocytes % 4.9 % Monocytes % 5.8 % Eosinophils % 1.5 % Basophils % 0.2 % Neutrophils # 14.2 H (1.6-8.9) K/mcL Lymphocytes # 0.8 (0.6-4.6) K/mcL Monocytes # 0.9 (0.0-1.3) K/mcL Eosinophils # 0.2 (0.0-0.6) K/mcL Basophils # 0.0 (0.0-0.2) K/mcL Sodium 139 (136-145) mEq/L Potassium 3.5 (3.5-5.1) mEq/L Chloride 102 (98-107) mEq/L Carbon Dioxide 28 (23-29) mEq/L BUN 9 (8-23) mg/dL Creatinine 0.57 L (0.60-1.20) mg/dL Est GFR ( Amer) > 60 (> 60) Est GFR (Non-Af Amer) > 60 (> 60) BUN/Creatinine Ratio 16 (6-26) Glucose 109 H (70-105) mg/dL Calculated Osmolality 287 (280-300) Lactic Acid (0.5-2.2) mmol/L Calcium 8.5 L (8.6-10.3) mg/dL Troponin I < 0.03 (< 0.04) ng/mL B-Natriuretic Peptide 56 (Less than 100) pg/mL 02/13/19 Range/Units 22:29 WBC (4.3-11.1) K/mcL RBC (3.82-4.97) M/mcL Hgb (11.5-15.4) g/dL Hct (35.3-44.9) % MCV (83.0-100.0) fL MCH (28.0-33.3) pg MCHC (31.6-35.5) g/dL RDW (11.5-14.5) % Plt Count (140-400) K/mcL MPV (9.4-12.4) fL Immature Gran % (0-4) % Seg Neutrophils % % Lymphocytes % % Monocytes % % Eosinophils % % Basophils % % Neutrophils # (1.6-8.9) K/mcL Lymphocytes # (0.6-4.6) K/mcL Monocytes # (0.0-1.3) K/mcL Eosinophils # (0.0-0.6) K/mcL Basophils # (0.0-0.2) K/mcL Sodium (136-145) mEq/L Potassium (3.5-5.1) mEq/L Chloride (98-107) mEq/L Carbon Dioxide (23-29) mEq/L BUN (8-23) mg/dL Creatinine (0.60-1.20) mg/dL Est GFR ( Amer) (> 60) Est GFR (Non-Af Amer) (> 60) BUN/Creatinine Ratio (6-26) Glucose (70-105) mg/dL Calculated Osmolality (280-300) Lactic Acid 1.0 (0.5-2.2) mmol/L Calcium (8.6-10.3) mg/dL Troponin I (< 0.04) ng/mL B-Natriuretic Peptide (Less than 100) pg/mL Attestation Statement - Attestation Attestation: I examined this patient and my medical decision-making was reviewed with the Resident Physician. I agree with the documented findings, disposition and treatment plan as described except to the extent set forth below. Patient a 58-year-old female presents to emergency department with chief complaint of shortness of breath. Patient reports she has prior history of COPD and was coughing and having shortness of breath. The patient reports she was seen in urgent care and found to have a low pulse ox. Patient was sent to the emergency department for evaluation. Exam patient awake alert no acute distress she does have a pulse ox it is in the 80s. The patient is not showing any signs of severe respiratory distress this time. Medical decision management patient will undergo plain film radiographic studies and laboratory studies the patient will require admission for COPD exacerbation if her oxygenation status stays at the same level. I personally supervised and was present for the fairchild/critical portions of the following procedures completed by the resident:EKG.
[2019-02-13 22:30] LABS: Basophils % 0.2 %; Eosinophils # 0.2 K/mcL (0.0-0.6); Eosinophils % 1.5 %; Hematocrit 39.8 % (35.3-44.9); Hemoglobin 12.6 g/dL (11.5-15.4); Immature Granulocytes % 0.4 % (0-4); Lymphocytes # 0.8 K/mcL (0.6-4.6); Lymphocytes % 4.9 %; Mean Corpuscular HGB Conc 31.7 g/dL (31.6-35.5); Mean Corpuscular Volume 94.8 fL (83.0-100.0); Mean Platelet Volume 9.3 fL (9.4-12.4); Monocytes # 0.9 K/mcL (0.0-1.3); Monocytes % 5.8 %; Neutrophils # 14.2 K/mcL (1.6-8.9); Platelet Count 432 K/mcL (140-400); Red Cell Distribution Width 14.6 % (11.5-14.5); Segmented Neutrophils % 87.2 %; White Blood Count 16.2 K/mcL (4.3-11.1)
[2019-02-13 22:52] LABS: BUN/Creatinine Ratio 16 (6-26); Blood Urea Nitrogen 9 mg/dL (8-23); Calcium 8.5 mg/dL (8.6-10.3); Carbon Dioxide 28 mEq/L (23-29); Chloride 102 mEq/L (98-107); Glucose 109 mg/dL (70-105); Osmolality,Calculated 287 (280-300); Potassium 3.5 mEq/L (3.5-5.1); Sodium 139 mEq/L (136-145); eGFR For African Americans > 60 (> 60); eGFR For Non-African Americans > 60 (> 60)
[2019-02-13 22:53] LABS: Troponin I < 0.03 ng/mL (< 0.04)
[2019-02-13] MEDS ORDERED: Doxycycline 100 MG CAPSULE PO ONE (23:04)
[2019-02-14] MEDS: Ipratropium/Albuterol Neb 3 ML IH SCH ×5 (03:22→21:43)
[2019-02-14] MEDS: MethylPREDNISolone 40 MG/ML VIAL IVP SCH ×4 (03:34→17:06)
[2019-02-14 05:37] LABS: Basophils % 0.1 %; Hematocrit 38.1 % (35.3-44.9); Hemoglobin 12.3 g/dL (11.5-15.4); Immature Granulocytes % 0.4 % (0-4); Lymphocytes # 0.6 K/mcL (0.6-4.6); Mean Corpuscular HGB Conc 32.3 g/dL (31.6-35.5); Mean Corpuscular Hemoglobin 30.5 pg (28.0-33.3); Mean Corpuscular Volume 94.5 fL (83.0-100.0); Mean Platelet Volume 9.4 fL (9.4-12.4); Monocytes # 0.2 K/mcL (0.0-1.3); Monocytes % 1.1 %; Neutrophils # 17.7 K/mcL (1.6-8.9); Platelet Count 382 K/mcL (140-400); Red Blood Count 4.03 M/mcL (3.82-4.97); Red Cell Distribution Width 14.2 % (11.5-14.5); Segmented Neutrophils % 95.4 %; White Blood Count 18.6 K/mcL (4.3-11.1)
[2019-02-14 05:39] LABS: Alanine Aminotransferase 19 Units/L (7-52); Albumin 3.4 g/dL (3.5-5.7); Albumin/Globulin Ratio 1.2 (1.1-2.2); Alkaline Phosphatase 171 Units/L (34-104); Aspartate Amino Transferase 10 Units/L (13-39); BUN/Creatinine Ratio 20 (6-26); Bilirubin,Total 0.2 mg/dL (0.3-1.0); Blood Urea Nitrogen 9 mg/dL (8-23); Calcium 8.8 mg/dL (8.6-10.3); Carbon Dioxide 28 mEq/L (23-29); Chloride 101 mEq/L (98-107); Globulin 2.8 g/dL (2.4-3.5); Glucose 162 mg/dL (70-105); Osmolality,Calculated 288 (280-300); Potassium 3.9 mEq/L (3.5-5.1); Sodium 138 mEq/L (136-145); Total Protein 6.2 g/dL (6.4-8.9); eGFR For African Americans > 60 (> 60); eGFR For Non-African Americans > 60 (> 60)
--- NOTE | 2019-02-14 06:34 | Internal Med History&Physical ---
Date of Encounter: 02/14/19 Time of Encounter: 06:24 Internal Medicine - H&P: HPI Chief complaint: Shortness of breath History of present illness: Ms. Zayas is a 58 year old female with a past medical history of COPD on 2 L, hypertension, and chronic smoker who presented to the ED with complaints of shortness of breath. Symptoms began earlier today noting increasing shortness of breath and difficulty breathing primarily with exertion. No reports of chest pain. She does endorse increased cough with sputum production. Patient currently on 2 L of oxygen as needed which she has been wearing more frequently and has taking at increased to 3 L. Patient initially went to urgent care where she was found to have a O2 saturation of 79%. Patient received DuoNeb's and Solu-Medrol which improved her O2 saturation 86%. Patient does endorse some lower extremity edema and has increased her water pill to 2 pills per day over the past couple of days which is slightly helped. She states she only takes her diuretic as needed. Patient also states that approximately 1-2 weeks ago, she fell onto her left ankle and slightly twisted this area. Denies any fever or ch ills. Upon initial evaluation patient was found to be afebrile, hemodynamically stable saturating in the low 90s on 3 L. Patient does have a leukocytosis, however she just finished an azithromycin pack as well as prednisone. Further blood work is unremarkable with a negative troponin and nonischemic EKG. Chest x-ray showed emphysema with chronic coarsened interstitial markings related to superimposed edema or infection. Patient was given 1 dose of doxycycline. Past Med Surg Social Fam HX - Past Medical History Medical history: CHF, COPD, hypertension Additional medical history: Reflex sympathetic Dystrophy Psychiatric history: anxiety, depression, PTSD, previous psychiatric hospitalization - Past Surgical History Surgical History: hysterectomy, ureteral stent, other Additional surgical history: Broken jaw, broken femur - Social History Smoking Status: Current every day smoker Smokeless Tobacco Status: No Alcohol use: none Drug use: marijuana - Family History Mother Family Member Ethnicity: Non- Living Status: Still Living Hx Family Cardiac Disorders: Yes (HTN) Father Family Member Ethnicity: Non- Living Status: Hx Family Respiratory Disorders: Yes (COPD) Hx Family Cancer: Yes (Lung) Brother Family Member Ethnicity: Non- Living Status: Still Living Hx Family Cancer: Yes (Melanoma) Sister History Unknown: Yes Family Member Ethnicity: Non- Living Status: Still Living Hx Family Cardiac Disorders: Yes (CAD, HTN, HLD) Internal Medicine - H&P: Meds Cholecalciferol (Vitamin D3) [Vitamin D3] 2,000 unit PO DAILY 03/14/17 [History] Gabapentin [Neurontin] 800 mg PO TID 03/14/17 [History] Ibuprofen [Motrin] 800 mg PO BID PRN 03/14/17 [History] Multivitamin [Flintstones] 1 tab PO DAILY 03/14/17 [History] Promethazine [Phenergan] 25 mg PO TID PRN 07/02/17 [History] Albuterol Sulfate [Ventolin Hfa] 2 puff IH Q4H PRN 06/10/18 [History] Amitriptyline [Elavil] 100 mg PO HS 06/10/18 [History] Cyclobenzaprine [Flexeril] 10 mg PO TID 06/10/18 [History] Oxazepam 10 mg PO BID PRN 06/10/18 [History] Propranolol [Inderal] 20 mg PO BID 06/10/18 [History] lamoTRIgine [Lamictal] 100 mg PO DAILY 10/03/18 [History] Nicotine Patch [Nicoderm] 21 mg TD DAILY #14 patch.td24 10/09/18 [Rx] Allergy/AdvReac Type Severity Reaction Status Date / Time azithromycin Allergy Hives Verified 10/08/18 10:03 cefuroxime [From Ceftin] Allergy Swelling Verified 10/08/18 10:03 of Lip/Tongue/Throat pregabalin [From Lyrica] Allergy Hives Verified 10/08/18 10:03 All Systems PM: A 10-system review of systems was performed and is negative for pertinent findings except as documented above in the HPI. - Constitutional Constitutional: no chills, no fever(s), no night sweats - EENT Eyes: no change in vision, no discharge, no pain, no photophobia Ears: no ear discharge, no ear pain, no tinnitus Nose, mouth and throat: no dysphagia, no nasal discharge, no neck pain, no sore throat - Cardiovascular Cardiovascular ROS IM: no chest pain, no diaphoresis, no dyspnea, no lightheadedness, no palpitations, no syncope - Respiratory Respiratory: no cough, no dyspnea, no wheezing, no excessive phlegm production - Gastrointestinal Gastrointestinal: no abdominal pain, no diarrhea, no hematemesis, no hematochez ia, no melena, no nausea, no vomiting - Genitourinary Genitourinary: no change in urinary stream, no dysuria, no flank pain, no hematuria - Musculoskeletal Musculoskeletal ROS IM: no numbness, no tingling - Integumentary Integumentary IM: no rash, no unusual bruising - Neurological Neurological ROS: no confusion, no convulsions, no focal weakness, no numbness, no tingling, no tremor(s) - Hematologic/Lymphatic Hematologic/Lymphatic: no easy bruising - Constitutional Vitals: Temp Pulse Resp BP Pulse Ox 98.2 F 101 18 143/92 91 02/14/19 01:05 02/14/19 01:05 02/14/19 04:10 02/14/19 01:05 02/14/19 04:10 Exam: General: Alert and oriented 3 Skin:Normal color, no rash, no lesions. HEENT:EOM, pupils equal, round and reactive. Cardiovascular:Normal S1 & S2, no rubs, murmurs or gallops. No JVD. Pulse regular. Lungs: Faint expiratory wheeze with some bibasilar crackles Abdomen:Soft, non-tender, no rigidity. Extremities:No deformity, no edema or tenderness, no joint swelling or clubbing. Neurological:Normal cognition and motor skills. Pulses:Carotid and radial pulses normal +2. Rest of the physical exam is non contributory Internal Med - H&P Results - Labs CBC & Chem 7: 02/14/19 04:50 02/14/19 04:50 Labs: Short CBC 02/13/19 02/14/19 Range/Units 22:12 04:50 WBC 16.2 H 18.6 H (4.3-11.1) K/mcL Hgb 12.6 12.3 (11.5-15.4) g/dL Hct 39.8 38.1 (35.3-44.9) % Plt Count 432 H 382 (140-400) K/mcL Neutrophils # 14.2 H 17.7 H (1.6-8.9) K/mcL BMP 02/13/19 02/14/19 22:12 04:50 Sodium 139 138 Potassium 3.5 3.9 Chloride 102 101 Carbon Dioxide 28 28 BUN 9 9 Creatinine 0.57 L 0.45 L Glucose 109 H 162 H Calcium 8.5 L 8.8 Cardiac Enzymes 02/13/19 Range/Units 22:12 Troponin I < 0.03 (< 0.04) ng/mL Liver Function 02/14/19 Range/Units 04:50 Total Bilirubin 0.2 L (0.3-1.0) mg/dL AST 10 L (13-39) Units/L ALT 19 (7-52) Units/L Alkaline Phosphatase 171 H (34-104) Units/L Albumin 3.4 L (3.5-5.7) g/dL - Impressions ITS Impressions Chest X-Ray 02/13/19 22:01 IMPRESSION: Emphysema with chronic coarsened interstitial markings, either relating to superimposed edema, infection or a combination of emphysema and pulmonary fibrosis. Difficult to exclude pneumonia or aspiration sequela at the lung bases although overall this is somewhat similar to prior exams. D/ / Silviano Sanford / Silviano Sanford Interpreting Provider: Silviano Sanford Ankle X-Ray 02/13/19 22:02 IMPRESSION: Generalized soft tissue swelling about the ankle. Subtle mild irregularity at the medial malleolar tip could potentially represent avulsion injury versus degenerative spurring. D/ / Silviano Sanford / Silviano Sanford Interpreting Provider: Silviano Sanford - Assessment and Plan (1) Acute on chronic respiratory failure Current Visit: No Status: Acute Assessment and plan: Likely multifactorial secondary to COPD and CHF exacerbation plus or minus pneumonia. -Continue O2 support as needed -We will continue to treat COPD and CHF exacerbation Qualifiers: Respiratory failure complication: hypoxia and hypercapnia Qualified Code(s): J96.21 - Acute and chronic respiratory failure with hypoxia; J96.22 - Acute and chronic respiratory failure with hypercapnia (2) Acute exacerbation of chronic obstructive airways disease Current Visit: Yes Status: Acute Assessment and plan: Patient presenting with increased dyspnea, productive cough and increasing O2 requirements with wheezing concerning for COPD exacerbation. Patient did have improvement in oxygenation after receiving duo nebs. -Continue duo nebs -Continue steroids -Continue antibiotics (3) Fracture of medial malleolus Current Visit: Yes Status: Acute Assessment and plan: Patient reporting fall occurring 1-2 weeks ago onto her left ankle associated with pain and slight swelling to that area since this time. X-ray of the left ankle showing generalized soft tissue swelling about the ankle. Subtle and mild irregularity at the medial malleolus to potentially representing avulsion injury versus degenerative spurring. Ankle currently wrapped in Pj bandage -Consider podiatry consult Qualifiers: Encounter type: initial encounter Fracture type: closed Fracture alignment: nondisplaced Laterality: left Qualified Code(s): S82.55XA - Nondisplaced fracture of medial malleolus of left tibia, initial encounter for closed fracture (4) Acute exacerbation of CHF (congestive heart failure) Current Visit: Yes Status: Acute Assessment and plan: Patient reporting increasing lower extremity edema and increased use of her diuretics which she takes as needed. Chest x-ray increased interstitial markings which may be related to superimposed edema. Previous echo in 2017 show ing an EF of 60-65% with mild left ventricular diastolic dysfunction. -Strict I's and O's; daily weights -We will start patient on 20 mg of Lasix IV push Qualifiers: Heart failure type: systolic Qualified Code(s): I50.23 - Acute on chronic systolic (congestive) heart failure (5) Community acquired pneumonia Current Visit: No Status: Acute Assessment and plan: Concern for possible underlying pneumonia. -Continue doxycycline IV piggyback Qualifiers: Laterality: unspecified laterality Qualified Code(s): J18.9 - Pneumonia, unspecified organism - Time Spent With Patient Total time spent is greater than 50% in coordination of care (as documented) at patient's floor/unit and/or counseling patient:
[2019-02-14] MEDS: Gabapentin 400 MG CAPSULE PO SCH ×3 (08:36→20:22)
[2019-02-14] MEDS: Furosemide 20 MG/2 ML VIAL IVP SCH (08:36)
[2019-02-14] MEDS: Cholecalciferol (D-3) 1,000 UNIT (25MCG) TABLET PO SCH (08:36)
[2019-02-14] MEDS: Doxycycline 100 MG in 0.9 % Sodium Chloride Mini Bag 100 ML IVPB SCH ×2 (08:37→17:06)
[2019-02-14] MEDS: lamoTRIgine 100 MG TABLET PO SCH (08:37)
[2019-02-14] MEDS: *HR* OxyCODONE/APAP 5/325 TABLET PO PRN ×2 (10:17→17:15)
[2019-02-14] MEDS ORDERED: Gadolinium Contrast Agent (WT Based) IV PRN (10:24)
--- NOTE | 2019-02-14 10:24 | Podiatry Consult Note ---
Date of Encounter: 02/14/19 Time of Encounter: 10:20 Assessment and Plan (1) Left ankle sprain Current visit: Yes Status: Acute Assessment: 2/4 edema noted left medial and lateral mal No ecchymosis, no erythema, no cellulitis, no lymphangitis noted No pain upon inversion, eversion, dorsiflexion, and plantar flexion passive or with resistance Healing wounds noted to left lateral mal, 2 scabbed areas noted with minimal erythema to surrounding tissue No fluctuance noted, no drainage noted WBC 18.6 Plan: Will order MRI, patient reports hardware to right hip, if not MRI safe will order CT to assess for tear and abscess AUBREE wrap placed to LLE, elevate, and ice as needed NWB to LLE until testing completed Impression: XR/XR ankle complete min 3V LT IMPRESSION: Generalized soft tissue swelling about the ankle. Subtle mild irregularity at the medial malleolar tip could potentially represent avulsion injury versus degenerative spurring. D/ / Silviano Sanford / Silviano Sanford Interpreting Provider: Silviano Sanford Qualifiers: Encounter type: initial encounter Involved ligament of ankle: unspecified ligament Qualified Code(s): S93.402A - Sprain of unspecified ligament of left ankle, initial encounter History of Present Illness HPI: Ms. Zayas is a 58 year old female who presented to the ER from urgent care for decreased oxygen saturation. PMH of CHF, COPD, HTN, reflex sympathetic dystrophy, anxiety, depression, and PTSD. Patient reports smoking 3/4 pack a day . Denies any etoh abuse, illicit drug use, or injecting into foot. Patient is consulted to the podiatry group for left ankle edema and pain. Briefly, patient reports falling 3 weeks ago. Reports edema and pain to left ankle, but reports improvement from initial injury. Reports twisting motion. Denies any popping or cracking noise. Reports two areas to left lateral malleolus that have scabbed over. Reports she is concerned that the areas may be infected. Denies any fevers, chills, nausea, vomiting, or diarrhea. Denies any calf pain, chest pain, or shortness of breath. No other questions or concerns at this time. Past Med Surg Social Fam HX - Past Medical History Medical history: CHF, COPD, hypertension Additional medical history: Reflex sympathetic Dystrophy Psychiatric history: anxiety, depression, PTSD, previous psychiatric hospitalization - Past Surgical History Surgical History: hysterectomy, ureteral stent, other Additional surgical history: Broken jaw, broken femur - Social History Smoking Status: Current every day smoker Smokeless Tobacco Status: No Alcohol use: none Drug use: marijuana - Family History Mother Family Member Ethnicity: Non- Living Status: Still Living Hx Family Cardiac Disorders: Yes (HTN) Father Family Member Ethnicity: Non- Living Status: Hx Family Respiratory Disorders: Yes (COPD) Hx Family Cancer: Yes (Lung) Brother Family Member Ethnicity: Non- Living Status: Still Living Hx Family Cancer: Yes (Melanoma) Sister History Unknown: Yes Family Member Ethnicity: Non- Living Status: Still Living Hx Family Cardiac Disorders: Yes (CAD, HTN, HLD) Medications and Allergies Cholecalciferol (Vitamin D3) [Vitamin D3] 2,000 unit PO DAILY 03/14/17 [History] Gabapentin [Neurontin] 800 mg PO TID 03/14/17 [History] Ibuprofen [Motrin] 800 mg PO BID PRN 03/14/17 [History] Multivitamin [Flintstones] 1 tab PO DAILY 03/14/17 [History] Albuterol Sulfate [Ventolin Hfa] 2 puff IH Q4H PRN 06/10/18 [History] Amitriptyline [Elavil] 100 mg PO HS 06/10/18 [History] Cyclobenzaprine [Flexeril] 10 mg PO TID 06/10/18 [History] Propranolol [Inderal] 20 mg PO BID 06/10/18 [History] Nicotine Patch [Nicoderm] 21 mg TD DAILY #14 patch.td24 10/09/18 [Rx] Diltiazem CD (24hr) [Cardizem CD] 240 mg PO DAILY 02/14/19 [History] Omeprazole [PriLOSEC] 40 mg PO DAILY 02/14/19 [History] Ondansetron ODT [Zofran ODT] 4 mg PO Q8H PRN 02/14/19 [History] hydrOXYzine pamoate [Hydroxyzine Pamoate] 25 mg PO Q8H PRN 02/14/19 [History] Allergy/AdvReac Type Severity Reaction Status Date / Time azithromycin Allergy Hives Verified 02/14/19 15:41 cefuroxime [From Ceftin] Allergy Swelling Verified 02/14/19 15:41 of Lip/Tongue/Throat pregabalin [From Lyrica] Allergy Hives Verified 02/14/19 15:41 All Systems Reviewed: The remainder of the systems were reviewed and are negative - Constitutional Constitutional: no fever(s) - Cardiovascular Cardiovascular: pedal edema, no chest pain, no dyspnea - Respiratory Respiratory: no dyspnea - Musculoskeletal Musculoskeletal: no numbness, no tingling Physical Exam - Constitutional Vitals: Temp Pulse Resp BP Pulse Ox 97.9 F 105 15 142/83 90 02/14/19 07:29 02/14/19 07:29 02/14/19 07:29 02/14/19 07:29 02/14/19 07:29 Exam: Constitiutional: Alert and oriented x 3. Well nourished. No acute distress noted Vascular: 2/4 DP/PT bilaterally, CFT <3 sec to all digits, warm to warm from tibia to toes bilaterally, 2/4 edema LLE Neurologic: Sensation to touch, normal plantar response Dermatologic: Skin W/D/I. Scabbing noted to left lateral malleolus with minimal erythema noted to periwound area. Musculoskeletal: No pain with dorisflexion, plantar flexion, inversion, or eversion with passive motion or resistance, normal tone bilaterally. Results - Labs Result Diagrams: 02/14/19 04:50 02/14/19 04:50 Labs: Abnormal lab results WBC 18.6 K/mcL (4.3-11.1) H 02/14/19 04:50 RDW 14.6 % (11.5-14.5) H 02/13/19 22:12 Plt Count 432 K/mcL (140-400) H 02/13/19 22:12 MPV 9.3 fL (9.4-12.4) L 02/13/19 22:12 Neutrophils # 17.7 K/mcL (1.6-8.9) H 02/14/19 04:50 Creatinine 0.45 mg/dL (0.60-1.20) L 02/14/19 04:50 Glucose 162 mg/dL (70-105) H 02/14/19 04:50 Calcium 8.5 mg/dL (8.6-10.3) L 02/13/19 22:12 Total Bilirubin 0.2 mg/dL (0.3-1.0) L 02/14/19 04:50 AST 10 Units/L (13-39) L 02/14/19 04:50 Alkaline Phosphatase 171 Units/L (34-104) H 02/14/19 04:50 Serum Total Protein 6.2 g/dL (6.4-8.9) L 02/14/19 04:50 Albumin 3.4 g/dL (3.5-5.7) L 02/14/19 04:50 H & H 02/13/19 02/14/19 Range/Units 22:12 04:50 Hgb 12.6 12.3 (11.5-15.4) g/dL Hct 39.8 38.1 (35.3-44.9) % All other labs normal. Consult Discharge Plan - Plan Referrals: Zane Blakely MD [Primary Care Provider] -
[2019-02-14] MEDS: Nicotine 21 MG PATCH.TD24 TD SCH (13:04)
--- NOTE | 2019-02-14 13:38 | Internal Med Progress Note ---
Hospitalist Progress Note - Encounter Date of Encounter: 02/14/19 Time of Encounter: 10:45 - Subjective Interval History: Pt was seen and examined at bed side. She is more alert, awake and O x 4 Still c/o SOB and CHAMBERLAIN. She did have a fall 2 weeks when she hurt her Left ankle. Since then Pt has been having pain in Left ankle with swelling. However she is able to bare weight with some pain - Exam Vitals: Temp Pulse Resp BP Pulse Ox 98.1 F 98 20 116/73 91 02/14/19 11:19 02/14/19 11:19 02/14/19 11:24 02/14/19 11:19 02/14/19 11:24 Exam: Gen: Alert, awake, Oriented to time,place and person Chest: Diminished breath sounds B/L, No wheezing, No crackles, No rales Heart: S1S2+ RRR No murmurs Abd: Soft, NT, BS +, No organomegaly Ext: No edema, pulses are palpable, No calf tenderness Mild swelling and tenderness noticed in Left ankle at lateral maleolus region. She also a couple small ulcers over left ankle with no discharge Neuro : No acute focal neuro deficits noticed Skin: No rash. - Assessment and Plan (1) Acute exacerbation of chronic obstructive airways disease Current Visit: Yes Status: Acute Assessment and Plan: Improving start tapering steroids continue empirical antibiotic doxycycline continue bronchodilator therapy (2) Acute on chronic respiratory failure Current Visit: No Status: Acute Assessment and Plan: Secondary to COPD and mild CHF exacerbation Improving she does use 2 lit O2 at home as needed now she is on continuous O2 will try to wean her off the O2 as she tolerates (3) Community acquired pneumonia Current Visit: No Status: Acute Assessment and Plan: Reviewed CXR - Concern for possible underlying pneumonia. Mostly bacterial continue IV doxycycline (4) Fracture of medial malleolus Current Visit: Yes Status: Acute Assessment and Plan: Reviewed her Left ankle X ray - swelling and possible medial malleolus fx Consulted podiatry for further eval MRI of Ankle ordered cont supportive care appreciate podiatry recommendations (5) Acute exacerbation of CHF (congestive heart failure) Current Visit: Yes Status: Acute Assessment and Plan: She does have chronic diastolic CHF Her 2 D Echo from 02/25 showed LVEF 60%, Mild LV diastolic dysfunction Switch to PO Lasix resumed other home meds ordered 2D Echo (6) Tobacco dependence Current Visit: Yes Status: Acute Assessment and Plan: Counseled to quit smoking placed on nicotine patch (7) Anxiety Current Visit: No Status: Chronic Assessment and Plan: Started her on Ativan PRN - Time Spent with Patient Total time spent is greater than 50% in coordination of care (as documented) at patient's floor/unit and/or counseling patient: Internal Medicine: Result - Labs CBC & Chem 7: 02/14/19 04:50 02/14/19 04:50 Labs: Short CBC 02/13/19 02/14/19 Range/Units 22:12 04:50 WBC 16.2 H 18.6 H (4.3-11.1) K/mcL Hgb 12.6 12.3 (11.5-15.4) g/dL Hct 39.8 38.1 (35.3-44.9) % Plt Count 432 H 382 (140-400) K/mcL Neutrophils # 14.2 H 17.7 H (1.6-8.9) K/mcL BMP 02/13/19 02/14/19 22:12 04:50 Sodium 139 138 Potassium 3.5 3.9 Chloride 102 101 Carbon Dioxide 28 28 BUN 9 9 Creatinine 0.57 L 0.45 L Glucose 109 H 162 H Calcium 8.5 L 8.8 Cardiac Enzymes 02/13/19 Range/Units 22:12 Troponin I < 0.03 (< 0.04) ng/mL Liver Function 02/14/19 Range/Units 04:50 Total Bilirubin 0.2 L (0.3-1.0) mg/dL AST 10 L (13-39) Units/L ALT 19 (7-52) Units/L Alkaline Phosphatase 171 H (34-104) Units/L Albumin 3.4 L (3.5-5.7) g/dL - Impressions Impressions Chest X-Ray 02/13/19 22:01 IMPRESSION: Emphysema with chronic coarsened interstitial markings, either relating to superimposed edema, infection or a combination of emphysema and pulmonary fibrosis. Difficult to exclude pneumonia or aspiration sequela at the lung bases although overall this is somewhat similar to prior exams. D/ / Silviano Sanford / Silviano Sanford Interpreting Provider: Silviano Sanford Ankle X-Ray 02/13/19 22:02 IMPRESSION: Generalized soft tissue swelling about the ankle. Subtle mild irregularity at the medial malleolar tip could potentially represent avulsion injury versus degenerative spurring. D/ / Silviano Sanford / Silviano Sanford Interpreting Provider: Silviano Sanford Consult Discharge Plan - Plan Referrals: Zane Blakely MD [Primary Care Provider] - (2) Acute on chronic respiratory failure Qualifiers: Respiratory failure complication: hypoxia and hypercapnia Qualified Code(s): J96.21 - Acute and chronic respiratory failure with hypoxia; J96.22 - Acute and chronic respiratory failure with hypercapnia (3) Community acquired pneumonia Qualifiers: Laterality: unspecified laterality Qualified Code(s): J18.9 - Pneumonia, unspecified organism (4) Fracture of medial malleolus Qualifiers: Encounter type: initial encounter Fracture type: closed Fracture alignment: nondisplaced Laterality: left Qualified Code(s): S82.55XA - Nondisplaced fracture of medial malleolus of left tibia, initial encounter for closed fracture (5) Acute exacerbation of CHF (congestive heart failure) Qualifiers: Heart failure type: diastolic Qualified Code(s): I50.33 - Acute on chronic diastolic (congestive) heart failure
[2019-02-14] MEDS: *HR* LORazepam 0.5 MG TABLET PO PRN (14:56)
--- NOTE | 2019-02-14 21:35 | Event Note ---
Date of Encounter: 02/14/19 Time of Encounter: 21:33 Notified by nurse of patient urine antigen positive for strep pneumo, blood culture still pending. Discussed with pharmacy, will discontinue doxycycline and start levofloxacin.
[2019-02-14] MEDS ORDERED: levoFLOXacin 500 MG/100 ML 500 MG/100 ML BAG IVPB SCH (22:00)
[2019-02-15] MEDS: *HR* OxyCODONE/APAP 5/325 TABLET PO PRN (03:53)
[2019-02-15] MEDS: *HR* LORazepam 0.5 MG TABLET PO PRN (03:58)
[2019-02-15] MEDS: Ipratropium/Albuterol Neb 3 ML IH SCH ×2 (04:35→09:37)
[2019-02-15 04:58] LABS: Hematocrit 40.1 % (35.3-44.9); Hemoglobin 12.9 g/dL (11.5-15.4); Mean Corpuscular HGB Conc 32.2 g/dL (31.6-35.5); Mean Corpuscular Volume 93.3 fL (83.0-100.0); Mean Platelet Volume 9.5 fL (9.4-12.4); Platelet Count 442 K/mcL (140-400); Red Cell Distribution Width 14.4 % (11.5-14.5); White Blood Count 17.4 K/mcL (4.3-11.1)
[2019-02-15] MEDS: MethylPREDNISolone 40 MG/ML VIAL IVP SCH (05:19)
[2019-02-15] MEDS ORDERED: *HR* Heparin 5,000 UNIT/ML VIAL SQ SCH (06:00)
--- NOTE | 2019-02-15 06:27 | Electrocardiograph Report ---
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
[2019-02-15 07:41] VITALS: BP 154/93
[2019-02-15] MEDS: lamoTRIgine 100 MG TABLET PO SCH (08:11)
[2019-02-15] MEDS: Furosemide 20 MG/2 ML VIAL IVP SCH (08:11)
[2019-02-15] MEDS: Cholecalciferol (D-3) 1,000 UNIT (25MCG) TABLET PO SCH (08:11)
[2019-02-15] MEDS: Gabapentin 400 MG CAPSULE PO SCH (08:11)
[2019-02-15] MEDS: Nicotine 21 MG PATCH.TD24 TD SCH (08:12)
[2019-02-15] MEDS ORDERED: Furosemide 40 MG TABLET PO SCH (09:00)
--- NOTE | 2019-02-15 10:45 | Podiatry Progress Note ---
Date of Encounter: 02/15/19 Time of Encounter: 10:41 - Assessment and Plan (1) Left ankle sprain Current Visit: Yes Status: Acute Assessment: Pes planus deformity, acquired Minimal edema noted left medial and lateral mal No ecchymosis, no erythema, no cellulitis, no lymphangitis noted No pain upon inversion, eversion, dorsiflexion, and plantar flexion passive or with resistance Healing wounds noted to left lateral mal, 2 scabbed areas noted with minimal erythema to surrounding tissue No fluctuance noted, no drainage noted WBC 17.4, afebrile MRI negative for abscess or tear Plan: Continue to wrap LLE, elevate, ice, and rest as needed Lace up brace ordered to prevent further twisting, rolling of ankle Wear brace at all times when ambulating Follow up in office in 4 weeks for re-evaluation of ankle pain, please make appointment prior to d/c Impression: XR/XR ankle complete min 3V LT IMPRESSION: Generalized soft tissue swelling about the ankle. Subtle mild irregularity at the medial malleolar tip could potentially represent avulsion injury versus degenerative spurring. D/ / Silviano Sanford / Silviano Sanford Interpreting Provider: Silviano Sanford Qualifiers: Encounter type: initial encounter Involved ligament of ankle: unspecified ligament Qualified Code(s): S93.402A - Sprain of unspecified ligament of left ankle, initial encounter Subjective Interval history: Patient awake in bed. Denies any acute overnight events. Discussed MRI results with patient. Denies any fevers, chills, nausea, vomiting, or diarrhea. Denies any calf pain, chest pain, or shortness of breath. No other questions or concerns at this time. Objective - Vital Signs Vital Signs: Vital Signs Temp Pulse Resp BP Pulse Ox 02/15/19 09:37 16 154/93 109 02/15/19 07:41 98.5 F 119 17 154/93 90 02/15/19 04:35 18 91 02/15/19 03:48 98.4 F 124 16 147/87 90 02/14/19 23:36 98.0 F 108 15 133/87 90 08/06/19 21:44 18 158/88 92 08/06/19 19:19 99.3 F 128 16 158/88 91 02/14/19 11:24 20 91 02/14/19 11:19 98.1 F 98 17 116/73 92 Intake and Output 02/14/19 02/15/19 02/15/19 23:59 07:59 15:59 Intake Total 100 / 760 Output Total 300 / 475 600 / 600 Balance -200 / 285 -600 / -600 Intake: IV Fluids 100 / 200 Doxycycline 100 MG In 0.9 % 100 / 200 Sodium Chloride (Mini-Bag +) 100 ML @ 100 mls/hr IVPB Q12HR MOOK Rx#:[id number] Output: Urine 300 / 475 600 / 600 Other: # Voids 1 Weight 66.6 kg Patient Weight 02/15/19 23:59 Weight 66.6 kg - Exam Exam: Constitiutional: Alert and oriented x 3. Well nourished. No acute distress noted Vascular: 2/4 DP/PT bilaterally, CFT <3 sec to all digits, warm to warm from tibia to toes bilaterally, minimal edema LLE Neurologic: Sensation to touch, normal plantar response Dermatologic: Skin W/D/I. Scabbing noted to left lateral malleolus with minimal erythema noted to periwound area. Musculoskeletal: No pain with dorisflexion, plantar flexion, inversion, or eversion with passive motion or resistance, normal tone bilaterally. - Lab Result Diagrams: 02/15/19 03:31 02/14/19 04:50 Labs: Abnormal lab results WBC 17.4 K/mcL (4.3-11.1) H 02/15/19 03:31 RDW 14.6 % (11.5-14.5) H 02/13/19 22:12 Plt Count 442 K/mcL (140-400) H 02/15/19 03:31 MPV 9.3 fL (9.4-12.4) L 02/13/19 22:12 Neutrophils # 17.7 K/mcL (1.6-8.9) H 02/14/19 04:50 Creatinine 0.45 mg/dL (0.60-1.20) L 02/14/19 04:50 Glucose 162 mg/dL (70-105) H 02/14/19 04:50 Calcium 8.5 mg/dL (8.6-10.3) L 02/13/19 22:12 Total Bilirubin 0.2 mg/dL (0.3-1.0) L 02/14/19 04:50 AST 10 Units/L (13-39) L 02/14/19 04:50 Alkaline Phosphatase 171 Units/L (34-104) H 02/14/19 04:50 Serum Total Protein 6.2 g/dL (6.4-8.9) L 02/14/19 04:50 Albumin 3.4 g/dL (3.5-5.7) L 02/14/19 04:50 Microbiology, Last 48 Hours 02/14/19 15:00 Legionella Antigen - Final Urine,Clean Catch Streptococcus pneumoniae Antigen (M - Final 02/13/19 22:29 Blood Culture - Preliminary Peripheral Venipuncture Culture is incubating and being continuously monitored for growth. Final report to follow. 02/13/19 22:29 Blood Culture - Preliminary Peripheral Venipuncture Culture is incubating and being continuously monitored for growth. Final report to follow. Consult Discharge Plan - Plan Referrals: Zane Blakely MD [Primary Care Provider] -
--- NOTE | 2019-02-15 11:22 | Discharge Summary ---
- NOTES TO OUTPATIENT PROVIDER Notes to Outpatient Provider: f/u with PCP in one week. f/u with Podiatry in 1- 2 weeks. Please quit smoking. Please wear O2 continuously. Orders not resulted at time of discharge: Pending orders 02/13/19 22:29 Culture,Blood [] Stat Date of Encounter: 02/15/19 Time of Encounter: 11:16 - Discharge Diagnosis (1) Acute exacerbation of chronic obstructive airways disease Priority: Primary Status: Acute (2) Acute exacerbation of CHF (congestive heart failure) Priority: Primary Status: Acute Qualifiers: Heart failure type: diastolic Qualified Code(s): I50.33 - Acute on chronic diastolic (congestive) heart failure (3) Left ankle sprain Priority: Primary Status: Acute Qualifiers: Encounter type: initial encounter Involved ligament of ankle: unspecified ligament Qualified Code(s): S93.402A - Sprain of unspecified ligament of left ankle, initial encounter (4) Acute on chronic respiratory failure Priority: Primary Status: Acute Qualifiers: Respiratory failure complication: hypoxia Qualified Code(s): J96.21 - Acute and chronic respiratory failure with hypoxia (5) Community acquired pneumonia Priority: Primary Status: Acute Qualifiers: Laterality: unspecified laterality Qualified Code(s): J18.9 - Pneumonia, unspecified organism (6) Tobacco dependence Priority: Secondary Status: Acute (7) Anxiety Priority: Secondary Status: Chronic Hospital course: Ms. Zayas is a 58 year old female with a past medical history of COPD, chronic hypoxic respiratory failure on 2 L home O2, hypertension, chronic low back pain and chronic tobacco dependence pt who presented to the ED with complaints of shortness of breath, cough with expectoration. Patient initially went to urgent care where she was found to have a O2 saturation of 79%. Patient received DuoNeb's and Solu-Medrol which improved her O2 saturation 86%. Patient does endorse some lower extremity edema and has increased her water pill to 2 pills per day over the past couple of days which is slightly helped. She states she only takes her diuretic as needed. Patient also states that approximately 1-2 weeks ago, she fell onto her left ankle and slightly twisted this area. She was admitted in the hospital and placed on cardiac technologist. She was started on high-dose IV steroids and empirical antibiotic IV doxycycline. Her step pneumonia urine antigen came back as positive so switched her antibiotic levofloxacin. Pt stated she is feeling much better today and seems to be at baseline her breathing bustos. Regarding her Left ankle pain she did have MRI of ankle done which showed subcutaneous edema of ankle with no fx. Her superficial ulcers over left ankle also improved today. Pt was evaluated by product trainer who recommend to wear a brace and f/u with them as an out pt - Time Spent with Patient Total time spent providing and/or coordinating discharge services: - Discharge Medications Prescriptions: New Furosemide [Lasix] 20 mg PO DAILY #30 tablet Levofloxacin [Levaquin] 750 mg PO DAILY #5 tablet Nicotine Patch [Nicoderm] 14 mg TD DAILY #30 patch.td24 predniSONE [PredniSONE] 40 mg PO DAILY #10 tablet Tramadol HCl [Ultram] 50 mg PO TID PRN 5 Days #15 tab PRN Reason: Pain Continued Multivitamin [Flintstones] 1 tab PO DAILY Gabapentin [Neurontin] 800 mg PO TID Cholecalciferol (Vitamin D3) [Vitamin D3] 2,000 unit PO DAILY Albuterol Sulfate [Ventolin Hfa] 2 puff IH Q4H PRN PRN Reason: Shortness Of Breath Propranolol [Inderal] 20 mg PO BID Amitriptyline [Elavil] 100 mg PO HS Cyclobenzaprine [Flexeril] 10 mg PO TID Nicotine Patch [Nicoderm] 21 mg TD DAILY #14 patch.td24 Diltiazem CD (24hr) [Cardizem CD] 240 mg PO DAILY hydrOXYzine pamoate [Hydroxyzine Pamoate] 25 mg PO Q8H PRN PRN Reason: Itching Omeprazole [PriLOSEC] 40 mg PO DAILY Ondansetron ODT [Zofran ODT] 4 mg PO Q8H PRN PRN Reason: Nausea Discontinued Ibuprofen [Motrin] 800 mg PO BID PRN PRN Reason: Pain Home Medications: Cholecalciferol (Vitamin D3) [Vitamin D3] 2,000 unit PO DAILY 03/14/17 [History] Gabapentin [Neurontin] 800 mg PO TID 03/14/17 [History] Multivitamin [Flintstones] 1 tab PO DAILY 03/14/17 [History] Albuterol Sulfate [Ventolin Hfa] 2 puff IH Q4H PRN 06/10/18 [History] Amitriptyline [Elavil] 100 mg PO HS 06/10/18 [History] Cyclobenzaprine [Flexeril] 10 mg PO TID 06/10/18 [History] Propranolol [Inderal] 20 mg PO BID 06/10/18 [History] Nicotine Patch [Nicoderm] 21 mg TD DAILY #14 patch.td24 10/09/18 [Rx] Diltiazem CD (24hr) [Cardizem CD] 240 mg PO DAILY 02/14/19 [History] Omeprazole [PriLOSEC] 40 mg PO DAILY 02/14/19 [History] Ondansetron ODT [Zofran ODT] 4 mg PO Q8H PRN 02/14/19 [History] hydrOXYzine pamoate [Hydroxyzine Pamoate] 25 mg PO Q8H PRN 02/14/19 [History] Furosemide [Lasix] 20 mg PO DAILY #30 tablet 02/15/19 [Rx] Levofloxacin [Levaquin] 750 mg PO DAILY #5 tablet 02/15/19 [Rx] Nicotine Patch [Nicoderm] 14 mg TD DAILY #30 patch.td24 02/15/19 [Rx] Tramadol HCl [Ultram] 50 mg PO TID PRN 5 Days #15 tab 02/15/19 [Rx] predniSONE [PredniSONE] 40 mg PO DAILY #10 tablet 02/15/19 [Rx] Allergies/Adverse Reactions: Allergy/AdvReac Type Severity Reaction Status Date / Time azithromycin Allergy Hives Verified 02/14/19 15:41 cefuroxime [From Ceftin] Allergy Swelling Verified 02/14/19 15:41 of Lip/Tongue/Throat pregabalin [From Lyrica] Allergy Hives Verified 02/14/19 15:41 Date of admission: 02/14/19 00:10 Primary care physician: Zane Blakely MD Consults: 02/14/19 08:24 Consult to Nurse Navigator [CONS] Routine Comment: COPD, CHF, PNEUMONIA 02/14/19 09:13 Consult to Podiatry [CONS] Routine Consulting Provider: [facility] Reason for Consult: left ankle avulsion injury Time Notified: 09:13 Call Completed: Yes - Constitutional Vitals: Temp Pulse Resp BP Pulse Ox 98.5 F 119 16 154/93 109 02/15/19 07:41 02/15/19 07:41 02/15/19 09:37 02/15/19 09:37 02/15/19 09:37 General appearance: Present: A&O X 3, no acute distress, answers questions appropriately Exam: Gen: Alert, awake, Oriented to time,place and person Chest: Diminished breath sounds B/L, No wheezing, No crackles, No rales Heart: S1S2+ RRR No murmurs Abd: Soft, NT, BS +, No organomegaly Ext: No edema, pulses are palpable, No calf tenderness Mild swelling and tenderness noticed in Left ankle at lateral maleolus region. Healing small ulcers over left ankle with no discharge Neuro : No acute focal neuro deficits noticed Skin: No rash. - Patient Status Disposition: Home, Self-Care Condition: Good Overall status at discharge: patient is back to baseline - Discharge Instructions Follow Up With: Zane Blakely MD [Primary Care Provider] - Reymundo Brooks DPM [Partnered Physician] - - Diet and Activity Activity: increase activity as tolerated, wear oxygen at all times Diet: low salt diet
== END 2019-02-15 12:30 | disposition home or self-care (01) ==
LOC: EMEROOARM 21:53 → 3BNU 21:53 → SUATTDRO 02-14 00:10 → 3BNU 02-14 00:43
PROVIDERS: ADMIT Internal Medicine; ATTEND Family Medicine

== ENCOUNTER 2019-05-09 11:30 | Inpatient (IN) ==
[~2019-05-09 11:30] MED LIST: Aminoglycoside Consult 1 EACH MC ONE
[2019-05-09] MEDS ORDERED: Ipratropium/Albuterol Neb 3 ML IH ONE (11:47)
[2019-05-09] MEDS ORDERED: 0.9 % Sodium Chloride 1,000 ML IVC ONE (11:47)
[2019-05-09] MEDS ORDERED: methylPREDNISolone 125 MG/2 ML VIAL IVP ONE (11:48)
[2019-05-09 12:54] LABS: Mean Platelet Volume 10.1 fL (9.4-12.4)
[2019-05-09 12:58] LABS: Basophils # 0.1 K/mcL (0.0-0.2); Basophils % 0.3 %; Eosinophils # 0.2 K/mcL (0.0-0.6); Eosinophils % 0.6 %; Hematocrit 40.4 % (35.3-44.9); Hemoglobin 12.5 g/dL (11.5-15.4); Immature Granulocytes % 1.1 % (0-4); Lymphocytes # 1.3 K/mcL (0.6-4.6); Lymphocytes % 4.3 %; Mean Corpuscular HGB Conc 30.9 g/dL (31.6-35.5); Mean Corpuscular Hemoglobin 30.9 pg (28.0-33.3); Monocytes # 1.8 K/mcL (0.0-1.3); Monocytes % 5.7 %; Platelet Count 348 K/mcL (140-400); Red Blood Count 4.04 M/mcL (3.82-4.97); Red Cell Distribution Width 14.7 % (11.5-14.5)
[2019-05-09 13:01] LABS: White Blood Count 30.7 K/mcL (4.3-11.1)
[2019-05-09 13:07] LABS: Prothrombin Time 11.7 Seconds (9.4-12.1)
[2019-05-09 13:09] LABS: Activated Partial Thrombo Time 31.5 Seconds (26.0-36.0)
[2019-05-09 13:15] LABS: Alanine Aminotransferase 9 Units/L (7-52); Albumin 3.6 g/dL (3.5-5.7); Albumin/Globulin Ratio 1.3 (1.1-2.2); Alkaline Phosphatase 143 Units/L (34-104); Aspartate Amino Transferase 12 Units/L (13-39); BUN/Creatinine Ratio 13 (6-26); Bilirubin,Direct 0.1 mg/dL (0.0-0.2); Bilirubin,Indirect 0.3 mg/dL (0.0-1.0); Bilirubin,Total 0.4 mg/dL (0.3-1.0); Blood Urea Nitrogen 11 mg/dL (8-23); Calcium 8.3 mg/dL (8.6-10.3); Carbon Dioxide 23 mEq/L (23-29); Chloride 103 mEq/L (98-107); Globulin 2.7 g/dL (2.4-3.5); Glucose 151 mg/dL (70-105); Osmolality,Calculated 278 (280-300); Potassium 4.3 mEq/L (3.5-5.1); Sodium 133 mEq/L (136-145); Total Protein 6.3 g/dL (6.4-8.9); eGFR For African Americans > 60 (> 60); eGFR For Non-African Americans > 60 (> 60)
[2019-05-09 13:16] LABS: Troponin I < 0.03 ng/mL (< 0.04)
[2019-05-09 13:18] LABS: Platelet Estimate Normal (Normal)
[2019-05-09] MEDS ORDERED: levoFLOXacin 750 MG/150 ML 750 MG/150 ML BAG IVPB ONE (13:45)
[2019-05-09 14:01] LABS: ABG Base Excess -5 mEq/L (-2 to 3); ABG HCO3 20 mEq/L (21-27); ABG Oxygen Saturation 80 % (95-98); ABG PCO2 36 mmHg (35-45); ABG PH 7.35 pH Units (7.32-7.45); ABG PO2 46 mmHg (85-104); ABG TCO2 21 mEq/L (20-26)
[2019-05-09] MEDS ORDERED: 0.9 % Sodium Chloride 500 ML IVC ONE (14:04)
[2019-05-09] MEDS ORDERED: 0.9 % Sodium Chloride 1,000 ML IVC SCH (14:15)
[2019-05-09 14:42] LABS: C-Reactive Protein 75 mg/L (Less than 10)
[2019-05-09 14:54] LABS: Bilirubin,Urine Negative (Negative); Blood,Urine Negative (Negative); Clarity,Urine Cloudy (Clear); Color,Urine Yellow (Yellow); Glucose,Urine (UA) Normal (Normal); Ketones,Urine Negative (Negative); Leukocyte Esterase,Urine Negative (Negative); Nitrite,Urine Negative (Negative); PH,Urine 5.5 pH Units (5.0-8.0); Protein,Urine 30 mg/dL (Neg-Trace); Urobilinogen,Urine Normal (Normal)
[2019-05-09 14:57] LABS: RBC,Urine 0-3 per hpf (0-3); Squamous Epithelial Cell,Urine Many per lpf (None-Few); WBC,Urine 0-3 per hpf (0-3)
[2019-05-09] MEDS ORDERED: Naloxone 0.4 MG/ML INJ IVP PRN ×2 (15:09→16:31)
[2019-05-09] MEDS ORDERED: Ondansetron 4 MG/2 ML VIAL IVP PRN (15:09)
[2019-05-09 15:26] LABS: Bacteria,Urine Few per hpf (None-Few)
[2019-05-09 15:27] LABS: Hyaline Casts,Urine Few per lpf (None-Few)
[2019-05-09] MEDS ORDERED: Ipratropium/Albuterol Neb 3 ML ONE (15:43)
[2019-05-09] MEDS: Ipratropium/Albuterol Neb 3 ML IH SCH ×2 (15:53→19:59)
[2019-05-09] MEDS ORDERED: Lidocaine -MPF 1% 2 ML VIAL ONE (16:11)
[2019-05-09] MEDS ORDERED: Lidocaine 1% 20 ML MDV INFILT ONE (16:15)
[2019-05-09] MEDS ORDERED: Acetaminophen 325 MG TABLET PO PRN (16:31)
[2019-05-09] MEDS ORDERED: Vancomycin (wt based) 1,000 MG VIAL IVPB SCH (17:00)
[2019-05-09 17:16] LABS: ABG Base Excess -6 mEq/L (-2 to 3); ABG HCO3 21 mEq/L (21-27); ABG Oxygen Saturation 83 % (95-98); ABG PCO2 45 mmHg (35-45); ABG PH 7.27 pH Units (7.32-7.45); ABG PO2 54 mmHg (85-104); ABG TCO2 22 mEq/L (20-26)
[2019-05-09] MEDS ORDERED: Perflutren Lipid Microsphere 1.3 ML in 0.9 % Sodium Chloride 8.7 ML IVP ONE (17:58)
[2019-05-09] MEDS ORDERED: *HR* Heparin 5,000 UNIT/ML VIAL SQ SCH (18:00)
[2019-05-09] MEDS: Aztreonam 2,000 MG in Water for inj. (sterile) 20 ML IVP SCH ×2 (18:27→23:38)
[2019-05-09] MEDS: MetroNIDAZOLE 500 MG/100 ML 500 MG/100 ML BAG IVPB SCH ×2 (18:28→23:38)
[2019-05-09] MEDS ORDERED: *HR* Norepinephrine 4 MG/4 ML VIAL IVC ONE (18:32)
[2019-05-09] MEDS ORDERED: D5% in Water 250 ML ONE (18:32)
[2019-05-09] MEDS: Norepinephrine 4 MG in 0.9 % Sodium Chloride 250 ML IVC SCH (20:26)
[2019-05-09 20:42] LABS: ABG Base Excess -4 mEq/L (-2 to 3); ABG HCO3 24 mEq/L (21-27); ABG Oxygen Saturation 99 % (95-98); ABG PCO2 51 mmHg (35-45); ABG PH 7.28 pH Units (7.32-7.45); ABG PO2 154 mmHg (85-104); ABG TCO2 25 mEq/L (20-26)
[2019-05-09 23:56] LABS: Adenovirus Not Detected (Not Detect); Bordetella Pertussis Not Detected (Not Detect); Chlamydophila pneumoniae Not Detected (Not Detect); Coronavirus 229E Not Detected (Not Detect); Coronavirus HKU1 Not Detected (Not Detect); Coronavirus NL63 Not Detected (Not Detect); Coronavirus OC43 Not Detected (Not Detect); Human Metapneumovirus Not Detected (Not Detect); Human Rhinovirus/Enterovirus Not Detected (Not Detect); Influenza A Subtype 2009 H1 Not Detected (Not Detect); Influenza A Untypeable Not Detected (Not Detect); Influenza B Not Detected (Not Detect); Mycoplasma pneumoniae Not Detected (Not Detect); Parainfluenza Virus 1 Not Detected (Not Detect); Parainfluenza Virus 2 Not Detected (Not Detect); Parainfluenza Virus 3 Not Detected (Not Detect); Parainfluenza Virus 4 Not Detected (Not Detect); Respiratory Syncytial Virus Not Detected (Not Detect)
[2019-05-10] MEDS ORDERED: *HR* Heparin 5,000 UNIT/ML VIAL IVP PRN ×2 (00:27)
[2019-05-10] MEDS ORDERED: *HR* Heparin 5,000 UNIT/ML VIAL IVP ONE (00:27)
[2019-05-10] MEDS ORDERED: Heparin 25,000 UNIT/250 ML D5W 25,000 UNIT/250 ML IV.SOLN IVC SCH (00:30)
[2019-05-10] MEDS: Ipratropium/Albuterol Neb 3 ML IH SCH ×7 (00:33→23:47)
[2019-05-10] MEDS: Norepinephrine 4 MG in 0.9 % Sodium Chloride 250 ML IVC SCH (01:57)
[2019-05-10 03:09] LABS: Basophils # 0.1 K/mcL (0.0-0.2); Basophils % 0.2 %; Hematocrit 37.3 % (35.3-44.9); Hemoglobin 11.8 g/dL (11.5-15.4); Immature Granulocytes % 1.6 % (0-4); Lymphocytes # 1.5 K/mcL (0.6-4.6); Mean Corpuscular HGB Conc 31.6 g/dL (31.6-35.5); Mean Corpuscular Hemoglobin 30.7 pg (28.0-33.3); Mean Corpuscular Volume 97.1 fL (83.0-100.0); Mean Platelet Volume 10.1 fL (9.4-12.4); Monocytes # 0.5 K/mcL (0.0-1.3); Monocytes % 1.7 %; Neutrophils # 28.1 K/mcL (1.6-8.9); Platelet Count 349 K/mcL (140-400); Red Blood Count 3.84 M/mcL (3.82-4.97); Red Cell Distribution Width 14.4 % (11.5-14.5); Segmented Neutrophils % 91.5 %
[2019-05-10 03:15] LABS: White Blood Count 30.7 K/mcL (4.3-11.1)
[2019-05-10 03:50] LABS: Platelet Estimate Normal (Normal)
[2019-05-10 04:33] LABS: ABG Base Excess -3 mEq/L (-2 to 3); ABG HCO3 24 mEq/L (21-27); ABG Oxygen Saturation 96 % (95-98); ABG PCO2 51 mmHg (35-45); ABG PH 7.29 pH Units (7.32-7.45); ABG PO2 97 mmHg (85-104); ABG TCO2 26 mEq/L (20-26)
[2019-05-10 05:10] LABS: INR 1.1; Prothrombin Time 12.8 Seconds (9.4-12.1)
[2019-05-10 05:11] LABS: Hematocrit 35.7 % (35.3-44.9); Mean Corpuscular HGB Conc 33.6 g/dL (31.6-35.5); Mean Corpuscular Hemoglobin 31.1 pg (28.0-33.3); Mean Corpuscular Volume 92.5 fL (83.0-100.0); Mean Platelet Volume 10.2 fL (9.4-12.4); Platelet Count 296 K/mcL (140-400); Red Blood Count 3.86 M/mcL (3.82-4.97); Red Cell Distribution Width 14.3 % (11.5-14.5); White Blood Count 21.4 K/mcL (4.3-11.1)
[2019-05-10 05:27] LABS: Albumin 3.4 g/dL (3.5-5.7); Albumin/Globulin Ratio 1.3 (1.1-2.2); BUN/Creatinine Ratio 22 (6-26); Bilirubin,Direct 0.1 mg/dL (0.0-0.2); Bilirubin,Indirect 0.3 mg/dL (0.0-1.0); Bilirubin,Total 0.4 mg/dL (0.3-1.0); Blood Urea Nitrogen 14 mg/dL (8-23); Calcium 8.5 mg/dL (8.6-10.3); Carbon Dioxide 22 mEq/L (23-29); Chloride 107 mEq/L (98-107); Globulin 2.7 g/dL (2.4-3.5); Glucose 158 mg/dL (70-105); Magnesium 1.7 mg/dL (1.6-2.6); Osmolality,Calculated 288 (280-300); Potassium 3.8 mEq/L (3.5-5.1); Sodium 137 mEq/L (136-145); Total Protein 6.1 g/dL (6.4-8.9); eGFR For African Americans > 60 (> 60); eGFR For Non-African Americans > 60 (> 60)
[2019-05-10] MEDS: MetroNIDAZOLE 500 MG/100 ML 500 MG/100 ML BAG IVPB SCH ×3 (08:35→23:36)
[2019-05-10] MEDS: Aztreonam 2,000 MG in Water for inj. (sterile) 20 ML IVP SCH ×2 (08:35→16:00)
[2019-05-10 10:48] LABS: Amphetamine Screen,Urine Negative ng/mL (Cutoff=1000); Barbiturate Screen,Urine Negative ng/mL (Cutoff=200); Benzodiazepines Screen,Urine Positive ng/mL (Cutoff=200); Cannabinoid Screen,Urine Positive ng/mL (Cutoff = 50); Cocaine Screen,Urine Negative ng/mL (Cutoff= 300); Opiate Screen,Urine Negative ng/mL (Cutoff=300); Phencyclidine Screen,Urine Negative ng/mL (Cutoff=25)
[2019-05-10] MEDS ORDERED: hydrOXYzine pamoate 25 MG CAPSULE PO PRN (16:58)
[2019-05-10] MEDS ORDERED: *HR* Promethazine 25 MG/ML VIAL ONE (17:06)
[2019-05-10] MEDS ORDERED: *HR* LORazepam 0.5 MG TABLET PO PRN (18:04)
[2019-05-10] MEDS ORDERED: Furosemide 20 MG TABLET PO SCH (19:00)
[2019-05-10] MEDS: *HR* HYDROcodone/Acet 5/325 mg TABLET PO PRN (20:38)
[2019-05-11] MEDS: Aztreonam 2,000 MG in Water for inj. (sterile) 20 ML IVP SCH (01:00)
[2019-05-11 04:21] LABS: Basophils % 0.1 %; Hematocrit 33.3 % (35.3-44.9); Hemoglobin 11.1 g/dL (11.5-15.4); Immature Granulocytes % 0.9 % (0-4); Lymphocytes % 6.1 %; Mean Corpuscular HGB Conc 33.3 g/dL (31.6-35.5); Monocytes # 0.5 K/mcL (0.0-1.3); Neutrophils # 15.2 K/mcL (1.6-8.9); Platelet Count 253 K/mcL (140-400); Red Blood Count 3.58 M/mcL (3.82-4.97); Red Cell Distribution Width 14.1 % (11.5-14.5); Segmented Neutrophils % 89.9 %
[2019-05-11 04:38] LABS: Alanine Aminotransferase 13 Units/L (7-52); Albumin 3.1 g/dL (3.5-5.7); Albumin/Globulin Ratio 1.1 (1.1-2.2); Alkaline Phosphatase 106 Units/L (34-104); Aspartate Amino Transferase 11 Units/L (13-39); BUN/Creatinine Ratio 24 (6-26); Bilirubin,Total 0.2 mg/dL (0.3-1.0); Blood Urea Nitrogen 12 mg/dL (8-23); Calcium 8.8 mg/dL (8.6-10.3); Carbon Dioxide 25 mEq/L (23-29); Chloride 108 mEq/L (98-107); Globulin 2.8 g/dL (2.4-3.5); Glucose 108 mg/dL (70-105); Magnesium 1.8 mg/dL (1.6-2.6); Osmolality,Calculated 290 (280-300); Phosphorous 2.5 mg/dL (2.7-4.5); Potassium 3.4 mEq/L (3.5-5.1); Sodium 140 mEq/L (136-145); Total Protein 5.9 g/dL (6.4-8.9); eGFR For African Americans > 60 (> 60); eGFR For Non-African Americans > 60 (> 60)
[2019-05-11 04:40] LABS: BUN/Creatinine Ratio 25 (6-26); Blood Urea Nitrogen 12 mg/dL (8-23); Calcium 8.9 mg/dL (8.6-10.3); Carbon Dioxide 25 mEq/L (23-29); Chloride 106 mEq/L (98-107); Glucose 111 mg/dL (70-105); Osmolality,Calculated 290 (280-300); Potassium 3.5 mEq/L (3.5-5.1); Sodium 140 mEq/L (136-145); Troponin I < 0.03 ng/mL (< 0.04); eGFR For African Americans > 60 (> 60); eGFR For Non-African Americans > 60 (> 60)
[2019-05-11] MEDS: Ipratropium/Albuterol Neb 3 ML IH SCH ×5 (04:55→19:59)
[2019-05-11] MEDS: *HR* HYDROcodone/Acet 5/325 mg TABLET PO PRN ×3 (05:34→21:39)
[2019-05-11] MEDS ORDERED: *HR* Heparin 5,000 UNIT/ML VIAL SQ SCH (06:00)
[2019-05-11] MEDS ORDERED: Potassium Phosphate 44 MEQ in 0.9 % Sodium Chloride 250 ML IVPB ONE ×2 (07:00→09:34)
[2019-05-11] MEDS ORDERED: Acetaminophen 325 MG TABLET PO PRN (09:34)
[2019-05-11] MEDS ORDERED: Naloxone 0.4 MG/ML INJ IVP PRN (09:34)
[2019-05-11] MEDS ORDERED: Ipratropium/Albuterol Neb 3 ML ONE (11:22)
[2019-05-11] MEDS: Furosemide 20 MG TABLET PO SCH (11:46)
[2019-05-11] MEDS: levoFLOXacin 750 MG TABLET PO SCH (11:46)
[2019-05-11] MEDS: *HR* LORazepam 0.5 MG TABLET PO PRN ×2 (11:55→21:39)
[2019-05-11] MEDS: *HR* Heparin 5,000 UNIT/ML VIAL SQ SCH (18:37)
[2019-05-12] MEDS: Ipratropium/Albuterol Neb 3 ML IH SCH ×6 (00:23→19:37)
[2019-05-12 04:29] LABS: Basophils % 0.2 %; Eosinophils % 0.2 %; Hematocrit 34.4 % (35.3-44.9); Hemoglobin 11.2 g/dL (11.5-15.4); Immature Granulocytes % 0.7 % (0-4); Lymphocytes # 1.6 K/mcL (0.6-4.6); Lymphocytes % 14.7 %; Mean Corpuscular HGB Conc 32.6 g/dL (31.6-35.5); Mean Corpuscular Hemoglobin 30.4 pg (28.0-33.3); Mean Corpuscular Volume 93.2 fL (83.0-100.0); Mean Platelet Volume 10.1 fL (9.4-12.4); Monocytes # 0.5 K/mcL (0.0-1.3); Monocytes % 4.9 %; Neutrophils # 8.6 K/mcL (1.6-8.9); Platelet Count 232 K/mcL (140-400); Red Blood Count 3.69 M/mcL (3.82-4.97); Red Cell Distribution Width 14.3 % (11.5-14.5); Segmented Neutrophils % 79.3 %; White Blood Count 10.9 K/mcL (4.3-11.1)
[2019-05-12 04:44] LABS: BUN/Creatinine Ratio 19 (6-26); Blood Urea Nitrogen 8 mg/dL (8-23); Calcium 8.6 mg/dL (8.6-10.3); Carbon Dioxide 26 mEq/L (23-29); Chloride 110 mEq/L (98-107); Glucose 89 mg/dL (70-105); Osmolality,Calculated 292 (280-300); Potassium 2.9 mEq/L (3.5-5.1); Sodium 142 mEq/L (136-145); eGFR For African Americans > 60 (> 60); eGFR For Non-African Americans > 60 (> 60)
[2019-05-12] MEDS: *HR* LORazepam 0.5 MG TABLET PO PRN ×2 (05:06→16:33)
[2019-05-12] MEDS: *HR* Heparin 5,000 UNIT/ML VIAL SQ SCH ×2 (05:06→16:37)
[2019-05-12] MEDS: Furosemide 20 MG TABLET PO SCH (09:14)
[2019-05-12] MEDS: Gabapentin 400 MG CAPSULE PO SCH ×3 (09:14→19:46)
[2019-05-12] MEDS: hydrOXYzine pamoate 25 MG CAPSULE PO PRN ×3 (09:14→19:46)
[2019-05-12] MEDS: levoFLOXacin 750 MG TABLET PO SCH (09:14)
[2019-05-12] MEDS: *HR* HYDROcodone/Acet 5/325 mg TABLET PO PRN ×2 (09:14→15:19)
[2019-05-12] MEDS: amLODIPine 5 MG TABLET PO SCH (09:14)
[2019-05-12] MEDS: Nicotine 21 MG PATCH.TD24 TD SCH (09:15)
[2019-05-12] MEDS ORDERED: *HR* Metoprolol 5 MG/5 ML VIAL IVP ONE ×2 (15:17→15:18)
[2019-05-12] MEDS: Ondansetron 4 MG/2 ML VIAL IVP PRN (19:48)
[2019-05-13] MEDS: Ipratropium/Albuterol Neb 3 ML IH SCH ×7 (00:14→22:52)
[2019-05-13] MEDS: *HR* Heparin 5,000 UNIT/ML VIAL SQ SCH ×2 (05:08→17:08)
[2019-05-13] MEDS: *HR* LORazepam 0.5 MG TABLET PO PRN ×3 (05:08→20:51)
[2019-05-13] MEDS: Ondansetron 4 MG/2 ML VIAL IVP PRN (05:09)
[2019-05-13 06:56] LABS: Hematocrit 38.9 % (35.3-44.9); Hemoglobin 12.7 g/dL (11.5-15.4); Mean Corpuscular HGB Conc 32.6 g/dL (31.6-35.5); Mean Corpuscular Hemoglobin 30.8 pg (28.0-33.3); Mean Corpuscular Volume 94.4 fL (83.0-100.0); Mean Platelet Volume 10.1 fL (9.4-12.4); Platelet Count 264 K/mcL (140-400); Red Blood Count 4.12 M/mcL (3.82-4.97); Red Cell Distribution Width 14.6 % (11.5-14.5); White Blood Count 7.4 K/mcL (4.3-11.1)
[2019-05-13 07:09] LABS: BUN/Creatinine Ratio 13 (6-26); Blood Urea Nitrogen 7 mg/dL (8-23); Carbon Dioxide 28 mEq/L (23-29); Chloride 105 mEq/L (98-107); Glucose 110 mg/dL (70-105); Magnesium 1.6 mg/dL (1.6-2.6); Osmolality,Calculated 291 (280-300); Potassium 3.3 mEq/L (3.5-5.1); Sodium 141 mEq/L (136-145); eGFR For African Americans > 60 (> 60); eGFR For Non-African Americans > 60 (> 60)
[2019-05-13] MEDS: Furosemide 20 MG TABLET PO SCH (07:45)
[2019-05-13] MEDS: Gabapentin 400 MG CAPSULE PO SCH ×3 (07:45→19:28)
[2019-05-13] MEDS: hydrOXYzine pamoate 25 MG CAPSULE PO PRN ×2 (07:45→17:11)
[2019-05-13] MEDS: amLODIPine 5 MG TABLET PO SCH (07:45)
[2019-05-13] MEDS: levoFLOXacin 750 MG TABLET PO SCH (07:45)
[2019-05-13] MEDS: Nicotine 21 MG PATCH.TD24 TD SCH (07:46)
[2019-05-13] MEDS: *HR* HYDROcodone/Acet 5/325 mg TABLET PO PRN (07:47)
[2019-05-13] MEDS ORDERED: *HR* Labetalol 20 MG/4 ML SYRINGE IVP PRN (13:01)
[2019-05-13] MEDS ORDERED: Isovue-370 500 ML BOTTLE IVP ONE (13:59)
[2019-05-13] MEDS ORDERED: *HR* Labetalol 20 MG/4 ML SYRINGE IVP STA (14:13)
[2019-05-13] MEDS: Budesonide/Formoterol 160/4.5 1 PUFF INH IH SCH (20:03)
[2019-05-14 02:05] LABS: Basophils # 0.1 K/mcL (0.0-0.2); Basophils % 0.6 %; Eosinophils # 0.2 K/mcL (0.0-0.6); Eosinophils % 1.5 %; Hematocrit 39.9 % (35.3-44.9); Hemoglobin 13.4 g/dL (11.5-15.4); Immature Granulocytes % 2.1 % (0-4); Lymphocytes # 2.6 K/mcL (0.6-4.6); Lymphocytes % 26.1 %; Mean Corpuscular HGB Conc 33.6 g/dL (31.6-35.5); Mean Corpuscular Hemoglobin 30.7 pg (28.0-33.3); Mean Corpuscular Volume 91.3 fL (83.0-100.0); Mean Platelet Volume 10.3 fL (9.4-12.4); Monocytes # 0.7 K/mcL (0.0-1.3); Monocytes % 6.9 %; Neutrophils # 6.2 K/mcL (1.6-8.9); Platelet Count 289 K/mcL (140-400); Red Blood Count 4.37 M/mcL (3.82-4.97); Red Cell Distribution Width 14.5 % (11.5-14.5); Segmented Neutrophils % 62.8 %; White Blood Count 9.9 K/mcL (4.3-11.1)
[2019-05-14 02:26] LABS: BUN/Creatinine Ratio 9 (6-26); Blood Urea Nitrogen 5 mg/dL (8-23); Calcium 9.4 mg/dL (8.6-10.3); Carbon Dioxide 26 mEq/L (23-29); Chloride 102 mEq/L (98-107); Glucose 85 mg/dL (70-105); Magnesium 1.7 mg/dL (1.6-2.6); Osmolality,Calculated 285 (280-300); Phosphorous 2.9 mg/dL (2.7-4.5); Potassium 3.2 mEq/L (3.5-5.1); Sodium 139 mEq/L (136-145); eGFR For African Americans > 60 (> 60); eGFR For Non-African Americans > 60 (> 60)
[2019-05-14] MEDS: Ipratropium/Albuterol Neb 3 ML IH SCH ×6 (03:36→23:30)
[2019-05-14] MEDS: Ondansetron 4 MG/2 ML VIAL IVP PRN (03:44)
[2019-05-14] MEDS: *HR* LORazepam 0.5 MG TABLET PO PRN ×2 (03:44→12:44)
[2019-05-14] MEDS: hydrOXYzine pamoate 25 MG CAPSULE PO PRN ×3 (03:44→20:03)
[2019-05-14] MEDS: *HR* Heparin 5,000 UNIT/ML VIAL SQ SCH ×2 (05:24→17:54)
[2019-05-14] MEDS: *HR* HYDROcodone/Acet 5/325 mg TABLET PO PRN (05:29)
[2019-05-14] MEDS: Nicotine 21 MG PATCH.TD24 TD SCH (09:36)
[2019-05-14] MEDS: Furosemide 20 MG TABLET PO SCH (09:38)
[2019-05-14] MEDS: Gabapentin 400 MG CAPSULE PO SCH ×3 (09:39→20:03)
[2019-05-14] MEDS: levoFLOXacin 750 MG TABLET PO SCH (09:39)
[2019-05-14] MEDS: Budesonide/Formoterol 160/4.5 1 PUFF INH IH SCH ×2 (11:13→20:10)
[2019-05-14] MEDS: Diltiazem CD (24hr) 120 MG CAPSULE PO SCH (12:44)
[2019-05-14] MEDS ORDERED: *HR* LORazepam 1 MG TABLET PO SCH (13:00)
[2019-05-14] MEDS ORDERED: *HR* LORazepam 2 MG/ML VIAL IVP PRN (15:15)
[2019-05-14] MEDS ORDERED: *HR* LORazepam 1 MG TABLET PO PRN (15:24)
[2019-05-14] MEDS: *HR* LORazepam 1 MG TABLET PO PRN (20:03)
[2019-05-14] MEDS: Metoprolol 100 MG TABLET PO SCH (20:04)
[2019-05-15] MEDS: *HR* HYDROcodone/Acet 5/325 mg TABLET PO PRN ×3 (00:29→16:07)
[2019-05-15] MEDS: *HR* LORazepam 1 MG TABLET PO PRN ×2 (02:55→08:18)
[2019-05-15 04:03] LABS: BUN/Creatinine Ratio 12 (6-26); Blood Urea Nitrogen 9 mg/dL (8-23); Calcium 8.7 mg/dL (8.6-10.3); Carbon Dioxide 25 mEq/L (23-29); Chloride 102 mEq/L (98-107); Glucose 145 mg/dL (70-105); Magnesium 1.7 mg/dL (1.6-2.6); Osmolality,Calculated 287 (280-300); Phosphorous 3.9 mg/dL (2.7-4.5); Potassium 3.3 mEq/L (3.5-5.1); Sodium 138 mEq/L (136-145); eGFR For African Americans > 60 (> 60); eGFR For Non-African Americans > 60 (> 60)
[2019-05-15] MEDS: Ipratropium/Albuterol Neb 3 ML IH SCH ×2 (04:07→07:46)
[2019-05-15] MEDS: *HR* Heparin 5,000 UNIT/ML VIAL SQ SCH ×2 (05:29→17:31)
[2019-05-15] MEDS: Budesonide/Formoterol 160/4.5 1 PUFF INH IH SCH (07:46)
[2019-05-15] MEDS: Gabapentin 400 MG CAPSULE PO SCH ×3 (08:18→19:47)
[2019-05-15] MEDS: levoFLOXacin 750 MG TABLET PO SCH (08:18)
[2019-05-15] MEDS: Diltiazem CD (24hr) 120 MG CAPSULE PO SCH (08:19)
[2019-05-15] MEDS: Furosemide 20 MG TABLET PO SCH (08:19)
[2019-05-15] MEDS: Nicotine 21 MG PATCH.TD24 TD SCH (08:19)
[2019-05-15] MEDS: Metoprolol 100 MG TABLET PO SCH ×2 (08:19→19:48)
[2019-05-15] MEDS ORDERED: Ipratropium/Albuterol Neb 3 ML IH PRN (09:08)
[2019-05-15] MEDS: hydrOXYzine pamoate 25 MG CAPSULE PO PRN (14:00)
[2019-05-15] MEDS: *HR* LORazepam 0.5 MG TABLET PO PRN ×2 (16:08→20:10)
[2019-05-16 04:42] LABS: BUN/Creatinine Ratio 17 (6-26); Blood Urea Nitrogen 9 mg/dL (8-23); Calcium 8.7 mg/dL (8.6-10.3); Carbon Dioxide 22 mEq/L (23-29); Chloride 108 mEq/L (98-107); Glucose 104 mg/dL (70-105); Magnesium 1.7 mg/dL (1.6-2.6); Osmolality,Calculated 285 (280-300); Phosphorous 3.5 mg/dL (2.7-4.5); Potassium 4.1 mEq/L (3.5-5.1); Sodium 138 mEq/L (136-145); eGFR For African Americans > 60 (> 60); eGFR For Non-African Americans > 60 (> 60)
[2019-05-16] MEDS: *HR* HYDROcodone/Acet 5/325 mg TABLET PO PRN (05:03)
[2019-05-16] MEDS: *HR* Heparin 5,000 UNIT/ML VIAL SQ SCH (05:04)
[2019-05-16] MEDS: hydrOXYzine pamoate 25 MG CAPSULE PO PRN (05:04)
[2019-05-16] MEDS ORDERED: *HR* LORazepam 0.5 MG TABLET PO PRN (07:24)
[2019-05-16 07:29] VITALS: BP 134/83
[2019-05-16] MEDS: Nicotine 21 MG PATCH.TD24 TD SCH (09:30)
[2019-05-16] MEDS: Gabapentin 400 MG CAPSULE PO SCH (09:31)
[2019-05-16] MEDS: Metoprolol 100 MG TABLET PO SCH (09:31)
[2019-05-16] MEDS: Diltiazem CD (24hr) 120 MG CAPSULE PO SCH (09:32)
[2019-05-16] MEDS: Furosemide 20 MG TABLET PO SCH (09:32)
[2019-05-16] MEDS: levoFLOXacin 750 MG TABLET PO SCH (09:33)
== END 2019-05-16 13:20 | disposition home or self-care (01) | DRG 720 ==
LOC: EMEROOARM 11:30 → SUATTDRO 15:58 → ICNU 15:58 → 2NENU 05-11 09:12
PROVIDERS: ADMIT Pediatrics; ATTEND Internal Medicine

== ENCOUNTER 2019-05-26 01:47 | Observation (INO) ==
[2019-05-26] MEDS ORDERED: Albuterol 2.5 MG/3 ML NEBULIZER IH ONE (01:54)
[2019-05-26] MEDS ORDERED: 0.9 % Sodium Chloride 1,000 ML IVC ONE ×2 (01:54→03:09)
[2019-05-26] MEDS ORDERED: Ipratropium/Albuterol Neb 3 ML IH ONE (01:54)
[2019-05-26 02:27] LABS: Basophils % 0.3 %; Eosinophils # 0.1 K/mcL (0.0-0.6); Eosinophils % 0.5 %; Hematocrit 35.5 % (35.3-44.9); Hemoglobin 11.5 g/dL (11.5-15.4); Immature Granulocytes % 0.4 % (0-4); Lymphocytes # 0.9 K/mcL (0.6-4.6); Mean Corpuscular HGB Conc 32.4 g/dL (31.6-35.5); Mean Corpuscular Hemoglobin 31.1 pg (28.0-33.3); Mean Corpuscular Volume 95.9 fL (83.0-100.0); Mean Platelet Volume 9.6 fL (9.4-12.4); Monocytes # 0.7 K/mcL (0.0-1.3); Monocytes % 6.3 %; Neutrophils # 9.6 K/mcL (1.6-8.9); Platelet Count 329 K/mcL (140-400); Red Cell Distribution Width 13.9 % (11.5-14.5); Segmented Neutrophils % 84.5 %; White Blood Count 11.3 K/mcL (4.3-11.1)
[2019-05-26 02:41] LABS: BUN/Creatinine Ratio 6 (6-26); Blood Urea Nitrogen 4 mg/dL (8-23); Calcium 8.8 mg/dL (8.6-10.3); Carbon Dioxide 24 mEq/L (23-29); Chloride 101 mEq/L (98-107); Glucose 164 mg/dL (70-105); Osmolality,Calculated 279 (280-300); Potassium 3.3 mEq/L (3.5-5.1); Sodium 134 mEq/L (136-145); eGFR For African Americans > 60 (> 60); eGFR For Non-African Americans > 60 (> 60)
[2019-05-26 02:42] LABS: Troponin I < 0.03 ng/mL (< 0.04)
[2019-05-26] MEDS ORDERED: Piperacillin/Tazobactam 3.375 GM in 0.9 % Sodium Chloride Mini Bag 100 ML IVPB ONE (03:15)
[2019-05-26] MEDS ORDERED: levoFLOXacin 750 MG/150 ML 750 MG/150 ML BAG IVPB ONE (03:15)
[2019-05-26 03:50] LABS: Bilirubin,Urine Negative (Negative); Blood,Urine Negative (Negative); Clarity,Urine Clear (Clear); Color,Urine Yellow (Yellow); Glucose,Urine (UA) Normal (Normal); Ketones,Urine Negative (Negative); Leukocyte Esterase,Urine Negative (Negative); Nitrite,Urine Negative (Negative); Protein,Urine Negative (Neg-Trace); Specific Gravity,Urine 1.014 (1.010-1.025); Urobilinogen,Urine Normal (Normal)
[2019-05-26] MEDS ORDERED: Isovue-370 500 ML BOTTLE IVP ONE (04:15)
[2019-05-26 05:06] LABS: ABG Base Excess -2 mEq/L (-2 to 3); ABG HCO3 24 mEq/L (21-27); ABG Oxygen Saturation 91 % (95-98); ABG PCO2 45 mmHg (35-45); ABG PH 7.33 pH Units (7.32-7.45); ABG PO2 65 mmHg (85-104); ABG TCO2 25 mEq/L (20-26)
[2019-05-26] MEDS ORDERED: 0.9 % Sodium Chloride 250 ML IVC ONE (05:19)
[2019-05-26] MEDS ORDERED: 0.9 % Sodium Chloride 500 ML ONE (05:22)
[2019-05-26] MEDS ORDERED: Ondansetron 4 MG/2 ML VIAL IVP PRN (08:07)
[2019-05-26] MEDS ORDERED: Dextrose Gel 15 GM/37.5 ML TUBE PO PRN ×2 (08:17)
[2019-05-26] MEDS ORDERED: D5% in Water 1,000 ML IVC PRN (08:17)
[2019-05-26] MEDS ORDERED: *HR* Dextrose 50 % in Water (Syg) 50 ML SYRINGE IVP PRN (08:17)
[2019-05-26] MEDS: Diltiazem CD (24hr) 120 MG CAPSULE PO SCH (08:38)
[2019-05-26] MEDS: Gabapentin 400 MG CAPSULE PO SCH ×3 (08:39→20:34)
[2019-05-26] MEDS: Multivit/Ca/Min/Fe/FA 1 TAB TABLET PO SCH (08:40)
[2019-05-26] MEDS ORDERED: Metoprolol 100 MG TABLET PO SCH (09:00)
[2019-05-26] MEDS: Nicotine 14 MG PATCH.TD24 TD SCH (09:42)
[2019-05-26 09:50] LABS: Estimated Average Glucose 128 mg/dl
[2019-05-26] MEDS: Tiotropium 18 MCG inhalation IH SCH (10:51)
[2019-05-26] MEDS ORDERED: Potassium Chloride Elixir 20 MEQ/15 ML UDC PO ONE (11:08)
[2019-05-26] MEDS: Insulin LISPRO 300 UNITS/3 ML VIAL SQ SCH ×2 (11:50→16:49)
[2019-05-26] MEDS: Doxycycline 100 MG in 0.9 % Sodium Chloride Mini Bag 100 ML IVPB SCH (15:39)
[2019-05-26] MEDS: Piperacillin/Tazobactam 3.375 GM in 0.9 % Sodium Chloride Mini Bag 100 ML IVPB SCH (16:43)
[2019-05-26] MEDS: *HR* Heparin 5,000 UNIT/ML VIAL SQ SCH (16:46)
[2019-05-26] MEDS: Levalbuterol Neb 1.25 MG/3 ML IH SCH ×2 (16:51→22:57)
[2019-05-26] MEDS ORDERED: Furosemide 20 MG/2 ML VIAL IVP SCH (17:00)
[2019-05-26] MEDS ORDERED: Insulin DETEMIR 100 UNIT/ML X5UNITS SQ SCH (21:00)
[2019-05-27] MEDS: Piperacillin/Tazobactam 3.375 GM in 0.9 % Sodium Chloride Mini Bag 100 ML IVPB SCH ×2 (00:21→07:53)
[2019-05-27] MEDS ORDERED: Ibuprofen 600 MG TABLET PO ONE (01:07)
[2019-05-27 03:29] LABS: Basophils % 0.4 %; Eosinophils # 0.2 K/mcL (0.0-0.6); Eosinophils % 3.3 %; Hematocrit 31.3 % (35.3-44.9); Hemoglobin 10.4 g/dL (11.5-15.4); Immature Granulocytes % 0.2 % (0-4); Lymphocytes # 1.4 K/mcL (0.6-4.6); Lymphocytes % 27.1 %; Mean Corpuscular HGB Conc 33.2 g/dL (31.6-35.5); Mean Corpuscular Hemoglobin 31.4 pg (28.0-33.3); Mean Corpuscular Volume 94.6 fL (83.0-100.0); Mean Platelet Volume 9.6 fL (9.4-12.4); Monocytes # 0.4 K/mcL (0.0-1.3); Monocytes % 7.8 %; Neutrophils # 3.1 K/mcL (1.6-8.9); Platelet Count 291 K/mcL (140-400); Red Blood Count 3.31 M/mcL (3.82-4.97); Segmented Neutrophils % 61.2 %
[2019-05-27 03:31] LABS: White Blood Count 5.1 K/mcL (4.3-11.1)
[2019-05-27 03:52] LABS: BUN/Creatinine Ratio 11 (6-26); Blood Urea Nitrogen 6 mg/dL (8-23); Calcium 8.3 mg/dL (8.6-10.3); Carbon Dioxide 25 mEq/L (23-29); Chloride 110 mEq/L (98-107); Glucose 109 mg/dL (70-105); Osmolality,Calculated 284 (280-300); Potassium 4.3 mEq/L (3.5-5.1); Sodium 138 mEq/L (136-145); eGFR For African Americans > 60 (> 60); eGFR For Non-African Americans > 60 (> 60)
[2019-05-27] MEDS: Levalbuterol Neb 1.25 MG/3 ML IH SCH ×4 (04:03→22:31)
[2019-05-27] MEDS ORDERED: Aminoglycoside Consult 1 EACH MC ONE (04:41)
[2019-05-27] MEDS: Doxycycline 100 MG in 0.9 % Sodium Chloride Mini Bag 100 ML IVPB SCH ×2 (04:57→15:48)
[2019-05-27] MEDS: *HR* Heparin 5,000 UNIT/ML VIAL SQ SCH ×2 (06:50→17:10)
[2019-05-27] MEDS: Gabapentin 400 MG CAPSULE PO SCH ×3 (07:49→19:55)
[2019-05-27] MEDS: Multivit/Ca/Min/Fe/FA 1 TAB TABLET PO SCH (07:50)
[2019-05-27] MEDS: Nicotine 14 MG PATCH.TD24 TD SCH (07:50)
[2019-05-27] MEDS: Diltiazem CD (24hr) 120 MG CAPSULE PO SCH (07:50)
[2019-05-27] MEDS: Insulin LISPRO 300 UNITS/3 ML VIAL SQ SCH ×3 (07:53→17:09)
[2019-05-27] MEDS ORDERED: Furosemide 20 MG/2 ML VIAL IVP SCH (09:00)
[2019-05-27] MEDS: Tiotropium 18 MCG inhalation IH SCH (10:32)
[2019-05-27] MEDS ORDERED: *HR* LORazepam 0.5 MG TABLET PO ONE (12:21)
[2019-05-27] MEDS: levoFLOXacin 750 MG/150 ML 750 MG/150 ML BAG IVPB SCH (13:17)
[2019-05-27] MEDS: predniSONE 20 MG TABLET PO SCH (13:18)
[2019-05-28] MEDS: Levalbuterol Neb 1.25 MG/3 ML IH SCH ×4 (03:42→21:46)
[2019-05-28] MEDS: Doxycycline 100 MG in 0.9 % Sodium Chloride Mini Bag 100 ML IVPB SCH ×2 (05:02→16:36)
[2019-05-28] MEDS: *HR* Heparin 5,000 UNIT/ML VIAL SQ SCH ×2 (05:08→16:35)
[2019-05-28] MEDS: levoFLOXacin 750 MG/150 ML 750 MG/150 ML BAG IVPB SCH (07:54)
[2019-05-28] MEDS: Insulin LISPRO 300 UNITS/3 ML VIAL SQ SCH ×3 (07:55→16:43)
[2019-05-28] MEDS: Nicotine 14 MG PATCH.TD24 TD SCH (07:55)
[2019-05-28] MEDS: Gabapentin 400 MG CAPSULE PO SCH ×3 (07:55→20:30)
[2019-05-28] MEDS: Diltiazem CD (24hr) 120 MG CAPSULE PO SCH (07:55)
[2019-05-28] MEDS: Multivit/Ca/Min/Fe/FA 1 TAB TABLET PO SCH (07:55)
[2019-05-28] MEDS: predniSONE 20 MG TABLET PO SCH (07:56)
[2019-05-28] MEDS: Acetaminophen 325 MG TABLET PO PRN ×2 (08:59→20:30)
[2019-05-28] MEDS: Tiotropium 18 MCG inhalation IH SCH (10:25)
[2019-05-28] MEDS ORDERED: ALPRAZolam 0.5 MG TABLET PO ONE (11:48)
[2019-05-29] MEDS: Doxycycline 100 MG in 0.9 % Sodium Chloride Mini Bag 100 ML IVPB SCH (04:13)
[2019-05-29] MEDS: Levalbuterol Neb 1.25 MG/3 ML IH SCH ×3 (04:21→16:55)
[2019-05-29] MEDS: *HR* Heparin 5,000 UNIT/ML VIAL SQ SCH (05:14)
[2019-05-29 07:58] LABS: ANA IgG by ELISA DETECTED (None Detected)
[2019-05-29] MEDS: Insulin LISPRO 300 UNITS/3 ML VIAL SQ SCH ×2 (09:14→12:38)
[2019-05-29] MEDS: Gabapentin 400 MG CAPSULE PO SCH ×2 (09:15→16:25)
[2019-05-29] MEDS: Diltiazem CD (24hr) 120 MG CAPSULE PO SCH (09:17)
[2019-05-29] MEDS: Multivit/Ca/Min/Fe/FA 1 TAB TABLET PO SCH (09:17)
[2019-05-29] MEDS: Nicotine 14 MG PATCH.TD24 TD SCH (09:18)
[2019-05-29] MEDS: predniSONE 20 MG TABLET PO SCH (09:22)
[2019-05-29] MEDS: levoFLOXacin 750 MG/150 ML 750 MG/150 ML BAG IVPB SCH (09:24)
[2019-05-29] MEDS: Tiotropium 18 MCG inhalation IH SCH (10:54)
[2019-05-29 11:12] VITALS: BP 154/98
[2019-05-30 09:31] LABS: Serine Protease-3 Antibody 15 AU/mL (0-19)
[2019-05-30 17:50] LABS: ANA HEp-2 IgG IFA <1:80 (<1:80)
== END 2019-05-29 18:42 | disposition home or self-care (01) ==
LOC: EMEROOARM 01:47 → 2ANU 01:47 → SUATTDRO 04:40 → 2ANU 06:12 → 2NNU 06:18
PROVIDERS: ADMIT Family Medicine; ATTEND Internal Medicine

== ENCOUNTER 2019-08-07 18:44 | Inpatient (IN) ==
[2019-08-07] MEDS ORDERED: 0.9 % Sodium Chloride 1,000 ML ONE (18:58)
[2019-08-07] MEDS ORDERED: levoFLOXacin 750 MG/150 ML 750 MG/150 ML BAG IVPB ONE (19:00)
[2019-08-07] MEDS ORDERED: Ipratropium/Albuterol Neb 3 ML IH ONE (19:02)
[2019-08-07] MEDS: 0.9 % Sodium Chloride 1,000 ML IVC SCH ×3 (19:05→23:41)
[2019-08-07 19:27] LABS: Basophils % 0.2 %; Eosinophils % 0.1 %; Hematocrit 36.4 % (35.3-44.9); Hemoglobin 11.5 g/dL (11.5-15.4); Immature Granulocytes % 0.8 % (0-4); Lymphocytes % 2.7 %; Mean Corpuscular HGB Conc 31.6 g/dL (31.6-35.5); Mean Corpuscular Hemoglobin 29.7 pg (28.0-33.3); Mean Corpuscular Volume 94.1 fL (83.0-100.0); Mean Platelet Volume 9.7 fL (9.4-12.4); Monocytes # 0.7 K/mcL (0.0-1.3); Monocytes % 3.1 %; Neutrophils # 22.2 K/mcL (1.6-8.9); Platelet Count 297 K/mcL (140-400); Red Blood Count 3.87 M/mcL (3.82-4.97); Segmented Neutrophils % 93.1 %; White Blood Count 23.8 K/mcL (4.3-11.1)
[2019-08-07 19:31] LABS: INR 1.1; Prothrombin Time 12.3 Seconds (9.4-12.1)
[2019-08-07 19:32] LABS: Basophils # 0.1 K/mcL (0.0-0.2); Lymphocytes # 0.6 K/mcL (0.6-4.6)
[2019-08-07 19:47] LABS: Alanine Aminotransferase 12 Units/L (7-52); Albumin 3.5 g/dL (3.5-5.7); Albumin/Globulin Ratio 1.1 (1.1-2.2); Alkaline Phosphatase 137 Units/L (34-104); Aspartate Amino Transferase 13 Units/L (13-39); BUN/Creatinine Ratio 14 (6-26); Bilirubin,Direct 0.2 mg/dL (0.0-0.2); Bilirubin,Indirect 0.3 mg/dL (0.0-1.0); Bilirubin,Total 0.5 mg/dL (0.3-1.0); Blood Urea Nitrogen 13 mg/dL (8-23); Calcium 8.3 mg/dL (8.6-10.3); Carbon Dioxide 23 mEq/L (23-29); Chloride 100 mEq/L (98-107); Globulin 3.1 g/dL (2.4-3.5); Glucose 118 mg/dL (70-105); Magnesium 1.6 mg/dL (1.6-2.6); Osmolality,Calculated 277 (280-300); Phosphorous 3.1 mg/dL (2.7-4.5); Potassium 4.1 mEq/L (3.5-5.1); Sodium 133 mEq/L (136-145); Total Protein 6.6 g/dL (6.4-8.9); Troponin I < 0.03 ng/mL (< 0.04); eGFR For African Americans > 60 (> 60); eGFR For Non-African Americans > 60 (> 60)
[2019-08-07 20:21] LABS: Bilirubin,Urine Negative (Negative); Blood,Urine Negative (Negative); Clarity,Urine Clear (Clear); Color,Urine Yellow (Yellow); Glucose,Urine (UA) Normal (Normal); Ketones,Urine Negative (Negative); Leukocyte Esterase,Urine Negative (Negative); Nitrite,Urine Negative (Negative); Protein,Urine Trace mg/dL (Neg-Trace); Urobilinogen,Urine Normal (Normal)
[2019-08-07 22:22] LABS: ABG Base Excess 0 mEq/L (-2 to 3); ABG HCO3 26 mEq/L (21-27); ABG Oxygen Saturation 93 % (95-98); ABG PCO2 46 mmHg (35-45); ABG PH 7.37 pH Units (7.32-7.45); ABG PO2 68 mmHg (85-104); ABG TCO2 28 mEq/L (20-26)
[2019-08-08] MEDS ORDERED: Vancomycin (wt based) 1,000 MG VIAL IVPB SCH (01:00)
[2019-08-08] MEDS ORDERED: Isovue-370 500 ML BOTTLE IVP ONE (01:47)
[2019-08-08] MEDS ORDERED: Piperacillin/Tazobactam 3.375 GM in 0.9 % Sodium Chloride Mini Bag 100 ML IVP ONE (01:54)
[2019-08-08] MEDS ORDERED: Naloxone 0.4 MG/ML INJ IVP PRN (02:00)
[2019-08-08] MEDS ORDERED: Albuterol 2.5 MG/3 ML NEBULIZER IH PRN (02:00)
[2019-08-08] MEDS ORDERED: Doxycycline 100 MG in 0.9 % Sodium Chloride Mini Bag 100 ML IVPB SCH (02:00)
[2019-08-08] MEDS: Ipratropium Neb 0.5 MG NEBULIZER IH SCH ×6 (04:11→23:40)
[2019-08-08 04:26] LABS: Basophils % 0.2 %; Mean Platelet Volume 9.8 fL (9.4-12.4)
[2019-08-08 04:28] LABS: Basophils # 0.1 K/mcL (0.0-0.2); Hematocrit 29.9 % (35.3-44.9); Hemoglobin 9.3 g/dL (11.5-15.4); Immature Granulocytes % 1.2 % (0-4); Lymphocytes # 1.7 K/mcL (0.6-4.6); Lymphocytes % 6.5 %; Mean Corpuscular HGB Conc 31.1 g/dL (31.6-35.5); Mean Corpuscular Hemoglobin 30.1 pg (28.0-33.3); Mean Corpuscular Volume 96.8 fL (83.0-100.0); Monocytes # 1.3 K/mcL (0.0-1.3); Platelet Count 216 K/mcL (140-400); Red Blood Count 3.09 M/mcL (3.82-4.97); Segmented Neutrophils % 87.1 %; White Blood Count 26.7 K/mcL (4.3-11.1)
[2019-08-08 04:38] LABS: Neutrophils # 23.3 K/mcL (1.6-8.9)
[2019-08-08 04:56] LABS: Alanine Aminotransferase 10 Units/L (7-52); Albumin 2.8 g/dL (3.5-5.7); Albumin/Globulin Ratio 1.1 (1.1-2.2); Alkaline Phosphatase 103 Units/L (34-104); Aspartate Amino Transferase 10 Units/L (13-39); BUN/Creatinine Ratio 16 (6-26); Bilirubin,Total 0.4 mg/dL (0.3-1.0); Blood Urea Nitrogen 10 mg/dL (8-23); Calcium 7.3 mg/dL (8.6-10.3); Carbon Dioxide 22 mEq/L (23-29); Chloride 106 mEq/L (98-107); Globulin 2.6 g/dL (2.4-3.5); Glucose 98 mg/dL (70-105); Magnesium 1.4 mg/dL (1.6-2.6); Osmolality,Calculated 281 (280-300); Phosphorous 2.5 mg/dL (2.7-4.5); Sodium 136 mEq/L (136-145); Total Protein 5.4 g/dL (6.4-8.9); Troponin I < 0.03 ng/mL (< 0.04); eGFR For African Americans > 60 (> 60); eGFR For Non-African Americans > 60 (> 60)
[2019-08-08] MEDS: *HR* Heparin 5,000 UNIT/ML VIAL SQ SCH ×2 (06:28→17:05)
[2019-08-08] MEDS ORDERED: Aminoglycoside Consult 1 EACH MC ONE (07:54)
[2019-08-08] MEDS ORDERED: Gabapentin 300 MG CAPSULE PO SCH (09:00)
[2019-08-08] MEDS: DilTIAZem CD (24hr) 120 MG CAP.ER.24H PO SCH (09:08)
[2019-08-08] MEDS: predniSONE 20 MG TABLET PO SCH (09:08)
[2019-08-08] MEDS: Metoprolol 100 MG TABLET PO SCH ×2 (09:08→19:59)
[2019-08-08] MEDS ORDERED: *HR* FentaNYL (PF) 100 MCG/2 ML VIAL ONE (11:04)
[2019-08-08] MEDS ORDERED: Ondansetron 4 MG/2 ML VIAL ONE (11:04)
[2019-08-08] MEDS ORDERED: Dexamethasone 4 MG/ML VIAL ONE (11:04)
[2019-08-08] MEDS ORDERED: Lidocaine -MPF 2% 2 ML VIAL ONE ×2 (11:04→11:06)
[2019-08-08] MEDS ORDERED: *HR* Propofol 200 MG/20 ML VIAL IVP ONE ×2 (11:04→11:07)
[2019-08-08] MEDS ORDERED: *HR* Succinylcholine 200 MG/10 ML VIAL IVP ONE (11:07)
[2019-08-08] MEDS ORDERED: Lidocaine -MPF 4% 5 ML AMPUL ONE (11:09)
[2019-08-08] MEDS ORDERED: *HR* PHENYLEPHRINE 1,000 MCG/10 ML SYRINGE IVP ONE (11:16)
[2019-08-08] MEDS: Piperacillin/Tazobactam 3.375 GM in 0.9 % Sodium Chloride Mini Bag 100 ML IVPB SCH ×3 (13:35→23:35)
[2019-08-08] MEDS: Gabapentin 400 MG CAPSULE PO SCH ×2 (17:05→19:59)
[2019-08-08] MEDS ORDERED: levoFLOXacin 750 MG/150 ML 750 MG/150 ML BAG IVPB SCH (18:00)
[2019-08-08] MEDS: hydrOXYzine pamoate 25 MG CAPSULE PO PRN (19:59)
[2019-08-08 22:30] LABS: Appearance of Body Fluid Hazy (Clear); Volume of Body Fluid 20 mL
[2019-08-08 22:34] LABS: Appearance of Body Fluid Hazy (Clear); Volume of Body Fluid 20 mL
[2019-08-09 02:05] LABS: Basophils % 0.1 %; Hematocrit 28.9 % (35.3-44.9); Hemoglobin 9.1 g/dL (11.5-15.4); Immature Granulocytes % 0.7 % (0-4); Lymphocytes % 7.2 %; Mean Corpuscular HGB Conc 31.5 g/dL (31.6-35.5); Mean Corpuscular Hemoglobin 29.6 pg (28.0-33.3); Mean Corpuscular Volume 94.1 fL (83.0-100.0); Monocytes # 0.5 K/mcL (0.0-1.3); Monocytes % 3.8 %; Neutrophils # 12.7 K/mcL (1.6-8.9); Platelet Count 210 K/mcL (140-400); Red Blood Count 3.07 M/mcL (3.82-4.97); Red Cell Distribution Width 15.1 % (11.5-14.5); Segmented Neutrophils % 88.2 %; White Blood Count 14.4 K/mcL (4.3-11.1)
[2019-08-09 02:23] LABS: BUN/Creatinine Ratio 19 (6-26); Blood Urea Nitrogen 14 mg/dL (8-23); Calcium 7.7 mg/dL (8.6-10.3); Carbon Dioxide 23 mEq/L (23-29); Chloride 106 mEq/L (98-107); Glucose 121 mg/dL (70-105); Magnesium 1.7 mg/dL (1.6-2.6); Osmolality,Calculated 286 (280-300); Phosphorous 2.2 mg/dL (2.7-4.5); Potassium 3.5 mEq/L (3.5-5.1); Sodium 137 mEq/L (136-145); eGFR For African Americans > 60 (> 60); eGFR For Non-African Americans > 60 (> 60)
[2019-08-09] MEDS: Ipratropium Neb 0.5 MG NEBULIZER IH SCH ×6 (03:34→23:02)
[2019-08-09] MEDS: *HR* Heparin 5,000 UNIT/ML VIAL SQ SCH ×2 (05:33→17:58)
[2019-08-09] MEDS ORDERED: Potassium Chloride Elixir 20 MEQ/15 ML UDC PO ONE (08:16)
[2019-08-09] MEDS: Benzonatate 100 MG CAPSULE PO PRN ×2 (09:20→20:22)
[2019-08-09] MEDS: DilTIAZem CD (24hr) 120 MG CAP.ER.24H PO SCH (09:21)
[2019-08-09] MEDS: Gabapentin 400 MG CAPSULE PO SCH ×3 (09:21→20:23)
[2019-08-09] MEDS: Metoprolol 100 MG TABLET PO SCH ×2 (09:21→20:23)
[2019-08-09] MEDS: predniSONE 20 MG TABLET PO SCH (09:21)
[2019-08-09] MEDS: Piperacillin/Tazobactam 3.375 GM in 0.9 % Sodium Chloride Mini Bag 100 ML IVPB SCH ×2 (09:21→17:58)
[2019-08-09] MEDS: hydrOXYzine pamoate 25 MG CAPSULE PO PRN ×2 (17:58→20:23)
[2019-08-10] MEDS: Piperacillin/Tazobactam 3.375 GM in 0.9 % Sodium Chloride Mini Bag 100 ML IVPB SCH ×2 (00:28→07:50)
[2019-08-10] MEDS: Ipratropium Neb 0.5 MG NEBULIZER IH SCH ×7 (03:31→23:17)
[2019-08-10] MEDS: Benzonatate 100 MG CAPSULE PO PRN ×3 (04:02→23:21)
[2019-08-10] MEDS: *HR* Heparin 5,000 UNIT/ML VIAL SQ SCH ×2 (04:02→17:19)
[2019-08-10 04:49] LABS: Basophils % 0.1 %; Hematocrit 28.9 % (35.3-44.9); Hemoglobin 9.2 g/dL (11.5-15.4); Immature Granulocytes % 0.6 % (0-4); Lymphocytes % 10.5 %; Mean Corpuscular HGB Conc 31.8 g/dL (31.6-35.5); Mean Corpuscular Hemoglobin 29.5 pg (28.0-33.3); Mean Corpuscular Volume 92.6 fL (83.0-100.0); Mean Platelet Volume 10.3 fL (9.4-12.4); Monocytes # 0.3 K/mcL (0.0-1.3); Monocytes % 2.9 %; Platelet Count 235 K/mcL (140-400); Red Blood Count 3.12 M/mcL (3.82-4.97); Segmented Neutrophils % 85.9 %; White Blood Count 9.3 K/mcL (4.3-11.1)
[2019-08-10 05:00] LABS: BUN/Creatinine Ratio 18 (6-26); Blood Urea Nitrogen 9 mg/dL (8-23); Calcium 8.3 mg/dL (8.6-10.3); Carbon Dioxide 25 mEq/L (23-29); Chloride 109 mEq/L (98-107); Glucose 96 mg/dL (70-105); Magnesium 1.9 mg/dL (1.6-2.6); Osmolality,Calculated 287 (280-300); Phosphorous 2.7 mg/dL (2.7-4.5); Potassium 3.9 mEq/L (3.5-5.1); Sodium 139 mEq/L (136-145); eGFR For African Americans > 60 (> 60); eGFR For Non-African Americans > 60 (> 60)
[2019-08-10] MEDS: Metoprolol 100 MG TABLET PO SCH ×2 (07:49→20:14)
[2019-08-10] MEDS: DilTIAZem CD (24hr) 120 MG CAP.ER.24H PO SCH (07:49)
[2019-08-10] MEDS: Gabapentin 400 MG CAPSULE PO SCH ×3 (07:49→20:14)
[2019-08-10] MEDS: predniSONE 20 MG TABLET PO SCH (07:49)
[2019-08-10] MEDS: GuaiFENesin Liq 200 MG/10 ML UDC PO PRN ×2 (07:56→20:14)
[2019-08-10] MEDS: hydrOXYzine pamoate 25 MG CAPSULE PO PRN ×2 (11:55→23:23)
[2019-08-10] MEDS ORDERED: Ampicillin/Sulbactam 1,500 MG in 0.9 % Sodium Chloride Mini Bag 100 ML IVPB SCH (12:00)
[2019-08-10] MEDS: Lactobacillus 1 EACH CAP.SPRINK PO SCH (15:23)
[2019-08-10] MEDS: Ampicillin/Sulbactam 3,000 MG in 0.9 % Sodium Chloride Mini Bag 100 ML IVPB SCH ×2 (17:19→23:23)
[2019-08-11] MEDS: GuaiFENesin Liq 200 MG/10 ML UDC PO PRN ×2 (03:24→16:34)
[2019-08-11] MEDS: Ipratropium Neb 0.5 MG NEBULIZER IH SCH ×6 (03:27→23:08)
[2019-08-11 04:09] LABS: BUN/Creatinine Ratio 14 (6-26); Blood Urea Nitrogen 6 mg/dL (8-23); Calcium 8.8 mg/dL (8.6-10.3); Carbon Dioxide 29 mEq/L (23-29); Chloride 105 mEq/L (98-107); Glucose 80 mg/dL (70-105); Magnesium 1.6 mg/dL (1.6-2.6); Osmolality,Calculated 293 (280-300); Potassium 3.2 mEq/L (3.5-5.1); Sodium 143 mEq/L (136-145); eGFR For African Americans > 60 (> 60); eGFR For Non-African Americans > 60 (> 60)
[2019-08-11 04:16] LABS: Basophils % 0.2 %; Eosinophils % 0.1 %; Hematocrit 31.2 % (35.3-44.9); Hemoglobin 10.3 g/dL (11.5-15.4); Immature Granulocytes % 0.7 % (0-4); Lymphocytes # 1.9 K/mcL (0.6-4.6); Lymphocytes % 18.1 %; Mean Corpuscular Hemoglobin 29.7 pg (28.0-33.3); Mean Corpuscular Volume 89.9 fL (83.0-100.0); Mean Platelet Volume 9.5 fL (9.4-12.4); Monocytes # 0.4 K/mcL (0.0-1.3); Monocytes % 4.1 %; Neutrophils # 8.3 K/mcL (1.6-8.9); Platelet Count 303 K/mcL (140-400); Red Blood Count 3.47 M/mcL (3.82-4.97); Red Cell Distribution Width 14.9 % (11.5-14.5); Segmented Neutrophils % 76.8 %; White Blood Count 10.7 K/mcL (4.3-11.1)
[2019-08-11] MEDS: *HR* Heparin 5,000 UNIT/ML VIAL SQ SCH ×2 (05:09→16:31)
[2019-08-11] MEDS: Ampicillin/Sulbactam 3,000 MG in 0.9 % Sodium Chloride Mini Bag 100 ML IVPB SCH ×2 (05:10→11:49)
[2019-08-11] MEDS: Metoprolol 100 MG TABLET PO SCH ×2 (09:34→20:41)
[2019-08-11] MEDS: Gabapentin 400 MG CAPSULE PO SCH ×3 (09:34→20:41)
[2019-08-11] MEDS: Lactobacillus 1 EACH CAP.SPRINK PO SCH (09:34)
[2019-08-11] MEDS: DilTIAZem CD (24hr) 120 MG CAP.ER.24H PO SCH (09:34)
[2019-08-11] MEDS: Benzonatate 100 MG CAPSULE PO PRN ×2 (09:40→20:52)
[2019-08-11] MEDS: predniSONE 10 MG TABLET PO SCH (11:49)
[2019-08-11] MEDS: Amoxicillin 500 MG CAPSULE PO SCH (16:31)
[2019-08-12] MEDS: Amoxicillin 500 MG CAPSULE PO SCH ×3 (00:32→15:37)
[2019-08-12] MEDS: Ipratropium Neb 0.5 MG NEBULIZER IH SCH ×4 (03:54→15:26)
[2019-08-12 04:48] LABS: Basophils % 0.1 %; Eosinophils % 0.1 %; Hematocrit 35.6 % (35.3-44.9); Hemoglobin 11.7 g/dL (11.5-15.4); Immature Granulocytes % 1.1 % (0-4); Lymphocytes # 1.6 K/mcL (0.6-4.6); Lymphocytes % 21.8 %; Mean Corpuscular HGB Conc 32.9 g/dL (31.6-35.5); Mean Corpuscular Hemoglobin 29.2 pg (28.0-33.3); Mean Corpuscular Volume 88.8 fL (83.0-100.0); Mean Platelet Volume 9.5 fL (9.4-12.4); Monocytes # 0.6 K/mcL (0.0-1.3); Monocytes % 8.1 %; Platelet Count 351 K/mcL (140-400); Red Blood Count 4.01 M/mcL (3.82-4.97); Red Cell Distribution Width 14.6 % (11.5-14.5); Segmented Neutrophils % 68.8 %; White Blood Count 7.2 K/mcL (4.3-11.1)
[2019-08-12 05:07] LABS: BUN/Creatinine Ratio 19 (6-26); Blood Urea Nitrogen 13 mg/dL (8-23); Carbon Dioxide 30 mEq/L (23-29); Chloride 100 mEq/L (98-107); Glucose 87 mg/dL (70-105); Osmolality,Calculated 285 (280-300); Potassium 3.4 mEq/L (3.5-5.1); Sodium 138 mEq/L (136-145); eGFR For African Americans > 60 (> 60); eGFR For Non-African Americans > 60 (> 60)
[2019-08-12] MEDS: *HR* Heparin 5,000 UNIT/ML VIAL SQ SCH (06:20)
[2019-08-12 07:50] VITALS: BP 152/96
[2019-08-12] MEDS: Gabapentin 400 MG CAPSULE PO SCH ×2 (08:18→15:36)
[2019-08-12] MEDS: Metoprolol 100 MG TABLET PO SCH (08:18)
[2019-08-12] MEDS: predniSONE 10 MG TABLET PO SCH (08:18)
[2019-08-12] MEDS: DilTIAZem CD (24hr) 120 MG CAP.ER.24H PO SCH (08:18)
[2019-08-12] MEDS: Lactobacillus 1 EACH CAP.SPRINK PO SCH (08:19)
[2019-08-12] MEDS ORDERED: FLU Vac QV 19-20 (6Month+)/PF 0.5 ML SYRINGE IM ONE (13:00)
== END 2019-08-12 16:59 | disposition home or self-care (01) | DRG 720 ==
LOC: 2NENU 18:44 → EMEROOARM 18:44 → SUATTDRO 23:32 → 2NENU 08-08 00:28 → SUATTDRO 08-08 13:19
PROVIDERS: ADMIT Family Medicine; ATTEND Student in an Organized Health Care Education/Training Program

== ENCOUNTER 2019-09-01 15:16 | Inpatient (IN) ==
[2019-09-01] MEDS ORDERED: 0.9 % Sodium Chloride 1,000 ML IVC ONE (15:24)
[2019-09-01] MEDS ORDERED: Isovue-370 500 ML BOTTLE IVP ONE ×3 (15:25→15:38)
[2019-09-01] MEDS ORDERED: Ipratropium/Albuterol Neb 3 ML IH ONE (15:26)
[2019-09-01 15:40] LABS: ABG Base Excess 2 mEq/L (-2 to 3); ABG HCO3 27 mEq/L (21-27); ABG Oxygen Saturation 93 % (95-98); ABG PCO2 43 mmHg (35-45); ABG PH 7.41 pH Units (7.32-7.45); ABG PO2 67 mmHg (85-104); ABG TCO2 28 mEq/L (20-26)
[2019-09-01 15:47] LABS: Basophils % 0.1 %; Eosinophils # 0.1 K/mcL (0.0-0.6); Eosinophils % 0.3 %; Hematocrit 40.8 % (35.3-44.9); Hemoglobin 12.5 g/dL (11.5-15.4); Immature Granulocytes % 1.1 % (0-4); Lymphocytes # 0.8 K/mcL (0.6-4.6); Lymphocytes % 3.5 %; Mean Corpuscular HGB Conc 30.6 g/dL (31.6-35.5); Mean Corpuscular Hemoglobin 29.3 pg (28.0-33.3); Mean Corpuscular Volume 95.8 fL (83.0-100.0); Mean Platelet Volume 9.8 fL (9.4-12.4); Monocytes # 0.4 K/mcL (0.0-1.3); Monocytes % 1.7 %; Platelet Count 230 K/mcL (140-400); Red Blood Count 4.26 M/mcL (3.82-4.97); Red Cell Distribution Width 15.6 % (11.5-14.5); Segmented Neutrophils % 93.3 %
[2019-09-01 15:50] LABS: Neutrophils # 21.4 K/mcL (1.6-8.9); White Blood Count 22.9 K/mcL (4.3-11.1)
[2019-09-01 15:55] LABS: INR 1.1; Prothrombin Time 12.5 Seconds (9.4-12.1)
[2019-09-01 15:57] LABS: Activated Partial Thrombo Time 27.9 Seconds (26.0-36.0)
[2019-09-01] MEDS ORDERED: *HR* FentaNYL (PF) 100 MCG/2 ML VIAL IVP ONE (16:02)
[2019-09-01] MEDS ORDERED: Ondansetron 4 MG/2 ML VIAL IVP ONE (16:02)
[2019-09-01 16:21] LABS: Alanine Aminotransferase 11 Units/L (7-52); Albumin 3.6 g/dL (3.5-5.7); Albumin/Globulin Ratio 1.2 (1.1-2.2); Alkaline Phosphatase 122 Units/L (34-104); Aspartate Amino Transferase 9 Units/L (13-39); BUN/Creatinine Ratio 31 (6-26); Bilirubin,Direct 0.1 mg/dL (0.0-0.2); Bilirubin,Indirect 0.4 mg/dL (0.0-1.0); Bilirubin,Total 0.5 mg/dL (0.3-1.0); Blood Urea Nitrogen 19 mg/dL (8-23); Calcium 8.7 mg/dL (8.6-10.3); Carbon Dioxide 26 mEq/L (23-29); Chloride 103 mEq/L (98-107); Glucose 135 mg/dL (70-105); Magnesium 1.8 mg/dL (1.6-2.6); Osmolality,Calculated 290 (280-300); Potassium 3.4 mEq/L (3.5-5.1); Sodium 138 mEq/L (136-145); Total Protein 6.6 g/dL (6.4-8.9); Troponin I 0.03 ng/mL (< 0.04); eGFR For African Americans > 60 (> 60); eGFR For Non-African Americans > 60 (> 60)
[2019-09-01 16:31] LABS: Platelet Estimate Normal (Normal)
[2019-09-01 16:32] LABS: Bilirubin,Urine Negative (Negative); Blood,Urine Negative (Negative); Clarity,Urine Cloudy (Clear); Color,Urine Yellow (Yellow); Glucose,Urine (UA) Normal (Normal); Ketones,Urine Trace mg/dL (Negative); Leukocyte Esterase,Urine Trace (Negative); Nitrite,Urine Negative (Negative); Protein,Urine Trace mg/dL (Neg-Trace); Specific Gravity,Urine 1.021 (1.010-1.025); Urobilinogen,Urine Normal (Normal)
[2019-09-01 16:37] LABS: Bacteria,Urine None Seen per hpf (None-Few); Squamous Epithelial Cell,Urine Many per lpf (None-Few); WBC,Urine 15-30 per hpf (0-3)
[2019-09-01] MEDS ORDERED: levoFLOXacin 750 MG/150 ML 750 MG/150 ML BAG IVPB ONE (16:49)
[2019-09-01] MEDS ORDERED: Piperacillin/Tazobactam 3.375 GM in 0.9 % Sodium Chloride Mini Bag 100 ML IVPB ONE (16:49)
[2019-09-01 17:02] LABS: Hyaline Casts,Urine Few per lpf (None-Few); Mucus,Urine Many per lpf (Few)
[2019-09-01 17:03] LABS: Calcium Oxalate Crystals,Urine Present; Transitional Epi Cells,Urine Few per hpf (None-Few)
[2019-09-01 17:04] LABS: Granular Casts,Urine Few per lpf (None Seen)
[2019-09-01] MEDS ORDERED: Naloxone 0.4 MG/ML INJ IVP PRN (18:51)
[2019-09-01 18:58] LABS: Amphetamine Screen,Urine Negative ng/mL (Cutoff=1000); Barbiturate Screen,Urine Negative ng/mL (Cutoff=200); Benzodiazepines Screen,Urine Positive ng/mL (Cutoff=200); Cannabinoid Screen,Urine Negative ng/mL (Cutoff = 50); Cocaine Screen,Urine Negative ng/mL (Cutoff= 300); Opiate Screen,Urine Negative ng/mL (Cutoff=300); Phencyclidine Screen,Urine Negative ng/mL (Cutoff=25)
[2019-09-01] MEDS ORDERED: *HR* Metoprolol 5 MG/5 ML VIAL IVP PRN (19:03)
[2019-09-01] MEDS ORDERED: Ipratropium/Albuterol Neb 3 ML IH SCH (20:00)
[2019-09-01] MEDS: Ipratropium Neb 0.5 MG NEBULIZER IH SCH (21:54)
[2019-09-01] MEDS: Levalbuterol Neb 1.25 MG/3 ML IH SCH (21:54)
[2019-09-02] MEDS: Ipratropium Neb 0.5 MG NEBULIZER IH SCH ×6 (00:06→20:06)
[2019-09-02] MEDS: Levalbuterol Neb 1.25 MG/3 ML IH SCH ×6 (00:06→20:06)
[2019-09-02] MEDS: Piperacillin/Tazobactam 3.375 GM in 0.9 % Sodium Chloride Mini Bag 100 ML IVPB SCH ×3 (00:07→16:56)
[2019-09-02] MEDS: MethylPREDNISolone 40 MG/ML VIAL IVP SCH ×3 (00:07→16:56)
[2019-09-02 01:01] LABS: Basophils % 0.1 %; Eosinophils # 0.3 K/mcL (0.0-0.6); Eosinophils % 1.7 %; Hematocrit 34.5 % (35.3-44.9); Immature Granulocytes % 0.8 % (0-4); Lymphocytes # 1.4 K/mcL (0.6-4.6); Lymphocytes % 8.7 %; Mean Corpuscular Hemoglobin 29.8 pg (28.0-33.3); Mean Corpuscular Volume 96.1 fL (83.0-100.0); Mean Platelet Volume 9.6 fL (9.4-12.4); Monocytes # 0.4 K/mcL (0.0-1.3); Monocytes % 2.2 %; Neutrophils # 13.9 K/mcL (1.6-8.9); Platelet Count 204 K/mcL (140-400); Red Blood Count 3.59 M/mcL (3.82-4.97); Red Cell Distribution Width 15.6 % (11.5-14.5); Segmented Neutrophils % 86.5 %
[2019-09-02 01:06] LABS: Hemoglobin 10.7 g/dL (11.5-15.4)
[2019-09-02 01:16] LABS: BUN/Creatinine Ratio 35 (6-26); Blood Urea Nitrogen 15 mg/dL (8-23); Calcium 7.8 mg/dL (8.6-10.3); Carbon Dioxide 25 mEq/L (23-29); Chloride 107 mEq/L (98-107); Glucose 81 mg/dL (70-105); Osmolality,Calculated 290 (280-300); Potassium 3.3 mEq/L (3.5-5.1); Sodium 140 mEq/L (136-145); eGFR For African Americans > 60 (> 60); eGFR For Non-African Americans > 60 (> 60)
[2019-09-02] MEDS: Nicotine 14 MG PATCH.TD24 TD SCH (01:27)
[2019-09-02 03:26] LABS: Adenovirus Not Detected (Not Detect); Coronavirus 229E Not Detected (Not Detect); Coronavirus HKU1 Not Detected (Not Detect); Coronavirus NL63 Not Detected (Not Detect); Coronavirus OC43 Not Detected (Not Detect); Human Metapneumovirus Not Detected (Not Detect); Human Rhinovirus/Enterovirus Not Detected (Not Detect); Influenza A Subtype 2009 H1 Not Detected (Not Detect)
[2019-09-02 03:27] LABS: Bordetella Pertussis Not Detected (Not Detect); Chlamydophila pneumoniae Not Detected (Not Detect); Influenza B Not Detected (Not Detect); Mycoplasma pneumoniae Not Detected (Not Detect); Parainfluenza Virus 1 Not Detected (Not Detect); Parainfluenza Virus 2 Not Detected (Not Detect); Parainfluenza Virus 3 Not Detected (Not Detect); Parainfluenza Virus 4 Not Detected (Not Detect); Respiratory Syncytial Virus Not Detected (Not Detect)
[2019-09-02] MEDS: Acetaminophen 325 MG TABLET PO PRN ×2 (05:02→12:53)
[2019-09-02] MEDS: *HR* Heparin 5,000 UNIT/ML VIAL SQ SCH ×2 (05:03→17:01)
[2019-09-02] MEDS ORDERED: Vancomycin (wt based) 1,000 MG VIAL IVPB SCH (06:00)
[2019-09-02] MEDS ORDERED: Potassium Chloride Elixir 20 MEQ/15 ML UDC PO ONE (08:09)
[2019-09-02] MEDS ORDERED: Ringers Solution, Lactated 500 ML IVC SCH (11:45)
[2019-09-02] MEDS: DilTIAZem CD (24hr) 120 MG CAP.ER.24H PO SCH (12:49)
[2019-09-02] MEDS: Gabapentin 400 MG CAPSULE PO SCH ×2 (15:09→20:26)
[2019-09-02] MEDS: levoFLOXacin 750 MG/150 ML 750 MG/150 ML BAG IVPB SCH (15:09)
[2019-09-02] MEDS: Budesonide/Formoterol 160/4.5 1 PUFF INH IH SCH (20:06)
[2019-09-02] MEDS: Metoprolol 100 MG TABLET PO SCH (20:27)
[2019-09-02] MEDS ORDERED: NON-FORMULARY MEDICATION 1 EACH EACH (Propranolol Hcl 40 MG) PO SCH (21:00)
[2019-09-02] MEDS ORDERED: Metoprolol 100 MG TABLET PO SCH (21:00)
[2019-09-03] MEDS: Ipratropium Neb 0.5 MG NEBULIZER IH SCH ×7 (00:05→23:19)
[2019-09-03] MEDS: Levalbuterol Neb 1.25 MG/3 ML IH SCH ×7 (00:05→23:19)
[2019-09-03] MEDS: Nicotine 14 MG PATCH.TD24 TD SCH (00:25)
[2019-09-03] MEDS: Piperacillin/Tazobactam 3.375 GM in 0.9 % Sodium Chloride Mini Bag 100 ML IVPB SCH ×3 (00:27→18:27)
[2019-09-03] MEDS: MethylPREDNISolone 40 MG/ML VIAL IVP SCH ×3 (00:28→18:24)
[2019-09-03] MEDS: Acetaminophen 325 MG TABLET PO PRN ×2 (00:46→18:28)
[2019-09-03 04:48] LABS: Basophils % 0.1 %; Hematocrit 34.3 % (35.3-44.9); Hemoglobin 10.5 g/dL (11.5-15.4); Immature Granulocytes % 0.8 % (0-4); Lymphocytes # 0.3 K/mcL (0.6-4.6); Lymphocytes % 2.8 %; Mean Corpuscular HGB Conc 30.6 g/dL (31.6-35.5); Mean Corpuscular Volume 94.8 fL (83.0-100.0); Mean Platelet Volume 10.2 fL (9.4-12.4); Monocytes # 0.1 K/mcL (0.0-1.3); Monocytes % 0.6 %; Platelet Count 201 K/mcL (140-400); Red Blood Count 3.62 M/mcL (3.82-4.97); Red Cell Distribution Width 14.9 % (11.5-14.5); Segmented Neutrophils % 95.7 %; White Blood Count 11.5 K/mcL (4.3-11.1)
[2019-09-03 05:07] LABS: BUN/Creatinine Ratio 24 (6-26); Blood Urea Nitrogen 18 mg/dL (8-23); Calcium 8.4 mg/dL (8.6-10.3); Carbon Dioxide 28 mEq/L (23-29); Chloride 106 mEq/L (98-107); Glucose 156 mg/dL (70-105); Magnesium 1.8 mg/dL (1.6-2.6); Osmolality,Calculated 297 (280-300); Potassium 3.6 mEq/L (3.5-5.1); Sodium 141 mEq/L (136-145); eGFR For African Americans > 60 (> 60); eGFR For Non-African Americans > 60 (> 60)
[2019-09-03] MEDS: *HR* Heparin 5,000 UNIT/ML VIAL SQ SCH ×2 (06:15→18:23)
[2019-09-03] MEDS ORDERED: Lidocaine HCL 4 ML Topical Solution (Laryng-O-Jet Kit Sterile Pak) TP ONE (07:35)
[2019-09-03] MEDS ORDERED: Dexamethasone 4 MG/ML VIAL ONE (07:35)
[2019-09-03] MEDS ORDERED: *HR* Propofol 200 MG/20 ML VIAL IVP ONE ×2 (07:35→07:38)
[2019-09-03] MEDS ORDERED: Ondansetron 4 MG/2 ML VIAL ONE (07:35)
[2019-09-03] MEDS ORDERED: *HR* Succinylcholine 200 MG/10 ML VIAL IVP ONE (07:35)
[2019-09-03] MEDS ORDERED: Lidocaine -MPF 2% 2 ML VIAL ONE (07:35)
[2019-09-03] MEDS: Budesonide/Formoterol 160/4.5 1 PUFF INH IH SCH ×2 (07:38→20:02)
[2019-09-03] MEDS: DilTIAZem CD (24hr) 120 MG CAP.ER.24H PO SCH (10:20)
[2019-09-03] MEDS: Gabapentin 400 MG CAPSULE PO SCH ×3 (10:20→22:59)
[2019-09-03] MEDS: Metoprolol 100 MG TABLET PO SCH ×2 (10:20→22:59)
[2019-09-03 12:04] LABS: Source of Body Fluid LLL BAL
[2019-09-03 14:33] LABS: Appearance of Body Fluid Cloudy (Clear); Volume of Body Fluid 15 mL
[2019-09-03] MEDS: levoFLOXacin 750 MG/150 ML 750 MG/150 ML BAG IVPB SCH (18:23)
[2019-09-04] MEDS: Piperacillin/Tazobactam 3.375 GM in 0.9 % Sodium Chloride Mini Bag 100 ML IVPB SCH ×3 (01:10→16:16)
[2019-09-04] MEDS: Nicotine 14 MG PATCH.TD24 TD SCH ×2 (01:12→20:26)
[2019-09-04] MEDS: Acetaminophen 325 MG TABLET PO PRN ×2 (01:12→20:25)
[2019-09-04 02:51] LABS: Basophils % 0.1 %; Hematocrit 33.1 % (35.3-44.9); Hemoglobin 10.2 g/dL (11.5-15.4); Immature Granulocytes % 0.8 % (0-4); Lymphocytes # 0.5 K/mcL (0.6-4.6); Lymphocytes % 3.3 %; Mean Corpuscular HGB Conc 30.8 g/dL (31.6-35.5); Mean Corpuscular Hemoglobin 29.7 pg (28.0-33.3); Mean Corpuscular Volume 96.2 fL (83.0-100.0); Mean Platelet Volume 9.7 fL (9.4-12.4); Monocytes # 0.2 K/mcL (0.0-1.3); Neutrophils # 15.1 K/mcL (1.6-8.9); Platelet Count 236 K/mcL (140-400); Red Blood Count 3.44 M/mcL (3.82-4.97); Red Cell Distribution Width 15.3 % (11.5-14.5); Segmented Neutrophils % 94.8 %
[2019-09-04] MEDS: Ipratropium Neb 0.5 MG NEBULIZER IH SCH ×5 (03:24→19:33)
[2019-09-04] MEDS: Levalbuterol Neb 1.25 MG/3 ML IH SCH ×5 (03:24→19:33)
[2019-09-04] MEDS: MethylPREDNISolone 40 MG/ML VIAL IVP SCH (06:42)
[2019-09-04] MEDS: *HR* Heparin 5,000 UNIT/ML VIAL SQ SCH ×2 (06:42→17:22)
[2019-09-04] MEDS: Budesonide/Formoterol 160/4.5 1 PUFF INH IH SCH ×2 (07:15→19:33)
[2019-09-04] MEDS ORDERED: Aminoglycoside Consult 1 EACH MC ONE (08:00)
[2019-09-04] MEDS: Gabapentin 400 MG CAPSULE PO SCH ×3 (08:03→20:25)
[2019-09-04] MEDS: Metoprolol 100 MG TABLET PO SCH ×2 (08:03→20:24)
[2019-09-04] MEDS: DilTIAZem CD (24hr) 120 MG CAP.ER.24H PO SCH (08:03)
[2019-09-04 09:21] LABS: eGFR For African Americans > 60 (> 60); eGFR For Non-African Americans > 60 (> 60)
[2019-09-04] MEDS: levoFLOXacin 750 MG/150 ML 750 MG/150 ML BAG IVPB SCH (16:10)
[2019-09-05] MEDS: Ipratropium Neb 0.5 MG NEBULIZER IH SCH ×4 (00:06→11:19)
[2019-09-05] MEDS: Levalbuterol Neb 1.25 MG/3 ML IH SCH ×4 (00:06→11:19)
[2019-09-05] MEDS: Piperacillin/Tazobactam 3.375 GM in 0.9 % Sodium Chloride Mini Bag 100 ML IVPB SCH (00:35)
[2019-09-05 04:57] LABS: Basophils % 0.3 %; Hematocrit 34.9 % (35.3-44.9); Hemoglobin 10.6 g/dL (11.5-15.4); Immature Granulocytes % 2.2 % (0-4); Lymphocytes # 1.2 K/mcL (0.6-4.6); Lymphocytes % 10.5 %; Mean Corpuscular HGB Conc 30.4 g/dL (31.6-35.5); Mean Corpuscular Volume 95.4 fL (83.0-100.0); Mean Platelet Volume 10.1 fL (9.4-12.4); Monocytes # 0.5 K/mcL (0.0-1.3); Monocytes % 4.3 %; Neutrophils # 9.5 K/mcL (1.6-8.9); Platelet Count 244 K/mcL (140-400); Red Blood Count 3.66 M/mcL (3.82-4.97); Red Cell Distribution Width 15.6 % (11.5-14.5); Segmented Neutrophils % 82.7 %; White Blood Count 11.5 K/mcL (4.3-11.1)
[2019-09-05] MEDS: *HR* Heparin 5,000 UNIT/ML VIAL SQ SCH (06:25)
[2019-09-05] MEDS: Budesonide/Formoterol 160/4.5 1 PUFF INH IH SCH (07:43)
[2019-09-05] MEDS ORDERED: predniSONE 20 MG TABLET PO SCH (09:00)
[2019-09-05] MEDS: Metoprolol 100 MG TABLET PO SCH (09:39)
[2019-09-05] MEDS: DilTIAZem CD (24hr) 120 MG CAP.ER.24H PO SCH (09:40)
[2019-09-05] MEDS: Gabapentin 400 MG CAPSULE PO SCH ×2 (09:40→14:30)
[2019-09-05] MEDS: Acetaminophen 325 MG TABLET PO PRN (09:41)
[2019-09-05 14:32] VITALS: BP 144/88
[2019-09-06 10:44] LABS: Mycoplasma pneumoniae IgG 0.36 U/L (<=0.09)
== END 2019-09-05 15:26 | disposition home health service (06) | DRG 720 ==
LOC: 2ANU 15:16 → EMEROOARM 15:16 → SUATTDRO 18:15 → 2ANU 21:20 → 2NENU 21:31
PROVIDERS: ADMIT Internal Medicine; ATTEND Internal Medicine

== ENCOUNTER 2019-09-11 18:21 | Inpatient (IN) ==
[2019-09-11] MEDS ORDERED: Aspirin 81 MG TAB.CHEW PO ONE (18:32)
[2019-09-11 18:51] LABS: ABG Base Excess 10 mEq/L (-2 to 3); ABG HCO3 35 mEq/L (21-27); ABG Oxygen Saturation 95 % (95-98); ABG PCO2 46 mmHg (35-45); ABG PH 7.49 pH Units (7.32-7.45); ABG PO2 69 mmHg (85-104); ABG TCO2 36 mEq/L (20-26)
[2019-09-11] MEDS ORDERED: Isovue-370 500 ML BOTTLE IVP ONE (19:12)
[2019-09-11 19:24] LABS: INR 1.1
[2019-09-11 19:25] LABS: Basophils % 0.1 %; Eosinophils % 0.2 %; Hematocrit 34.4 % (35.3-44.9); Hemoglobin 10.6 g/dL (11.5-15.4); Immature Granulocytes % 1.6 % (0-4); Lymphocytes # 1.3 K/mcL (0.6-4.6); Lymphocytes % 6.2 %; Mean Corpuscular HGB Conc 30.8 g/dL (31.6-35.5); Mean Corpuscular Hemoglobin 29.3 pg (28.0-33.3); Monocytes # 0.7 K/mcL (0.0-1.3); Monocytes % 3.2 %; Platelet Count 223 K/mcL (140-400); Red Blood Count 3.62 M/mcL (3.82-4.97); Red Cell Distribution Width 16.4 % (11.5-14.5); Segmented Neutrophils % 88.7 %
[2019-09-11 19:26] LABS: Bilirubin,Urine Negative (Negative); Blood,Urine Negative (Negative); Clarity,Urine Clear (Clear); Color,Urine Dark Yellow (Yellow); Glucose,Urine (UA) Normal (Normal); Ketones,Urine Negative (Negative); Leukocyte Esterase,Urine Negative (Negative); Nitrite,Urine Negative (Negative); PH,Urine 6.5 pH Units (5.0-8.0); Protein,Urine Negative (Neg-Trace); Specific Gravity,Urine 1.019 (1.010-1.025); Urobilinogen,Urine Normal (Normal)
[2019-09-11 19:26] LABS: Activated Partial Thrombo Time 25.8 Seconds (26.0-36.0)
[2019-09-11 19:37] LABS: Neutrophils # 18.4 K/mcL (1.6-8.9); White Blood Count 20.7 K/mcL (4.3-11.1)
[2019-09-11 19:41] LABS: BUN/Creatinine Ratio 34 (6-26); Blood Urea Nitrogen 25 mg/dL (8-23); Calcium 8.8 mg/dL (8.6-10.3); Carbon Dioxide 30 mEq/L (23-29); Chloride 96 mEq/L (98-107); Glucose 115 mg/dL (70-105); Osmolality,Calculated 285 (280-300); Potassium 4.4 mEq/L (3.5-5.1); Sodium 135 mEq/L (136-145); Troponin I 0.03 ng/mL (< 0.04); eGFR For African Americans > 60 (> 60); eGFR For Non-African Americans > 60 (> 60)
[2019-09-11 20:10] LABS: Amphetamine Screen,Urine Negative ng/mL (Cutoff=1000); Barbiturate Screen,Urine Negative ng/mL (Cutoff=200); Benzodiazepines Screen,Urine Positive ng/mL (Cutoff=200); Cannabinoid Screen,Urine Negative ng/mL (Cutoff = 50); Cocaine Screen,Urine Negative ng/mL (Cutoff= 300); Opiate Screen,Urine Negative ng/mL (Cutoff=300); Phencyclidine Screen,Urine Negative ng/mL (Cutoff=25)
[2019-09-11] MEDS ORDERED: Piperacillin/Tazobactam 3.375 GM in 0.9 % Sodium Chloride Mini Bag 100 ML IVPB ONE (20:18)
[2019-09-11] MEDS ORDERED: Azithromycin 500 MG in 0.9 % Sodium Chloride 250 ML IVPB ONE (20:19)
[2019-09-11] MEDS ORDERED: LEVOFLOXACIN 750 MG/150 ML IVPB ONE (20:30)
[2019-09-11] MEDS: 0.9 % Sodium Chloride 1,000 ML IVC SCH (21:04)
[2019-09-11] MEDS ORDERED: Naloxone 0.4 MG/ML INJ IVP PRN (21:45)
[2019-09-12 02:08] LABS: Basophils % 0.1 %; Eosinophils # 0.1 K/mcL (0.0-0.6); Eosinophils % 0.6 %; Hematocrit 31.5 % (35.3-44.9); Hemoglobin 9.8 g/dL (11.5-15.4); Immature Granulocytes % 0.9 % (0-4); Lymphocytes # 1.3 K/mcL (0.6-4.6); Mean Corpuscular HGB Conc 31.1 g/dL (31.6-35.5); Mean Corpuscular Volume 96.3 fL (83.0-100.0); Monocytes # 0.6 K/mcL (0.0-1.3); Monocytes % 3.9 %; Neutrophils # 14.1 K/mcL (1.6-8.9); Platelet Count 210 K/mcL (140-400); Red Blood Count 3.27 M/mcL (3.82-4.97); Red Cell Distribution Width 16.5 % (11.5-14.5); Segmented Neutrophils % 86.5 %; White Blood Count 16.3 K/mcL (4.3-11.1)
[2019-09-12 02:29] LABS: BUN/Creatinine Ratio 33 (6-26); Blood Urea Nitrogen 19 mg/dL (8-23); Calcium 7.9 mg/dL (8.6-10.3); Carbon Dioxide 29 mEq/L (23-29); Chloride 101 mEq/L (98-107); Glucose 86 mg/dL (70-105); Osmolality,Calculated 282 (280-300); Potassium 4.3 mEq/L (3.5-5.1); Sodium 135 mEq/L (136-145); eGFR For African Americans > 60 (> 60); eGFR For Non-African Americans > 60 (> 60)
[2019-09-12] MEDS: 0.9 % Sodium Chloride 1,000 ML IVC SCH (03:58)
[2019-09-12] MEDS: *HR* Heparin 5,000 UNIT/ML VIAL SQ SCH ×3 (05:07→21:09)
[2019-09-12] MEDS ORDERED: Piperacillin/Tazobactam 3.375 GM in 0.9 % Sodium Chloride Mini Bag 100 ML IVPB SCH (08:00)
[2019-09-12] MEDS ORDERED: Acetaminophen IV 1,000 MG/100 ML INFUS..BTL IVPB ONE (08:45)
[2019-09-12] MEDS ORDERED: Ipratropium Neb 0.5 MG NEBULIZER IH PRN (15:11)
[2019-09-12] MEDS ORDERED: Levalbuterol Neb 0.63 MG/3 ML IH PRN (15:11)
[2019-09-12] MEDS ORDERED: Meropenem 1,000 MG in 0.9 % Sodium Chloride Mini Bag 100 ML IVPB SCH (16:00)
[2019-09-12 16:36] LABS: Adenovirus Not Detected (Not Detect); Bordetella Pertussis Not Detected (Not Detect); Chlamydophila pneumoniae Not Detected (Not Detect); Coronavirus 229E Not Detected (Not Detect); Coronavirus HKU1 Not Detected (Not Detect); Coronavirus NL63 Not Detected (Not Detect); Coronavirus OC43 Not Detected (Not Detect); Human Metapneumovirus Not Detected (Not Detect); Human Rhinovirus/Enterovirus Not Detected (Not Detect); Influenza A Subtype 2009 H1 Not Detected (Not Detect); Influenza B Not Detected (Not Detect); Mycoplasma pneumoniae Not Detected (Not Detect); Parainfluenza Virus 1 Not Detected (Not Detect); Parainfluenza Virus 2 Not Detected (Not Detect); Parainfluenza Virus 3 Not Detected (Not Detect); Parainfluenza Virus 4 Not Detected (Not Detect); Respiratory Syncytial Virus Not Detected (Not Detect)
[2019-09-12] MEDS: levoFLOXacin 750 MG/150 ML 750 MG/150 ML BAG IVPB SCH (17:35)
[2019-09-12] MEDS ORDERED: Ipratropium/Albuterol Neb 3 ML IH PRN (18:27)
[2019-09-12] MEDS ORDERED: *HR* LORazepam 0.5 MG TABLET PO ONE (20:57)
[2019-09-12] MEDS: TRIMETH IVPB SCH (21:03)
[2019-09-12] MEDS: SULFAMETHOXAZOLE IVPB SCH (21:03)
[2019-09-12] MEDS: WATER IVPB SCH (21:03)
[2019-09-12] MEDS: D5 IVPB SCH (21:03)
[2019-09-12] MEDS: Gabapentin 400 MG CAPSULE PO SCH (21:09)
[2019-09-12] MEDS: Metoprolol 100 MG TABLET PO SCH (21:09)
[2019-09-12] MEDS: Lactobacillus 1 EACH CAP.SPRINK PO SCH (21:09)
[2019-09-12] MEDS ORDERED: Aminoglycoside Consult 1 EACH MC ONE (21:47)
[2019-09-12] MEDS: Budesonide Neb 0.5 MG/2 ML IH SCH (22:34)
[2019-09-13] MEDS: 0.9 % Sodium Chloride 1,000 ML IVC SCH ×3 (01:16→17:39)
[2019-09-13 01:29] LABS: Basophils % 0.2 %; Eosinophils # 0.1 K/mcL (0.0-0.6); Eosinophils % 0.7 %; Hemoglobin 9.5 g/dL (11.5-15.4); Immature Granulocytes % 0.7 % (0-4); Lymphocytes # 1.3 K/mcL (0.6-4.6); Lymphocytes % 10.4 %; Mean Corpuscular HGB Conc 30.6 g/dL (31.6-35.5); Mean Corpuscular Hemoglobin 29.9 pg (28.0-33.3); Mean Corpuscular Volume 97.5 fL (83.0-100.0); Mean Platelet Volume 10.2 fL (9.4-12.4); Monocytes # 0.5 K/mcL (0.0-1.3); Monocytes % 4.5 %; Neutrophils # 10.1 K/mcL (1.6-8.9); Platelet Count 214 K/mcL (140-400); Red Blood Count 3.18 M/mcL (3.82-4.97); Red Cell Distribution Width 15.9 % (11.5-14.5); Segmented Neutrophils % 83.5 %; White Blood Count 12.1 K/mcL (4.3-11.1)
[2019-09-13 01:52] LABS: BUN/Creatinine Ratio 14 (6-26); Blood Urea Nitrogen 8 mg/dL (8-23); Calcium 8.2 mg/dL (8.6-10.3); Carbon Dioxide 28 mEq/L (23-29); Chloride 104 mEq/L (98-107); Glucose 69 mg/dL (70-105); Osmolality,Calculated 281 (280-300); Sodium 137 mEq/L (136-145); eGFR For African Americans > 60 (> 60); eGFR For Non-African Americans > 60 (> 60)
[2019-09-13 01:53] LABS: % Iron Saturation 10 % (15-50); Iron 21 mcg/dL (50-170); Transferrin 152 mg/dL (203-362)
[2019-09-13 02:11] LABS: Ferritin 134 ng/mL (10-120)
[2019-09-13 02:21] LABS: Folate > 22.3 ng/mL (3.0-16.0); Vitamin B12 1064 pg/mL (250-1100)
[2019-09-13] MEDS: *HR* Heparin 5,000 UNIT/ML VIAL SQ SCH ×3 (06:12→21:31)
[2019-09-13] MEDS: D5 IVPB SCH ×2 (06:49→20:48)
[2019-09-13] MEDS: WATER IVPB SCH ×2 (06:49→20:48)
[2019-09-13] MEDS: TRIMETH IVPB SCH ×2 (06:49→20:48)
[2019-09-13] MEDS: SULFAMETHOXAZOLE IVPB SCH ×2 (06:49→20:48)
[2019-09-13] MEDS: DilTIAZem CD (24hr) 120 MG CAP.ER.24H PO SCH (08:40)
[2019-09-13] MEDS: Nicotine 14 MG PATCH.TD24 TD SCH (08:40)
[2019-09-13] MEDS: Multivit/Ca/Min/Fe/FA 1 TAB TABLET PO SCH (08:40)
[2019-09-13] MEDS: Lactobacillus 1 EACH CAP.SPRINK PO SCH ×2 (08:40→21:31)
[2019-09-13] MEDS: Metoprolol 100 MG TABLET PO SCH ×2 (08:41→21:31)
[2019-09-13] MEDS: Gabapentin 400 MG CAPSULE PO SCH ×3 (08:41→21:31)
[2019-09-13] MEDS: Cholecalciferol (D-3) 1,000 UNIT (25MCG) TABLET PO SCH (08:41)
[2019-09-13] MEDS ORDERED: Ipratropium/Albuterol Neb 3 ML IH PRN (10:50)
[2019-09-13] MEDS: Budesonide Neb 0.5 MG/2 ML IH SCH ×2 (10:54→21:39)
[2019-09-13] MEDS: Ipratropium/Albuterol Neb 3 ML IH SCH ×2 (16:22→21:39)
[2019-09-13] MEDS: levoFLOXacin 750 MG/150 ML 750 MG/150 ML BAG IVPB SCH (18:20)
[2019-09-14] MEDS: Ipratropium/Albuterol Neb 3 ML IH SCH ×4 (03:28→22:37)
[2019-09-14 04:18] LABS: Basophils % 0.1 %; Eosinophils # 0.1 K/mcL (0.0-0.6); Eosinophils % 1.2 %; Hematocrit 29.7 % (35.3-44.9); Hemoglobin 9.2 g/dL (11.5-15.4); Immature Granulocytes % 0.6 % (0-4); Lymphocytes # 1.6 K/mcL (0.6-4.6); Lymphocytes % 22.6 %; Mean Corpuscular Hemoglobin 29.5 pg (28.0-33.3); Mean Corpuscular Volume 95.2 fL (83.0-100.0); Mean Platelet Volume 9.5 fL (9.4-12.4); Monocytes # 0.6 K/mcL (0.0-1.3); Monocytes % 8.4 %; Neutrophils # 4.6 K/mcL (1.6-8.9); Platelet Count 227 K/mcL (140-400); Red Blood Count 3.12 M/mcL (3.82-4.97); Red Cell Distribution Width 15.9 % (11.5-14.5); Segmented Neutrophils % 67.1 %; White Blood Count 6.9 K/mcL (4.3-11.1)
[2019-09-14 05:00] LABS: BUN/Creatinine Ratio 11 (6-26); Blood Urea Nitrogen 6 mg/dL (8-23); Carbon Dioxide 26 mEq/L (23-29); Chloride 105 mEq/L (98-107); Glucose 88 mg/dL (70-105); Osmolality,Calculated 285 (280-300); Sodium 139 mEq/L (136-145); eGFR For African Americans > 60 (> 60); eGFR For Non-African Americans > 60 (> 60)
[2019-09-14] MEDS: TRIMETH IVPB SCH (05:37)
[2019-09-14] MEDS: SULFAMETHOXAZOLE IVPB SCH (05:37)
[2019-09-14] MEDS: D5 IVPB SCH (05:37)
[2019-09-14] MEDS: WATER IVPB SCH (05:37)
[2019-09-14] MEDS: *HR* Heparin 5,000 UNIT/ML VIAL SQ SCH ×3 (05:38→21:25)
[2019-09-14] MEDS: 0.9 % Sodium Chloride 1,000 ML IVC SCH (07:39)
[2019-09-14] MEDS: DilTIAZem CD (24hr) 120 MG CAP.ER.24H PO SCH (09:30)
[2019-09-14] MEDS: Cholecalciferol (D-3) 1,000 UNIT (25MCG) TABLET PO SCH (09:30)
[2019-09-14] MEDS: Gabapentin 400 MG CAPSULE PO SCH ×3 (09:30→21:25)
[2019-09-14] MEDS: Nicotine 14 MG PATCH.TD24 TD SCH (09:31)
[2019-09-14] MEDS: Metoprolol 100 MG TABLET PO SCH ×2 (09:31→21:25)
[2019-09-14] MEDS: Lactobacillus 1 EACH CAP.SPRINK PO SCH ×2 (09:31→21:25)
[2019-09-14] MEDS: Multivit/Ca/Min/Fe/FA 1 TAB TABLET PO SCH (09:31)
[2019-09-14] MEDS: Budesonide Neb 0.5 MG/2 ML IH SCH ×2 (10:18→22:37)
[2019-09-14] MEDS ORDERED: E-Z-HD (BARIUM SULF) SUSPENSION PO ONE (15:19)
[2019-09-14] MEDS ORDERED: E-Z-PAQUE (BARIUM SULF) SUSP 1 BOTTLE PO ONE (15:19)
[2019-09-14] MEDS: metroNIDAZOLE 500 MG TABLET PO SCH ×2 (15:49→21:25)
[2019-09-14] MEDS: levoFLOXacin 750 MG/150 ML 750 MG/150 ML BAG IVPB SCH (16:46)
[2019-09-15] MEDS: Ipratropium/Albuterol Neb 3 ML IH SCH ×2 (03:51→09:39)
[2019-09-15] MEDS: *HR* Heparin 5,000 UNIT/ML VIAL SQ SCH (06:16)
[2019-09-15 06:36] LABS: Basophils % 0.4 %; Eosinophils # 0.1 K/mcL (0.0-0.6); Eosinophils % 1.8 %; Hematocrit 34.7 % (35.3-44.9); Hemoglobin 10.5 g/dL (11.5-15.4); Immature Granulocytes % 0.9 % (0-4); Lymphocytes # 1.4 K/mcL (0.6-4.6); Lymphocytes % 24.9 %; Mean Corpuscular HGB Conc 30.3 g/dL (31.6-35.5); Mean Corpuscular Volume 95.9 fL (83.0-100.0); Mean Platelet Volume 9.6 fL (9.4-12.4); Monocytes # 0.5 K/mcL (0.0-1.3); Monocytes % 8.9 %; Neutrophils # 3.5 K/mcL (1.6-8.9); Platelet Count 266 K/mcL (140-400); Red Blood Count 3.62 M/mcL (3.82-4.97); Red Cell Distribution Width 15.9 % (11.5-14.5); Segmented Neutrophils % 63.1 %; White Blood Count 5.5 K/mcL (4.3-11.1)
[2019-09-15 07:02] LABS: BUN/Creatinine Ratio 11 (6-26); Blood Urea Nitrogen 7 mg/dL (8-23); Calcium 8.8 mg/dL (8.6-10.3); Carbon Dioxide 27 mEq/L (23-29); Chloride 105 mEq/L (98-107); Glucose 109 mg/dL (70-105); Osmolality,Calculated 287 (280-300); Potassium 4.3 mEq/L (3.5-5.1); Sodium 139 mEq/L (136-145); eGFR For African Americans > 60 (> 60); eGFR For Non-African Americans > 60 (> 60)
[2019-09-15] MEDS: Budesonide Neb 0.5 MG/2 ML IH SCH (09:35)
[2019-09-15] MEDS: Lactobacillus 1 EACH CAP.SPRINK PO SCH (09:46)
[2019-09-15] MEDS: Metoprolol 100 MG TABLET PO SCH (09:46)
[2019-09-15] MEDS: Gabapentin 400 MG CAPSULE PO SCH (09:46)
[2019-09-15] MEDS: Multivit/Ca/Min/Fe/FA 1 TAB TABLET PO SCH (09:47)
[2019-09-15] MEDS: metroNIDAZOLE 500 MG TABLET PO SCH (09:47)
[2019-09-15] MEDS: Cholecalciferol (D-3) 1,000 UNIT (25MCG) TABLET PO SCH (09:47)
[2019-09-15] MEDS: Nicotine 14 MG PATCH.TD24 TD SCH (09:47)
[2019-09-15] MEDS: DilTIAZem CD (24hr) 120 MG CAP.ER.24H PO SCH (09:47)
[2019-09-15] MEDS ORDERED: Haloperidol Lactate 5 MG/ML VIAL IVP ONE (10:33)
[2019-09-15 11:04] VITALS: BP 114/81
== END 2019-09-15 14:05 | disposition home health service (06) | DRG 720 ==
LOC: EMEROOARM 18:21 → 2NENU 18:21 → SUATTDRO 21:46 → 2NENU 23:01
PROVIDERS: ADMIT Internal Medicine; ATTEND Internal Medicine

== ENCOUNTER 2020-01-24 19:59 | Inpatient (IN) ==
[~2020-01-24 19:59] MED LIST changes: +*HR* Etomidate 20 MG/10 ML AMPUL IVP ONE; +*HR* Rocuronium Bromide 50 MG/5 ML VIAL IVP ONE; -Aminoglycoside Consult 1 EACH MC ONE
[2020-01-24] MEDS ORDERED: 0.9 % Sodium Chloride 1,000 ML IVC ONE ×2 (20:03→20:31)
[2020-01-24] MEDS ORDERED: *HR* LORazepam 2 MG/ML VIAL IM ONE ×2 (20:03→20:50)
[2020-01-24] MEDS ORDERED: Haloperidol Lactate 5 MG/ML VIAL IM ONE (20:22)
[2020-01-24] MEDS ORDERED: Ketamine *HR* 500 MG/10 ML MDV IM ONE (21:00)
[2020-01-24] MEDS ORDERED: Ketamine *HR* 500 MG/10 ML MDV ONE (21:05)
[2020-01-24] MEDS ORDERED: 0.9 % Sodium Chloride 1,000 ML ONE (21:41)
[2020-01-24 22:10] LABS: Bacteria,Urine Many per hpf (None-Few); Bilirubin,Urine Negative (Negative); Blood,Urine Small (Negative); Clarity,Urine Turbid (Clear); Color,Urine Light-Yellow (Yellow); Glucose,Urine (UA) Normal (Normal); Ketones,Urine Negative (Negative); Leukocyte Esterase,Urine Large (Negative); Mucus,Urine Few per lpf (None-Few); Nitrite,Urine Negative (Negative); Protein,Urine Negative (Neg-Trace); RBC,Urine 0-3 per hpf (0-3); Specific Gravity,Urine 1.008 (1.010-1.025); Urobilinogen,Urine Normal (Normal)
[2020-01-24 22:12] LABS: ABG Base Excess 2 mEq/L (-2 to 3); ABG HCO3 27 mEq/L (21-27); ABG Oxygen Saturation 100 % (95-98); ABG PCO2 43 mmHg (35-45); ABG PO2 481 mmHg (85-104); ABG TCO2 28 mEq/L (20-26); Blood Gas Modality ASSIST CONTROL; Blood Gas VT 450 cc
[2020-01-24 22:13] LABS: Basophils % 0.3 %; Eosinophils % 0.3 %; Hematocrit 41.3 % (35.3-44.9); Hemoglobin 12.6 g/dL (11.5-15.4); Immature Granulocytes % 0.6 % (0-4); Lymphocytes # 1.2 K/mcL (0.6-4.6); Lymphocytes % 10.5 %; Mean Corpuscular HGB Conc 30.5 g/dL (31.6-35.5); Mean Corpuscular Hemoglobin 28.8 pg (28.0-33.3); Mean Corpuscular Volume 94.3 fL (83.0-100.0); Mean Platelet Volume 9.3 fL (9.4-12.4); Monocytes # 0.8 K/mcL (0.0-1.3); Monocytes % 7.2 %; Neutrophils # 9.2 K/mcL (1.6-8.9); Platelet Count 281 K/mcL (140-400); Red Blood Count 4.38 M/mcL (3.82-4.97); Red Cell Distribution Width 16.7 % (11.5-14.5); Segmented Neutrophils % 81.1 %; White Blood Count 11.4 K/mcL (4.3-11.1)
[2020-01-24] MEDS ORDERED: levoFLOXacin 500 MG/100 ML 500 MG/100 ML BAG IVPB ONE (22:16)
[2020-01-24 22:19] LABS: Prothrombin Time 10.9 Seconds (9.4-12.1)
[2020-01-24 22:20] LABS: Amphetamine Screen,Urine Negative ng/mL (Cutoff=1000); Barbiturate Screen,Urine Negative ng/mL (Cutoff=200); Benzodiazepines Screen,Urine Positive ng/mL (Cutoff=200); Cannabinoid Screen,Urine Positive ng/mL (Cutoff = 50); Cocaine Screen,Urine Negative ng/mL (Cutoff= 300); Opiate Screen,Urine Positive ng/mL (Cutoff=300); Phencyclidine Screen,Urine Negative ng/mL (Cutoff=25)
[2020-01-24 22:22] LABS: Activated Partial Thrombo Time 30.4 Seconds (26.0-36.0)
[2020-01-24 22:23] LABS: VBG HCO3 26 mEq/L (21-27); VBG PCO2 43 mmHg (41-51); VBG PH 7.39 pH Units (7.32-7.42); VBG PO2 136 mmHg (25-50)
[2020-01-24] MEDS: Midazolam HCl 50 MG/100 ML IV.SOLN IVC SCH (22:36)
[2020-01-24] MEDS: FentaNYL (PF) 1,000 MCG/100 ML IV.SOLN IVC SCH (22:36)
[2020-01-24] MEDS ORDERED: Dexmedetomidine HCl 0 MCG/0 ML MLS IVC ONE (22:42)
[2020-01-24] MEDS ORDERED: Piperacillin/Tazobactam 3.375 GM in 0.9 % Sodium Chloride Mini Bag 100 ML IVPB ONE (22:47)
[2020-01-24 22:54] LABS: Acetaminophen < 10 mcg/mL (10-20); Alanine Aminotransferase 47 Units/L (7-52); Albumin 3.4 g/dL (3.5-5.7); Albumin/Globulin Ratio 1.1 (1.1-2.2); Alkaline Phosphatase 135 Units/L (34-104); Aspartate Amino Transferase 28 Units/L (13-39); BUN/Creatinine Ratio 19 (6-26); Bilirubin,Direct 0.1 mg/dL (0.0-0.2); Bilirubin,Indirect 0.3 mg/dL (0.0-1.0); Bilirubin,Total 0.4 mg/dL (0.3-1.0); Blood Urea Nitrogen 11 mg/dL (8-23); Carbon Dioxide 24 mEq/L (23-29); Chloride 106 mEq/L (98-107); Creatine Kinase 384 Units/L (30-223); Ethanol < 10 mg/dL (Less than 10); Glucose 115 mg/dL (70-105); Osmolality,Calculated 294 (280-300); Salicylate < 2.5 mg/dL (15.0-30.0); Sodium 142 mEq/L (136-145); Thyroid Stimulating Hormone 1.689 mcIU/mL (0.340-5.600); Total Protein 6.4 g/dL (6.4-8.9); Troponin I < 0.03 ng/mL (< 0.04); eGFR For African Americans > 60 (> 60); eGFR For Non-African Americans > 60 (> 60)
[2020-01-25] MEDS ORDERED: Naloxone 0.4 MG/ML INJ IVP PRN (00:53)
[2020-01-25] MEDS ORDERED: 0.9 % Sodium Chloride 1,000 ML IVC SCH (01:00)
[2020-01-25] MEDS: Dexmedetomidine HCl 400 MCG/100 ML MLS IVC SCH ×2 (01:27→13:22)
[2020-01-25] MEDS ORDERED: Artificial Tears SOLN 15 ML BOTTLE BOTH EYES PRN (02:14)
[2020-01-25 02:23] LABS: ABG Base Excess 2 mEq/L (-2 to 3); ABG HCO3 29 mEq/L (21-27); ABG Oxygen Saturation 97 % (95-98); ABG PCO2 54 mmHg (35-45); ABG PH 7.34 pH Units (7.32-7.45); ABG PO2 96 mmHg (85-104); ABG TCO2 30 mEq/L (20-26); Blood Gas Modality ASSIST CONTROL; Blood Gas VT 450 cc
[2020-01-25] MEDS ORDERED: Furosemide 40 MG/4 ML VIAL IVP ONE (02:37)
[2020-01-25] MEDS ORDERED: Perflutren Lipid Microsphere 1.3 ML in 0.9 % Sodium Chloride 8.7 ML IVP PRN (02:42)
[2020-01-25] MEDS: Chlorhexidine Rinse 15 ML MOUTHWASH MM SCH ×3 (02:59→19:15)
[2020-01-25] MEDS: Artificial Tears SOLN 15 ML BOTTLE BOTH EYES SCH ×4 (02:59→19:14)
[2020-01-25] MEDS ORDERED: Vancomycin 1,500 MG/265 ML IV.SOLN IVPB ONE (03:00)
[2020-01-25 03:34] LABS: Basophils % 0.2 %; Eosinophils % 0.3 %; Hematocrit 37.3 % (35.3-44.9); Hemoglobin 11.4 g/dL (11.5-15.4); Immature Granulocytes % 0.4 % (0-4); Lymphocytes # 1.1 K/mcL (0.6-4.6); Lymphocytes % 9.5 %; Mean Corpuscular HGB Conc 30.6 g/dL (31.6-35.5); Mean Corpuscular Hemoglobin 29.5 pg (28.0-33.3); Mean Corpuscular Volume 96.4 fL (83.0-100.0); Mean Platelet Volume 9.7 fL (9.4-12.4); Monocytes # 0.7 K/mcL (0.0-1.3); Monocytes % 6.2 %; Neutrophils # 9.4 K/mcL (1.6-8.9); Platelet Count 252 K/mcL (140-400); Red Blood Count 3.87 M/mcL (3.82-4.97); Red Cell Distribution Width 16.7 % (11.5-14.5); Segmented Neutrophils % 83.4 %; White Blood Count 11.2 K/mcL (4.3-11.1)
[2020-01-25 03:54] LABS: Alanine Aminotransferase 41 Units/L (7-52); Albumin 3.1 g/dL (3.5-5.7); Albumin/Globulin Ratio 1.2 (1.1-2.2); Alkaline Phosphatase 125 Units/L (34-104); Aspartate Amino Transferase 27 Units/L (13-39); BUN/Creatinine Ratio 23 (6-26); Bilirubin,Total 0.4 mg/dL (0.3-1.0); Blood Urea Nitrogen 11 mg/dL (8-23); Calcium 8.5 mg/dL (8.6-10.3); Carbon Dioxide 26 mEq/L (23-29); Chloride 107 mEq/L (98-107); Globulin 2.6 g/dL (2.4-3.5); Glucose 113 mg/dL (70-105); Osmolality,Calculated 296 (280-300); Phosphorous 3.6 mg/dL (2.7-4.5); Potassium 3.5 mEq/L (3.5-5.1); Sodium 143 mEq/L (136-145); Total Protein 5.7 g/dL (6.4-8.9); eGFR For African Americans > 60 (> 60); eGFR For Non-African Americans > 60 (> 60)
[2020-01-25] MEDS ORDERED: Ipratropium/Albuterol Neb 3 ML IH SCH (04:00)
[2020-01-25] MEDS: Midazolam HCl 50 MG/100 ML IV.SOLN IVC SCH (04:26)
[2020-01-25 04:32] LABS: Folate > 22.3 ng/mL (3.0-16.0); Vitamin B12 534 pg/mL (250-1100)
[2020-01-25] MEDS: *HR* Heparin 5,000 UNIT/ML VIAL SQ SCH ×3 (05:08→23:07)
[2020-01-25] MEDS: Famotidine 20 MG/2 ML VIAL IVP SCH ×2 (05:08→18:24)
[2020-01-25] MEDS: FentaNYL (PF) 1,000 MCG/100 ML IV.SOLN IVC SCH (05:18)
[2020-01-25] MEDS ORDERED: Levalbuterol Neb 1.25 MG/3 ML ONE (07:08)
[2020-01-25] MEDS: Levalbuterol Neb 1.25 MG/3 ML IH SCH ×2 (07:10→22:03)
[2020-01-25] MEDS ORDERED: Haloperidol Lactate 5 MG/ML VIAL IVP ONE (07:24)
[2020-01-25] MEDS: Piperacillin/Tazobactam 3.375 GM in 0.9 % Sodium Chloride Mini Bag 100 ML IVPB SCH ×3 (08:05→23:08)
[2020-01-25] MEDS: Metoprolol 100 MG TABLET PO SCH ×2 (11:04→19:44)
[2020-01-25] MEDS: DilTIAZem CD (24hr) 120 MG CAP.ER.24H PO SCH (11:05)
[2020-01-25] MEDS ORDERED: levoFLOXacin 500 MG/100 ML 500 MG/100 ML BAG IVPB SCH (18:00)
[2020-01-26] MEDS: Artificial Tears SOLN 15 ML BOTTLE BOTH EYES SCH ×3 (04:31→07:29)
[2020-01-26 04:40] LABS: Basophils % 0.5 %; Eosinophils # 0.1 K/mcL (0.0-0.6); Eosinophils % 1.1 %; Hematocrit 37.4 % (35.3-44.9); Hemoglobin 11.3 g/dL (11.5-15.4); Immature Granulocytes % 0.6 % (0-4); Lymphocytes # 1.2 K/mcL (0.6-4.6); Lymphocytes % 13.3 %; Mean Corpuscular HGB Conc 30.2 g/dL (31.6-35.5); Mean Corpuscular Hemoglobin 29.1 pg (28.0-33.3); Mean Corpuscular Volume 96.4 fL (83.0-100.0); Mean Platelet Volume 9.6 fL (9.4-12.4); Monocytes # 0.7 K/mcL (0.0-1.3); Monocytes % 7.9 %; Neutrophils # 6.7 K/mcL (1.6-8.9); Platelet Count 248 K/mcL (140-400); Red Blood Count 3.88 M/mcL (3.82-4.97); Red Cell Distribution Width 16.6 % (11.5-14.5); Segmented Neutrophils % 76.6 %; White Blood Count 8.7 K/mcL (4.3-11.1)
[2020-01-26 04:58] LABS: BUN/Creatinine Ratio 25 (6-26); Blood Urea Nitrogen 13 mg/dL (8-23); Calcium 8.6 mg/dL (8.6-10.3); Carbon Dioxide 25 mEq/L (23-29); Chloride 102 mEq/L (98-107); Glucose 70 mg/dL (70-105); Osmolality,Calculated 289 (280-300); Potassium 3.4 mEq/L (3.5-5.1); Sodium 140 mEq/L (136-145); eGFR For African Americans > 60 (> 60); eGFR For Non-African Americans > 60 (> 60)
[2020-01-26] MEDS: Famotidine 20 MG/2 ML VIAL IVP SCH ×2 (06:06→17:29)
[2020-01-26] MEDS: *HR* Heparin 5,000 UNIT/ML VIAL SQ SCH ×3 (06:06→20:32)
[2020-01-26] MEDS: Chlorhexidine Rinse 15 ML MOUTHWASH MM SCH (07:29)
[2020-01-26] MEDS: Piperacillin/Tazobactam 3.375 GM in 0.9 % Sodium Chloride Mini Bag 100 ML IVPB SCH (07:51)
[2020-01-26] MEDS: DilTIAZem CD (24hr) 120 MG CAP.ER.24H PO SCH (07:52)
[2020-01-26] MEDS: Metoprolol 100 MG TABLET PO SCH ×2 (07:52→20:31)
[2020-01-26] MEDS: Levalbuterol Neb 1.25 MG/3 ML IH SCH ×2 (09:07→21:24)
[2020-01-26] MEDS ORDERED: NALOXONE HCL SL SCH (10:22)
[2020-01-26] MEDS ORDERED: Dexmedetomidine HCl 400 MCG/100 ML MLS IVC SCH (10:22)
[2020-01-26] MEDS ORDERED: BUPRENORPHINE HCL SL SCH (10:22)
[2020-01-26] MEDS: Budesonide/Formoterol 160/4.5 1 PUFF INH IH SCH ×2 (10:46→21:24)
[2020-01-26] MEDS: *HR* Buprenorphine HCl 8 MG TAB.SUBL SL SCH ×2 (13:27→20:31)
[2020-01-26] MEDS: Furosemide 20 MG TABLET PO SCH (13:27)
[2020-01-26] MEDS: Ibuprofen 400 MG TABLET PO PRN (16:15)
[2020-01-26] MEDS: levoFLOXacin 500 MG TABLET PO SCH (17:29)
[2020-01-26] MEDS ORDERED: levoFLOXacin 500 MG/100 ML 500 MG/100 ML BAG IVPB SCH (18:00)
[2020-01-26] MEDS: Gabapentin 400 MG CAPSULE PO SCH (20:31)
[2020-01-27] MEDS: Ibuprofen 400 MG TABLET PO PRN (03:02)
[2020-01-27 05:09] LABS: Hematocrit 39.7 % (35.3-44.9); Hemoglobin 12.4 g/dL (11.5-15.4); Mean Corpuscular HGB Conc 31.2 g/dL (31.6-35.5); Mean Platelet Volume 9.6 fL (9.4-12.4); Platelet Count 273 K/mcL (140-400); Red Blood Count 4.27 M/mcL (3.82-4.97); Red Cell Distribution Width 16.1 % (11.5-14.5); White Blood Count 6.2 K/mcL (4.3-11.1)
[2020-01-27 05:29] LABS: BUN/Creatinine Ratio 13 (6-26); Blood Urea Nitrogen 7 mg/dL (8-23); Calcium 8.8 mg/dL (8.6-10.3); Carbon Dioxide 26 mEq/L (23-29); Chloride 99 mEq/L (98-107); Glucose 85 mg/dL (70-105); Osmolality,Calculated 281 (280-300); Potassium 3.1 mEq/L (3.5-5.1); Sodium 137 mEq/L (136-145); eGFR For African Americans > 60 (> 60); eGFR For Non-African Americans > 60 (> 60)
[2020-01-27] MEDS: Famotidine 20 MG/2 ML VIAL IVP SCH ×2 (06:04→17:06)
[2020-01-27] MEDS: *HR* Heparin 5,000 UNIT/ML VIAL SQ SCH ×3 (06:05→20:43)
[2020-01-27 06:16] LABS: Magnesium 1.8 mg/dL (1.6-2.6); Phosphorous 3.2 mg/dL (2.7-4.5)
[2020-01-27] MEDS ORDERED: Promethazine 12.5 MG in 0.9 % Sodium Chloride 50 ML IVPB PRN (08:38)
[2020-01-27] MEDS ORDERED: cloNIDine HCL 0.1 MG TABLET PO PRN (08:38)
[2020-01-27] MEDS: Metoprolol 100 MG TABLET PO SCH ×2 (09:34→20:43)
[2020-01-27] MEDS: *HR* Buprenorphine HCl 8 MG TAB.SUBL SL SCH ×2 (09:34→20:43)
[2020-01-27] MEDS: Furosemide 20 MG TABLET PO SCH (09:34)
[2020-01-27] MEDS: DilTIAZem CD (24hr) 120 MG CAP.ER.24H PO SCH (09:34)
[2020-01-27] MEDS: Gabapentin 400 MG CAPSULE PO SCH ×3 (09:35→20:42)
[2020-01-27] MEDS: Budesonide/Formoterol 160/4.5 1 PUFF INH IH SCH ×2 (10:06→22:42)
[2020-01-27] MEDS: Levalbuterol Neb 1.25 MG/3 ML IH SCH ×2 (10:12→22:42)
[2020-01-27] MEDS: levoFLOXacin 500 MG TABLET PO SCH (17:06)
[2020-01-28 03:35] LABS: Basophils % 0.5 %; Eosinophils # 0.2 K/mcL (0.0-0.6); Eosinophils % 2.7 %; Hematocrit 37.1 % (35.3-44.9); Hemoglobin 11.7 g/dL (11.5-15.4); Immature Granulocytes % 0.6 % (0-4); Lymphocytes # 1.2 K/mcL (0.6-4.6); Lymphocytes % 19.4 %; Mean Corpuscular HGB Conc 31.5 g/dL (31.6-35.5); Mean Corpuscular Hemoglobin 28.7 pg (28.0-33.3); Mean Corpuscular Volume 90.9 fL (83.0-100.0); Mean Platelet Volume 9.6 fL (9.4-12.4); Monocytes # 0.5 K/mcL (0.0-1.3); Monocytes % 7.7 %; Neutrophils # 4.3 K/mcL (1.6-8.9); Platelet Count 252 K/mcL (140-400); Red Blood Count 4.08 M/mcL (3.82-4.97); Red Cell Distribution Width 16.1 % (11.5-14.5); Segmented Neutrophils % 69.1 %; White Blood Count 6.2 K/mcL (4.3-11.1)
[2020-01-28 03:51] LABS: BUN/Creatinine Ratio 9 (6-26); Blood Urea Nitrogen 5 mg/dL (8-23); Calcium 8.9 mg/dL (8.6-10.3); Carbon Dioxide 27 mEq/L (23-29); Chloride 103 mEq/L (98-107); Glucose 95 mg/dL (70-105); Osmolality,Calculated 285 (280-300); Potassium 3.4 mEq/L (3.5-5.1); Sodium 139 mEq/L (136-145); eGFR For African Americans > 60 (> 60); eGFR For Non-African Americans > 60 (> 60)
[2020-01-28] MEDS: Famotidine 20 MG/2 ML VIAL IVP SCH (04:08)
[2020-01-28] MEDS: *HR* Heparin 5,000 UNIT/ML VIAL SQ SCH (04:08)
[2020-01-28] MEDS: Metoprolol 100 MG TABLET PO SCH (08:08)
[2020-01-28] MEDS: Furosemide 20 MG TABLET PO SCH (08:08)
[2020-01-28] MEDS: DilTIAZem CD (24hr) 120 MG CAP.ER.24H PO SCH (08:08)
[2020-01-28] MEDS: *HR* Buprenorphine HCl 8 MG TAB.SUBL SL SCH (08:08)
[2020-01-28] MEDS: Gabapentin 400 MG CAPSULE PO SCH (08:09)
[2020-01-28 10:22] VITALS: BP 117/81
[2020-01-28] MEDS: Budesonide/Formoterol 160/4.5 1 PUFF INH IH SCH (10:34)
[2020-01-28] MEDS: Levalbuterol Neb 1.25 MG/3 ML IH SCH (10:35)
== END 2020-01-28 11:36 | disposition home or self-care (01) | DRG 720 ==
LOC: EMEROOARM 19:59 → ICNU 19:59 → SUATTDRO 01-25 00:53 → ICNU 01-25 02:42 → 2ANU 01-27 07:10
PROVIDERS: ADMIT Student in an Organized Health Care Education/Training Program; ATTEND Internal Medicine

== ENCOUNTER 2021-01-18 13:25 | Observation (INO) ==
[2021-01-18] MEDS ORDERED: *HR* LORazepam 0.5 MG TABLET PO ONE ×2 (14:00→16:30)
[2021-01-18] MEDS ORDERED: Aspirin 81 MG TAB.CHEW PO STA ×2 (14:00→16:16)
[2021-01-18 15:13] LABS: Bilirubin,Urine Negative (Negative); Blood,Urine Negative (Negative); Clarity,Urine Clear (Clear); Color,Urine Light-Yellow (Yellow); Glucose,Urine (UA) Normal (Normal); Ketones,Urine Negative (Negative); Leukocyte Esterase,Urine Negative (Negative); Nitrite,Urine Negative (Negative); Protein,Urine Trace mg/dL (Neg-Trace); Specific Gravity,Urine 1.019 (1.010-1.025); Urobilinogen,Urine Normal (Normal)
[2021-01-18 15:32] LABS: Amphetamine Screen,Urine Negative ng/mL (Cutoff=1000); Barbiturate Screen,Urine Negative ng/mL (Cutoff=200); Benzodiazepines Screen,Urine Positive ng/mL (Cutoff=200); Cannabinoid Screen,Urine Positive ng/mL (Cutoff = 50); Cocaine Screen,Urine Negative ng/mL (Cutoff= 300); Opiate Screen,Urine Negative ng/mL (Cutoff=300); Phencyclidine Screen,Urine Negative ng/mL (Cutoff=25)
[2021-01-18 15:59] LABS: Basophils % 0.3 %; Eosinophils % 0.1 %; Mean Platelet Volume 10.5 fL (9.4-12.4); Platelet Count 277 K/mcL (140-400); Red Cell Distribution Width 13.3 % (11.5-14.5)
[2021-01-18 16:01] LABS: Basophils # 0.1 K/mcL (0.0-0.2); Hematocrit 41.3 % (35.3-44.9); Hemoglobin 13.5 g/dL (11.5-15.4); Immature Granulocytes % 2.2 % (0-4); Lymphocytes # 1.8 K/mcL (0.6-4.6); Lymphocytes % 5.1 %; Mean Corpuscular HGB Conc 32.7 g/dL (31.6-35.5); Mean Corpuscular Hemoglobin 31.3 pg (28.0-33.3); Mean Corpuscular Volume 95.8 fL (83.0-100.0); Monocytes # 2.2 K/mcL (0.0-1.3); Monocytes % 6.3 %; Neutrophils # 30.2 K/mcL (1.6-8.9); Red Blood Count 4.31 M/mcL (3.82-4.97)
[2021-01-18 16:02] LABS: INR 1.1; Prothrombin Time 12.2 Seconds (9.4-12.1)
[2021-01-18 16:04] LABS: Activated Partial Thrombo Time 28.2 Seconds (26.0-36.0)
[2021-01-18 16:09] LABS: White Blood Count 35.1 K/mcL (4.3-11.1)
[2021-01-18 16:16] LABS: Platelet Estimate Normal (Normal)
[2021-01-18 16:17] LABS: Alanine Aminotransferase 7 Units/L (7-52); Albumin 3.8 g/dL (3.5-5.7); Albumin/Globulin Ratio 1.2 (1.1-2.2); Alkaline Phosphatase 114 Units/L (34-104); Aspartate Amino Transferase 12 Units/L (13-39); BUN/Creatinine Ratio 32 (6-26); Bilirubin,Total 0.4 mg/dL (0.3-1.0); Blood Urea Nitrogen 25 mg/dL (8-23); Calcium 8.9 mg/dL (8.6-10.3); Carbon Dioxide 20 mEq/L (23-29); Chloride 107 mEq/L (98-107); Creatine Kinase 60 Units/L (30-223); Ethanol < 10 mg/dL (Less than 10); Globulin 3.1 g/dL (2.4-3.5); Glucose 127 mg/dL (70-105); Lipase 28 Units/L (11-82); Magnesium 1.7 mg/dL (1.6-2.6); Osmolality,Calculated 292 (280-300); Potassium 3.6 mEq/L (3.5-5.1); Sodium 138 mEq/L (136-145); Total Protein 6.9 g/dL (6.4-8.9); Troponin I < 0.03 ng/mL (< 0.04); eGFR For African Americans > 60 (> 60); eGFR For Non-African Americans > 60 (> 60)
[2021-01-18] MEDS ORDERED: 0.9 % Sodium Chloride 1,000 ML IV ONE (16:25)
[2021-01-18] MEDS ORDERED: levoFLOXacin 500 MG/100 ML 500 MG/100 ML BAG IVPB ONE (16:25)
[2021-01-18] MEDS ORDERED: Isovue-370 500 ML BOTTLE IVP ONE (16:51)
[2021-01-18] MEDS ORDERED: Ondansetron 4 MG/2 ML VIAL IVP PRN (16:59)
[2021-01-18] MEDS ORDERED: Acetaminophen 325 MG TABLET PO PRN (16:59)
[2021-01-18] MEDS ORDERED: Melatonin 3 MG TABLET PO PRN (16:59)
[2021-01-18] MEDS ORDERED: Naloxone 0.4 MG/ML INJ IVP PRN (16:59)
[2021-01-18] MEDS ORDERED: Nicotine 2 MG GUM BC PRN (18:53)
[2021-01-18 19:31] LABS: Adenovirus Not Detected (Not Detect); Bordetella Pertussis Not Detected (Not Detect); Chlamydophila pneumoniae Not Detected (Not Detect); Coronavirus 229E Not Detected (Not Detect); Coronavirus HKU1 Not Detected (Not Detect); Coronavirus NL63 Not Detected (Not Detect); Coronavirus OC43 Not Detected (Not Detect); Human Metapneumovirus Not Detected (Not Detect); Human Rhinovirus/Enterovirus Not Detected (Not Detect); Influenza A Subtype 2009 H1 Not Detected (Not Detect); Influenza B Not Detected (Not Detect); Mycoplasma pneumoniae Not Detected (Not Detect); Parainfluenza Virus 1 Not Detected (Not Detect); Parainfluenza Virus 2 Not Detected (Not Detect); Parainfluenza Virus 3 Not Detected (Not Detect); Parainfluenza Virus 4 Not Detected (Not Detect); Respiratory Syncytial Virus Not Detected (Not Detect); SARS-CoV-2 Not Detected (Not Detect)
[2021-01-18] MEDS: Famotidine 20 MG TABLET PO SCH (20:03)
[2021-01-18] MEDS: Nicotine 21 MG PATCH.TD24 TD SCH (20:03)
[2021-01-18] MEDS: Pregabalin 50 MG CAPSULE PO SCH (20:03)
[2021-01-18] MEDS: Baclofen 10 MG TABLET PO PRN (21:34)
[2021-01-18] MEDS: Ipratropium/Albuterol Neb 3 ML IH SCH (22:02)
[2021-01-18] MEDS: Budesonide/Formoterol 160/4.5 1 PUFF INH IH SCH (22:02)
[2021-01-19] MEDS: Ipratropium/Albuterol Neb 3 ML IH SCH ×4 (03:46→21:59)
[2021-01-19] MEDS: Menthol 1 EACH LOZENGE PO PRN ×2 (05:05→16:51)
[2021-01-19] MEDS: Baclofen 10 MG TABLET PO PRN (05:05)
[2021-01-19] MEDS: *HR* Enoxaparin 40 MG/0.4 ML SYRINGE SQ SCH (05:06)
[2021-01-19] MEDS ORDERED: *HR* LORazepam 0.5 MG TABLET PO ONE (06:44)
[2021-01-19] MEDS: Nicotine 21 MG PATCH.TD24 TD SCH (08:47)
[2021-01-19] MEDS: Celecoxib 200 MG CAPSULE PO SCH (08:48)
[2021-01-19] MEDS: DilTIAZem CD (24hr) 120 MG CAP.ER.24H PO SCH (08:48)
[2021-01-19] MEDS: predniSONE 20 MG TABLET PO SCH (08:48)
[2021-01-19] MEDS: Pregabalin 50 MG CAPSULE PO SCH ×2 (08:48→21:29)
[2021-01-19 09:06] LABS: Hematocrit 37.2 % (35.3-44.9); Hemoglobin 12.1 g/dL (11.5-15.4); Mean Corpuscular HGB Conc 32.5 g/dL (31.6-35.5); Mean Corpuscular Hemoglobin 30.6 pg (28.0-33.3); Mean Corpuscular Volume 94.2 fL (83.0-100.0); Mean Platelet Volume 10.9 fL (9.4-12.4); Platelet Count 202 K/mcL (140-400); Red Blood Count 3.95 M/mcL (3.82-4.97); Red Cell Distribution Width 13.3 % (11.5-14.5); White Blood Count 19.7 K/mcL (4.3-11.1)
[2021-01-19] MEDS: Budesonide/Formoterol 160/4.5 1 PUFF INH IH SCH ×2 (10:18→21:59)
[2021-01-19 11:55] LABS: BUN/Creatinine Ratio 21 (6-26); Blood Urea Nitrogen 12 mg/dL (8-23); Calcium 9.3 mg/dL (8.6-10.3); Carbon Dioxide 20 mEq/L (23-29); Chloride 108 mEq/L (98-107); Glucose 114 mg/dL (70-105); Magnesium 1.7 mg/dL (1.6-2.6); Osmolality,Calculated 291 (280-300); Potassium 3.3 mEq/L (3.5-5.1); Sodium 140 mEq/L (136-145); eGFR For African Americans > 60 (> 60); eGFR For Non-African Americans > 60 (> 60)
[2021-01-19] MEDS ORDERED: levoFLOXacin 750 MG TABLET PO SCH (17:00)
[2021-01-19] MEDS: Famotidine 20 MG TABLET PO SCH (21:29)
[2021-01-20 02:48] LABS: Basophils % 0.2 %; Eosinophils % 0.1 %; Hematocrit 36.8 % (35.3-44.9); Immature Granulocytes % 0.7 % (0-4); Lymphocytes # 1.7 K/mcL (0.6-4.6); Lymphocytes % 13.2 %; Mean Corpuscular HGB Conc 32.6 g/dL (31.6-35.5); Mean Corpuscular Hemoglobin 30.8 pg (28.0-33.3); Mean Corpuscular Volume 94.4 fL (83.0-100.0); Mean Platelet Volume 10.2 fL (9.4-12.4); Monocytes # 0.5 K/mcL (0.0-1.3); Monocytes % 4.1 %; Neutrophils # 10.5 K/mcL (1.6-8.9); Platelet Count 222 K/mcL (140-400); Red Cell Distribution Width 13.1 % (11.5-14.5); Segmented Neutrophils % 81.7 %; White Blood Count 12.8 K/mcL (4.3-11.1)
[2021-01-20 02:59] LABS: BUN/Creatinine Ratio 13 (6-26); Blood Urea Nitrogen 7 mg/dL (8-23); Calcium 8.9 mg/dL (8.6-10.3); Carbon Dioxide 22 mEq/L (23-29); Chloride 108 mEq/L (98-107); Glucose 103 mg/dL (70-105); Magnesium 1.8 mg/dL (1.6-2.6); Osmolality,Calculated 288 (280-300); Phosphorous 2.3 mg/dL (2.7-4.5); Potassium 3.2 mEq/L (3.5-5.1); Sodium 140 mEq/L (136-145); eGFR For African Americans > 60 (> 60); eGFR For Non-African Americans > 60 (> 60)
[2021-01-20] MEDS: Ipratropium/Albuterol Neb 3 ML IH SCH ×2 (03:06→09:49)
[2021-01-20] MEDS: *HR* Enoxaparin 40 MG/0.4 ML SYRINGE SQ SCH (04:19)
[2021-01-20] MEDS ORDERED: Cholecalciferol (D-3) 1,000 UNIT (25MCG) TABLET PO SCH (09:00)
[2021-01-20] MEDS: Budesonide/Formoterol 160/4.5 1 PUFF INH IH SCH (09:49)
[2021-01-20 09:50] VITALS: O2SAT 92
[2021-01-20] MEDS: Nicotine 21 MG PATCH.TD24 TD SCH (09:56)
[2021-01-20] MEDS: DilTIAZem CD (24hr) 120 MG CAP.ER.24H PO SCH (09:57)
[2021-01-20] MEDS: predniSONE 20 MG TABLET PO SCH (09:57)
[2021-01-20] MEDS: Celecoxib 200 MG CAPSULE PO SCH (09:57)
[2021-01-20] MEDS: Pregabalin 50 MG CAPSULE PO SCH (09:57)
[2021-01-20 10:56] VITALS: BP 149/84; PULSE 97; TEMP 98.8
== END 2021-01-20 15:20 | disposition home or self-care (01) ==
LOC: 2ANU 13:25 → EMEROOARM 13:25 → SUATTDRO 17:20 → 2ANU 18:10
PROVIDERS: ADMIT Internal Medicine; ATTEND Internal Medicine

== ENCOUNTER 2021-01-31 00:52 | Observation (INO) ==
[2021-01-31] MEDS ORDERED: Naloxone 0.4 MG/ML INJ IVP ONE (00:57)
[2021-01-31] MEDS ORDERED: 0.9 % Sodium Chloride 1,000 ML ONE (01:01)
[2021-01-31] MEDS ORDERED: 0.9 % Sodium Chloride 1,000 ML IVC ONE ×3 (01:01→05:07)
[2021-01-31 01:18] LABS: ABG Base Excess 3 mEq/L (-2 to 3); ABG HCO3 29 mEq/L (21-27); ABG Oxygen Saturation 87 % (95-98); ABG PCO2 49 mmHg (35-45); ABG PH 7.38 pH Units (7.32-7.45); ABG PO2 55 mmHg (85-104); ABG TCO2 30 mEq/L (20-26); Blood Gas Modality ASSIST CONTROL; Blood Gas Pressure Support 6 cm H2O
[2021-01-31 01:20] LABS: Basophils % 0.2 %; Lymphocytes % 6.7 %; Platelet Count 285 K/mcL (140-400)
[2021-01-31 01:21] LABS: Basophils # 0.1 K/mcL (0.0-0.2); Eosinophils # 0.2 K/mcL (0.0-0.6); Eosinophils % 0.5 %; Hematocrit 40.7 % (35.3-44.9); Hemoglobin 13.4 g/dL (11.5-15.4); Immature Granulocytes % 1.4 % (0-4); Lymphocytes # 2.7 K/mcL (0.6-4.6); Mean Corpuscular HGB Conc 32.9 g/dL (31.6-35.5); Mean Corpuscular Hemoglobin 31.7 pg (28.0-33.3); Mean Corpuscular Volume 96.2 fL (83.0-100.0); Mean Platelet Volume 10.4 fL (9.4-12.4); Monocytes # 1.7 K/mcL (0.0-1.3); Monocytes % 4.2 %; Neutrophils # 34.5 K/mcL (1.6-8.9); Red Blood Count 4.23 M/mcL (3.82-4.97); Red Cell Distribution Width 13.6 % (11.5-14.5)
[2021-01-31] MEDS ORDERED: Isovue-370 500 ML BOTTLE IVP ONE (01:23)
[2021-01-31 01:27] LABS: White Blood Count 39.6 K/mcL (4.3-11.1)
[2021-01-31 01:32] LABS: Platelet Estimate Normal (Normal)
[2021-01-31 01:35] LABS: Prothrombin Time 11.2 Seconds (9.4-12.1)
[2021-01-31] MEDS ORDERED: levoFLOXacin 750 MG/150 ML 750 MG/150 ML BAG IVPB ONE (01:44)
[2021-01-31 01:46] LABS: Activated Partial Thrombo Time 21.6 Seconds (26.0-36.0)
[2021-01-31 01:50] LABS: Alanine Aminotransferase 12 Units/L (7-52); Albumin 3.6 g/dL (3.5-5.7); Albumin/Globulin Ratio 1.4 (1.1-2.2); Alkaline Phosphatase 90 Units/L (34-104); Aspartate Amino Transferase 10 Units/L (13-39); BUN/Creatinine Ratio 32 (6-26); Bilirubin,Direct 0.1 mg/dL (0.0-0.2); Bilirubin,Indirect 0.6 mg/dL (0.0-1.0); Bilirubin,Total 0.7 mg/dL (0.3-1.0); Blood Urea Nitrogen 25 mg/dL (8-23); Calcium 8.6 mg/dL (8.6-10.3); Carbon Dioxide 29 mEq/L (23-29); Chloride 103 mEq/L (98-107); Creatine Kinase 35 Units/L (30-223); Ethanol < 10 mg/dL (Less than 10); Globulin 2.6 g/dL (2.4-3.5); Glucose 94 mg/dL (70-105); Osmolality,Calculated 290 (280-300); Potassium 4.3 mEq/L (3.5-5.1); Sodium 138 mEq/L (136-145); Total Protein 6.2 g/dL (6.4-8.9); eGFR For African Americans > 60 (> 60); eGFR For Non-African Americans > 60 (> 60)
[2021-01-31 02:21] LABS: Bilirubin,Urine Negative (Negative); Blood,Urine Negative (Negative); Clarity,Urine Clear (Clear); Color,Urine Light-Yellow (Yellow); Glucose,Urine (UA) Normal (Normal); Ketones,Urine Negative (Negative); Leukocyte Esterase,Urine Negative (Negative); Nitrite,Urine Negative (Negative); Protein,Urine Negative (Neg-Trace); Specific Gravity,Urine 1.016 (1.010-1.025); Urobilinogen,Urine Normal (Normal)
[2021-01-31 02:33] LABS: Troponin I < 0.03 ng/mL (< 0.04)
[2021-01-31 02:37] LABS: Amphetamine Screen,Urine Negative ng/mL (Cutoff=1000); Barbiturate Screen,Urine Negative ng/mL (Cutoff=200); Benzodiazepines Screen,Urine Positive ng/mL (Cutoff=200); Cannabinoid Screen,Urine Positive ng/mL (Cutoff = 50); Cocaine Screen,Urine Negative ng/mL (Cutoff= 300); Opiate Screen,Urine Negative ng/mL (Cutoff=300); Phencyclidine Screen,Urine Negative ng/mL (Cutoff=25)
[2021-01-31 02:46] LABS: Thyroid Stimulating Hormone 1.963 mcIU/mL (0.340-5.600)
[2021-01-31 02:46] LABS: Adenovirus Not Detected (Not Detect); Bordetella Pertussis Not Detected (Not Detect); Chlamydophila pneumoniae Not Detected (Not Detect); Coronavirus 229E Not Detected (Not Detect); Coronavirus HKU1 Not Detected (Not Detect); Coronavirus NL63 Not Detected (Not Detect); Coronavirus OC43 Not Detected (Not Detect); Human Metapneumovirus Not Detected (Not Detect); Human Rhinovirus/Enterovirus Not Detected (Not Detect); Influenza A Subtype 2009 H1 Not Detected (Not Detect); Influenza B Not Detected (Not Detect); Mycoplasma pneumoniae Not Detected (Not Detect); Parainfluenza Virus 1 Not Detected (Not Detect); Parainfluenza Virus 2 Not Detected (Not Detect); Parainfluenza Virus 3 Not Detected (Not Detect); Parainfluenza Virus 4 Not Detected (Not Detect); Respiratory Syncytial Virus Not Detected (Not Detect); SARS-CoV-2 Not Detected (Not Detect)
[2021-01-31] MEDS ORDERED: Ipratropium/Albuterol Neb 3 ML IH ONE (03:09)
[2021-01-31 03:33] VITALS: O2SAT 100
[2021-01-31 04:52] VITALS: PULSE 81
[2021-01-31 05:25] VITALS: BP 122/85
[2021-01-31] MEDS ORDERED: Acetaminophen 325 MG TABLET PO PRN (05:27)
[2021-01-31] MEDS ORDERED: Ondansetron 4 MG/2 ML VIAL IVP PRN (05:27)
[2021-01-31] MEDS ORDERED: Naloxone 0.4 MG/ML INJ IVP PRN (05:27)
[2021-01-31] MEDS ORDERED: Melatonin 3 MG TABLET PO PRN (05:27)
[2021-01-31 06:10] VITALS: TEMP 98.2
[2021-01-31] MEDS ORDERED: Albuterol 2.5 MG/3 ML NEBULIZER IH PRN (06:44)
[2021-01-31] MEDS ORDERED: Ipratropium/Albuterol Neb 3 ML IH SCH (11:00)
[2021-01-31] MEDS ORDERED: *HR* Heparin 5,000 UNIT/ML VIAL SQ SCH (18:00)
== END 2021-01-31 11:40 | disposition left against medical advice (07) ==
LOC: CDU 00:52 → EMEROOARM 00:52 → SUATTDRO 04:11 → CDU 05:25
PROVIDERS: ADMIT Family Medicine; ATTEND Internal Medicine

== ENCOUNTER 2022-04-14 13:30 | Observation (INO) ==
[2022-04-14] MEDS ORDERED: Iopamidol - 370 500 ML MLS IVP ONE (13:54)
[2022-04-14 14:12] LABS: Hematocrit 47.1 % (35.3-44.9); Hemoglobin 15.1 g/dL (11.5-15.4); Mean Corpuscular HGB Conc 32.1 g/dL (31.6-35.5); Mean Corpuscular Hemoglobin 30.9 pg (28.0-33.3); Mean Corpuscular Volume 96.5 fL (83.0-100.0); Mean Platelet Volume 9.7 fL (9.4-12.4); Platelet Count 407 K/mcL (140-400); Red Blood Count 4.88 M/mcL (3.82-4.97); Red Cell Distribution Width 12.4 % (11.5-14.5)
[2022-04-14 14:30] LABS: BUN/Creatinine Ratio 16 (6-26); Blood Urea Nitrogen 8 mg/dL (8-23); Calcium 9.8 mg/dL (8.6-10.3); Carbon Dioxide 27 mEq/L (23-29); Chloride 106 mEq/L (98-107); Ethanol < 10 mg/dL (Less than 10); Glucose 106 mg/dL (70-105); Osmolality,Calculated 289 (280-300); Potassium 4.2 mEq/L (3.5-5.1); Sodium 140 mEq/L (136-145); Troponin I < 0.03 ng/mL (< 0.04)
[2022-04-14 14:39] LABS: INR 1.1; Prothrombin Time 11.8 Seconds (9.4-12.1)
[2022-04-14 15:27] LABS: Amphetamine Screen,Urine Negative ng/mL (Cutoff=1000); Barbiturate Screen,Urine Negative ng/mL (Cutoff=200); Benzodiazepines Screen,Urine Positive ng/mL (Cutoff=200); Cannabinoid Screen,Urine Positive ng/mL (Cutoff = 50); Cocaine Screen,Urine Negative ng/mL (Cutoff= 300); Opiate Screen,Urine Negative ng/mL (Cutoff=300); Phencyclidine Screen,Urine Negative ng/mL (Cutoff=25)
[2022-04-14 15:41] LABS: Bilirubin,Urine Negative (Negative); Blood,Urine Negative (Negative); Clarity,Urine Clear (Clear); Color,Urine Yellow (Yellow); Glucose,Urine (UA) Normal (Normal); Ketones,Urine Negative (Negative); Leukocyte Esterase,Urine Negative (Negative); Nitrite,Urine Negative (Negative); Protein,Urine 30 mg/dL (Neg-Trace); Specific Gravity,Urine 1.025 (1.010-1.025); Urobilinogen,Urine Normal (Normal)
[2022-04-14 15:43] LABS: Squamous Epithelial Cell,Urine Few per hpf (None-Few)
[2022-04-14 15:44] LABS: Bacteria,Urine Few per hpf (None-Few); RBC,Urine 0-3 per hpf (0-3); WBC,Urine 0-3 per hpf (0-3)
[2022-04-14] MEDS ORDERED: Aspirin 81 MG TAB.CHEW PO ONE (17:26)
[2022-04-14] MEDS ORDERED: Ipratropium/Albuterol Neb 3 ML IH PRN (17:44)
[2022-04-14 18:07] LABS: Alanine Aminotransferase 9 Units/L (7-52); Albumin/Globulin Ratio 1.1 (1.1-2.2); Alkaline Phosphatase 123 Units/L (34-104); Aspartate Amino Transferase 13 Units/L (13-39); Bilirubin,Indirect 0.2 mg/dL (0.0-1.0); Bilirubin,Total 0.2 mg/dL (0.3-1.0); Globulin 3.7 g/dL (2.4-3.5); Total Protein 7.7 g/dL (6.4-8.9)
[2022-04-14] MEDS ORDERED: *HR* Labetalol 20 MG/4 ML SYRINGE IVP PRN (18:14)
[2022-04-14] MEDS ORDERED: Acetaminophen 325 MG TABLET PO ONE (19:33)
[2022-04-14] MEDS: Famotidine 20 MG TABLET PO SCH (20:23)
[2022-04-14] MEDS: Budesonide/Formoterol 160/4.5 1 PUFF INH IH SCH (22:44)
[2022-04-14] MEDS ORDERED: Melatonin 3 MG TABLET PO ONE (23:17)
[2022-04-14] MEDS ORDERED: *HR* Metoprolol 5 MG/5 ML VIAL IVP ONE (23:19)
[2022-04-15] MEDS: *HR* Enoxaparin 40 MG/0.4 ML SYRINGE SQ SCH (05:38)
[2022-04-15] MEDS: Budesonide/Formoterol 160/4.5 1 PUFF INH IH SCH ×2 (07:50→20:38)
[2022-04-15] MEDS: Cholecalciferol (D-3) 1,000 UNIT (25MCG) TABLET PO SCH (08:01)
[2022-04-15] MEDS: Cyanocobalamin (B-12) 1,000 MCG TABLET PO SCH (08:01)
[2022-04-15] MEDS: Aspirin Enteric Coated 81 MG Tablet PO SCH (08:02)
[2022-04-15 11:02] LABS: INR 1.1; Prothrombin Time 12.2 Seconds (9.4-12.1)
[2022-04-15 11:18] LABS: Alanine Aminotransferase 8 Units/L (7-52); Albumin 3.8 g/dL (3.5-5.7); Albumin/Globulin Ratio 1.1 (1.1-2.2); Alkaline Phosphatase 111 Units/L (34-104); Aspartate Amino Transferase 13 Units/L (13-39); BUN/Creatinine Ratio 21 (6-26); Bilirubin,Total 0.2 mg/dL (0.3-1.0); Blood Urea Nitrogen 10 mg/dL (8-23); Calcium 9.9 mg/dL (8.6-10.3); Carbon Dioxide 24 mEq/L (23-29); Chloride 107 mEq/L (98-107); Cholesterol 158 mg/dL (< 200); Globulin 3.5 g/dL (2.4-3.5); Glucose 105 mg/dL (70-105); HDL Cholesterol 53 mg/dL (40-59); LDL Cholesterol,Calculated 78 mg/dL (< 100); Osmolality,Calculated 291 (280-300); Potassium 3.7 mEq/L (3.5-5.1); Sodium 141 mEq/L (136-145); Total Protein 7.3 g/dL (6.4-8.9); Triglycerides 136 mg/dL (< 150); Troponin I < 0.03 ng/mL (< 0.04)
[2022-04-15 12:29] LABS: Estimated Average Glucose 123 mg/dl; Hemoglobin A1C 5.9 %
[2022-04-15] MEDS ORDERED: Ondansetron 4 MG/2 ML VIAL IVP ONE (13:15)
[2022-04-15] MEDS ORDERED: Acetaminophen 325 MG TABLET PO PRN (16:02)
[2022-04-15] MEDS: Famotidine 20 MG TABLET PO SCH (19:50)
[2022-04-15] MEDS ORDERED: Melatonin 3 MG TABLET PO ONE (22:32)
[2022-04-16] MEDS: *HR* Enoxaparin 40 MG/0.4 ML SYRINGE SQ SCH (05:25)
[2022-04-16] MEDS: Budesonide/Formoterol 160/4.5 1 PUFF INH IH SCH (08:10)
[2022-04-16] MEDS: Aspirin Enteric Coated 81 MG Tablet PO SCH (08:42)
[2022-04-16] MEDS: Cyanocobalamin (B-12) 1,000 MCG TABLET PO SCH (08:42)
[2022-04-16] MEDS: Cholecalciferol (D-3) 1,000 UNIT (25MCG) TABLET PO SCH (08:42)
[2022-04-16] MEDS ORDERED: clonazePAM 0.5 MG TABLET PO PRN (08:54)
[2022-04-16] MEDS ORDERED: DilTIAZem CD (24hr) 120 MG CAP.ER.24H PO SCH (09:00)
[2022-04-16] MEDS ORDERED: Metoprolol 100 MG TABLET PO SCH (09:00)
[2022-04-16] MEDS ORDERED: Gabapentin 300 MG CAPSULE PO SCH (09:00)
[2022-04-16 12:03] VITALS: BP 127/87; PULSE 89; TEMP 97.7; O2SAT 92
== END 2022-04-16 12:13 | disposition home or self-care (01) ==
LOC: 3BNU 13:30 → EMEROOARM 13:30 → SUATTDRO 17:44 → 3BNU 18:34
PROVIDERS: ADMIT Internal Medicine; ATTEND Internal Medicine